=== PATIENT | male | born 1955 | race African-American/Black ===

== ENCOUNTER 2017-08-13 19:06 | Inpatient (IN) | payer MEDICARE, MEDICAID ==
[~2017-08-13] VITALS: Ht 182.9 cm; Wt 74.8 kg
[~2017-08-13 19:06] MED LIST: NORCO 5-325 TA1 EACH PO
[2017-08-13] MEDS ORDERED: PRAVASTATIN SOD40 M1 ORAL (23:13)
[2017-08-13] MEDS ORDERED: METFORMIN HCL500 M3 ORAL (23:13)
[2017-08-13] MEDS ORDERED: DIPHENHYDRAMINE25 M1 ORAL (23:13)
[2017-08-13] MEDS ORDERED: ASPIRIN81 M3 PO (23:13)
[2017-08-13] MEDS ORDERED: LISINOPRIL20 MG ORAL (23:13)
[2017-08-13] MEDS ORDERED: Norco 5mg/325mg tab ORAL PRN (23:15)
[2017-08-13] MEDS: D5 1/2NS w/KCl 20mEq 1,000 ML IV SCH (23:59)
[2017-08-14] VITALS (8 sets, daily range): BP systolic 110–144; BP diastolic 57–71
[2017-08-14] MEDS: Morphine Sulfate 2mg/ml Inj IVP PRN ×4 (05:44→20:55)
[2017-08-14] MEDS: NovoLOG Insulin Flexpen SUBQ SCH ×4 (05:45→20:54)
[2017-08-14 06:56] LABS: MEAN CORPUSCULAR VOLUME 86 FL (80-99); PLATELET COUNT 67 K/UL (150-450); RED BLOOD COUNT 2.45 M/UL (4.70-6.10); RED CELL DISTRIBUTION WIDTH 14.4 % (11.6-14.8); WHITE BLOOD COUNT 3.5 K/UL (4.8-10.8)
[2017-08-14 07:02] LABS: HEMOGLOBIN 6.7 G/DL (14.2-18.0)
[2017-08-14 07:25] LABS: ALANINE AMINOTRANSFERASE 13 U/L (12-78); ALBUMIN 3.1 G/DL (3.4-5.0); ALKALINE PHOSPHATASE 195 U/L (46-116); ANION GAP 6 mmol/L (5-15); ASPARTATE AMINO TRANSFERASE 27 U/L (15-37); BILIRUBIN,TOTAL 0.3 MG/DL (0.2-1.0); BLOOD UREA NITROGEN 19 mg/dL (7-18); CALCIUM 10.1 MG/DL (8.5-10.1); CARBON DIOXIDE 29 MMOL/L (21-32); CHLORIDE 107 MMOL/L (98-107); CREATININE 1.6 MG/DL (0.55-1.30); PHOSPHORUS 3.5 MG/DL (2.5-4.9); POTASSIUM 3.7 MMOL/L (3.5-5.1); SODIUM 142 MMOL/L (136-145)
[2017-08-14 07:43] LABS: % IRON SATURATION 26 % (15-50); IRON 57 ug/dL (50-175); TOTAL IRON BINDING CAPACITY 222 ug/dL (250-450)
[2017-08-14] MEDS: Aspirin Baby 81mg ORAL SCH (09:10)
[2017-08-14] MEDS: Lisinopril 20mg tab ORAL SCH (09:12)
[2017-08-14] MEDS: D5 1/2NS w/KCl 20mEq 1,000 ML IV SCH (09:52)
--- NOTE | 2017-08-14 15:45 | Consultation ---
History of Present Illness General Date patient seen: Aug 14, 2017 Present Illness HPI 61 year old male with hx of DM, HTN, was taken to [facility] and was diagnosed to have symptomatic anemia. He has lost around 20 pounds in the last few month. C/o shooting pain in legs. Allergies: Coded Allergies: No Known Allergies (Unverified , 08/13/17) Medication History Scheduled Aspirin (Aspirin), 81 MG PO DAILY, (Reported) Diphenhydramine Hcl* (Diphenhydramine Hcl*), 50 MG ORAL BEDTIME, (Reported) Hydrocodone Bit/Acetaminophen 5-325* ([place] 5-325*), 1 TAB PO Q8HR Lisinopril (Lisinopril*), 10 MG ORAL DAILY, (Reported) Metformin Hcl (Metformin Hcl Er), 500 MG ORAL BID, (Reported) Pravastatin Sod (Pravastatin Sod), 20 MG ORAL DAILY, (Reported) Patient History Healthcare decision maker Resuscitation status Full Code Advanced Directive on File No Past Medical/Surgical History Past Medical/Surgical History: (1) Diabetes mellitus (2) Methadone maintenance therapy patient Review of Systems Constitutional: Reports: malaise, weakness All Other Systems: negative except mentioned in HPI Physical Exam General Appearance: WD/WN, no apparent distress Lines, tubes and drains: peripheral HEENT: normocephalic, atraumatic Respiratory/Chest: chest wall non-tender, lungs clear Breasts: no masses Cardiovascular/Chest: normal rate, regularly irregular Abdomen: non tender Genitourinary/Rectal: normal genital exam Extremities: normal range of motion Last 24 Hour Vital Signs Date Time Temp Pulse Resp B/P (MAP) Pulse Ox O2 Delivery O2 Flow Rate FiO2 08/14/17 12:50 98.5 100 20 126/71 95 Room Air 08/14/17 12:35 98.7 96 18 110/57 99 Room Air 08/14/17 12:00 98.7 96 19 110/57 97 08/14/17 10:24 98.6 08/14/17 09:12 115/69 08/14/17 08:00 Room Air 08/14/17 08:00 98.6 92 19 115/69 96 08/14/17 06:09 97 08/14/17 04:56 97.9 98 18 122/62 97 08/14/17 04:56 97 Room Air 08/14/17 00:00 93 Room Air 08/14/17 00:00 98.1 107 19 120/68 93 Intake and Output 08/13/17 08/14/17 19:00 07:00 Intake Total 885 ml Output Total 700 ml Balance 185 ml Intake Oral 360 ml IV Total 525 ml Output Urine Total 700 ml # Voids 2 Laboratory Tests Test 08/14/17 05:35 White Blood Count 3.5 K/UL (4.8-10.8) L Red Blood Count 2.45 M/UL (4.70-6.10) L Hemoglobin 6.7 G/DL (14.2-18.0) *L Hematocrit 21.0 % (42.0-52.0) L Mean Corpuscular Volume 86 FL (80-99) Mean Corpuscular Hemoglobin 27.4 PG (27.0-31.0) Mean Corpuscular Hemoglobin Concent 32.0 G/DL (32.0-36.0) Red Cell Distribution Width 14.4 % (11.6-14.8) Platelet Count 67 K/UL (150-450) L Mean Platelet Volume 6.2 FL (6.5-10.1) L Neutrophils (%) (Auto) % (45.0-75.0) Lymphocytes (%) (Auto) % (20.0-45.0) Monocytes (%) (Auto) % (1.0-10.0) Eosinophils (%) (Auto) % (0.0-3.0) Basophils (%) (Auto) % (0.0-2.0) Differential Total Cells Counted 100 Neutrophils % (Manual) 52 % (45-75) Lymphocytes % (Manual) 35 % (20-45) Monocytes % (Manual) 10 % (1-10) Eosinophils % (Manual) 2 % (0-3) Basophils % (Manual) 1 % (0-2) Band Neutrophils 0 % (0-8) Platelet Estimate Decreased L Platelet Morphology Normal Hypochromasia 3+ Anisocytosis 1+ Spherocytes 1+ Sodium Level 142 MMOL/L (136-145) Potassium Level 3.7 MMOL/L (3.5-5.1) Chloride Level 107 MMOL/L (98-107) Carbon Dioxide Level 29 MMOL/L (21-32) Anion Gap 6 mmol/L (5-15) Blood Urea Nitrogen 19 mg/dL (7-18) H Creatinine 1.6 MG/DL (0.55-1.30) H Estimat Glomerular Filtration Rate 53.3 mL/min (>60) Glucose Level 95 MG/DL (74-106) Hemoglobin A1c 6.7 % (4.3-6.0) H Calcium Level 10.1 MG/DL (8.5-10.1) Calcium (Send out) Pending Phosphorus Level 3.5 MG/DL (2.5-4.9) Magnesium Level 1.0 MG/DL (1.8-2.4) L Iron Level 57 ug/dL (50-175) Total Iron Binding Capacity 222 ug/dL (250-450) L Percent Iron Saturation 26 % (15-50) Unsaturated Iron Binding 165 ug/dL (112-346) Total Bilirubin 0.3 MG/DL (0.2-1.0) Aspartate Amino Transf (AST/SGOT) 27 U/L (15-37) Alanine Aminotransferase (ALT/SGPT) 13 U/L (12-78) Alkaline Phosphatase 195 U/L (46-116) H Total Protein 6.2 G/DL (6.4-8.2) L Albumin 3.1 G/DL (3.4-5.0) L Globulin 3.1 g/dL Albumin/Globulin Ratio 1.0 (1.0-2.7) Vitamin D 25-Hydroxy Pending 25-Hydroxy Vitamin D2 Pending 25-Hydroxy Vitamin D3 Pending Parathyroid Hormone (Intact) Pending Height (Feet): 6 Weight (Pounds): 165 Medications Current Medications Medications (Trade) Dose Ordered Sig/Ramon Route PRN Reason Start Time Stop Time Status Last Admin Dose Admin Acetaminophen (Tylenol) 650 mg Q6H PRN ORAL Mild Pain/Temp > 100.5 08/13/17 23:15 09/12/17 23:14 Acetaminophen/ Hydrocodone Bitart ([place] 5/325) 1 tab Q6H PRN ORAL For Pain 08/13/17 23:15 08/20/17 23:14 Aspirin (ASA) 81 mg DAILY ORAL 08/14/17 09:00 09/13/17 08:59 08/14/17 09:10 Dextrose (Dextrose 50%) STAT PRN IV Hypoglycemia 08/13/17 23:15 09/12/17 23:14 Diphenhydramine HCl (Benadryl) 50 mg BEDTIME ORAL 08/14/17 21:00 09/13/17 20:59 Insulin Aspart (NovoLOG) BEFORE MEALS AND HS SUBQ 08/14/17 06:30 09/13/17 06:29 08/14/17 11:38 Lisinopril (Prinivil) 10 mg DAILY ORAL 08/14/17 09:00 09/13/17 08:59 08/14/17 09:12 Morphine Sulfate (Morphine Sulfate) 2 mg Q4H PRN IVP Severe Pain (Pain Scale 7-10) 08/13/17 23:15 08/20/17 23:14 08/14/17 09:54 Ondansetron HCl (Zofran) 4 mg EVERY 4 HOURS PRN IVP Nausea & Vomiting 08/13/17 23:15 09/12/17 23:14 Pravastatin Sodium (Pravachol) 20 mg DAILY ORAL 08/14/17 09:00 09/13/17 08:59 08/14/17 09:10 Assessment/Plan Problem List: (1) Anemia ICD Codes: D64.9 - Anemia, unspecified SNOMED: 077054704 (2) Hypercalcemia ICD Codes: E83.52 - Hypercalcemia SNOMED: 65288836 (3) Weight loss of more than 10% body weight ICD Codes: R63.4 - Abnormal weight loss SNOMED: 28443000 (4) Diabetes mellitus ICD Codes: E11.9 - Type 2 diabetes mellitus without complications SNOMED: 51221847 (5) Methadone maintenance therapy patient ICD Codes: F11.20 - Opioid dependence, uncomplicated SNOMED: 849339111 Assessment/Plan prbc symptomatic treatment Rule out occult malignancy GI evaluation. RACHID ZAMORA Aug 14, 2017 15:45
[2017-08-14 16:01] LABS: CREATINE KINASE 132 U/L (26-308)
--- NOTE | 2017-08-14 17:35 | History & Physical ---
History and Physical History & Physicial Dictated for Int Med-Dr Barba no. [id number]. LUANN REGALADO Aug 14, 2017 17:35
[2017-08-15] VITALS: BP 119/64
[2017-08-15 02:23] LABS: APPEARANCE,URINE CLEAR; BILIRUBIN, URINE NEGATIVE (NEGATIVE); COLOR,URINE PALE YELLOW; GLUCOSE, URINE (UA) NEGATIVE (NEGATIVE); KETONES,URINE NEGATIVE (NEGATIVE); LEUKOCYTE ESTERASE ,URINE NEGATIVE (NEGATIVE); NITRITE,URINE NEGATIVE (NEGATIVE); PH,URINE 5 (4.5-8.0); PROTEIN,URINE NEGATIVE (NEGATIVE); UROBILINOGEN,URINE NORMAL MG/DL (0.0-1.0)
[2017-08-15 04:25] VITALS: BP 121/78
[2017-08-15] MEDS: NovoLOG Insulin Flexpen SUBQ SCH ×4 (06:02→21:00)
[2017-08-15 07:24] LABS: INR 1.2 (0.9-1.1)
[2017-08-15] MEDS: Morphine Sulfate 2mg/ml Inj IVP PRN ×4 (07:29→21:09)
[2017-08-15 07:35] LABS: HEMATOCRIT 25.9 % (42.0-52.0); HEMOGLOBIN 8.4 G/DL (14.2-18.0); MEAN CORPUSCULAR VOLUME 87 FL (80-99); PLATELET COUNT 86 K/UL (150-450); RED BLOOD COUNT 2.97 M/UL (4.70-6.10); RED CELL DISTRIBUTION WIDTH 14.6 % (11.6-14.8); WHITE BLOOD COUNT 4.5 K/UL (4.8-10.8)
[2017-08-15 07:43] LABS: ANION GAP 10 mmol/L (5-15); BLOOD UREA NITROGEN 16 mg/dL (7-18); CARBON DIOXIDE 28 MMOL/L (21-32); CHLORIDE 103 MMOL/L (98-107); CREATININE 1.5 MG/DL (0.55-1.30); POTASSIUM 3.8 MMOL/L (3.5-5.1); SODIUM 141 MMOL/L (136-145)
[2017-08-15 08:00] VITALS: BP 144/76
[2017-08-15 08:10] LABS: % IRON SATURATION 22 % (15-50); IRON 59 ug/dL (50-175); TOTAL IRON BINDING CAPACITY 264 ug/dL (250-450)
[2017-08-15 08:26] LABS: LACTATE DEHYDROGENASE 332 U/L (81-234)
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
[2017-08-15] MEDS: Lisinopril 20mg tab ORAL SCH (10:56)
[2017-08-15] MEDS: Aspirin Baby 81mg ORAL SCH (10:56)
[2017-08-15 12:00] VITALS: BP 146/82
--- NOTE | 2017-08-15 13:18 | Internal Med Progress Note ---
Subjective Date of Service: Aug 15, 2017 Physician Name Luann Regalado Attending Physician Tyrone Barba MD Current Medications Medications (Trade) Dose Ordered Sig/Ramon Route PRN Reason Start Time Stop Time Status Last Admin Dose Admin Acetaminophen (Tylenol) 650 mg Q6H PRN ORAL Mild Pain/Temp > 100.5 08/13/17 23:15 09/12/17 23:14 Acetaminophen/ Hydrocodone Bitart ([place] 5/325) 1 tab Q6H PRN ORAL For Pain 08/13/17 23:15 08/20/17 23:14 Aspirin (ASA) 81 mg DAILY ORAL 08/14/17 09:00 09/13/17 08:59 08/15/17 10:56 Bisacodyl (Dulcolax) 10 mg ONCE ONCE ORAL 08/15/17 16:00 08/15/17 16:01 Dextrose (Dextrose 50%) STAT PRN IV Hypoglycemia 08/13/17 23:15 09/12/17 23:14 Diphenhydramine HCl (Benadryl) 50 mg BEDTIME ORAL 08/14/17 21:00 09/13/17 20:59 08/14/17 20:54 Gabapentin (Neurontin) 200 mg THREE TIMES A DAY ORAL 08/14/17 18:00 09/13/17 17:59 08/15/17 10:55 Insulin Aspart (NovoLOG) BEFORE MEALS AND HS SUBQ 08/14/17 06:30 09/13/17 06:29 08/15/17 11:40 Lisinopril (Prinivil) 10 mg DAILY ORAL 08/14/17 09:00 09/13/17 08:59 08/15/17 10:56 Morphine Sulfate (Morphine Sulfate) 2 mg Q4H PRN IVP Severe Pain (Pain Scale 7-10) 08/13/17 23:15 08/20/17 23:14 08/15/17 11:36 Ondansetron HCl (Zofran) 4 mg EVERY 4 HOURS PRN IVP Nausea & Vomiting 08/13/17 23:15 09/12/17 23:14 Polyethylene Glycol/ Electrolytes (Nulytely) 4,000 ml ONCE ONCE ORAL 08/15/17 16:00 08/15/17 16:01 Pravastatin Sodium (Pravachol) 20 mg DAILY ORAL 08/14/17 09:00 09/13/17 08:59 08/15/17 10:55 Allergies: Coded Allergies: No Known Allergies (Unverified , 08/13/17) ROS Limited/Unobtainable: No Constitutional: Reports: no symptoms HEENT: Reports: no symptoms Cardiovascular: Reports: no symptoms Respiratory: Reports: no symptoms Gastrointestinal/Abdominal: Reports: no symptoms Genitourinary: Reports: no symptoms Neurologic/Psychiatric: Reports: no symptoms Subjective 61 YO M admitted with bilateral leg weakness and pain. Now severe anemia. Await GI consult. Cover for Int Der[facility]-Dr Barba Objective Last Vital Signs Date Time Temp Pulse Resp B/P (MAP) Pulse Ox O2 Delivery O2 Flow Rate FiO2 08/15/17 12:06 99.0 08/15/17 12:00 100 19 146/82 98 08/15/17 04:25 Room Air General Appearance: WD/WN, no apparent distress, alert, mild distress EENT: PERRL/EOMI, normal ENT inspection, TMs normal Neck: non-tender, normal alignment, supple, normal inspection Cardiovascular: normal peripheral pulses, normal rate, regular rhythm, no gallop/murmur, no JVD Respiratory/Chest: chest wall non-tender, lungs clear, normal breath sounds, no respiratory distress, no accessory muscle use Abdomen: normal bowel sounds, non tender, soft, no organomegaly, no mass Extremities: normal range of motion, non-tender 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, no motor/sensory deficits Skin: normal pigmentation, warm/dry Laboratory Tests Test 08/15/17 00:00 08/15/17 06:00 Urine Color Pale yellow Urine Appearance Clear Urine pH 5 (4.5-8.0) Urine Specific [place] 1.020 (1.005-1.035) Urine Protein Negative (NEGATIVE) Urine Glucose (UA) Negative (NEGATIVE) Urine Ketones Negative (NEGATIVE) Urine Occult Blood Negative (NEGATIVE) Urine Nitrite Negative (NEGATIVE) Urine Bilirubin Negative (NEGATIVE) Urine Urobilinogen Normal MG/DL (0.0-1.0) Urine Leukocyte Esterase Negative (NEGATIVE) Urine RBC 0 /HPF (0 - 0) Urine WBC 0 /HPF (0 - 0) Urine Squamous Epithelial Cells None /LPF (NONE/OCC) Urine Bacteria None /HPF (NONE) Urine Eosinophils None seen Urine Random Sodium 117 MEQ/L (20-110) H Urine Potassium Timed 33 mmol/L (12-62) White Blood Count 4.5 K/UL (4.8-10.8) L Red Blood Count 2.97 M/UL (4.70-6.10) L Hemoglobin 8.4 G/DL (14.2-18.0) L Hematocrit 25.9 % (42.0-52.0) L Mean Corpuscular Volume 87 FL (80-99) Mean Corpuscular Hemoglobin 28.3 PG (27.0-31.0) Mean Corpuscular Hemoglobin Concent 32.5 G/DL (32.0-36.0) Red Cell Distribution Width 14.6 % (11.6-14.8) Platelet Count 86 K/UL (150-450) L Mean Platelet Volume 7.7 FL (6.5-10.1) Neutrophils (%) (Auto) % (45.0-75.0) Lymphocytes (%) (Auto) % (20.0-45.0) Monocytes (%) (Auto) % (1.0-10.0) Eosinophils (%) (Auto) % (0.0-3.0) Basophils (%) (Auto) % (0.0-2.0) Differential Total Cells Counted 100 Neutrophils % (Manual) 51 % (45-75) Lymphocytes % (Manual) 38 % (20-45) Monocytes % (Manual) 6 % (1-10) Eosinophils % (Manual) 1 % (0-3) Basophils % (Manual) 2 % (0-2) Metamyelocytes % 1 % (0-0) H Band Neutrophils 1 % (0-8) Platelet Estimate Decreased L Platelet Morphology Normal Hypochromasia 1+ Poikilocytosis 1+ Anisocytosis 1+ Microcytosis 1+ Erythrocyte Sedimentation Rate 52 MM/HR (0-20) H Reticulocyte Count 1.0 % (0.0-2.0) Prothrombin Time 12.1 SEC (9.30-11.50) H Prothromb Time International Ratio 1.2 (0.9-1.1) H Activated Partial Thromboplast Time 22 SEC (23-33) L Sodium Level 141 MMOL/L (136-145) Potassium Level 3.8 MMOL/L (3.5-5.1) Chloride Level 103 MMOL/L (98-107) Carbon Dioxide Level 28 MMOL/L (21-32) Anion Gap 10 mmol/L (5-15) Blood Urea Nitrogen 16 mg/dL (7-18) Creatinine 1.5 MG/DL (0.55-1.30) H Estimat Glomerular Filtration Rate 57.4 mL/min (>60) Glucose Level 93 MG/DL (74-106) Calcium Level 12.0 MG/DL (8.5-10.1) H Iron Level 59 ug/dL (50-175) Total Iron Binding Capacity 264 ug/dL (250-450) Percent Iron Saturation 22 % (15-50) Unsaturated Iron Binding 205 ug/dL (112-346) Lactate Dehydrogenase 332 U/L (81-234) H Vitamin B12 Level 338 PG/ML (193-986) Folate 7.8 NG/ML (8.6-58.9) L Intake and Output 08/14/17 08/15/17 19:00 07:00 Intake Total 1625 ml 240 ml Output Total 700 ml 300 ml Balance 925 ml -60 ml Intake Oral 680 ml 240 ml IV Total 675 ml Blood Product 270 ml Output Urine Total 700 ml 300 ml # Voids 2 Assessment/Plan Problem List: (1) Severe anemia Assessment & Plan: Iron panel normal. Await GI consult ?GI bleed? (2) Pain in both lower legs (3) Weakness of both legs (4) HTN (hypertension) Assessment & Plan: Continue lisinopril (5) Diabetes mellitus, type II Assessment & Plan: Continue novolog sliding scale. (6) Hypercholesteremia Assessment & Plan: continue pravachol (7) Peripheral vascular disease (8) Hepatitis C virus infection resolved after antiviral drug therapy Status: not improved LUANN REGALADO Aug 15, 2017 13:18
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
--- NOTE | 2017-08-15 15:51 | Pulmonology Progress Note ---
Assessment/Plan Problems: (1) Anemia (2) Hypercalcemia (3) Weight loss of more than 10% body weight (4) Diabetes mellitus (5) Methadone maintenance therapy patient Assessment/Plan h/h better Ca WNL GI evalution reviewed for colonosocpy in am f/u blood smear anemai w/u in progress. Subjective ROS Limited/Unobtainable: No Constitutional: Reports: no symptoms Respiratory: Reports: no symptoms Cardiovascular: Reports: no symptoms Allergies: Coded Allergies: No Known Allergies (Unverified , 08/13/17) Objective Last 24 Hour Vital Signs Date Time Temp Pulse Resp B/P (MAP) Pulse Ox O2 Delivery O2 Flow Rate FiO2 08/15/17 12:06 99.0 08/15/17 12:00 99.0 100 19 146/82 98 08/15/17 10:56 144/76 08/15/17 08:00 99.2 90 18 144/76 96 08/15/17 04:25 95 Room Air 08/15/17 04:25 98.7 102 20 121/78 95 08/15/17 00:00 97 Room Air 08/15/17 00:00 98.5 100 19 119/64 97 08/14/17 20:10 95 Room Air 08/14/17 20:10 98.4 102 20 144/71 95 08/14/17 16:00 99.1 97 19 113/66 97 08/14/17 16:00 Room Air Intake and Output 08/14/17 08/15/17 19:00 07:00 Intake Total 1625 ml 240 ml Output Total 700 ml 300 ml Balance 925 ml -60 ml Intake Oral 680 ml 240 ml IV Total 675 ml Blood Product 270 ml Output Urine Total 700 ml 300 ml # Voids 2 General Appearance: WD/WN HEENT: normocephalic, atraumatic Respiratory/Chest: chest wall non-tender, lungs clear Cardiovascular: normal peripheral pulses, normal rate Abdomen: normal bowel sounds, no organomegaly, non distended Laboratory Tests 08/15/17 00:00: Urine Color Pale yellow, Urine Appearance Clear, Urine pH 5, Urine Specific [place] 1.020, Urine Protein Negative, Urine Glucose (UA) Negative, Urine Ketones Negative, Urine Occult Blood Negative, Urine Nitrite Negative, Urine Bilirubin Negative, Urine Urobilinogen Normal, Urine Leukocyte Esterase Negative , Urine RBC 0, Urine WBC 0, Urine Squamous Epithelial Cells None, Urine Bacteria None, Urine Eosinophils None seen, Urine Random Sodium 117H, Urine Potassium Timed 33 08/15/17 06:00: White Blood Count 4.5L, Red Blood Count 2.97L, Hemoglobin 8.4L, Hematocrit 25.9L , Mean Corpuscular Volume 87, Mean Corpuscular Hemoglobin 28.3, Mean Corpuscular Hemoglobin Concent 32.5, Red Cell Distribution Width 14.6, Platelet Count 86L, Mean Platelet Volume 7.7, Neutrophils (%) (Auto) , Lymphocytes (%) ( Auto) , Monocytes (%) (Auto) , Eosinophils (%) (Auto) , Basophils (%) (Auto) , Differential Total Cells Counted 100, Neutrophils % (Manual) 51, Lymphocytes % ( Manual) 38, Monocytes % (Manual) 6, Eosinophils % (Manual) 1, Basophils % ( Manual) 2, Metamyelocytes % 1H, Band Neutrophils 1, Other Cell Type Pathologist comment, Platelet Estimate DecreasedL, Platelet Morphology Normal, Hypochromasia 1+, Poikilocytosis 1+, Anisocytosis 1+, Microcytosis 1+, Erythrocyte Sedimentation Rate 52H, Reticulocyte Count 1.0, Prothrombin Time 12.1H, Prothromb Time International Ratio 1.2H, Activated Partial Thromboplast Time 22L, Sodium Level 141, Potassium Level 3.8, Chloride Level 103, Carbon Dioxide Level 28, Anion Gap 10, Blood Urea Nitrogen 16, Creatinine 1.5H, Estimat Glomerular Filtration Rate 57.4, Glucose Level 93, Calcium Level 12.0H, Iron Level 59, Total Iron Binding Capacity 264, Percent Iron Saturation 22, Unsaturated Iron Binding 205, Lactate Dehydrogenase 332H, Vitamin B12 Level 338 , Folate 7.8L Current Medications Medications (Trade) Dose Ordered Sig/Ramon Route PRN Reason Start Time Stop Time Status Last Admin Dose Admin Acetaminophen (Tylenol) 650 mg Q6H PRN ORAL Mild Pain/Temp > 100.5 08/13/17 23:15 09/12/17 23:14 Acetaminophen/ Hydrocodone Bitart ([place] 5/325) 1 tab Q6H PRN ORAL For Pain 08/13/17 23:15 08/20/17 23:14 Aspirin (ASA) 81 mg DAILY ORAL 08/14/17 09:00 09/13/17 08:59 08/15/17 10:56 Bisacodyl (Dulcolax) 10 mg ONCE ONCE ORAL 08/15/17 16:00 08/15/17 16:01 Dextrose (Dextrose 50%) STAT PRN IV Hypoglycemia 08/13/17 23:15 09/12/17 23:14 Diphenhydramine HCl (Benadryl) 50 mg BEDTIME ORAL 08/14/17 21:00 09/13/17 20:59 08/14/17 20:54 Gabapentin (Neurontin) 200 mg THREE TIMES A DAY ORAL 08/14/17 18:00 09/13/17 17:59 08/15/17 13:17 Insulin Aspart (NovoLOG) BEFORE MEALS AND HS SUBQ 08/14/17 06:30 09/13/17 06:29 08/15/17 11:40 Lisinopril (Prinivil) 10 mg DAILY ORAL 08/14/17 09:00 09/13/17 08:59 08/15/17 10:56 Morphine Sulfate (Morphine Sulfate) 2 mg Q4H PRN IVP Severe Pain (Pain Scale 7-10) 08/13/17 23:15 08/20/17 23:14 08/15/17 11:36 Ondansetron HCl (Zofran) 4 mg EVERY 4 HOURS PRN IVP Nausea & Vomiting 08/13/17 23:15 09/12/17 23:14 Polyethylene Glycol/ Electrolytes (Nulytely) 4,000 ml ONCE ONCE ORAL 08/15/17 16:00 08/15/17 16:01 Pravastatin Sodium (Pravachol) 20 mg DAILY ORAL 08/14/17 09:00 09/13/17 08:59 08/15/17 10:55 RACHID ZAMORA Aug 15, 2017 15:50
[2017-08-15 16:00] VITALS: BP 147/80
[2017-08-15] MEDS ORDERED: Bisacodyl EC 5mg tab ORAL ONE (16:00)
[2017-08-15] MEDS ORDERED: Nulytely 4L ORAL ONE (16:00)
--- NOTE | 2017-08-15 18:17 | Diagnostic Imaging Report ---
Indication: Abdominal pain, weight loss. Technique: CT of the abdomen and pelvis utilizing automated exposure control with intravenous contrast. Venous scanning performed. CT dose: Total DLP 685.84 mGycm; CTDI vol 13.45 mGy Comparison: None Findings: Dependent atelectasis and small bilateral pleural effusions noted in the lung bases. Heart is borderline enlarged. There is no pericardial effusion. No focal hepatic mass lesion is appreciated on this single phase study. Hepatic veins and portal veins appear patent. Gallbladder is unremarkable in appearance. No intrahepatic or extrahepatic biliary ductal dilatation. Spleen is mildly enlarged, measuring 13 cm in length. Adrenal glands unremarkable. Pancreas is unremarkable in appearance. No discrete pancreatic mass lesion is appreciated. Kidneys enhance symmetrically. No urinary tract stones or hydronephrosis bilaterally. Bladder is unremarkable in appearance. Prostate is enlarged and heterogeneous with coarse peripheral calcifications. There is no bowel obstruction. No appreciable focal bowel wall thickening is seen. Copious stool is noted within the colon. No free intraperitoneal air. The appendix is normal. Abdominal aorta is normal in caliber with scattered atherosclerotic calcifications. The iliac arteries are normal in caliber with tortuous. Adjacent and at times intimately associated with to the left external iliac vein there is a oval structure that measures proximal by 2.8 x 1.7 cm (series 3 image 67) this is slightly heterogeneous in attenuation with a more circular area anteriorly which measures 1.1 x 1 cm. This may represent a partially necrotic iliac chain lymph node. Given proximity to the vessels, vascular pathology is not entirely excluded. A 8 mm abnormal rounded lymph node is noted adjacent to the bladder on the right (series 3 image #72 additional smaller external iliac nodes are seen bilaterally. There is diffuse heterogeneity of the bones with suggestion of multiple bony lesions with a somewhat permeative pattern. There is compression deformity of the T12 vertebral body with focal kyphosis at this level. Impression: 2.8 x 1.7 cm rounded structure sitting in between the left external iliac vein and left internal iliac artery may represent an enlarged, partially necrotic lymph node. Additional smaller bilateral pelvic lymph nodes. There is diffuse bony abnormality suggesting diffuse osseous metastases or additional permeative osseous lesion. Taken together these findings are concerning for malignancy, with prostate being suspected. Correlate with PSA. Additional etiologies are not entirely excluded. Bone biopsy may be of benefit. Additional findings as above. The CT scanner at [facility] is accredited by the [employer] and the scans are performed using protocols designed to limit radiation exposure to as low as reasonably achievable to attain images of sufficient resolution adequate for diagnostic evaluation.
[2017-08-15 20:00] VITALS: BP 127/63
[2017-08-15] MEDS ORDERED: Polyethylene Glycol 238gm bottle ORAL ONE ×2 (22:30→23:00)
[2017-08-15] MEDS: 1/2NS w/KCl 20mEq 1000ml 1,000 ML IV SCH (23:59)
[2017-08-16] VITALS (12 sets, daily range): BP systolic 117–138; BP diastolic 65–80
[2017-08-16] MEDS: Morphine Sulfate 2mg/ml Inj IVP PRN ×4 (01:06→13:11)
[2017-08-16] MEDS: 1/2NS w/KCl 20mEq 1000ml 1,000 ML IV SCH (04:00)
[2017-08-16] MEDS: NovoLOG Insulin Flexpen SUBQ SCH ×4 (06:12→21:54)
--- NOTE | 2017-08-16 07:11 | Pre-Procedure Note/Attestation ---
Pre-Procedure Note/Attestation Complete Prior to Procedure Planned Procedure: not applicable Procedure Narrative: esophagogastroduodenoscopy and colonoscopy Indications for Procedure Pre-Operative Diagnosis: anemia Attestation I attest that I discussed the nature of the procedure; its benefits; risks and complications; and alternatives (and the risks and benefits of such alternatives ), prior to the procedure, with the patient (or the patient's legal appeals representative). I attest that, if there was a reasonable possibility of needing a blood transfusion, the patient (or the patient's legal appeals representative) was given the [facility] standardized written summary, pursuant to the Mike Brianna Blood Safety Act ([place] Health and Safety Code # 1645, as amended). I attest that I re-evaluated the patient just prior to the surgery and that there has been no change in the patient's H&P, except as documented below: MARIA DOLORES BADILLO Aug 16, 2017 07:11
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
--- NOTE | 2017-08-16 07:12 | General Progress Note ---
Assessment/Plan Problem List: (1) Weight loss ICD Codes: R63.4 - Abnormal weight loss SNOMED: 59345342, 981329086 (2) Hepatitis C virus infection resolved after antiviral drug therapy ICD Codes: Z86.19 - Personal history of other infectious and parasitic diseases SNOMED: 231892448, [id number] (3) HTN (hypertension) ICD Codes: I10 - Essential (primary) hypertension SNOMED: 05318547 (4) Anemia ICD Codes: D64.9 - Anemia, unspecified SNOMED: 380675721 Assessment/Plan plan esophagogastroduodenoscopy and colonoscopy today Subjective ROS Limited/Unobtainable: Yes Allergies: Coded Allergies: No Known Allergies (Unverified , 08/13/17) Subjective only one BM last night Objective Last 24 Hour Vital Signs Date Time Temp Pulse Resp B/P (MAP) Pulse Ox O2 Delivery O2 Flow Rate FiO2 08/16/17 06:49 97.7 118 18 137/77 95 08/16/17 04:00 99.5 119 20 123/70 94 08/16/17 00:00 98.7 115 18 132/73 92 Room Air 08/15/17 20:00 98.6 114 18 127/63 95 08/15/17 16:56 99.0 08/15/17 16:00 98.9 100 19 147/80 98 08/15/17 12:00 99.0 100 19 146/82 98 08/15/17 10:56 144/76 08/15/17 08:00 99.2 90 18 144/76 96 Intake and Output 08/15/17 08/16/17 19:00 07:00 Intake Total 120 ml 690 ml Output Total 600 ml Balance -480 ml 690 ml Intake Oral 120 ml 240 ml IV Total 450 ml Output Urine Total 600 ml # Voids 4 2 # Bowel Movements 1 Height (Feet): 6 Weight (Pounds): 165 General Appearance: alert EENT: normal ENT inspection Neck: supple Cardiovascular: normal rate Respiratory/Chest: lungs clear Abdomen: normal bowel sounds, non tender, soft Extremities: non-tender MARIA DOLORES BADILLO Aug 16, 2017 07:12
[2017-08-16] MEDS ORDERED: Meperidine 50mg/ml Inj(FOR RIGORS ONLY) IV PRN (07:15)
[2017-08-16] MEDS ORDERED: DiphenhydrAMINE 50mg/ml Inj IVP PRN (07:15)
--- NOTE | 2017-08-16 07:43 | Endoscopy Procedure Note ---
Endoscopy Procedure Note Indication for Procedure: ANEMIA Procedures Performed: EGD, colonoscopy Operative Findings/Diagnosis: GASTRITIS, HEMORRHOIDS Specimen: yes Pt Tolerated Procedure Well: Yes Estimated Blood Loss: none Anesthesiologist: HODA Anesthesia: MAC Implant(s) used?: No 50 yrs or older w/o bx or poly: Not Applicable 10yrs. F/U not recommended: Not Applicable MARIA DOLORES BADILLO Aug 16, 2017 07:43
[2017-08-16 07:48] LABS: HEMATOCRIT 26.1 % (42.0-52.0); HEMOGLOBIN 8.7 G/DL (14.2-18.0); MEAN CORPUSCULAR VOLUME 86 FL (80-99); PLATELET COUNT 83 K/UL (150-450); RED BLOOD COUNT 3.02 M/UL (4.70-6.10); RED CELL DISTRIBUTION WIDTH 14.5 % (11.6-14.8); WHITE BLOOD COUNT 5.7 K/UL (4.8-10.8)
--- NOTE | 2017-08-16 07:52 | Immediate Post-Op Evaluation ---
Immediate Post-Op Evalulation Immediate Post-Op Evalulation Procedure: EGD Colonoscopy Date of Evaluation: Aug 16, 2017 Time of Evaluation: 07:51 IV Fluids: 400 Blood Products: none Estimated Blood Loss: none Urinary Output: none Blood Pressure Systolic: 132 Blood Pressure Diastolic: 68 Pulse Rate: 116 Respiratory Rate: 20 O2 Sat by Pulse Oximetry: 98 Temperature (Fahrenheit): 98.6 Pain Score (1-10): 2 Nausea: No Vomiting: No Complications none Patient Status: awake, patent, none Hydration Status: adequate DANIEL ROSARIO M.D. Aug 16, 2017 07:52
[2017-08-16] MEDS ORDERED: Propofol 200mg/20ml IV ONE (08:00)
[2017-08-16] MEDS ORDERED: Midazolam 2mg/2ml Inj ONE (08:00)
[2017-08-16] MEDS ORDERED: fentaNYL 100 mcg/2 mL IV ONE (08:00)
[2017-08-16 08:14] LABS: INR 1.3 (0.9-1.1)
[2017-08-16 08:24] LABS: ALANINE AMINOTRANSFERASE 7 U/L (12-78); ALBUMIN 3.6 G/DL (3.4-5.0); ALBUMIN/GLOBULIN RATIO 1.1 (1.0-2.7); ALKALINE PHOSPHATASE 228 U/L (46-116); ANION GAP 9 mmol/L (5-15); ASPARTATE AMINO TRANSFERASE 30 U/L (15-37); BILIRUBIN,TOTAL 0.5 MG/DL (0.2-1.0); BLOOD UREA NITROGEN 15 mg/dL (7-18); CALCIUM 11.4 MG/DL (8.5-10.1); CARBON DIOXIDE 29 MMOL/L (21-32); CHLORIDE 102 MMOL/L (98-107); CREATININE 1.5 MG/DL (0.55-1.30); POTASSIUM 3.5 MMOL/L (3.5-5.1); SODIUM 140 MMOL/L (136-145)
[2017-08-16 08:27] LABS: PHOSPHORUS 3.4 MG/DL (2.5-4.9)
--- NOTE | 2017-08-16 08:30 | 48 Hour Post Anesthesia Eval ---
Post Anesthesia Evaluation Procedure: EGD Colonoscopy Date of Evaluation: Aug 16, 2017 Time of Evaluation: 08:28 Blood Pressure Systolic: 116 0: 74 Pulse Rate: 108 Respiratory Rate: 22 Temperature (Fahrenheit): 98.1 O2 Sat by Pulse Oximetry: 98 Airway: patent Nausea: No Vomiting: No Pain Intensity: 2 Hydration Status: adequate Cardiopulmonary Status: stable Mental Status/LOC: patient returned to baseline Follow-up Care/Observations: n/a Post-Anesthesia Complications: none Follow-up care needed: N/A DANIEL ROSARIO M.D. Aug 16, 2017 08:30
[2017-08-16] MEDS: Lisinopril 20mg tab ORAL SCH (09:06)
[2017-08-16] MEDS: Aspirin Baby 81mg ORAL SCH (09:07)
--- NOTE | 2017-08-16 10:10 | Diagnostic Imaging Report ---
Indication:Elevated Bun and Creatinine. Technique: Grayscale and duplex Doppler imaging of the kidneys performed. Comparison: None Findings: The size, contour and echogenicity of the kidneys are within normal limits. Both kidneys measure between 10 and 11 cm. There is no evidence of hydronephrosis. Urinary bladder is unremarkable in appearance. IVC is unremarkable. IMPRESSION: Negative exam
--- NOTE | 2017-08-16 14:45 | Procedure Note ---
DATE OF PROCEDURE: 08/16/2017 SURGEON: Harley Coreas M.D. REFERRING PHYSICIAN: Tyrone Barba M.D. ANESTHESIOLOGIST: Joel Reynolds M.D. INSTRUMENT: Olympus adult flexible upper endoscope and colonoscopy. PROCEDURE: Upper endoscopy with biopsy and colonoscopy. INDICATION: Anemia. The procedure, risks, benefits, and possible consequences, including hemorrhage, aspiration, perforation and infection, and alternative treatments, were explained to the patient/legal guardian by Dr. Harley Coreas and the patient/legal guardian understood and accepted these risks. PROCEDURE IN DETAIL: After informed consent was obtained and the patient was adequately sedated, Olympus upper endoscope was advanced from mouth into the second portion of the duodenum and retroflexion was performed in the stomach. The patient has a distal esophageal ring at the GE junction where there was evidence of medium-sized hiatal hernia. In the stomach, there was evidence of bile reflux, diffuse gastritis. Random biopsy from antrum was obtained to rule out H. pylori infection. At this time, the upper endoscope was retrieved and the patient was turned over for colonoscopy. First, a rectal exam performed and positive for internal hemorrhoids. Then, the scope was advanced from rectum into the cecum. Quality of prep was unfortunately, I would say, mediocre to poor. Cecum was not examined given there was a solid stool sitting in the cecum. I would say about 10% to 15% of the colon was not examined given this quality of prep. No obvious mass, polyp, or any bleeding was seen. No diverticulosis. Retroflexion of the rectum showed evidence of internal hemorrhoids. SUMMARY OF FINDINGS: 1. Distal esophageal ring. 2. Medium-sized hiatal hernia. 3. Evidence of bile reflux. 4. Gastritis, status post biopsy. 5. Internal hemorrhoids. 6. Poor colonoscopy prep. RECOMMENDATIONS: Follow up biopsy results and treat accordingly. I want to thank, Dr. Tyrone Barba, for this kind referral. Harley Coreas M.D. DR: ANJELICA JOB#: [id number] CC: Tyrone Barba M.D.; Fax#: [phone]
[2017-08-16] MEDS: Dronabinol 2.5mg Cap ORAL SCH (17:53)
--- NOTE | 2017-08-16 18:32 | Pulmonology Progress Note ---
Assessment/Plan Problems: (1) Anemia (2) Hypercalcemia (3) Weight loss of more than 10% body weight (4) Diabetes mellitus (5) Methadone maintenance therapy patient Assessment/Plan h/h better Ca WNL GI evalution reviewed for colonosocpy showed internal hemorrhoids f/u blood smear anemai w/u in progress. might need bone marrow biopsy hem evaluation neuro to see for progressive weakness. Subjective ROS Limited/Unobtainable: No Interval Events: c/o weakness Allergies: Coded Allergies: No Known Allergies (Unverified , 08/13/17) Objective Last 24 Hour Vital Signs Date Time Temp Pulse Resp B/P (MAP) Pulse Ox O2 Delivery O2 Flow Rate FiO2 08/16/17 16:00 98.9 123 20 118/65 93 08/16/17 11:54 98.2 121 20 129/74 94 08/16/17 09:06 137/78 08/16/17 08:58 97.2 116 20 137/78 96 08/16/17 08:30 108 22 98 08/16/17 08:07 99.0 113 20 138/80 100 Room Air 08/16/17 07:58 113 20 132/80 100 Room Air 08/16/17 07:52 112 20 130/79 100 Nasal Cannula 4.0 08/16/17 07:52 116 20 98 08/16/17 07:47 99.7 111 20 132/80 100 Nasal Cannula 4.0 08/16/17 06:49 97.7 118 18 137/77 95 08/16/17 04:00 99.5 119 20 123/70 94 08/16/17 00:00 98.7 115 18 132/73 92 Room Air 08/15/17 20:00 98.6 114 18 127/63 95 Intake and Output 08/15/17 08/16/17 19:00 07:00 Intake Total 120 ml 690 ml Output Total 600 ml Balance -480 ml 690 ml Intake Oral 120 ml 240 ml IV Total 450 ml Output Urine Total 600 ml # Voids 4 2 # Bowel Movements 1 Objective General Appearance: WD/WN HEENT: normocephalic, atraumatic Respiratory/Chest: chest wall non-tender, lungs clear Cardiovascular: normal peripheral pulses, normal rate Abdomen: normal bowel sounds, no organomegaly, non distended Laboratory Tests 08/16/17 04:45: White Blood Count 5.7, Red Blood Count 3.02L, Hemoglobin 8.7L, Hematocrit 26.1L , Mean Corpuscular Volume 86, Mean Corpuscular Hemoglobin 28.8, Mean Corpuscular Hemoglobin Concent 33.4, Red Cell Distribution Width 14.5, Platelet Count 83L, Mean Platelet Volume 6.7, Neutrophils (%) (Auto) , Lymphocytes (%) ( Auto) , Monocytes (%) (Auto) , Eosinophils (%) (Auto) , Basophils (%) (Auto) , Differential Total Cells Counted 100, Neutrophils % (Manual) 64, Lymphocytes % ( Manual) 25, Monocytes % (Manual) 8, Eosinophils % (Manual) 2, Basophils % ( Manual) 1, Band Neutrophils 0, Platelet Estimate DecreasedL, Platelet Morphology Normal, Hypochromasia 2+, Spherocytes 1+, Erythrocyte Sedimentation Rate 5, Prothrombin Time 13.4H, Prothromb Time International Ratio 1.3H, Activated Partial Thromboplast Time 22L, Sodium Level 140, Potassium Level 3.5, Chloride Level 102, Carbon Dioxide Level 29, Anion Gap 9, Blood Urea Nitrogen 15 , Creatinine 1.5H, Estimat Glomerular Filtration Rate 57.4, Glucose Level 132H, Calcium Level 11.4H, Phosphorus Level 3.4, Magnesium Level 1.0L, Total Bilirubin 0.5, Aspartate Amino Transf (AST/SGOT) 30, Alanine Aminotransferase ( ALT/SGPT) 7L, Alkaline Phosphatase 228H, C-Reactive Protein, Quantitative < 0.4 , Total Protein 7.0, Albumin 3.6, Globulin 3.4, Albumin/Globulin Ratio 1.1, Hepatitis A IgM Antibody [Pending], Hepatitis B Surface Antigen [Pending], Hepatitis B Core IgM Antibody [Pending], Hepatitis C Antibody [Pending], HIV (1& 2) Antibody Rapid Negative Current Medications Medications (Trade) Dose Ordered Sig/Ramon Route PRN Reason Start Time Stop Time Status Last Admin Dose Admin Acetaminophen (Tylenol) 650 mg Q6H PRN ORAL Mild Pain/Temp > 100.5 08/13/17 23:15 09/12/17 23:14 Acetaminophen/ Hydrocodone Bitart ([place] 5/325) 1 tab Q6H PRN ORAL For Pain 08/13/17 23:15 08/20/17 23:14 Aspirin (ASA) 81 mg DAILY ORAL 08/14/17 09:00 09/13/17 08:59 08/16/17 09:07 Dextrose (Dextrose 50%) STAT PRN IV Hypoglycemia 08/13/17 23:15 09/12/17 23:14 Diphenhydramine HCl (Benadryl) 50 mg BEDTIME ORAL 08/14/17 21:00 09/13/17 20:59 08/15/17 21:08 Dronabinol (Marinol) 2.5 mg TID ORAL 08/16/17 18:00 09/15/17 17:59 08/16/17 17:53 Gabapentin (Neurontin) 200 mg THREE TIMES A DAY ORAL 08/14/17 18:00 09/13/17 17:59 08/16/17 17:54 Insulin Aspart (NovoLOG) BEFORE MEALS AND HS SUBQ 08/14/17 06:30 09/13/17 06:29 08/16/17 16:22 Lisinopril (Prinivil) 10 mg DAILY ORAL 08/14/17 09:00 09/13/17 08:59 08/16/17 09:06 Magnesium Sulfate 100 ml @ 100 mls/hr Q1H IVPB 08/16/17 17:30 08/16/17 19:29 08/16/17 17:54 Morphine Sulfate (Morphine Sulfate) 2 mg Q4H PRN IVP Severe Pain (Pain Scale 7-10) 08/13/17 23:15 08/20/17 23:14 08/16/17 13:11 Morphine Sulfate (Morphine Sulfate) 4 mg Q4H PRN IVP Severe Breakthrough Pain 08/16/17 17:15 08/23/17 17:14 Ondansetron HCl (Zofran) 4 mg EVERY 4 HOURS PRN IVP Nausea & Vomiting 08/13/17 23:15 09/12/17 23:14 08/16/17 10:58 Pravastatin Sodium (Pravachol) 20 mg DAILY ORAL 08/14/17 09:00 09/13/17 08:59 08/16/17 09:08 Sodium 1,000 ml @ 75 mls/hr [id number] IV 08/15/17 22:30 09/14/17 22:29 08/16/17 04:00 RACHID ZAMORA Aug 16, 2017 18:32
--- NOTE | 2017-08-16 19:45 | Internal Med Progress Note ---
Subjective Date of Service: Aug 16, 2017 Physician Name Luann Regalado Attending Physician Tyrone Barba MD Current Medications Medications (Trade) Dose Ordered Sig/Ramon Route PRN Reason Start Time Stop Time Status Last Admin Dose Admin Acetaminophen (Tylenol) 650 mg Q6H PRN ORAL Mild Pain/Temp > 100.5 08/13/17 23:15 09/12/17 23:14 Acetaminophen/ Hydrocodone Bitart ([place] 5/325) 1 tab Q6H PRN ORAL For Pain 08/13/17 23:15 08/20/17 23:14 Aspirin (ASA) 81 mg DAILY ORAL 08/14/17 09:00 09/13/17 08:59 08/16/17 09:07 Dextrose (Dextrose 50%) STAT PRN IV Hypoglycemia 08/13/17 23:15 09/12/17 23:14 Diphenhydramine HCl (Benadryl) 50 mg BEDTIME ORAL 08/14/17 21:00 09/13/17 20:59 08/15/17 21:08 Dronabinol (Marinol) 2.5 mg TID ORAL 08/16/17 18:00 09/15/17 17:59 08/16/17 17:53 Gabapentin (Neurontin) 200 mg THREE TIMES A DAY ORAL 08/14/17 18:00 09/13/17 17:59 08/16/17 17:54 Insulin Aspart (NovoLOG) BEFORE MEALS AND HS SUBQ 08/14/17 06:30 09/13/17 06:29 08/16/17 16:22 Lisinopril (Prinivil) 10 mg DAILY ORAL 08/14/17 09:00 09/13/17 08:59 08/16/17 09:06 Morphine Sulfate (Morphine Sulfate) 2 mg Q4H PRN IVP Severe Pain (Pain Scale 7-10) 08/13/17 23:15 08/20/17 23:14 08/16/17 13:11 Morphine Sulfate (Morphine Sulfate) 4 mg Q4H PRN IVP Severe Breakthrough Pain 08/16/17 17:15 08/23/17 17:14 Ondansetron HCl (Zofran) 4 mg EVERY 4 HOURS PRN IVP Nausea & Vomiting 08/13/17 23:15 09/12/17 23:14 08/16/17 10:58 Pravastatin Sodium (Pravachol) 20 mg DAILY ORAL 08/14/17 09:00 09/13/17 08:59 08/16/17 09:08 Sodium 1,000 ml @ 75 mls/hr [id number] IV 08/15/17 22:30 09/14/17 22:29 08/16/17 04:00 Allergies: Coded Allergies: No Known Allergies (Unverified , 08/13/17) Subjective 61 YO M admitted with bilateral leg weakness and pain. Now severe anemia. S/P endoscopy and colonoscopy today 08/16/17. Cover for Int Derick-Dr Barba Objective Last Vital Signs Date Time Temp Pulse Resp B/P (MAP) Pulse Ox O2 Delivery O2 Flow Rate FiO2 08/16/17 16:00 98.9 123 20 118/65 93 08/16/17 08:07 Room Air 08/16/17 07:52 4.0 General Appearance: WD/WN, no apparent distress, alert EENT: PERRL/EOMI, normal ENT inspection, TMs normal Neck: non-tender, normal alignment, supple, normal inspection Cardiovascular: normal peripheral pulses, normal rate, regular rhythm, no gallop/murmur, no JVD Respiratory/Chest: chest wall non-tender, lungs clear, normal breath sounds, no respiratory distress, no accessory muscle use Abdomen: normal bowel sounds, non tender, soft, no organomegaly, no mass Extremities: normal range of motion, non-tender Neurologic: mrp controller II-XII grossly normal Skin: normal pigmentation, warm/dry Laboratory Tests Test 08/16/17 04:45 White Blood Count 5.7 K/UL (4.8-10.8) Red Blood Count 3.02 M/UL (4.70-6.10) L Hemoglobin 8.7 G/DL (14.2-18.0) L Hematocrit 26.1 % (42.0-52.0) L Mean Corpuscular Volume 86 FL (80-99) Mean Corpuscular Hemoglobin 28.8 PG (27.0-31.0) Mean Corpuscular Hemoglobin Concent 33.4 G/DL (32.0-36.0) Red Cell Distribution Width 14.5 % (11.6-14.8) Platelet Count 83 K/UL (150-450) L Mean Platelet Volume 6.7 FL (6.5-10.1) Neutrophils (%) (Auto) % (45.0-75.0) Lymphocytes (%) (Auto) % (20.0-45.0) Monocytes (%) (Auto) % (1.0-10.0) Eosinophils (%) (Auto) % (0.0-3.0) Basophils (%) (Auto) % (0.0-2.0) Differential Total Cells Counted 100 Neutrophils % (Manual) 64 % (45-75) Lymphocytes % (Manual) 25 % (20-45) Monocytes % (Manual) 8 % (1-10) Eosinophils % (Manual) 2 % (0-3) Basophils % (Manual) 1 % (0-2) Band Neutrophils 0 % (0-8) Platelet Estimate Decreased L Platelet Morphology Normal Hypochromasia 2+ Spherocytes 1+ Erythrocyte Sedimentation Rate 5 MM/HR (0-20) Prothrombin Time 13.4 SEC (9.30-11.50) H Prothromb Time International Ratio 1.3 (0.9-1.1) H Activated Partial Thromboplast Time 22 SEC (23-33) L Sodium Level 140 MMOL/L (136-145) Potassium Level 3.5 MMOL/L (3.5-5.1) Chloride Level 102 MMOL/L (98-107) Carbon Dioxide Level 29 MMOL/L (21-32) Anion Gap 9 mmol/L (5-15) Blood Urea Nitrogen 15 mg/dL (7-18) Creatinine 1.5 MG/DL (0.55-1.30) H Estimat Glomerular Filtration Rate 57.4 mL/min (>60) Glucose Level 132 MG/DL (74-106) H Calcium Level 11.4 MG/DL (8.5-10.1) H Phosphorus Level 3.4 MG/DL (2.5-4.9) Magnesium Level 1.0 MG/DL (1.8-2.4) L Total Bilirubin 0.5 MG/DL (0.2-1.0) Aspartate Amino Transf (AST/SGOT) 30 U/L (15-37) Alanine Aminotransferase (ALT/SGPT) 7 U/L (12-78) L Alkaline Phosphatase 228 U/L (46-116) H C-Reactive Protein, Quantitative < 0.4 mg/dL (0.00-0.90) Total Protein 7.0 G/DL (6.4-8.2) Albumin 3.6 G/DL (3.4-5.0) Globulin 3.4 g/dL Albumin/Globulin Ratio 1.1 (1.0-2.7) Hepatitis A IgM Antibody Pending Hepatitis B Surface Antigen Pending Hepatitis B Core IgM Antibody Pending Hepatitis C Antibody Pending HIV (1&2) Antibody Rapid Negative (NEGATIVE) Intake and Output 08/15/17 08/16/17 19:00 07:00 Intake Total 120 ml 690 ml Output Total 600 ml Balance -480 ml 690 ml Intake Oral 120 ml 240 ml IV Total 450 ml Output Urine Total 600 ml # Voids 4 2 # Bowel Movements 1 Assessment/Plan Problem List: (1) Severe anemia Assessment & Plan: S/P transfusion 1 unit PRBC. S/P endoscopy and colonoscopy 08/16/17. Iron panel normal. See GI consult note (2) Pain in both lower legs (3) Weakness of both legs (4) HTN (hypertension) Assessment & Plan: Continue lisinopril (5) Diabetes mellitus, type II Assessment & Plan: Continue novolog sliding scale. (6) Hypercholesteremia Assessment & Plan: continue pravachol (7) Peripheral vascular disease (8) Hepatitis C virus infection resolved after antiviral drug therapy Status: not improved LUANN REGALADO Aug 16, 2017 19:45
[2017-08-16] MEDS: Morphine Sulfate 4mg/ml Inj IVP PRN (21:29)
[2017-08-17] MEDS: 1/2NS w/KCl 20mEq 1000ml 1,000 ML IV SCH ×2 (01:10→14:46)
[2017-08-17 04:55] VITALS: BP 126/69
[2017-08-17] MEDS: Morphine Sulfate 4mg/ml Inj IVP PRN ×4 (05:20→22:22)
[2017-08-17] MEDS: NovoLOG Insulin Flexpen SUBQ SCH ×4 (06:46→18:12)
[2017-08-17] MEDS: Aspirin Baby 81mg ORAL SCH (07:53)
[2017-08-17] MEDS: Dronabinol 2.5mg Cap ORAL SCH ×3 (07:54→18:11)
[2017-08-17] MEDS: Lisinopril 20mg tab ORAL SCH (07:59)
[2017-08-17 08:06] LABS: HEMATOCRIT 22.7 % (42.0-52.0); HEMOGLOBIN 7.8 G/DL (14.2-18.0); MEAN CORPUSCULAR VOLUME 87 FL (80-99); PLATELET COUNT 75 K/UL (150-450); RED BLOOD COUNT 2.61 M/UL (4.70-6.10); RED CELL DISTRIBUTION WIDTH 14.7 % (11.6-14.8); WHITE BLOOD COUNT 4.4 K/UL (4.8-10.8)
[2017-08-17 08:18] LABS: PHOSPHORUS 2.9 MG/DL (2.5-4.9)
[2017-08-17 08:26] LABS: ALANINE AMINOTRANSFERASE 13 U/L (12-78); ALBUMIN 3.2 G/DL (3.4-5.0); ALKALINE PHOSPHATASE 207 U/L (46-116); ANION GAP 6 mmol/L (5-15); ASPARTATE AMINO TRANSFERASE 29 U/L (15-37); BILIRUBIN,TOTAL 0.4 MG/DL (0.2-1.0); BLOOD UREA NITROGEN 16 mg/dL (7-18); CALCIUM 11.5 MG/DL (8.5-10.1); CARBON DIOXIDE 30 MMOL/L (21-32); CHLORIDE 103 MMOL/L (98-107); CREATININE 1.3 MG/DL (0.55-1.30); POTASSIUM 3.8 MMOL/L (3.5-5.1); SODIUM 139 MMOL/L (136-145)
[2017-08-17 08:33] VITALS: BP 116/67
--- NOTE | 2017-08-17 10:57 | GI Progress Note ---
Assessment/Plan Problems: (1) Weight loss ICD Codes: R63.4 - Abnormal weight loss SNOMED: 86687210, 803358671 (2) Hepatitis C virus infection resolved after antiviral drug therapy ICD Codes: Z86.19 - Personal history of other infectious and parasitic diseases SNOMED: 967326949, 01134115989435 (3) Pain in both lower legs ICD Codes: M79.661 - Pain in right lower leg; M79.662 - Pain in left lower leg SNOMED: 20961148496877654 (4) Severe anemia ICD Codes: D64.9 - Anemia, unspecified SNOMED: 196771489 (5) Weight loss of more than 10% body weight ICD Codes: R63.4 - Abnormal weight loss SNOMED: 82430336 (6) Anemia ICD Codes: D64.9 - Anemia, unspecified SNOMED: 228467943 (7) Diabetes mellitus ICD Codes: E11.9 - Type 2 diabetes mellitus without complications SNOMED: 73603832 Status: stable Status Narrative Discussed with Dr. Coreas. Assessment/Plan s/p Hep C Tx with harvoni >> still Hep C positive CT AP reviewed >> 2.8 x 1.7 cm rounded structure may represent an enlarged, partially necrotic lymph node suggesting diffuse osseous metastases or additional permeative osseous lesion. Taken together these findings are concerning for malignancy, with prostate being suspected. Correlate with PSA. Additional etiologies are not entirely excluded. Bone biopsy may be of benefit. s/p EGD/colonoscopy SUMMARY OF FINDINGS: 1. Distal esophageal ring. 2. Medium-sized hiatal hernia. 3. Evidence of bile reflux. 4. Gastritis, status post biopsy. 5. Internal hemorrhoids. 6. Poor colonoscopy prep. RECOMMENDATIONS: add ensure when patient is on PO diet monitor H&H, prn transfusions bowel regime ppi fu labs, CEA, PSA Follow up biopsy results and treat accordingly. fu onc recs fu labs Subjective Subjective leg pain Objective Last 24 Hour Vital Signs Date Time Temp Pulse Resp B/P (MAP) Pulse Ox O2 Delivery O2 Flow Rate FiO2 08/17/17 08:33 98.2 117 20 116/67 97 08/17/17 07:59 116/67 08/17/17 04:55 97.8 111 18 126/69 95 08/16/17 23:54 98.5 111 18 120/75 97 08/16/17 20:54 98.5 116 19 117/67 97 08/16/17 16:00 98.9 123 20 118/65 93 08/16/17 11:54 98.2 121 20 129/74 94 Intake and Output 08/16/17 08/17/17 19:00 07:00 Intake Total 640 ml 240 ml Balance 640 ml 240 ml Intake Oral 240 ml 240 ml IV Total 400 ml # Voids 2 # Bowel Movements 4 Laboratory Tests Test 08/17/17 05:37 White Blood Count 4.4 K/UL (4.8-10.8) L Red Blood Count 2.61 M/UL (4.70-6.10) L Hemoglobin 7.8 G/DL (14.2-18.0) L Hematocrit 22.7 % (42.0-52.0) L Mean Corpuscular Volume 87 FL (80-99) Mean Corpuscular Hemoglobin 29.7 PG (27.0-31.0) Mean Corpuscular Hemoglobin Concent 34.2 G/DL (32.0-36.0) Red Cell Distribution Width 14.7 % (11.6-14.8) Platelet Count 75 K/UL (150-450) L Mean Platelet Volume 7.5 FL (6.5-10.1) Neutrophils (%) (Auto) % (45.0-75.0) Lymphocytes (%) (Auto) % (20.0-45.0) Monocytes (%) (Auto) % (1.0-10.0) Eosinophils (%) (Auto) % (0.0-3.0) Basophils (%) (Auto) % (0.0-2.0) Neutrophils % (Manual) Pending Lymphocytes % (Manual) Pending Platelet Estimate Pending Platelet Morphology Pending Sodium Level 139 MMOL/L (136-145) Potassium Level 3.8 MMOL/L (3.5-5.1) Chloride Level 103 MMOL/L (98-107) Carbon Dioxide Level 30 MMOL/L (21-32) Anion Gap 6 mmol/L (5-15) Blood Urea Nitrogen 16 mg/dL (7-18) Creatinine 1.3 MG/DL (0.55-1.30) Estimat Glomerular Filtration Rate > 60 mL/min (>60) Glucose Level 132 MG/DL (74-106) H Calcium Level 11.5 MG/DL (8.5-10.1) H Phosphorus Level 2.9 MG/DL (2.5-4.9) Magnesium Level 1.5 MG/DL (1.8-2.4) L Total Bilirubin 0.4 MG/DL (0.2-1.0) Aspartate Amino Transf (AST/SGOT) 29 U/L (15-37) Alanine Aminotransferase (ALT/SGPT) 13 U/L (12-78) Alkaline Phosphatase 207 U/L (46-116) H Total Protein 6.3 G/DL (6.4-8.2) L Albumin 3.2 G/DL (3.4-5.0) L Globulin 3.1 g/dL Albumin/Globulin Ratio 1.0 (1.0-2.7) Height (Feet): 6 Weight (Pounds): 165 General Appearance: WD/WN, no apparent distress, alert, thin Cardiovascular: normal rate Respiratory/Chest: normal breath sounds, no respiratory distress Abdominal Exam: normal bowel sounds, non tender, soft Extremities: normal range of motion, non-tender [place] Trotter N.P. Aug 17, 2017 10:57
[2017-08-17 11:41] VITALS: BP 113/66
[2017-08-17 16:20] VITALS: BP 109/61
--- NOTE | 2017-08-17 16:58 | Internal Med Progress Note ---
Subjective Physician Name Tyrone Barba Attending Physician Tyrone Barba MD Current Medications Medications (Trade) Dose Ordered Sig/Ramon Route PRN Reason Start Time Stop Time Status Last Admin Dose Admin Acetaminophen (Tylenol) 650 mg Q6H PRN ORAL Mild Pain/Temp > 100.5 08/13/17 23:15 09/12/17 23:14 Acetaminophen/ Hydrocodone Bitart ([place] 5/325) 1 tab Q6H PRN ORAL For Pain 08/13/17 23:15 08/20/17 23:14 Aspirin (ASA) 81 mg DAILY ORAL 08/14/17 09:00 09/13/17 08:59 08/17/17 07:53 Dextrose (Dextrose 50%) STAT PRN IV Hypoglycemia 08/13/17 23:15 09/12/17 23:14 Diphenhydramine HCl (Benadryl) 50 mg BEDTIME ORAL 08/14/17 21:00 09/13/17 20:59 08/16/17 21:28 Dronabinol (Marinol) 2.5 mg TID ORAL 08/16/17 18:00 09/15/17 17:59 08/17/17 14:39 Gabapentin (Neurontin) 200 mg THREE TIMES A DAY ORAL 08/14/17 18:00 09/13/17 17:59 08/17/17 14:39 Insulin Aspart (NovoLOG) BEFORE MEALS AND HS SUBQ 08/14/17 06:30 09/13/17 06:29 08/17/17 06:46 Lisinopril (Prinivil) 10 mg DAILY ORAL 08/14/17 09:00 09/13/17 08:59 08/17/17 07:59 Morphine Sulfate (Morphine Sulfate) 2 mg Q4H PRN IVP Severe Pain (Pain Scale 7-10) 08/13/17 23:15 08/20/17 23:14 08/16/17 13:11 Morphine Sulfate (Morphine Sulfate) 4 mg Q4H PRN IVP Severe Breakthrough Pain 08/16/17 17:15 08/23/17 17:14 08/17/17 10:57 Ondansetron HCl (Zofran) 4 mg EVERY 4 HOURS PRN IVP Nausea & Vomiting 08/13/17 23:15 09/12/17 23:14 08/16/17 10:58 Pravastatin Sodium (Pravachol) 20 mg DAILY ORAL 08/14/17 09:00 09/13/17 08:59 08/17/17 07:54 Sodium 1,000 ml @ 75 mls/hr [id number] IV 08/15/17 22:30 09/14/17 22:29 08/17/17 14:46 Allergies: Coded Allergies: No Known Allergies (Unverified , 08/13/17) Subjective awake, alert, responsive, C/O severe leg pain Objective Last Vital Signs Date Time Temp Pulse Resp B/P (MAP) Pulse Ox O2 Delivery O2 Flow Rate FiO2 08/17/17 16:20 98.6 118 20 109/61 95 08/16/17 08:07 Room Air 08/16/17 07:52 4.0 Laboratory Tests Test 08/17/17 05:37 White Blood Count 4.4 K/UL (4.8-10.8) L Red Blood Count 2.61 M/UL (4.70-6.10) L Hemoglobin 7.8 G/DL (14.2-18.0) L Hematocrit 22.7 % (42.0-52.0) L Mean Corpuscular Volume 87 FL (80-99) Mean Corpuscular Hemoglobin 29.7 PG (27.0-31.0) Mean Corpuscular Hemoglobin Concent 34.2 G/DL (32.0-36.0) Red Cell Distribution Width 14.7 % (11.6-14.8) Platelet Count 75 K/UL (150-450) L Mean Platelet Volume 7.5 FL (6.5-10.1) Neutrophils (%) (Auto) % (45.0-75.0) Lymphocytes (%) (Auto) % (20.0-45.0) Monocytes (%) (Auto) % (1.0-10.0) Eosinophils (%) (Auto) % (0.0-3.0) Basophils (%) (Auto) % (0.0-2.0) Differential Total Cells Counted 100 Neutrophils % (Manual) 59 % (45-75) Lymphocytes % (Manual) 32 % (20-45) Monocytes % (Manual) 7 % (1-10) Eosinophils % (Manual) 2 % (0-3) Basophils % (Manual) 0 % (0-2) Band Neutrophils 0 % (0-8) Platelet Estimate Decreased L Platelet Morphology Normal Hypochromasia 3+ Anisocytosis 1+ Reticulocyte Count Pending Jak2 V617F Mutation Detection Pending JAK2 V617F Mutation Background Pending JAK2 V617F Reviewed By Pending Sodium Level 139 MMOL/L (136-145) Potassium Level 3.8 MMOL/L (3.5-5.1) Chloride Level 103 MMOL/L (98-107) Carbon Dioxide Level 30 MMOL/L (21-32) Anion Gap 6 mmol/L (5-15) Blood Urea Nitrogen 16 mg/dL (7-18) Creatinine 1.3 MG/DL (0.55-1.30) Estimat Glomerular Filtration Rate > 60 mL/min (>60) Glucose Level 132 MG/DL (74-106) H Calcium Level 11.5 MG/DL (8.5-10.1) H Phosphorus Level 2.9 MG/DL (2.5-4.9) Magnesium Level 1.5 MG/DL (1.8-2.4) L Soluble Transferrin Receptor Pending Total Bilirubin 0.4 MG/DL (0.2-1.0) Aspartate Amino Transf (AST/SGOT) 29 U/L (15-37) Alanine Aminotransferase (ALT/SGPT) 13 U/L (12-78) Alkaline Phosphatase 207 U/L (46-116) H Total Protein 6.3 G/DL (6.4-8.2) L Albumin 3.2 G/DL (3.4-5.0) L Globulin 3.1 g/dL Albumin/Globulin Ratio 1.0 (1.0-2.7) Alpha Fetoprotein Pending [place] 15-3 Antigen Pending Vitamin B12 Level 256 PG/ML (193-986) Intake and Output 08/16/17 08/17/17 19:00 07:00 Intake Total 640 ml 240 ml Balance 640 ml 240 ml Intake Oral 240 ml 240 ml IV Total 400 ml # Voids 2 # Bowel Movements 4 Objective General: No acute distress, awake and alert HEENT: NCAT, sclera anicteric, PERRL, EOMI. Neck: Supple, no significant jugular venous distention, Lungs: Good inspiratory effort, clear to auscultation bilaterally, no Wheeze or Rales. Heart: Regular rate and rhythm, normal S1/S2, no murmurs Abdomen: soft, nontender, nondistended. Normoactive bowel sounds. / Rectal: Refused and deferred. Extremities: No Cyanosis , clubbing, + Left leg edema. Neuro: A&O x 3, Able to move all extremities Skin: warm, no rashes or lesions Psych: Normal mood and affect Assessment/Plan Assessment/Plan 1. Anemia. 2. Bilateral Leg pain / Neuropathy possible lumbar spine . 3. Hypercalcemia possible due to malignancy 4. Hypertension. 5. Diabetes type 2. 6. Hypercholesterolemia. 7. Peripheral vascular disease. 8. History of hepatitis C Plan: MRI of Lumbar spine R/O Met's Pain medication start Methadone F/U with PSA . PTH, Vit D Level IVF . Tyrone Barba MD Aug 17, 2017 16:58
[2017-08-17 20:00] VITALS: BP 99/53
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
[2017-08-18] VITALS (7 sets, daily range): BP systolic 106–133; BP diastolic 58–68
[2017-08-18] MEDS: 1/2NS w/KCl 20mEq 1000ml 1,000 ML IV SCH ×2 (04:04→17:10)
[2017-08-18] MEDS: NovoLOG Insulin Flexpen SUBQ SCH ×4 (06:30→21:00)
[2017-08-18 07:19] LABS: HEMATOCRIT 21.9 % (42.0-52.0); HEMOGLOBIN 7.2 G/DL (14.2-18.0); MEAN CORPUSCULAR VOLUME 86 FL (80-99); PLATELET COUNT 71 K/UL (150-450); RED BLOOD COUNT 2.53 M/UL (4.70-6.10); RED CELL DISTRIBUTION WIDTH 14.9 % (11.6-14.8); WHITE BLOOD COUNT 4.6 K/UL (4.8-10.8)
[2017-08-18] MEDS: Lisinopril 20mg tab ORAL SCH (08:21)
[2017-08-18] MEDS: Dronabinol 2.5mg Cap ORAL SCH ×3 (08:21→18:24)
[2017-08-18] MEDS: Aspirin Baby 81mg ORAL SCH (08:22)
[2017-08-18] MEDS: Morphine Sulfate 2mg/ml Inj IVP PRN ×3 (08:23→20:41)
[2017-08-18 08:33] LABS: ANION GAP 8 mmol/L (5-15); BLOOD UREA NITROGEN 17 mg/dL (7-18); CALCIUM 11.8 MG/DL (8.5-10.1); CARBON DIOXIDE 29 MMOL/L (21-32); CHLORIDE 104 MMOL/L (98-107); CREATININE 1.2 MG/DL (0.55-1.30); POTASSIUM 3.8 MMOL/L (3.5-5.1); SODIUM 141 MMOL/L (136-145)
[2017-08-18 08:54] LABS: PHOSPHORUS 3.6 MG/DL (2.5-4.9)
--- NOTE | 2017-08-18 09:15 | Pulmonology Progress Note ---
Assessment/Plan Problems: (1) Anemia (2) Hypercalcemia (3) Weight loss of more than 10% body weight (4) Diabetes mellitus (5) Methadone maintenance therapy patient Assessment/Plan h/h better Ca WNL GI evalution reviewed for colonosocpy showed internal hemorrhoids f/u blood smear anemai w/u in progress. might need bone marrow biopsy hem evaluation neuro to see for progressive weakness. check PSA, MRI ordered Subjective Interval Events: late note 08/17, d/w dr jiang, will get MRI Allergies: Coded Allergies: No Known Allergies (Unverified , 08/13/17) Objective Last 24 Hour Vital Signs Date Time Temp Pulse Resp B/P (MAP) Pulse Ox O2 Delivery O2 Flow Rate FiO2 08/18/17 08:21 117/64 08/18/17 04:00 98.5 108 16 129/64 98 Room Air 08/18/17 00:00 100.1 109 18 106/58 94 08/17/17 20:00 98.3 113 18 99/53 96 08/17/17 16:20 98.6 118 20 109/61 95 08/17/17 11:41 98.4 115 20 113/66 97 Intake and Output 08/17/17 08/18/17 19:00 07:00 Intake Total 1080 ml 240 ml Output Total 1900 ml 100 ml Balance -820 ml 140 ml Intake Oral 1080 ml 240 ml Output Urine Total 1900 ml 100 ml # Voids 2 1 Objective General Appearance: WD/WN HEENT: normocephalic, atraumatic Respiratory/Chest: chest wall non-tender, lungs clear Cardiovascular: normal peripheral pulses, normal rate Abdomen: normal bowel sounds, no organomegaly, non distended Laboratory Tests 08/18/17 06:45: White Blood Count 4.6L, Red Blood Count 2.53L, Hemoglobin 7.2L, Hematocrit 21.9L , Mean Corpuscular Volume 86, Mean Corpuscular Hemoglobin 28.4, Mean Corpuscular Hemoglobin Concent 32.8, Red Cell Distribution Width 14.9H, Platelet Count 71L, Mean Platelet Volume 5.5L, Neutrophils (%) (Auto) , Lymphocytes (%) (Auto) , Monocytes (%) (Auto) , Eosinophils (%) (Auto) , Basophils (%) (Auto) , Neutrophils % (Manual) [Pending], Lymphocytes % (Manual) [Pending], Platelet Estimate [Pending], Platelet Morphology [Pending], Sodium Level 141, Potassium Level 3.8, Chloride Level 104, Carbon Dioxide Level 29, Anion Gap 8, Blood Urea Nitrogen 17, Creatinine 1.2, Estimat Glomerular Filtration Rate > 60, Glucose Level 119H, Calcium Level 11.8H, Phosphorus Level 3.6, Magnesium Level 1.5L, Prostate Specific Antigen > 5000.00H Current Medications Medications (Trade) Dose Ordered Sig/Ramon Route PRN Reason Start Time Stop Time Status Last Admin Dose Admin Acetaminophen (Tylenol) 650 mg Q6H PRN ORAL Mild Pain/Temp > 100.5 08/13/17 23:15 09/12/17 23:14 Acetaminophen/ Hydrocodone Bitart ([place] 5/325) 1 tab Q6H PRN ORAL For Pain 08/13/17 23:15 08/20/17 23:14 Aspirin (ASA) 81 mg DAILY ORAL 08/14/17 09:00 09/13/17 08:59 08/18/17 08:22 Dextrose (Dextrose 50%) STAT PRN IV Hypoglycemia 08/13/17 23:15 09/12/17 23:14 Diphenhydramine HCl (Benadryl) 50 mg BEDTIME ORAL 08/14/17 21:00 09/13/17 20:59 08/17/17 21:58 Dronabinol (Marinol) 2.5 mg TID ORAL 08/16/17 18:00 09/15/17 17:59 08/17/17 18:11 Gabapentin (Neurontin) 200 mg THREE TIMES A DAY ORAL 08/14/17 18:00 09/13/17 17:59 08/18/17 08:22 Insulin Aspart (NovoLOG) BEFORE MEALS AND HS SUBQ 08/14/17 06:30 09/13/17 06:29 08/17/17 18:12 Lisinopril (Prinivil) 10 mg DAILY ORAL 08/14/17 09:00 09/13/17 08:59 08/17/17 07:59 Methadone HCl (Methadone HCl) 5 mg Q8HR ORAL 08/18/17 01:59 08/24/17 21:59 08/18/17 06:06 Morphine Sulfate (Morphine Sulfate) 2 mg Q4H PRN IVP Severe Pain (Pain Scale 7-10) 08/13/17 23:15 08/20/17 23:14 08/18/17 08:23 Morphine Sulfate (Morphine Sulfate) 4 mg Q4H PRN IVP Severe Breakthrough Pain 08/16/17 17:15 08/23/17 17:14 08/17/17 22:22 Ondansetron HCl (Zofran) 4 mg EVERY 4 HOURS PRN IVP Nausea & Vomiting 08/13/17 23:15 09/12/17 23:14 08/16/17 10:58 Pravastatin Sodium (Pravachol) 20 mg DAILY ORAL 08/14/17 09:00 09/13/17 08:59 08/17/17 07:54 Sodium 1,000 ml @ 75 mls/hr [id number] IV 08/15/17 22:30 09/14/17 22:29 08/18/17 04:04 RACHID ZAMORA Aug 18, 2017 09:15
--- NOTE | 2017-08-18 09:16 | Pulmonology Progress Note ---
Assessment/Plan Problems: (1) Anemia (2) Hypercalcemia (3) Weight loss of more than 10% body weight (4) Diabetes mellitus (5) Methadone maintenance therapy patient Assessment/Plan PSA noted, Hem evalution reviewed for colonosocpy showed internal hemorrhoids f/u blood smear anemai w/u in progress. neuro to see for progressive weakness. awaiting Neuro MRI ordered Subjective ROS Limited/Unobtainable: No Allergies: Coded Allergies: No Known Allergies (Unverified , 08/13/17) Objective Last 24 Hour Vital Signs Date Time Temp Pulse Resp B/P (MAP) Pulse Ox O2 Delivery O2 Flow Rate FiO2 08/18/17 08:21 117/64 08/18/17 04:00 98.5 108 16 129/64 98 Room Air 08/18/17 00:00 100.1 109 18 106/58 94 08/17/17 20:00 98.3 113 18 99/53 96 08/17/17 16:20 98.6 118 20 109/61 95 08/17/17 11:41 98.4 115 20 113/66 97 Intake and Output 08/17/17 08/18/17 19:00 07:00 Intake Total 1080 ml 240 ml Output Total 1900 ml 100 ml Balance -820 ml 140 ml Intake Oral 1080 ml 240 ml Output Urine Total 1900 ml 100 ml # Voids 2 1 Objective General Appearance: WD/WN HEENT: normocephalic, atraumatic Respiratory/Chest: chest wall non-tender, lungs clear Cardiovascular: normal peripheral pulses, normal rate Abdomen: normal bowel sounds, no organomegaly, non distended Laboratory Tests 08/18/17 06:45: White Blood Count 4.6L, Red Blood Count 2.53L, Hemoglobin 7.2L, Hematocrit 21.9L , Mean Corpuscular Volume 86, Mean Corpuscular Hemoglobin 28.4, Mean Corpuscular Hemoglobin Concent 32.8, Red Cell Distribution Width 14.9H, Platelet Count 71L, Mean Platelet Volume 5.5L, Neutrophils (%) (Auto) , Lymphocytes (%) (Auto) , Monocytes (%) (Auto) , Eosinophils (%) (Auto) , Basophils (%) (Auto) , Neutrophils % (Manual) [Pending], Lymphocytes % (Manual) [Pending], Platelet Estimate [Pending], Platelet Morphology [Pending], Sodium Level 141, Potassium Level 3.8, Chloride Level 104, Carbon Dioxide Level 29, Anion Gap 8, Blood Urea Nitrogen 17, Creatinine 1.2, Estimat Glomerular Filtration Rate > 60, Glucose Level 119H, Calcium Level 11.8H, Phosphorus Level 3.6, Magnesium Level 1.5L, Prostate Specific Antigen > 5000.00H Current Medications Medications (Trade) Dose Ordered Sig/Ramon Route PRN Reason Start Time Stop Time Status Last Admin Dose Admin Acetaminophen (Tylenol) 650 mg Q6H PRN ORAL Mild Pain/Temp > 100.5 08/13/17 23:15 09/12/17 23:14 Acetaminophen/ Hydrocodone Bitart ([place] 5/325) 1 tab Q6H PRN ORAL For Pain 08/13/17 23:15 08/20/17 23:14 Aspirin (ASA) 81 mg DAILY ORAL 08/14/17 09:00 09/13/17 08:59 08/18/17 08:22 Dextrose (Dextrose 50%) STAT PRN IV Hypoglycemia 08/13/17 23:15 09/12/17 23:14 Diphenhydramine HCl (Benadryl) 50 mg BEDTIME ORAL 08/14/17 21:00 09/13/17 20:59 08/17/17 21:58 Dronabinol (Marinol) 2.5 mg TID ORAL 08/16/17 18:00 09/15/17 17:59 08/17/17 18:11 Gabapentin (Neurontin) 200 mg THREE TIMES A DAY ORAL 08/14/17 18:00 09/13/17 17:59 08/18/17 08:22 Insulin Aspart (NovoLOG) BEFORE MEALS AND HS SUBQ 08/14/17 06:30 09/13/17 06:29 08/17/17 18:12 Lisinopril (Prinivil) 10 mg DAILY ORAL 08/14/17 09:00 09/13/17 08:59 08/17/17 07:59 Methadone HCl (Methadone HCl) 5 mg Q8HR ORAL 08/18/17 01:59 08/24/17 21:59 08/18/17 06:06 Morphine Sulfate (Morphine Sulfate) 2 mg Q4H PRN IVP Severe Pain (Pain Scale 7-10) 08/13/17 23:15 08/20/17 23:14 08/18/17 08:23 Morphine Sulfate (Morphine Sulfate) 4 mg Q4H PRN IVP Severe Breakthrough Pain 08/16/17 17:15 08/23/17 17:14 08/17/17 22:22 Ondansetron HCl (Zofran) 4 mg EVERY 4 HOURS PRN IVP Nausea & Vomiting 08/13/17 23:15 09/12/17 23:14 08/16/17 10:58 Pravastatin Sodium (Pravachol) 20 mg DAILY ORAL 08/14/17 09:00 09/13/17 08:59 08/17/17 07:54 Sodium 1,000 ml @ 75 mls/hr [id number] IV 08/15/17 22:30 09/14/17 22:29 08/18/17 04:04 RACHID ZAMORA Aug 18, 2017 09:16
--- NOTE | 2017-08-18 13:48 | Diagnostic Imaging Report ---
Indication: Back pain. Technique: Sagittal T1 and T2 fast spin echo, sagittal STIR, axial T1 and T2 fast spin-echo images of the lumbar spine Comparison: Correlation made to CT of the abdomen/pelvis 08/15/2017 Findings: Significant patient motion degrades exam, particularly the sagittal T1 sagittal STIR sequences. There are 5 nonrib-bearing lumbar-type vertebral bodies, assuming 12 paired ribs. There is diffusely abnormal and heterogeneous marrow signal likely related to diffuse osseous metastases. Compression deformities are noted at the T12 and T1 vertebral bodies. Chronicity is uncertain given the marrow heterogeneity limiting reliable evaluation for marrow edema. Largest area of bony lesion is as L1 where it involves the vertebral body and posterior elements as well as a likely soft tissue component. There is some abnormal signal seen posterior to the vertebral bodies at T12 and L1 which results in moderate and severe central canal stenosis at these levels respectively. This signal likely related to metastatic disease. Additional etiologies such as infectious processes or hematoma thought less likely but may have a similar appearance. There is multilevel degenerative change of the spine. A diffuse disc bulge at L1-L2 causes moderate central canal stenosis. There may be some bilateral foraminal narrowing at this level, related to the disc disease and/or bony lesion. At L2-L3 there is a broad-based disc bulge which results in mild central canal stenosis. Broad-based disc bulges and ligamentum flavum hypertrophy result in moderate central canal stenosis at L3-L4 and L4-L5. Large bulge at L5-S1 results in moderate central canal stenosis and left greater than right foraminal narrowing. Schmorl's nodes are noted at multiple levels. IMPRESSION: Severely motion-degraded exam. Diffuse marrow signal heterogeneity likely representing diffuse osseous metastases. Likely pathologic fractures involving the T12 and L1 vertebral bodies of uncertain chronicity. Lesions are most pronounced at L1, where there is severe central canal stenosis as well as a likely soft tissue component of the lesions. No definite focal cord signal abnormality appreciated at this time. Additional findings as above. This corresponds with the [facility] preliminary report.
--- NOTE | 2017-08-18 15:58 | Internal Med Progress Note ---
Subjective Date of Service: Aug 18, 2017 Physician Name Ervin Regalado Attending Physician Tyrone Barba MD Current Medications Medications (Trade) Dose Ordered Sig/Ramon Route PRN Reason Start Time Stop Time Status Last Admin Dose Admin Acetaminophen (Tylenol) 650 mg Q6H PRN ORAL Mild Pain/Temp > 100.5 08/13/17 23:15 09/12/17 23:14 08/18/17 15:42 Acetaminophen/ Hydrocodone Bitart ([place] 5/325) 1 tab Q6H PRN ORAL For Pain 08/13/17 23:15 08/20/17 23:14 Aspirin (ASA) 81 mg DAILY ORAL 08/14/17 09:00 09/13/17 08:59 08/18/17 08:22 Dextrose (Dextrose 50%) STAT PRN IV Hypoglycemia 08/13/17 23:15 09/12/17 23:14 Diphenhydramine HCl (Benadryl) 50 mg BEDTIME ORAL 08/14/17 21:00 09/13/17 20:59 08/17/17 21:58 Dronabinol (Marinol) 2.5 mg TID ORAL 08/16/17 18:00 09/15/17 17:59 08/18/17 12:52 Gabapentin (Neurontin) 200 mg THREE TIMES A DAY ORAL 08/14/17 18:00 09/13/17 17:59 08/18/17 12:52 Insulin Aspart (NovoLOG) BEFORE MEALS AND HS SUBQ 08/14/17 06:30 09/13/17 06:29 08/17/17 18:12 Lisinopril (Prinivil) 10 mg DAILY ORAL 08/14/17 09:00 09/13/17 08:59 08/17/17 07:59 Methadone HCl (Methadone HCl) 70 mg DAILY ORAL 08/19/17 09:00 08/24/17 21:59 Morphine Sulfate (Morphine Sulfate) 2 mg Q4H PRN IVP Severe Pain (Pain Scale 7-10) 08/13/17 23:15 08/20/17 23:14 08/18/17 14:11 Morphine Sulfate (Morphine Sulfate) 4 mg Q4H PRN IVP Severe Breakthrough Pain 08/16/17 17:15 08/23/17 17:14 08/17/17 22:22 Ondansetron HCl (Zofran) 4 mg EVERY 4 HOURS PRN IVP Nausea & Vomiting 08/13/17 23:15 09/12/17 23:14 08/16/17 10:58 Pravastatin Sodium (Pravachol) 20 mg DAILY ORAL 08/14/17 09:00 09/13/17 08:59 08/17/17 07:54 Sodium 1,000 ml @ 75 mls/hr [id number] IV 08/15/17 22:30 09/14/17 22:29 08/18/17 04:04 Allergies: Coded Allergies: No Known Allergies (Unverified , 08/13/17) ROS Limited/Unobtainable: No Constitutional: Reports: fever HEENT: Reports: no symptoms Cardiovascular: Reports: no symptoms Respiratory: Reports: no symptoms Gastrointestinal/Abdominal: Reports: no symptoms Genitourinary: Reports: no symptoms Neurologic/Psychiatric: Reports: no symptoms Subjective 61 YO M admitted with bilateral leg weakness and pain. Now severe anemia and possible prostate cancer with metastases. S/P endoscopy and colonoscopy . Cover for Int Med-Dr Barba Objective Last Vital Signs Date Time Temp Pulse Resp B/P (MAP) Pulse Ox O2 Delivery O2 Flow Rate FiO2 08/18/17 14:40 100.4 08/18/17 12:00 119 17 132/59 98 Room Air 08/16/17 07:52 4.0 Laboratory Tests Test 08/18/17 06:45 White Blood Count 4.6 K/UL (4.8-10.8) L Red Blood Count 2.53 M/UL (4.70-6.10) L Hemoglobin 7.2 G/DL (14.2-18.0) L Hematocrit 21.9 % (42.0-52.0) L Mean Corpuscular Volume 86 FL (80-99) Mean Corpuscular Hemoglobin 28.4 PG (27.0-31.0) Mean Corpuscular Hemoglobin Concent 32.8 G/DL (32.0-36.0) Red Cell Distribution Width 14.9 % (11.6-14.8) H Platelet Count 71 K/UL (150-450) L Mean Platelet Volume 5.5 FL (6.5-10.1) L Neutrophils (%) (Auto) % (45.0-75.0) Lymphocytes (%) (Auto) % (20.0-45.0) Monocytes (%) (Auto) % (1.0-10.0) Eosinophils (%) (Auto) % (0.0-3.0) Basophils (%) (Auto) % (0.0-2.0) Differential Total Cells Counted 100 Neutrophils % (Manual) 48 % (45-75) Lymphocytes % (Manual) 42 % (20-45) Monocytes % (Manual) 7 % (1-10) Eosinophils % (Manual) 3 % (0-3) Basophils % (Manual) 0 % (0-2) Band Neutrophils 0 % (0-8) Nucleated Red Blood Cells 1 /100 WBC Platelet Estimate Decreased L Platelet Morphology Normal Polychromasia 1+ Hypochromasia 1+ Anisocytosis 1+ Sodium Level 141 MMOL/L (136-145) Potassium Level 3.8 MMOL/L (3.5-5.1) Chloride Level 104 MMOL/L (98-107) Carbon Dioxide Level 29 MMOL/L (21-32) Anion Gap 8 mmol/L (5-15) Blood Urea Nitrogen 17 mg/dL (7-18) Creatinine 1.2 MG/DL (0.55-1.30) Estimat Glomerular Filtration Rate > 60 mL/min (>60) Glucose Level 119 MG/DL (74-106) H Calcium Level 11.8 MG/DL (8.5-10.1) H Phosphorus Level 3.6 MG/DL (2.5-4.9) Magnesium Level 1.5 MG/DL (1.8-2.4) L Prostate Specific Antigen > 5000.00 ng/mL Intake and Output 08/17/17 08/18/17 19:00 07:00 Intake Total 1080 ml 240 ml Output Total 1900 ml 100 ml Balance -820 ml 140 ml Intake Oral 1080 ml 240 ml Output Urine Total 1900 ml 100 ml # Voids 2 1 Objective General Appearance: WD/WN, no apparent distress, alert EENT: PERRL/EOMI, normal ENT inspection, TMs normal Neck: non-tender, normal alignment, supple, normal inspection Cardiovascular: normal peripheral pulses, normal rate, regular rhythm, no gallop/murmur, no JVD Respiratory/Chest: chest wall non-tender, lungs clear, normal breath sounds, no respiratory distress, no accessory muscle use Abdomen: normal bowel sounds, non tender, soft, no organomegaly, no mass Extremities: normal range of motion, non-tender Neurologic: general forecaster II-XII grossly normal Skin: normal pigmentation, warm/dry Assessment/Plan Problem List: (1) Severe anemia Assessment & Plan: S/P transfusion 1 unit PRBC 08/13/17. S/P endoscopy and colonoscopy 08/16/17. Iron panel normal. See GI consult note (2) Pain in both lower legs (3) Weakness of both legs (4) HTN (hypertension) Assessment & Plan: Continue lisinopril (5) Diabetes mellitus, type II Assessment & Plan: Continue novolog sliding scale. (6) Hypercholesteremia Assessment & Plan: continue pravachol (7) Peripheral vascular disease (8) Hepatitis C virus infection resolved after antiviral drug therapy (9) Methadone maintenance therapy patient Assessment & Plan: Await pain management consult. Attempt to obtain records from [facility] clinic. (10) Prostate cancer metastatic to bone Assessment & Plan: Await tumor markers for confirmation. See oncology note. Status: not improved ERVIN REGALADO Aug 18, 2017 15:58
[2017-08-18] MEDS ORDERED: NS 500ML ONE (18:05)
[2017-08-18] MEDS ORDERED: Tubing Blood Filter IV ONE (18:05)
[2017-08-19] MEDS: Morphine Sulfate 2mg/ml Inj IVP PRN ×2 (03:38→08:33)
[2017-08-19 04:37] VITALS: BP 141/69
[2017-08-19] MEDS: 1/2NS w/KCl 20mEq 1000ml 1,000 ML IV SCH ×2 (05:10→20:24)
[2017-08-19] MEDS: NovoLOG Insulin Flexpen SUBQ SCH ×4 (06:28→21:30)
[2017-08-19 07:49] LABS: HEMATOCRIT 22.4 % (42.0-52.0); HEMOGLOBIN 7.6 G/DL (14.2-18.0); MEAN CORPUSCULAR VOLUME 87 FL (80-99); PLATELET COUNT 70 K/UL (150-450); RED BLOOD COUNT 2.58 M/UL (4.70-6.10); RED CELL DISTRIBUTION WIDTH 14.8 % (11.6-14.8)
[2017-08-19 08:00] VITALS: BP 139/68
[2017-08-19 08:23] LABS: ANION GAP 8 mmol/L (5-15); BLOOD UREA NITROGEN 22 mg/dL (7-18); CALCIUM 11.5 MG/DL (8.5-10.1); CARBON DIOXIDE 28 MMOL/L (21-32); CHLORIDE 103 MMOL/L (98-107); CREATININE 1.3 MG/DL (0.55-1.30); POTASSIUM 3.9 MMOL/L (3.5-5.1); SODIUM 139 MMOL/L (136-145)
[2017-08-19] MEDS: Aspirin Baby 81mg ORAL SCH (08:29)
[2017-08-19] MEDS: Dronabinol 2.5mg Cap ORAL SCH ×3 (08:29→18:20)
[2017-08-19] MEDS: Lisinopril 20mg tab ORAL SCH (08:30)
[2017-08-19] MEDS: Bicalutamide 50mg tab ORAL SCH (10:20)
[2017-08-19 12:00] VITALS: BP 116/63
--- NOTE | 2017-08-19 12:44 | General Progress Note ---
Assessment/Plan Assessment/Plan ASSESSMENT AND RECOMMENDATIONS: # Metastatic prostate cancer, psa is >5000, likely may need eventually a biopsy of the bone versus lymph node to confirm disease --> have started casodex and consider lupron once discharged # Pancytopenia, most etiology looks like related to underlying hepatitis C status post treatment. The patient's spleen is mildly enlarged. --> also component related to stage iv prostate ca --> hgb goal >7, plt goal >10k # Lymphadenopathy as well as osseous metastasis is noted on CT scan. --> likely from prostate ca # Hepatitis C status post treatment with Harvoni. Hepatitis C is positive. 4. Coagulopathy likely secondary to underlying hepatitis C and liver cirrhosis. 5. Hyperuricemia and elevated psa --> consider uro eval 6. Anemia. Colonoscopy shows internal hemorrhoids. Subjective Constitutional: Denies: no symptoms, chills, diaphoresis, fever, malaise, weakness, other HEENT: Denies: no symptoms, eye pain, blurred vision, tearing, double vision, ear pain, ear discharge, nose pain, nose congestion, throat pain, throat swelling, mouth pain, mouth swelling, other Cardiovascular: Denies: no symptoms, chest pain, edema, irregular heart rate, lightheadedness, palpitations, syncope, other Respiratory: Denies: no symptoms, cough, orthopnea, shortness of breath, SOB with excertion, SOB at rest, sputum, stridor, wheezing, other Gastrointestinal/Abdominal: Denies: no symptoms, abdomen distended, abdominal pain, black stools, tarry stools, blood in stool, constipated, diarrhea, difficulty swallowing, nausea, poor appetite, poor fluid intake, rectal bleeding , vomiting, other Genitourinary: Denies: no symptoms, burning, discharge, frequency, flank pain, hematuria, incontinence, pain, urgency, other Neurologic/Psychiatric: Denies: no symptoms, anxiety, depressed, emotional problems, headache, numbness, paresthesia, pre-existing deficit, seizure, tingling, tremors, weakness, other Endocrine: Denies: no symptoms, excessive sweating, flushing, intolerance to cold, intolerance to heat, increased hunger, increased thirst, increased urine, unexplained weight gain, unexplained weight loss, other Hematologic/Lymphatic: Denies: no symptoms, anemia, easy bleeding, easy bruising, other Allergies: Coded Allergies: No Known Allergies (Unverified , 08/13/17) Subjective nad Objective Last 24 Hour Vital Signs Date Time Temp Pulse Resp B/P (MAP) Pulse Ox O2 Delivery O2 Flow Rate FiO2 08/19/17 08:30 139/68 08/19/17 08:00 98.9 118 20 139/68 99 Room Air 08/19/17 04:37 98.3 111 18 141/69 100 Room Air 08/18/17 23:59 98.0 113 18 118/63 96 Room Air 08/18/17 19:50 98.0 112 18 124/68 98 Room Air 08/18/17 16:40 99.4 08/18/17 16:00 99.4 117 18 133/65 98 Room Air 08/18/17 14:40 100.4 Intake and Output 08/18/17 08/19/17 19:00 07:00 Intake Total 180 ml 925 ml Output Total 1200 ml 700 ml Balance -1020 ml 225 ml Intake Oral 180 ml 100 ml IV Total 825 ml Output Urine Total 1200 ml 700 ml Laboratory Tests 08/19/17 04:40: White Blood Count 5.0, Red Blood Count 2.58L, Hemoglobin 7.6L, Hematocrit 22.4L , Mean Corpuscular Volume 87, Mean Corpuscular Hemoglobin 29.4, Mean Corpuscular Hemoglobin Concent 33.9, Red Cell Distribution Width 14.8, Platelet Count 70L, Mean Platelet Volume 7.0, Neutrophils (%) (Auto) , Lymphocytes (%) ( Auto) , Monocytes (%) (Auto) , Eosinophils (%) (Auto) , Basophils (%) (Auto) , Differential Total Cells Counted 100, Neutrophils % (Manual) 62, Lymphocytes % ( Manual) 31, Monocytes % (Manual) 6, Eosinophils % (Manual) 1, Basophils % ( Manual) 0, Band Neutrophils 0, Nucleated Red Blood Cells 2, Platelet Estimate DecreasedL, Platelet Morphology Normal, Polychromasia 1+, Hypochromasia 1+, Anisocytosis 1+, Sodium Level 139, Potassium Level 3.9, Chloride Level 103, Carbon Dioxide Level 28, Anion Gap 8, Blood Urea Nitrogen 22H, Creatinine 1.3, Estimat Glomerular Filtration Rate > 60, Glucose Level 124H, Calcium Level 11.5H Height (Feet): 6 Weight (Pounds): 165 General Appearance: alert EENT: TMs normal Neck: normal alignment Cardiovascular: normal rate Respiratory/Chest: chest wall non-tender Abdomen: non tender Pelvis: no masses Edema: 1+ Leg (L), 1+ Leg (R) Emerson Camara Aug 19, 2017 12:44
--- NOTE | 2017-08-19 12:54 | Consultation ---
Consult Note Consult Note asked to eval for hypercalcemia interviewed examined data reviewed Assessment/Plan (1) Anemia / PanCytopenia (2) Hypercalcemia (3) Weight loss of more than 10% body weight (4) Diabetes mellitus (5) Methadone maintenance therapy patient (6) Metastatic Prostate Ca (7) Hepatitis C Cirrhosis (8) HyperUrecemia Plan; Trial Aredia monitor Ca Alb Phos per consultants JENNIFER MOARLES Aug 19, 2017 12:54
--- NOTE | 2017-08-19 13:13 | Consultation ---
History of Present Illness General Date patient seen: Aug 19, 2017 Present Illness Allergies: Coded Allergies: No Known Allergies (Unverified , 08/13/17) Medication History Scheduled Aspirin (Aspirin), 81 MG PO DAILY, (Reported) Diphenhydramine Hcl* (Diphenhydramine Hcl*), 50 MG ORAL BEDTIME, (Reported) Hydrocodone Bit/Acetaminophen 5-325* ([place] 5-325*), 1 TAB PO Q8HR Lisinopril (Lisinopril*), 10 MG ORAL DAILY, (Reported) Metformin Hcl (Metformin Hcl Er), 500 MG ORAL BID, (Reported) Pravastatin Sod (Pravastatin Sod), 20 MG ORAL DAILY, (Reported) Patient History Healthcare decision maker Resuscitation status Full Code Advanced Directive on File No Physical Exam Last 24 Hour Vital Signs Date Time Temp Pulse Resp B/P (MAP) Pulse Ox O2 Delivery O2 Flow Rate FiO2 08/19/17 12:00 98.1 112 20 116/63 98 Room Air 08/19/17 08:30 139/68 08/19/17 08:00 98.9 118 20 139/68 99 Room Air 08/19/17 04:37 98.3 111 18 141/69 100 Room Air 08/18/17 23:59 98.0 113 18 118/63 96 Room Air 08/18/17 19:50 98.0 112 18 124/68 98 Room Air 08/18/17 16:40 99.4 08/18/17 16:00 99.4 117 18 133/65 98 Room Air 08/18/17 14:40 100.4 Intake and Output 08/18/17 08/19/17 19:00 07:00 Intake Total 180 ml 925 ml Output Total 1200 ml 700 ml Balance -1020 ml 225 ml Intake Oral 180 ml 100 ml IV Total 825 ml Output Urine Total 1200 ml 700 ml Laboratory Tests Test 08/19/17 04:40 White Blood Count 5.0 K/UL (4.8-10.8) Red Blood Count 2.58 M/UL (4.70-6.10) L Hemoglobin 7.6 G/DL (14.2-18.0) L Hematocrit 22.4 % (42.0-52.0) L Mean Corpuscular Volume 87 FL (80-99) Mean Corpuscular Hemoglobin 29.4 PG (27.0-31.0) Mean Corpuscular Hemoglobin Concent 33.9 G/DL (32.0-36.0) Red Cell Distribution Width 14.8 % (11.6-14.8) Platelet Count 70 K/UL (150-450) L Mean Platelet Volume 7.0 FL (6.5-10.1) Neutrophils (%) (Auto) % (45.0-75.0) Lymphocytes (%) (Auto) % (20.0-45.0) Monocytes (%) (Auto) % (1.0-10.0) Eosinophils (%) (Auto) % (0.0-3.0) Basophils (%) (Auto) % (0.0-2.0) Differential Total Cells Counted 100 Neutrophils % (Manual) 62 % (45-75) Lymphocytes % (Manual) 31 % (20-45) Monocytes % (Manual) 6 % (1-10) Eosinophils % (Manual) 1 % (0-3) Basophils % (Manual) 0 % (0-2) Band Neutrophils 0 % (0-8) Nucleated Red Blood Cells 2 /100 WBC Platelet Estimate Decreased L Platelet Morphology Normal Polychromasia 1+ Hypochromasia 1+ Anisocytosis 1+ Sodium Level 139 MMOL/L (136-145) Potassium Level 3.9 MMOL/L (3.5-5.1) Chloride Level 103 MMOL/L (98-107) Carbon Dioxide Level 28 MMOL/L (21-32) Anion Gap 8 mmol/L (5-15) Blood Urea Nitrogen 22 mg/dL (7-18) H Creatinine 1.3 MG/DL (0.55-1.30) Estimat Glomerular Filtration Rate > 60 mL/min (>60) Glucose Level 124 MG/DL (74-106) H Calcium Level 11.5 MG/DL (8.5-10.1) H Height (Feet): 6 Weight (Pounds): 165 Medications Current Medications Medications (Trade) Dose Ordered Sig/Ramon Route PRN Reason Start Time Stop Time Status Last Admin Dose Admin Acetaminophen (Tylenol) 650 mg Q6H PRN ORAL Mild Pain/Temp > 100.5 08/13/17 23:15 09/12/17 23:14 08/18/17 15:42 Acetaminophen/ Hydrocodone Bitart ([place] 5/325) 1 tab Q6H PRN ORAL For Pain 08/19/17 17:15 08/26/17 23:59 UNV Aspirin (ASA) 81 mg DAILY ORAL 08/14/17 09:00 09/13/17 08:59 08/19/17 08:29 Baclofen (Lioresal) 10 mg THREE TIMES A DAY PRN ORAL muscle spasm 08/19/17 13:15 09/18/17 13:14 UNV Bicalutamide (Casodex) 50 mg DAILY ORAL 08/19/17 09:00 08/24/17 08:59 08/19/17 10:20 Dextrose (Dextrose 50%) STAT PRN IV Hypoglycemia 08/13/17 23:15 09/12/17 23:14 Diclofenac Sodium (Voltaren) 25 mg THREE TIMES A DAY PRN ORAL inflammation 08/19/17 13:15 09/18/17 13:14 UNV Diphenhydramine HCl (Benadryl) 50 mg BEDTIME ORAL 08/14/17 21:00 09/13/17 20:59 08/18/17 21:16 Dronabinol (Marinol) 2.5 mg TID ORAL 08/16/17 18:00 09/15/17 17:59 08/19/17 08:29 Gabapentin (Neurontin) 300 mg THREE TIMES A DAY ORAL 08/19/17 18:00 09/18/17 17:59 UNV Insulin Aspart (NovoLOG) BEFORE MEALS AND HS SUBQ 08/14/17 06:30 09/13/17 06:29 08/19/17 12:07 Lisinopril (Prinivil) 10 mg DAILY ORAL 08/14/17 09:00 09/13/17 08:59 08/19/17 08:30 Methadone HCl (Methadone HCl) 70 mg DAILY ORAL 08/19/17 09:00 08/24/17 21:59 08/19/17 08:32 Morphine Sulfate (Morphine Sulfate) 2 mg Q4H PRN IVP Severe Pain (Pain Scale 7-10) 08/19/17 15:15 08/26/17 23:59 UNV Morphine Sulfate (Morphine Sulfate) 4 mg Q4H PRN IVP Severe Breakthrough Pain 08/16/17 17:15 08/23/17 17:14 08/17/17 22:22 Ondansetron HCl (Zofran) 4 mg EVERY 4 HOURS PRN IVP Nausea & Vomiting 08/13/17 23:15 09/12/17 23:14 08/16/17 10:58 Pamidronate Disodium 60 mg/ Sodium Chloride 550 ml @ 137.5 mls/ hr ONCE ONCE IVPB 08/19/17 15:00 08/19/17 18:59 Pravastatin Sodium (Pravachol) 20 mg DAILY ORAL 08/14/17 09:00 09/13/17 08:59 08/19/17 08:29 Sodium 1,000 ml @ 75 mls/hr [id number] IV 08/15/17 22:30 09/14/17 22:29 08/19/17 05:10 Assessment/Plan Assessment/Plan (1) Intractable back pain (2) Metastatic Prostate Cancer (3) Thoracic Compression Fracture (4) Lumbar Spinal stenosis (5) Lumbar Radiculopathy seen dictated BINACA MURRELL Aug 19, 2017 13:13
[2017-08-19] MEDS ORDERED: HYDROmorphone 1mg/ml Carpuject IVP PRN (13:15)
[2017-08-19] MEDS ORDERED: Diclofenac 25mg tab ORAL PRN (13:15)
--- NOTE | 2017-08-19 13:28 | Pulmonology Progress Note ---
Assessment/Plan Problems: (1) Prostate cancer metastatic to bone (2) Pathologic compression fracture of spine (3) Anemia (4) Hypercalcemia (5) Weight loss of more than 10% body weight (6) Diabetes mellitus (7) Methadone maintenance therapy patient Assessment/Plan PSA noted, Hem evalution reviewed colonosocpy showed internal hemorrhoids f/u blood smear anemai w/u in progress. neuro to see for progressive weakness. awaiting Neuro MRI reviewed, pathological fracture of L spine, t12-L1 Subjective ROS Limited/Unobtainable: No Constitutional: Reports: no symptoms HEENT: Repors: no symptoms Allergies: Coded Allergies: No Known Allergies (Unverified , 08/13/17) Objective Last 24 Hour Vital Signs Date Time Temp Pulse Resp B/P (MAP) Pulse Ox O2 Delivery O2 Flow Rate FiO2 08/19/17 12:00 98.1 112 20 116/63 98 Room Air 08/19/17 08:30 139/68 08/19/17 08:00 98.9 118 20 139/68 99 Room Air 08/19/17 04:37 98.3 111 18 141/69 100 Room Air 08/18/17 23:59 98.0 113 18 118/63 96 Room Air 08/18/17 19:50 98.0 112 18 124/68 98 Room Air 08/18/17 16:40 99.4 08/18/17 16:00 99.4 117 18 133/65 98 Room Air 08/18/17 14:40 100.4 Intake and Output 08/18/17 08/19/17 19:00 07:00 Intake Total 180 ml 925 ml Output Total 1200 ml 700 ml Balance -1020 ml 225 ml Intake Oral 180 ml 100 ml IV Total 825 ml Output Urine Total 1200 ml 700 ml Objective General Appearance: WD/WN HEENT: normocephalic, atraumatic Respiratory/Chest: chest wall non-tender, lungs clear Cardiovascular: normal peripheral pulses, normal rate Abdomen: normal bowel sounds, no organomegaly, non distended Laboratory Tests 08/19/17 04:40: White Blood Count 5.0, Red Blood Count 2.58L, Hemoglobin 7.6L, Hematocrit 22.4L , Mean Corpuscular Volume 87, Mean Corpuscular Hemoglobin 29.4, Mean Corpuscular Hemoglobin Concent 33.9, Red Cell Distribution Width 14.8, Platelet Count 70L, Mean Platelet Volume 7.0, Neutrophils (%) (Auto) , Lymphocytes (%) ( Auto) , Monocytes (%) (Auto) , Eosinophils (%) (Auto) , Basophils (%) (Auto) , Differential Total Cells Counted 100, Neutrophils % (Manual) 62, Lymphocytes % ( Manual) 31, Monocytes % (Manual) 6, Eosinophils % (Manual) 1, Basophils % ( Manual) 0, Band Neutrophils 0, Nucleated Red Blood Cells 2, Platelet Estimate DecreasedL, Platelet Morphology Normal, Polychromasia 1+, Hypochromasia 1+, Anisocytosis 1+, Sodium Level 139, Potassium Level 3.9, Chloride Level 103, Carbon Dioxide Level 28, Anion Gap 8, Blood Urea Nitrogen 22H, Creatinine 1.3, Estimat Glomerular Filtration Rate > 60, Glucose Level 124H, Calcium Level 11.5H Current Medications Medications (Trade) Dose Ordered Sig/Ramon Route PRN Reason Start Time Stop Time Status Last Admin Dose Admin Acetaminophen (Tylenol) 650 mg Q6H PRN ORAL Mild Pain/Temp > 100.5 08/13/17 23:15 09/12/17 23:14 08/18/17 15:42 Acetaminophen/ Hydrocodone Bitart ([place] 10/325) 1 ea Q6H PRN ORAL moderate pain 08/19/17 13:15 08/26/17 13:14 UNV Aspirin (ASA) 81 mg DAILY ORAL 08/14/17 09:00 09/13/17 08:59 08/19/17 08:29 Baclofen (Lioresal) 10 mg THREE TIMES A DAY PRN ORAL muscle spasm 08/19/17 13:15 09/18/17 13:14 UNV Bicalutamide (Casodex) 50 mg DAILY ORAL 08/19/17 09:00 08/24/17 08:59 08/19/17 10:20 Dextrose (Dextrose 50%) STAT PRN IV Hypoglycemia 08/13/17 23:15 09/12/17 23:14 Diclofenac Sodium (Voltaren) 25 mg THREE TIMES A DAY PRN ORAL inflammation 08/19/17 13:15 09/18/17 13:14 UNV Diphenhydramine HCl (Benadryl) 50 mg BEDTIME ORAL 08/14/17 21:00 2/8/18 20:59 08/18/17 21:16 Dronabinol (Marinol) 2.5 mg TID ORAL 08/16/17 18:00 09/15/17 17:59 08/19/17 08:29 Gabapentin (Neurontin) 300 mg THREE TIMES A DAY ORAL 08/19/17 18:00 09/18/17 17:59 UNV Hydromorphone HCl (Dilaudid) 1 mg Q4H PRN IVP severe pain 08/19/17 13:15 08/26/17 13:14 UNV Insulin Aspart (NovoLOG) BEFORE MEALS AND HS SUBQ 08/14/17 06:30 09/13/17 06:29 08/19/17 12:07 Lisinopril (Prinivil) 10 mg DAILY ORAL 08/14/17 09:00 09/13/17 08:59 08/19/17 08:30 Methadone HCl (Methadone HCl) 70 mg DAILY ORAL 08/19/17 09:00 08/24/17 21:59 08/19/17 08:32 Ondansetron HCl (Zofran) 4 mg EVERY 4 HOURS PRN IVP Nausea & Vomiting 08/13/17 23:15 09/12/17 23:14 08/16/17 10:58 Pamidronate Disodium 60 mg/ Sodium Chloride 550 ml @ 137.5 mls/ hr ONCE ONCE IVPB 08/19/17 15:00 08/19/17 18:59 Pravastatin Sodium (Pravachol) 20 mg DAILY ORAL 08/14/17 09:00 09/13/17 08:59 08/19/17 08:29 Sodium 1,000 ml @ 75 mls/hr [id number] IV 08/15/17 22:30 09/14/17 22:29 08/19/17 05:10 RACHID ZAMORA Aug 19, 2017 13:28
[2017-08-19 13:40] LABS: ALANINE AMINOTRANSFERASE 10 U/L (12-78); ALBUMIN 3.2 G/DL (3.4-5.0); ALKALINE PHOSPHATASE 193 U/L (46-116); ASPARTATE AMINO TRANSFERASE 32 U/L (15-37); BILIRUBIN,DIRECT < 0.1 MG/DL (0.0-0.3); BILIRUBIN,TOTAL 0.4 MG/DL (0.2-1.0); PHOSPHORUS 3.8 MG/DL (2.5-4.9)
--- NOTE | 2017-08-19 14:09 | Diagnostic Imaging Report ---
Indication: increased LFTs Technique: Multiplanar grayscale and color Doppler imaging of the abdomen. Comparison: CT of the abdomen 08/15/2017 Findings: Imaged portions of the pancreatic head are grossly unremarkable. The body and tail are not seen. Hepatic contour is smooth. Right lobe of the liver measures 17.2 cm in length. No focal hepatic mass lesion is appreciated sonographically. The main portal vein is patent with normal direction of flow. The bladder is unremarkable in appearance. No evidence of gallstones. No pericholecystic fluid or gallbladder wall thickening. No intrahepatic or extra hepatic biliary duct dilatation. Common bile duct measures 3 mm. Kidneys symmetric in size and demonstrate normal parenchymal thickness and echogenicity. No hydronephrosis or sonographically appreciable renal stones. Spleen is enlarged measuring 14.4 cm in length. Imaged portions of the abdominal aorta and IVC are unremarkable in appearance. There is no ascites. Impression: Mild splenomegaly. Hepatic contour is smooth. No focal liver lesion is appreciated sonographically.
[2017-08-19] MEDS ORDERED: Pamidronate Disodium Inj 60 MG in Sodium Chloride 500ML 550 ML IVPB ONE (15:00)
[2017-08-19] MEDS ORDERED: Morphine Sulfate 2mg/ml Inj IVP PRN (15:15)
[2017-08-19 16:00] VITALS: BP 93/57
--- NOTE | 2017-08-19 17:07 | Internal Med Progress Note ---
Subjective Date of Service: Aug 19, 2017 Physician Name Ervin Regalado Attending Physician Tyrone Barba MD Current Medications Medications (Trade) Dose Ordered Sig/Ramon Route PRN Reason Start Time Stop Time Status Last Admin Dose Admin Acetaminophen (Tylenol) 650 mg Q6H PRN ORAL Mild Pain/Temp > 100.5 08/13/17 23:15 09/12/17 23:14 08/18/17 15:42 Acetaminophen/ Hydrocodone Bitart ([place] 10/325) 1 ea Q6H PRN ORAL Moderate Pain (Pain Scale 4-6) 08/19/17 13:15 08/26/17 13:14 Aspirin (ASA) 81 mg DAILY ORAL 08/14/17 09:00 09/13/17 08:59 08/19/17 08:29 Baclofen (Lioresal) 10 mg Q8H PRN ORAL muscle spasm 08/19/17 13:15 09/18/17 13:14 Bicalutamide (Casodex) 50 mg DAILY ORAL 08/19/17 09:00 08/24/17 08:59 08/19/17 10:20 Dextrose (Dextrose 50%) STAT PRN IV Hypoglycemia 08/13/17 23:15 09/12/17 23:14 Diclofenac Sodium (Voltaren) 25 mg THREE TIMES A DAY PRN ORAL inflammation 08/19/17 13:15 09/18/17 13:14 Diphenhydramine HCl (Benadryl) 50 mg BEDTIME ORAL 08/14/17 21:00 09/13/17 20:59 08/18/17 21:16 Dronabinol (Marinol) 2.5 mg TID ORAL 08/16/17 18:00 09/15/17 17:59 08/19/17 14:10 Gabapentin (Neurontin) 300 mg THREE TIMES A DAY ORAL 08/19/17 18:00 09/18/17 17:59 Hydromorphone HCl (Dilaudid) 1 mg Q4H PRN IVP Severe Pain (Pain Scale 7-10) 08/19/17 13:15 08/26/17 13:14 Insulin Aspart (NovoLOG) BEFORE MEALS AND HS SUBQ 08/14/17 06:30 09/13/17 06:29 08/19/17 12:07 Lisinopril (Prinivil) 10 mg DAILY ORAL 08/14/17 09:00 09/13/17 08:59 08/19/17 08:30 Methadone HCl (Methadone HCl) 70 mg DAILY ORAL 08/19/17 09:00 08/24/17 21:59 08/19/17 08:32 Ondansetron HCl (Zofran) 4 mg EVERY 4 HOURS PRN IVP Nausea & Vomiting 08/13/17 23:15 09/12/17 23:14 08/16/17 10:58 Pamidronate Disodium 60 mg/ Sodium Chloride 550 ml @ 137.5 mls/ hr ONCE ONCE IVPB 08/19/17 15:00 08/19/17 18:59 08/19/17 15:28 Pravastatin Sodium (Pravachol) 20 mg DAILY ORAL 08/14/17 09:00 09/13/17 08:59 08/19/17 08:29 Sodium 1,000 ml @ 75 mls/hr [id number] IV 08/15/17 22:30 09/14/17 22:29 08/19/17 05:10 Allergies: Coded Allergies: No Known Allergies (Unverified , 08/13/17) ROS Limited/Unobtainable: No Constitutional: Reports: no symptoms HEENT: Reports: no symptoms Cardiovascular: Reports: palpitations Respiratory: Reports: no symptoms Gastrointestinal/Abdominal: Reports: no symptoms Genitourinary: Reports: no symptoms Neurologic/Psychiatric: Reports: no symptoms Subjective 61 YO M admitted with bilateral leg weakness and pain. Now severe anemia and possible prostate cancer with metastases. S/P endoscopy and colonoscopy . Cover for Int Med-Dr Barba. Patient now on methadone Objective Last Vital Signs Date Time Temp Pulse Resp B/P (MAP) Pulse Ox O2 Delivery O2 Flow Rate FiO2 08/19/17 12:00 98.1 112 20 116/63 98 Room Air 08/16/17 07:52 4.0 Laboratory Tests Test 08/19/17 04:40 White Blood Count 5.0 K/UL (4.8-10.8) Red Blood Count 2.58 M/UL (4.70-6.10) L Hemoglobin 7.6 G/DL (14.2-18.0) L Hematocrit 22.4 % (42.0-52.0) L Mean Corpuscular Volume 87 FL (80-99) Mean Corpuscular Hemoglobin 29.4 PG (27.0-31.0) Mean Corpuscular Hemoglobin Concent 33.9 G/DL (32.0-36.0) Red Cell Distribution Width 14.8 % (11.6-14.8) Platelet Count 70 K/UL (150-450) L Mean Platelet Volume 7.0 FL (6.5-10.1) Neutrophils (%) (Auto) % (45.0-75.0) Lymphocytes (%) (Auto) % (20.0-45.0) Monocytes (%) (Auto) % (1.0-10.0) Eosinophils (%) (Auto) % (0.0-3.0) Basophils (%) (Auto) % (0.0-2.0) Differential Total Cells Counted 100 Neutrophils % (Manual) 62 % (45-75) Lymphocytes % (Manual) 31 % (20-45) Monocytes % (Manual) 6 % (1-10) Eosinophils % (Manual) 1 % (0-3) Basophils % (Manual) 0 % (0-2) Band Neutrophils 0 % (0-8) Nucleated Red Blood Cells 2 /100 WBC Platelet Estimate Decreased L Platelet Morphology Normal Polychromasia 1+ Hypochromasia 1+ Anisocytosis 1+ Sodium Level 139 MMOL/L (136-145) Potassium Level 3.9 MMOL/L (3.5-5.1) Chloride Level 103 MMOL/L (98-107) Carbon Dioxide Level 28 MMOL/L (21-32) Anion Gap 8 mmol/L (5-15) Blood Urea Nitrogen 22 mg/dL (7-18) H Creatinine 1.3 MG/DL (0.55-1.30) Estimat Glomerular Filtration Rate > 60 mL/min (>60) Glucose Level 124 MG/DL (74-106) H Calcium Level 11.5 MG/DL (8.5-10.1) H Phosphorus Level 3.8 MG/DL (2.5-4.9) Magnesium Level 1.3 MG/DL (1.8-2.4) L Total Bilirubin 0.4 MG/DL (0.2-1.0) Direct Bilirubin < 0.1 MG/DL (0.0-0.3) Aspartate Amino Transf (AST/SGOT) 32 U/L (15-37) Alanine Aminotransferase (ALT/SGPT) 10 U/L (12-78) L Alkaline Phosphatase 193 U/L (46-116) H Total Protein 6.1 G/DL (6.4-8.2) L Albumin 3.2 G/DL (3.4-5.0) L Intake and Output 08/18/17 08/19/17 19:00 07:00 Intake Total 180 ml 925 ml Output Total 1200 ml 700 ml Balance -1020 ml 225 ml Intake Oral 180 ml 100 ml IV Total 825 ml Output Urine Total 1200 ml 700 ml Objective General Appearance: WD/WN, no apparent distress, alert EENT: PERRL/EOMI, normal ENT inspection, TMs normal Neck: non-tender, normal alignment, supple, normal inspection Cardiovascular: normal peripheral pulses, normal rate, regular rhythm, no gallop/murmur, no JVD Respiratory/Chest: chest wall non-tender, lungs clear, normal breath sounds, no respiratory distress, no accessory muscle use Abdomen: normal bowel sounds, non tender, soft, no organomegaly, no mass Extremities: normal range of motion, non-tender 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 S/P endoscopy and colonoscopy 08/16/17. Iron panel normal. See GI consult note (2) Pain in both lower legs (3) Weakness of both legs (4) HTN (hypertension) Assessment & Plan: Continue lisinopril (5) Diabetes mellitus, type II Assessment & Plan: Continue novolog sliding scale. (6) Hypercholesteremia Assessment & Plan: continue pravachol (7) Peripheral vascular disease (8) Hepatitis C virus infection resolved after antiviral drug therapy (9) Methadone maintenance therapy patient Assessment & Plan: See pain management consult-restart methadone (10) Prostate cancer metastatic to bone Assessment & Plan: Await tumor markers for confirmation. See oncology note. Status: not improved ERVIN REGALADO Aug 19, 2017 17:06
[2017-08-19] MEDS ORDERED: Norco 5mg/325mg tab ORAL PRN (17:15)
[2017-08-19 20:00] VITALS: BP 92/53
[2017-08-20 00:43] VITALS: BP 108/61
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
[2017-08-20 03:53] VITALS: BP 103/66
[2017-08-20] MEDS: NovoLOG Insulin Flexpen SUBQ SCH ×4 (06:10→22:21)
[2017-08-20 08:00] VITALS: BP 107/63
[2017-08-20] MEDS: 1/2NS w/KCl 20mEq 1000ml 1,000 ML IV SCH ×2 (08:47→20:47)
[2017-08-20] MEDS: Bicalutamide 50mg tab ORAL SCH (08:48)
[2017-08-20] MEDS: Dronabinol 2.5mg Cap ORAL SCH ×3 (08:48→18:12)
[2017-08-20] MEDS: Aspirin Baby 81mg ORAL SCH (08:49)
[2017-08-20] MEDS: Lisinopril 20mg tab ORAL SCH (08:51)
--- NOTE | 2017-08-20 08:54 | General Progress Note ---
Assessment/Plan Assessment/Plan (1) Intractable back pain (2) Metastatic Prostate Cancer (3) Thoracic Compression Fracture (4) Lumbar Spinal stenosis (5) Lumbar Radiculopathy Pt to be continued on Methadone, [place] and Dilaudid. We recommend spine surgeon consultation as per gerentological physiotherapist. D/w Dr. Aburto and he concurred. Subjective Date patient seen: Aug 20, 2017 Time patient seen: 07:15 - am Allergies: Coded Allergies: No Known Allergies (Unverified , 08/13/17) Subjective REVIEW OF SYSTEMS: Denies rash, fever, chills, sweating, dizziness, drowsiness, blurred vision, sore throat, or change in his weight. No nausea, vomiting, diarrhea, or blood in the stool or urine. No bowel or bladder incontinence. No dysuria. He is complaining of back pain. 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 He reports that the pain continues to be severe with throbbing in his legs. Waiting for his methadone dosage. Pt reports that his pain has been tolerated while on the medications. Objective Last 24 Hour Vital Signs Date Time Temp Pulse Resp B/P (MAP) Pulse Ox O2 Delivery O2 Flow Rate FiO2 08/20/17 08:00 98.0 114 20 107/63 96 08/20/17 03:53 98.4 112 19 103/66 95 Room Air 08/20/17 00:43 98.1 109 18 108/61 95 Room Air 08/19/17 20:00 98.5 109 18 92/53 94 Room Air 08/19/17 16:00 98.2 117 18 93/57 98 Room Air 08/19/17 12:00 98.1 112 20 116/63 98 Room Air Intake and Output 08/19/17 08/20/17 19:00 07:00 Intake Total 475 ml 1140 ml Output Total 500 ml 500 ml Balance -25 ml 640 ml Intake Oral 400 ml 240 ml IV Total 75 ml 900 ml Output Urine Total 500 ml 500 ml Height (Feet): 6 Weight (Pounds): 165 Objective GENERAL: Alert, awake, and oriented. HEENT: PERRLA. NECK: Range of motion is full in all directions. No tenderness. No adenopathy. LUNGS: Decreased breath sounds bilaterally. ABDOMEN: Tenderness to palpation. BACK: Range of motion is decreased in flexion and extension with tenderness to paraspinal muscles. No tenderness to trapezius and rhomboid muscles. EXTREMITIES: No cyanosis. No clubbing. No edema. NEURO: No changes. BIANCA MURRELL. Aug 20, 2017 08:54
[2017-08-20 09:20] LABS: HEMATOCRIT 23.4 % (42.0-52.0); HEMOGLOBIN 7.6 G/DL (14.2-18.0); MEAN CORPUSCULAR VOLUME 87 FL (80-99); PLATELET COUNT 64 K/UL (150-450); RED BLOOD COUNT 2.69 M/UL (4.70-6.10); WHITE BLOOD COUNT 4.2 K/UL (4.8-10.8)
[2017-08-20 10:03] LABS: ALBUMIN 3.4 G/DL (3.4-5.0); ALBUMIN/GLOBULIN RATIO 1.1 (1.0-2.7); ALKALINE PHOSPHATASE 202 U/L (46-116); ANION GAP 8 mmol/L (5-15); ASPARTATE AMINO TRANSFERASE 34 U/L (15-37); BILIRUBIN,TOTAL 0.4 MG/DL (0.2-1.0); BLOOD UREA NITROGEN 30 mg/dL (7-18); CALCIUM 11.4 MG/DL (8.5-10.1); CARBON DIOXIDE 29 MMOL/L (21-32); CHLORIDE 103 MMOL/L (98-107); CHOLESTEROL 122 MG/DL (< 200); CREATINE KINASE 99 U/L (26-308); CREATININE 1.5 MG/DL (0.55-1.30); FERRITIN 572 NG/ML (8-388); GAMMA GLUTAMYL TRANSPEPTIDASE 166 U/L (5-85); HDL CHOLESTEROL 42 MG/DL (40-60); PHOSPHORUS 3.6 MG/DL (2.5-4.9); POTASSIUM 4.7 MMOL/L (3.5-5.1); SODIUM 140 MMOL/L (136-145); TRIGLYCERIDES 195 MG/DL (30-150)
[2017-08-20 10:08] LABS: ALANINE AMINOTRANSFERASE < 6 U/L (12-78)
--- NOTE | 2017-08-20 10:48 | GI Progress Note ---
Assessment/Plan Problems: (1) Weight loss ICD Codes: R63.4 - Abnormal weight loss SNOMED: 69043432, 944621842 (2) Hepatitis C virus infection resolved after antiviral drug therapy ICD Codes: Z86.19 - Personal history of other infectious and parasitic diseases SNOMED: 979884456, 64231912323836 (3) Pain in both lower legs ICD Codes: M79.661 - Pain in right lower leg; M79.662 - Pain in left lower leg SNOMED: 14862960281445670 (4) Severe anemia ICD Codes: D64.9 - Anemia, unspecified SNOMED: 803592447 (5) Weight loss of more than 10% body weight ICD Codes: R63.4 - Abnormal weight loss SNOMED: 28202592 (6) Anemia ICD Codes: D64.9 - Anemia, unspecified SNOMED: 085096374 (7) Diabetes mellitus ICD Codes: E11.9 - Type 2 diabetes mellitus without complications SNOMED: 03144091 Status: unchanged Status Narrative Discussed with Dr. Coreas. Assessment/Plan s/p Hep C Tx with harvoni >> still Hep C positive CT AP reviewed >> 2.8 x 1.7 cm rounded structure may represent an enlarged, partially necrotic lymph node suggesting diffuse osseous metastases or additional permeative osseous lesion. Taken together these findings are concerning for malignancy, with prostate being suspected. Correlate with PSA. Additional etiologies are not entirely excluded. Bone biopsy may be of benefit. s/p EGD/colonoscopy SUMMARY OF FINDINGS: 1. Distal esophageal ring. 2. Medium-sized hiatal hernia. 3. Evidence of bile reflux. 4. Gastritis, status post biopsy. >> negative for H. Pylori 5. Internal hemorrhoids. 6. Poor colonoscopy prep. RECOMMENDATIONS: fu onc recs add ensure when patient is on PO diet monitor H&H, prn transfusions bowel regime ppi fu labs Subjective Gastrointestinal/Abdominal: Reports: no symptoms Subjective leg pain Objective Last 24 Hour Vital Signs Date Time Temp Pulse Resp B/P (MAP) Pulse Ox O2 Delivery O2 Flow Rate FiO2 08/20/17 08:51 107/63 08/20/17 08:00 98.0 114 20 107/63 96 08/20/17 03:53 98.4 112 19 103/66 95 Room Air 08/20/17 00:43 98.1 109 18 108/61 95 Room Air 08/19/17 20:00 98.5 109 18 92/53 94 Room Air 08/19/17 16:00 98.2 117 18 93/57 98 Room Air 08/19/17 12:00 98.1 112 20 116/63 98 Room Air Intake and Output 08/19/17 08/20/17 19:00 07:00 Intake Total 475 ml 1140 ml Output Total 500 ml 500 ml Balance -25 ml 640 ml Intake Oral 400 ml 240 ml IV Total 75 ml 900 ml Output Urine Total 500 ml 500 ml Laboratory Tests Test 08/20/17 09:10 White Blood Count 4.2 K/UL (4.8-10.8) L Red Blood Count 2.69 M/UL (4.70-6.10) L Hemoglobin 7.6 G/DL (14.2-18.0) L Hematocrit 23.4 % (42.0-52.0) L Mean Corpuscular Volume 87 FL (80-99) Mean Corpuscular Hemoglobin 28.3 PG (27.0-31.0) Mean Corpuscular Hemoglobin Concent 32.5 G/DL (32.0-36.0) Red Cell Distribution Width 15.0 % (11.6-14.8) H Platelet Count 64 K/UL (150-450) L Mean Platelet Volume 5.3 FL (6.5-10.1) L Neutrophils (%) (Auto) % (45.0-75.0) Lymphocytes (%) (Auto) % (20.0-45.0) Monocytes (%) (Auto) % (1.0-10.0) Eosinophils (%) (Auto) % (0.0-3.0) Basophils (%) (Auto) % (0.0-2.0) Differential Total Cells Counted 100 Neutrophils % (Manual) 67 % (45-75) Lymphocytes % (Manual) 17 % (20-45) L Monocytes % (Manual) 9 % (1-10) Eosinophils % (Manual) 2 % (0-3) Basophils % (Manual) 0 % (0-2) Band Neutrophils 5 % (0-8) Nucleated Red Blood Cells 2 /100 WBC Platelet Estimate Decreased L Platelet Morphology Normal Polychromasia 1+ Hypochromasia 1+ Anisocytosis 1+ Sodium Level 140 MMOL/L (136-145) Potassium Level 4.7 MMOL/L (3.5-5.1) Chloride Level 103 MMOL/L (98-107) Carbon Dioxide Level 29 MMOL/L (21-32) Anion Gap 8 mmol/L (5-15) Blood Urea Nitrogen 30 mg/dL (7-18) H Creatinine 1.5 MG/DL (0.55-1.30) H Estimat Glomerular Filtration Rate 57.4 mL/min (>60) Glucose Level 128 MG/DL (74-106) H Hemoglobin A1c 5.6 % (4.3-6.0) Uric Acid 8.7 MG/DL (2.6-7.2) H Calcium Level 11.4 MG/DL (8.5-10.1) H Phosphorus Level 3.6 MG/DL (2.5-4.9) Magnesium Level 1.2 MG/DL (1.8-2.4) L Ferritin 572 NG/ML (8-388) H Total Bilirubin 0.4 MG/DL (0.2-1.0) Gamma Glutamyl Transpeptidase 166 U/L (5-85) H Aspartate Amino Transf (AST/SGOT) 34 U/L (15-37) Alanine Aminotransferase (ALT/SGPT) < 6 U/L (12-78) L Alkaline Phosphatase 202 U/L (46-116) H Total Creatine Kinase 99 U/L (26-308) C-Reactive Protein, Quantitative < 0.4 mg/dL (0.00-0.90) Pro-B-Type Natriuretic Peptide 70 pg/mL (0-125) Total Protein 6.4 G/DL (6.4-8.2) Albumin 3.4 G/DL (3.4-5.0) Globulin 3.0 g/dL Albumin/Globulin Ratio 1.1 (1.0-2.7) Triglycerides Level 195 MG/DL (30-150) H Cholesterol Level 122 MG/DL (< 200) LDL Cholesterol 49 mg/dL (<100) HDL Cholesterol 42 MG/DL (40-60) Cholesterol/HDL Ratio 2.9 (3.3-4.4) L Vitamin B12 Level 385 PG/ML (193-986) Thyroid Stimulating Hormone (TSH) 2.582 uiU/mL (0.358-3.740) Height (Feet): 6 Weight (Pounds): 165 General Appearance: WD/WN, no apparent distress, alert, thin Cardiovascular: normal rate Respiratory/Chest: normal breath sounds, no respiratory distress Abdominal Exam: normal bowel sounds, non tender, soft Extremities: normal range of motion, non-tender [place] Trotter N.P. Aug 20, 2017 10:48
[2017-08-20 12:00] VITALS: BP 106/69
--- NOTE | 2017-08-20 12:10 | Nephrology Progress Note ---
Assessment/Plan Assessment Cr cesario 1.5 (1) Anemia / PanCytopenia (2) Hypercalcemia (3) Weight loss of more than 10% body weight (4) Diabetes mellitus (5) Methadone maintenance therapy patient (6) Metastatic Prostate Ca (7) Hepatitis C Cirrhosis (8) HyperUrecemia Plan Plan; Aredia given 06/19 monitor Ca Alb Phos Mag supplement DC Volteran, Lipitor, Lisinopril Monitor renal parameters add allopurinol per consultants Subjective ROS Limited/Unobtainable: No Constitutional: Reports: malaise Objective Objective Last 24 Hour Vital Signs Date Time Temp Pulse Resp B/P (MAP) Pulse Ox O2 Delivery O2 Flow Rate FiO2 08/20/17 08:51 107/63 08/20/17 08:00 98.0 114 20 107/63 96 08/20/17 03:53 98.4 112 19 103/66 95 Room Air 08/20/17 00:43 98.1 109 18 108/61 95 Room Air 08/19/17 20:00 98.5 109 18 92/53 94 Room Air 08/19/17 16:00 98.2 117 18 93/57 98 Room Air Intake and Output 08/19/17 08/20/17 19:00 07:00 Intake Total 475 ml 1140 ml Output Total 500 ml 500 ml Balance -25 ml 640 ml Intake Oral 400 ml 240 ml IV Total 75 ml 900 ml Output Urine Total 500 ml 500 ml Laboratory Tests 08/20/17 09:10: White Blood Count 4.2L, Red Blood Count 2.69L, Hemoglobin 7.6L, Hematocrit 23.4L , Mean Corpuscular Volume 87, Mean Corpuscular Hemoglobin 28.3, Mean Corpuscular Hemoglobin Concent 32.5, Red Cell Distribution Width 15.0H, Platelet Count 64L, Mean Platelet Volume 5.3L, Neutrophils (%) (Auto) , Lymphocytes (%) (Auto) , Monocytes (%) (Auto) , Eosinophils (%) (Auto) , Basophils (%) (Auto) , Differential Total Cells Counted 100, Neutrophils % ( Manual) 67, Lymphocytes % (Manual) 17L, Monocytes % (Manual) 9, Eosinophils % ( Manual) 2, Basophils % (Manual) 0, Band Neutrophils 5, Nucleated Red Blood Cells 2, Platelet Estimate DecreasedL, Platelet Morphology Normal, Polychromasia 1+, Hypochromasia 1+, Anisocytosis 1+, Sodium Level 140, Potassium Level 4.7, Chloride Level 103, Carbon Dioxide Level 29, Anion Gap 8, Blood Urea Nitrogen 30H, Creatinine 1.5H, Estimat Glomerular Filtration Rate 57.4, Glucose Level 128H, Hemoglobin A1c 5.6, Uric Acid 8.7H, Calcium Level 11.4H, Phosphorus Level 3.6, Magnesium Level 1.2L, Ferritin 572H, Total Bilirubin 0.4, Gamma Glutamyl Transpeptidase 166H, Aspartate Amino Transf (AST/ SGOT) 34, Alanine Aminotransferase (ALT/SGPT) < 6L, Alkaline Phosphatase 202H, Total Creatine Kinase 99, C-Reactive Protein, Quantitative < 0.4, Pro-B-Type Natriuretic Peptide 70, Total Protein 6.4, Albumin 3.4, Globulin 3.0, Albumin/ Globulin Ratio 1.1, Triglycerides Level 195H, Cholesterol Level 122, LDL Cholesterol 49, HDL Cholesterol 42, Cholesterol/HDL Ratio 2.9L, Vitamin B12 Level 385, Thyroid Stimulating Hormone (TSH) 2.582 Height (Feet): 6 Weight (Pounds): 165 General Appearance: no apparent distress, lethargic Cardiovascular: normal rate Respiratory/Chest: decreased breath sounds Abdomen: soft JENNIFER MORALES Aug 20, 2017 12:10
--- NOTE | 2017-08-20 13:03 | Internal Med Progress Note ---
Subjective Date of Service: Aug 20, 2017 Physician Name Ervin Regalado Attending Physician Tyrone Barba MD Current Medications Medications (Trade) Dose Ordered Sig/Ramon Route PRN Reason Start Time Stop Time Status Last Admin Dose Admin Acetaminophen (Tylenol) 650 mg Q6H PRN ORAL Mild Pain/Temp > 100.5 08/13/17 23:15 09/12/17 23:14 08/18/17 15:42 Acetaminophen/ Hydrocodone Bitart ([place] 10/325) 1 ea Q6H PRN ORAL Moderate Pain (Pain Scale 4-6) 08/19/17 13:15 08/26/17 13:14 Allopurinol (Allopurinol) 300 mg DAILY ORAL 08/21/17 09:00 09/20/17 08:59 Aspirin (ASA) 81 mg DAILY ORAL 08/14/17 09:00 09/13/17 08:59 08/20/17 08:49 Baclofen (Lioresal) 10 mg Q8H PRN ORAL muscle spasm 08/19/17 13:15 09/18/17 13:14 Bicalutamide (Casodex) 50 mg DAILY ORAL 08/19/17 09:00 08/24/17 08:59 08/20/17 08:48 Dextrose (Dextrose 50%) STAT PRN IV Hypoglycemia 08/13/17 23:15 09/12/17 23:14 Diphenhydramine HCl (Benadryl) 50 mg BEDTIME ORAL 08/14/17 21:00 09/13/17 20:59 08/19/17 20:54 Dronabinol (Marinol) 5 mg TID ORAL 08/20/17 13:00 09/19/17 12:59 Gabapentin (Neurontin) 300 mg THREE TIMES A DAY ORAL 08/19/17 18:00 09/18/17 17:59 08/20/17 08:48 Hydromorphone HCl (Dilaudid) 1 mg Q4H PRN IVP Severe Pain (Pain Scale 7-10) 08/20/17 08:00 08/27/17 07:59 08/20/17 12:30 Insulin Aspart (NovoLOG) BEFORE MEALS AND HS SUBQ 08/14/17 06:30 09/13/17 06:29 08/20/17 12:42 Magnesium Sulfate 100 ml @ 100 mls/hr Q1H IVPB 08/20/17 13:00 08/20/17 16:59 Methadone HCl (Methadone HCl) 70 mg DAILY ORAL 08/19/17 09:00 08/24/17 21:59 08/20/17 08:50 Ondansetron HCl (Zofran) 4 mg EVERY 4 HOURS PRN IVP Nausea & Vomiting 08/13/17 23:15 09/12/17 23:14 08/16/17 10:58 Sodium 1,000 ml @ 75 mls/hr [id number] IV 08/15/17 22:30 09/14/17 22:29 08/20/17 08:47 Allergies: Coded Allergies: No Known Allergies (Unverified , 08/13/17) ROS Limited/Unobtainable: No Constitutional: Reports: no symptoms HEENT: Reports: no symptoms Cardiovascular: Reports: no symptoms Respiratory: Reports: no symptoms Gastrointestinal/Abdominal: Reports: abdominal pain Genitourinary: Reports: no symptoms Neurologic/Psychiatric: Reports: no symptoms Subjective 61 YO M admitted with bilateral leg weakness and pain. Now severe anemia and possible prostate cancer with metastases. S/P endoscopy and colonoscopy . Cover for Int Med-Dr Barba. Patient now on methadone Objective Last Vital Signs Date Time Temp Pulse Resp B/P (MAP) Pulse Ox O2 Delivery O2 Flow Rate FiO2 08/20/17 08:51 107/63 08/20/17 08:00 98.0 114 20 96 08/20/17 03:53 Room Air 08/16/17 07:52 4.0 Laboratory Tests Test 08/20/17 09:10 White Blood Count 4.2 K/UL (4.8-10.8) L Red Blood Count 2.69 M/UL (4.70-6.10) L Hemoglobin 7.6 G/DL (14.2-18.0) L Hematocrit 23.4 % (42.0-52.0) L Mean Corpuscular Volume 87 FL (80-99) Mean Corpuscular Hemoglobin 28.3 PG (27.0-31.0) Mean Corpuscular Hemoglobin Concent 32.5 G/DL (32.0-36.0) Red Cell Distribution Width 15.0 % (11.6-14.8) H Platelet Count 64 K/UL (150-450) L Mean Platelet Volume 5.3 FL (6.5-10.1) L Neutrophils (%) (Auto) % (45.0-75.0) Lymphocytes (%) (Auto) % (20.0-45.0) Monocytes (%) (Auto) % (1.0-10.0) Eosinophils (%) (Auto) % (0.0-3.0) Basophils (%) (Auto) % (0.0-2.0) Differential Total Cells Counted 100 Neutrophils % (Manual) 67 % (45-75) Lymphocytes % (Manual) 17 % (20-45) L Monocytes % (Manual) 9 % (1-10) Eosinophils % (Manual) 2 % (0-3) Basophils % (Manual) 0 % (0-2) Band Neutrophils 5 % (0-8) Nucleated Red Blood Cells 2 /100 WBC Platelet Estimate Decreased L Platelet Morphology Normal Polychromasia 1+ Hypochromasia 1+ Anisocytosis 1+ Sodium Level 140 MMOL/L (136-145) Potassium Level 4.7 MMOL/L (3.5-5.1) Chloride Level 103 MMOL/L (98-107) Carbon Dioxide Level 29 MMOL/L (21-32) Anion Gap 8 mmol/L (5-15) Blood Urea Nitrogen 30 mg/dL (7-18) H Creatinine 1.5 MG/DL (0.55-1.30) H Estimat Glomerular Filtration Rate 57.4 mL/min (>60) Glucose Level 128 MG/DL (74-106) H Hemoglobin A1c 5.6 % (4.3-6.0) Uric Acid 8.7 MG/DL (2.6-7.2) H Calcium Level 11.4 MG/DL (8.5-10.1) H Phosphorus Level 3.6 MG/DL (2.5-4.9) Magnesium Level 1.2 MG/DL (1.8-2.4) L Ferritin 572 NG/ML (8-388) H Total Bilirubin 0.4 MG/DL (0.2-1.0) Gamma Glutamyl Transpeptidase 166 U/L (5-85) H Aspartate Amino Transf (AST/SGOT) 34 U/L (15-37) Alanine Aminotransferase (ALT/SGPT) < 6 U/L (12-78) L Alkaline Phosphatase 202 U/L (46-116) H Total Creatine Kinase 99 U/L (26-308) C-Reactive Protein, Quantitative < 0.4 mg/dL (0.00-0.90) Pro-B-Type Natriuretic Peptide 70 pg/mL (0-125) Total Protein 6.4 G/DL (6.4-8.2) Albumin 3.4 G/DL (3.4-5.0) Globulin 3.0 g/dL Albumin/Globulin Ratio 1.1 (1.0-2.7) Triglycerides Level 195 MG/DL (30-150) H Cholesterol Level 122 MG/DL (< 200) LDL Cholesterol 49 mg/dL (<100) HDL Cholesterol 42 MG/DL (40-60) Cholesterol/HDL Ratio 2.9 (3.3-4.4) L Vitamin B12 Level 385 PG/ML (193-986) Thyroid Stimulating Hormone (TSH) 2.582 uiU/mL (0.358-3.740) Intake and Output 08/19/17 08/20/17 19:00 07:00 Intake Total 475 ml 1140 ml Output Total 500 ml 500 ml Balance -25 ml 640 ml Intake Oral 400 ml 240 ml IV Total 75 ml 900 ml Output Urine Total 500 ml 500 ml Objective General Appearance: WD/WN, no apparent distress, alert EENT: PERRL/EOMI, normal ENT inspection, TMs normal Neck: non-tender, normal alignment, supple, normal inspection Cardiovascular: normal peripheral pulses, normal rate, regular rhythm, no gallop/murmur, no JVD Respiratory/Chest: chest wall non-tender, lungs clear, normal breath sounds, no respiratory distress, no accessory muscle use Abdomen: normal bowel sounds, non tender, soft, no organomegaly, no mass Extremities: normal range of motion, non-tender 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 S/P endoscopy and colonoscopy 08/16/17. Iron panel normal. See GI consult note (2) Pain in both lower legs (3) Weakness of both legs (4) HTN (hypertension) Assessment & Plan: Continue lisinopril (5) Diabetes mellitus, type II Assessment & Plan: Continue novolog sliding scale. (6) Hypercholesteremia Assessment & Plan: continue pravachol (7) Peripheral vascular disease (8) Hepatitis C virus infection resolved after antiviral drug therapy (9) Methadone maintenance therapy patient Assessment & Plan: See pain management consult-restart methadone (10) Prostate cancer metastatic to bone Assessment & Plan: Await tumor markers for confirmation. See oncology note. ERVIN REGALADO Aug 20, 2017 13:03
--- NOTE | 2017-08-20 13:09 | Pulmonology Progress Note ---
Assessment/Plan Problems: (1) Prostate cancer metastatic to bone (2) Pathologic compression fracture of spine (3) Anemia (4) Hypercalcemia (5) Weight loss of more than 10% body weight (6) Diabetes mellitus (7) Methadone maintenance therapy patient Assessment/Plan PSA noted, awaiting Neuro MRI reviewed, pathological fracture of L spine, t12-L1 pain control dc planning Subjective ROS Limited/Unobtainable: No Allergies: Coded Allergies: No Known Allergies (Unverified , 08/13/17) Objective Last 24 Hour Vital Signs Date Time Temp Pulse Resp B/P (MAP) Pulse Ox O2 Delivery O2 Flow Rate FiO2 08/20/17 08:51 107/63 08/20/17 08:00 98.0 114 20 107/63 96 08/20/17 03:53 98.4 112 19 103/66 95 Room Air 08/20/17 00:43 98.1 109 18 108/61 95 Room Air 08/19/17 20:00 98.5 109 18 92/53 94 Room Air 08/19/17 16:00 98.2 117 18 93/57 98 Room Air Intake and Output 08/19/17 08/20/17 19:00 07:00 Intake Total 475 ml 1140 ml Output Total 500 ml 500 ml Balance -25 ml 640 ml Intake Oral 400 ml 240 ml IV Total 75 ml 900 ml Output Urine Total 500 ml 500 ml Objective General Appearance: WD/WN HEENT: normocephalic, atraumatic Respiratory/Chest: chest wall non-tender, lungs clear Cardiovascular: normal peripheral pulses, normal rate Abdomen: normal bowel sounds, no organomegaly, non distended Laboratory Tests 08/20/17 09:10: White Blood Count 4.2L, Red Blood Count 2.69L, Hemoglobin 7.6L, Hematocrit 23.4L , Mean Corpuscular Volume 87, Mean Corpuscular Hemoglobin 28.3, Mean Corpuscular Hemoglobin Concent 32.5, Red Cell Distribution Width 15.0H, Platelet Count 64L, Mean Platelet Volume 5.3L, Neutrophils (%) (Auto) , Lymphocytes (%) (Auto) , Monocytes (%) (Auto) , Eosinophils (%) (Auto) , Basophils (%) (Auto) , Differential Total Cells Counted 100, Neutrophils % ( Manual) 67, Lymphocytes % (Manual) 17L, Monocytes % (Manual) 9, Eosinophils % ( Manual) 2, Basophils % (Manual) 0, Band Neutrophils 5, Nucleated Red Blood Cells 2, Platelet Estimate DecreasedL, Platelet Morphology Normal, Polychromasia 1+, Hypochromasia 1+, Anisocytosis 1+, Sodium Level 140, Potassium Level 4.7, Chloride Level 103, Carbon Dioxide Level 29, Anion Gap 8, Blood Urea Nitrogen 30H, Creatinine 1.5H, Estimat Glomerular Filtration Rate 57.4, Glucose Level 128H, Hemoglobin A1c 5.6, Uric Acid 8.7H, Calcium Level 11.4H, Phosphorus Level 3.6, Magnesium Level 1.2L, Ferritin 572H, Total Bilirubin 0.4, Gamma Glutamyl Transpeptidase 166H, Aspartate Amino Transf (AST/ SGOT) 34, Alanine Aminotransferase (ALT/SGPT) < 6L, Alkaline Phosphatase 202H, Total Creatine Kinase 99, C-Reactive Protein, Quantitative < 0.4, Pro-B-Type Natriuretic Peptide 70, Total Protein 6.4, Albumin 3.4, Globulin 3.0, Albumin/ Globulin Ratio 1.1, Triglycerides Level 195H, Cholesterol Level 122, LDL Cholesterol 49, HDL Cholesterol 42, Cholesterol/HDL Ratio 2.9L, Vitamin B12 Level 385, Thyroid Stimulating Hormone (TSH) 2.582 Current Medications Medications (Trade) Dose Ordered Sig/Ramon Route PRN Reason Start Time Stop Time Status Last Admin Dose Admin Acetaminophen (Tylenol) 650 mg Q6H PRN ORAL Mild Pain/Temp > 100.5 08/13/17 23:15 09/12/17 23:14 08/18/17 15:42 Acetaminophen/ Hydrocodone Bitart ([place] 10/325) 1 ea Q6H PRN ORAL Moderate Pain (Pain Scale 4-6) 08/19/17 13:15 08/26/17 13:14 Allopurinol (Allopurinol) 300 mg DAILY ORAL 08/21/17 09:00 09/20/17 08:59 Aspirin (ASA) 81 mg DAILY ORAL 08/14/17 09:00 09/13/17 08:59 08/20/17 08:49 Baclofen (Lioresal) 10 mg Q8H PRN ORAL muscle spasm 08/19/17 13:15 09/18/17 13:14 Bicalutamide (Casodex) 50 mg DAILY ORAL 08/19/17 09:00 08/24/17 08:59 1/15/18 08:48 Dextrose (Dextrose 50%) STAT PRN IV Hypoglycemia 08/13/17 23:15 09/12/17 23:14 Diphenhydramine HCl (Benadryl) 50 mg BEDTIME ORAL 08/14/17 21:00 09/13/17 20:59 08/19/17 20:54 Dronabinol (Marinol) 5 mg TID ORAL 08/20/17 13:00 09/19/17 12:59 Gabapentin (Neurontin) 300 mg THREE TIMES A DAY ORAL 08/19/17 18:00 09/18/17 17:59 08/20/17 08:48 Hydromorphone HCl (Dilaudid) 1 mg Q4H PRN IVP Severe Pain (Pain Scale 7-10) 08/20/17 08:00 08/27/17 07:59 08/20/17 12:30 Insulin Aspart (NovoLOG) BEFORE MEALS AND HS SUBQ 08/14/17 06:30 09/13/17 06:29 08/20/17 12:42 Magnesium Sulfate 100 ml @ 100 mls/hr Q1H IVPB 08/20/17 13:00 08/20/17 16:59 Methadone HCl (Methadone HCl) 70 mg DAILY ORAL 08/19/17 09:00 08/24/17 21:59 08/20/17 08:50 Ondansetron HCl (Zofran) 4 mg EVERY 4 HOURS PRN IVP Nausea & Vomiting 08/13/17 23:15 09/12/17 23:14 08/16/17 10:58 Sodium 1,000 ml @ 75 mls/hr [id number] IV 08/15/17 22:30 09/14/17 22:29 08/20/17 08:47 RACHID ZAMORA Aug 20, 2017 13:09
[2017-08-20 16:00] VITALS: BP 98/50
[2017-08-20 20:00] VITALS: BP 102/77
[2017-08-21] VITALS (7 sets, daily range): BP systolic 88–120; BP diastolic 47–62
--- NOTE | 2017-08-21 00:58 | General Progress Note ---
Assessment/Plan Assessment/Plan ASSESSMENT AND RECOMMENDATIONS: # Metastatic prostate cancer, psa is >5000, likely may need eventually a biopsy of the bone versus lymph node to confirm disease --> have started casodex and consider lupron once discharged # Pancytopenia, most etiology looks like related to underlying hepatitis C status post treatment. The patient's spleen is mildly enlarged. --> also component related to stage iv prostate ca --> hgb goal >7, plt goal >10k --> monitor cbc daily. # Lymphadenopathy as well as osseous metastasis is noted on CT scan. --> likely from prostate ca #. Hepatitis C status post treatment with Harvoni. Hepatitis C is positive. #. Coagulopathy likely secondary to underlying hepatitis C and liver cirrhosis. #. Hyperuricemia and elevated psa --> consider uro eval #. Anemia. Colonoscopy shows internal hemorrhoids. Subjective Allergies: Coded Allergies: No Known Allergies (Unverified , 08/13/17) Subjective nad Objective Last 24 Hour Vital Signs Date Time Temp Pulse Resp B/P (MAP) Pulse Ox O2 Delivery O2 Flow Rate FiO2 08/20/17 22:16 101.1 08/20/17 20:45 100.4 08/20/17 20:00 102.5 123 20 102/77 97 08/20/17 19:00 99.2 08/20/17 16:00 100.0 100 19 98/50 95 08/20/17 12:00 99.4 112 19 106/69 97 08/20/17 08:51 107/63 08/20/17 08:00 98.0 114 20 107/63 96 08/20/17 03:53 98.4 112 19 103/66 95 Room Air Intake and Output 08/20/17 08/21/17 19:00 07:00 Intake Total 150 ml Balance 150 ml Intake Oral 150 ml # Voids 3 Laboratory Tests 08/20/17 09:10: White Blood Count 4.2L, Red Blood Count 2.69L, Hemoglobin 7.6L, Hematocrit 23.4L , Mean Corpuscular Volume 87, Mean Corpuscular Hemoglobin 28.3, Mean Corpuscular Hemoglobin Concent 32.5, Red Cell Distribution Width 15.0H, Platelet Count 64L, Mean Platelet Volume 5.3L, Neutrophils (%) (Auto) , Lymphocytes (%) (Auto) , Monocytes (%) (Auto) , Eosinophils (%) (Auto) , Basophils (%) (Auto) , Differential Total Cells Counted 100, Neutrophils % ( Manual) 67, Lymphocytes % (Manual) 17L, Monocytes % (Manual) 9, Eosinophils % ( Manual) 2, Basophils % (Manual) 0, Band Neutrophils 5, Nucleated Red Blood Cells 2, Platelet Estimate DecreasedL, Platelet Morphology Normal, Polychromasia 1+, Hypochromasia 1+, Anisocytosis 1+, Sodium Level 140, Potassium Level 4.7, Chloride Level 103, Carbon Dioxide Level 29, Anion Gap 8, Blood Urea Nitrogen 30H, Creatinine 1.5H, Estimat Glomerular Filtration Rate 57.4, Glucose Level 128H, Hemoglobin A1c 5.6, Uric Acid 8.7H, Calcium Level 11.4H, Phosphorus Level 3.6, Magnesium Level 1.2L, Ferritin 572H, Total Bilirubin 0.4, Gamma Glutamyl Transpeptidase 166H, Aspartate Amino Transf (AST/ SGOT) 34, Alanine Aminotransferase (ALT/SGPT) < 6L, Alkaline Phosphatase 202H, Total Creatine Kinase 99, C-Reactive Protein, Quantitative < 0.4, Pro-B-Type Natriuretic Peptide 70, Total Protein 6.4, Albumin 3.4, Globulin 3.0, Albumin/ Globulin Ratio 1.1, Triglycerides Level 195H, Cholesterol Level 122, LDL Cholesterol 49, HDL Cholesterol 42, Cholesterol/HDL Ratio 2.9L, Vitamin B12 Level 385, Thyroid Stimulating Hormone (TSH) 2.582 Height (Feet): 6 Weight (Pounds): 165 General Appearance: no apparent distress EENT: normal ENT inspection Respiratory/Chest: lungs clear Pelvis: no masses Skin: warm/dry Emerson Camara Aug 21, 2017 00:58
--- NOTE | 2017-08-21 02:22 | General Progress Note ---
Assessment/Plan Assessment/Plan ASSESSMENT AND RECOMMENDATIONS: # Metastatic prostate cancer, psa is >5000, likely may need eventually a biopsy of the bone versus lymph node to confirm disease --> have started casodex and consider lupron once discharged # Pancytopenia, most etiology looks like related to underlying hepatitis C status post treatment. The patient's spleen is mildly enlarged. --> also component related to stage iv prostate ca --> hgb goal >7, plt goal >10k --> monitor cbc daily. # Lymphadenopathy as well as osseous metastasis is noted on CT scan. --> likely from prostate ca #. Hepatitis C status post treatment with Harvoni. Hepatitis C is positive. #. Coagulopathy likely secondary to underlying hepatitis C and liver cirrhosis. #. Hyperuricemia and elevated psa --> consider uro eval #. Anemia. Colonoscopy shows internal hemorrhoids. Subjective Date patient seen: Aug 20, 2017 Constitutional: Denies: no symptoms, chills, diaphoresis, fever, malaise, weakness, other HEENT: Denies: no symptoms, eye pain, blurred vision, tearing, double vision, ear pain, ear discharge, nose pain, nose congestion, throat pain, throat swelling, mouth pain, mouth swelling, other Cardiovascular: Denies: no symptoms, chest pain, edema, irregular heart rate, lightheadedness, palpitations, syncope, other Respiratory: Denies: no symptoms, cough, orthopnea, shortness of breath, SOB with excertion, SOB at rest, sputum, stridor, wheezing, other Gastrointestinal/Abdominal: Denies: no symptoms, abdomen distended, abdominal pain, black stools, tarry stools, blood in stool, constipated, diarrhea, difficulty swallowing, nausea, poor appetite, poor fluid intake, rectal bleeding , vomiting, other Allergies: Coded Allergies: No Known Allergies (Unverified , 08/13/17) Subjective No major events. Resting in bed. Low grade fever. Tachycardic. Objective Last 24 Hour Vital Signs Date Time Temp Pulse Resp B/P (MAP) Pulse Ox O2 Delivery O2 Flow Rate FiO2 08/21/17 00:00 98.8 104 18 92/47 93 08/20/17 22:16 101.1 08/20/17 20:45 100.4 08/20/17 20:00 102.5 123 20 102/77 97 08/20/17 19:00 99.2 08/20/17 16:00 100.0 100 19 98/50 95 08/20/17 12:00 99.4 112 19 106/69 97 08/20/17 08:51 107/63 08/20/17 08:00 98.0 114 20 107/63 96 08/20/17 03:53 98.4 112 19 103/66 95 Room Air Intake and Output 08/20/17 08/21/17 19:00 07:00 Intake Total 150 ml Balance 150 ml Intake Oral 150 ml # Voids 3 Laboratory Tests 08/20/17 09:10: White Blood Count 4.2L, Red Blood Count 2.69L, Hemoglobin 7.6L, Hematocrit 23.4L , Mean Corpuscular Volume 87, Mean Corpuscular Hemoglobin 28.3, Mean Corpuscular Hemoglobin Concent 32.5, Red Cell Distribution Width 15.0H, Platelet Count 64L, Mean Platelet Volume 5.3L, Neutrophils (%) (Auto) , Lymphocytes (%) (Auto) , Monocytes (%) (Auto) , Eosinophils (%) (Auto) , Basophils (%) (Auto) , Differential Total Cells Counted 100, Neutrophils % ( Manual) 67, Lymphocytes % (Manual) 17L, Monocytes % (Manual) 9, Eosinophils % ( Manual) 2, Basophils % (Manual) 0, Band Neutrophils 5, Nucleated Red Blood Cells 2, Platelet Estimate DecreasedL, Platelet Morphology Normal, Polychromasia 1+, Hypochromasia 1+, Anisocytosis 1+, Sodium Level 140, Potassium Level 4.7, Chloride Level 103, Carbon Dioxide Level 29, Anion Gap 8, Blood Urea Nitrogen 30H, Creatinine 1.5H, Estimat Glomerular Filtration Rate 57.4, Glucose Level 128H, Hemoglobin A1c 5.6, Uric Acid 8.7H, Calcium Level 11.4H, Phosphorus Level 3.6, Magnesium Level 1.2L, Ferritin 572H, Total Bilirubin 0.4, Gamma Glutamyl Transpeptidase 166H, Aspartate Amino Transf (AST/ SGOT) 34, Alanine Aminotransferase (ALT/SGPT) < 6L, Alkaline Phosphatase 202H, Total Creatine Kinase 99, C-Reactive Protein, Quantitative < 0.4, Pro-B-Type Natriuretic Peptide 70, Total Protein 6.4, Albumin 3.4, Globulin 3.0, Albumin/ Globulin Ratio 1.1, Triglycerides Level 195H, Cholesterol Level 122, LDL Cholesterol 49, HDL Cholesterol 42, Cholesterol/HDL Ratio 2.9L, Vitamin B12 Level 385, Thyroid Stimulating Hormone (TSH) 2.582 Height (Feet): 6 Weight (Pounds): 165 General Appearance: no apparent distress Cardiovascular: tachycardia Emerson Camara Aug 21, 2017 02:22
[2017-08-21] MEDS: 1/2NS w/KCl 20mEq 1000ml 1,000 ML IV SCH ×2 (06:25→11:33)
[2017-08-21] MEDS: NovoLOG Insulin Flexpen SUBQ SCH ×4 (06:32→20:43)
[2017-08-21] MEDS: HYDROcodone/Acetamin 10/325 tab ORAL PRN ×2 (06:37→12:38)
[2017-08-21 07:38] LABS: HEMATOCRIT 20.1 % (42.0-52.0); MEAN CORPUSCULAR VOLUME 88 FL (80-99); PLATELET COUNT 56 K/UL (150-450); RED BLOOD COUNT 2.29 M/UL (4.70-6.10); RED CELL DISTRIBUTION WIDTH 15.1 % (11.6-14.8); WHITE BLOOD COUNT 2.8 K/UL (4.8-10.8)
[2017-08-21 07:41] LABS: ALANINE AMINOTRANSFERASE 16 U/L (12-78); ALBUMIN 3.1 G/DL (3.4-5.0); ALBUMIN/GLOBULIN RATIO 1.1 (1.0-2.7); ALKALINE PHOSPHATASE 180 U/L (46-116); ANION GAP 7 mmol/L (5-15); ASPARTATE AMINO TRANSFERASE 39 U/L (15-37); BILIRUBIN,TOTAL 0.3 MG/DL (0.2-1.0); BLOOD UREA NITROGEN 37 mg/dL (7-18); CALCIUM 9.3 MG/DL (8.5-10.1); CARBON DIOXIDE 27 MMOL/L (21-32); CHLORIDE 103 MMOL/L (98-107); PHOSPHORUS 2.9 MG/DL (2.5-4.9); POTASSIUM 4.5 MMOL/L (3.5-5.1); SODIUM 137 MMOL/L (136-145)
[2017-08-21 07:53] LABS: HEMOGLOBIN 6.4 G/DL (14.2-18.0)
[2017-08-21] MEDS: Bicalutamide 50mg tab ORAL SCH (08:33)
[2017-08-21] MEDS: Dronabinol 2.5mg Cap ORAL SCH ×3 (08:33→17:14)
[2017-08-21] MEDS: Aspirin Baby 81mg ORAL SCH (08:33)
--- NOTE | 2017-08-21 08:49 | General Progress Note ---
Assessment/Plan Assessment/Plan (1) Intractable back pain (2) Metastatic Prostate Cancer (3) Thoracic Compression Fracture (4) Lumbar Spinal stenosis (5) Lumbar Radiculopathy Pt to be continued on Methadone, [place] and Dilaudid. D/w Dr. Aburto and he concurred. Subjective Date patient seen: Aug 21, 2017 Time patient seen: 07:15 - am Allergies: Coded Allergies: No Known Allergies (Unverified , 08/13/17) Subjective REVIEW OF SYSTEMS: Denies rash, fever, chills, sweating, dizziness, drowsiness, blurred vision, sore throat, or change in his weight. No nausea, vomiting, diarrhea, or blood in the stool or urine. No bowel or bladder incontinence. No dysuria. He is complaining of back pain. SUBJECTIVE: Pt reports that this pain has been severe and worse with movement. The pain is tolerated on the Methadone daily, Dilaudid 3 doses and [place]ita once in the last 24hrs. He has no new complaints. Objective Last 24 Hour Vital Signs Date Time Temp Pulse Resp B/P (MAP) Pulse Ox O2 Delivery O2 Flow Rate FiO2 08/21/17 05:02 101.4 08/21/17 05:00 101.5 08/21/17 04:00 101.9 121 20 112/56 96 08/21/17 00:01 Room Air 08/21/17 00:00 98.8 104 18 92/47 93 08/20/17 20:45 100.4 Room Air 08/20/17 20:00 102.5 123 20 102/77 97 08/20/17 19:00 99.2 08/20/17 16:00 100.0 100 19 98/50 95 08/20/17 12:00 99.4 112 19 106/69 97 08/20/17 08:51 107/63 Intake and Output 08/20/17 08/21/17 18:59 06:59 Intake Total 225 ml 1060 ml Output Total 500 ml Balance 225 ml 560 ml Intake Oral 150 ml 360 ml IV Total 75 ml 700 ml Output Urine Total 500 ml # Voids 3 Laboratory Tests 08/20/17 09:10: White Blood Count 4.2L, Red Blood Count 2.69L, Hemoglobin 7.6L, Hematocrit 23.4L , Mean Corpuscular Volume 87, Mean Corpuscular Hemoglobin 28.3, Mean Corpuscular Hemoglobin Concent 32.5, Red Cell Distribution Width 15.0H, Platelet Count 64L, Mean Platelet Volume 5.3L, Neutrophils (%) (Auto) , Lymphocytes (%) (Auto) , Monocytes (%) (Auto) , Eosinophils (%) (Auto) , Basophils (%) (Auto) , Differential Total Cells Counted 100, Neutrophils % ( Manual) 67, Lymphocytes % (Manual) 17L, Monocytes % (Manual) 9, Eosinophils % ( Manual) 2, Basophils % (Manual) 0, Band Neutrophils 5, Nucleated Red Blood Cells 2, Platelet Estimate DecreasedL, Platelet Morphology Normal, Polychromasia 1+, Hypochromasia 1+, Anisocytosis 1+, Sodium Level 140, Potassium Level 4.7, Chloride Level 103, Carbon Dioxide Level 29, Anion Gap 8, Blood Urea Nitrogen 30H, Creatinine 1.5H, Estimat Glomerular Filtration Rate 57.4, Glucose Level 128H, Hemoglobin A1c 5.6, Uric Acid 8.7H, Calcium Level 11.4H, Phosphorus Level 3.6, Magnesium Level 1.2L, Ferritin 572H, Total Bilirubin 0.4, Gamma Glutamyl Transpeptidase 166H, Aspartate Amino Transf (AST/ SGOT) 34, Alanine Aminotransferase (ALT/SGPT) < 6L, Alkaline Phosphatase 202H, Total Creatine Kinase 99, C-Reactive Protein, Quantitative < 0.4, Pro-B-Type Natriuretic Peptide 70, Total Protein 6.4, Albumin 3.4, Globulin 3.0, Albumin/ Globulin Ratio 1.1, Triglycerides Level 195H, Cholesterol Level 122, LDL Cholesterol 49, HDL Cholesterol 42, Cholesterol/HDL Ratio 2.9L, Vitamin B12 Level 385, Thyroid Stimulating Hormone (TSH) 2.582 08/21/17 06:40: White Blood Count 2.8L, Red Blood Count 2.29L, Hemoglobin 6.4*L, Hematocrit 20.1L, Mean Corpuscular Volume 88, Mean Corpuscular Hemoglobin 28.1, Mean Corpuscular Hemoglobin Concent 32.1, Red Cell Distribution Width 15.1H, Platelet Count 56L, Mean Platelet Volume 6.7, Neutrophils (%) (Auto) , Lymphocytes (%) (Auto) , Monocytes (%) (Auto) , Eosinophils (%) (Auto) , Basophils (%) (Auto) , Neutrophils % (Manual) [Pending], Lymphocytes % (Manual) [Pending], Platelet Estimate [Pending], Platelet Morphology [Pending], Sodium Level 137, Potassium Level 4.5, Chloride Level 103, Carbon Dioxide Level 27, Anion Gap 7, Blood Urea Nitrogen 37H, Creatinine 2.0H, Estimat Glomerular Filtration Rate 41.2, Glucose Level 94, Uric Acid 9.0H, Calcium Level 9.3, Phosphorus Level 2.9, Magnesium Level 2.1, Total Bilirubin 0.3, Aspartate Amino Transf (AST/SGOT) 39H, Alanine Aminotransferase (ALT/SGPT) 16, Alkaline Phosphatase 180H, Total Protein 6.0L, Albumin 3.1L, Globulin 2.9, Albumin/ Globulin Ratio 1.1 Height (Feet): 6 Weight (Pounds): 165 Objective GENERAL: Alert, awake, and oriented. HEENT: PERRLA. NECK: Range of motion is full in all directions. No tenderness. No adenopathy. LUNGS: Decreased breath sounds bilaterally. ABDOMEN: Tenderness to palpation. BACK: Range of motion is decreased in flexion and extension with tenderness to paraspinal muscles. No tenderness to trapezius and rhomboid muscles. EXTREMITIES: No cyanosis. No clubbing. No edema. NEURO: No changes. BIANCA MURRELL Aug 21, 2017 08:48
--- NOTE | 2017-08-21 15:45 | Nephrology Progress Note ---
Assessment/Plan Problem List: (1) Prostate cancer metastatic to bone (2) Severe anemia (3) Hypercalcemia (4) Acute renal failure Assessment Cr cesario 1.5 nad to 2 (1) Anemia / PanCytopenia (2) Hypercalcemia (3) Weight loss of more than 10% body weight (4) Diabetes mellitus (5) Methadone maintenance therapy patient (6) Metastatic Prostate Ca (7) Hepatitis C Cirrhosis (8) HyperUrecemia Plan Plan; change IV transfuse? Aredia given 06/19 monitor Ca Alb Phos Mag supplement DC Volteran, Lipitor, Lisinopril Monitor renal parameters add allopurinol per consultants Subjective ROS Limited/Unobtainable: No Constitutional: Reports: malaise, weakness Objective Objective Last 24 Hour Vital Signs Date Time Temp Pulse Resp B/P (MAP) Pulse Ox O2 Delivery O2 Flow Rate FiO2 08/21/17 15:10 101.8 08/21/17 15:10 99.4 08/21/17 14:12 101.8 113 21 115/59 92 08/21/17 11:51 99.1 105 20 98/58 90 08/21/17 08:00 101.3 110 20 95/47 93 08/21/17 05:00 101.5 08/21/17 04:00 101.9 121 20 112/56 96 08/21/17 00:01 Room Air 08/21/17 00:00 98.8 104 18 92/47 93 08/20/17 20:45 100.4 Room Air 08/20/17 20:00 102.5 123 20 102/77 97 08/20/17 19:00 99.2 08/20/17 16:00 100.0 100 19 98/50 95 Intake and Output 08/20/17 08/21/17 19:00 07:00 Intake Total 150 ml 1135 ml Output Total 500 ml Balance 150 ml 635 ml Intake Oral 150 ml 360 ml IV Total 775 ml Output Urine Total 500 ml # Voids 3 Laboratory Tests 08/21/17 06:40: White Blood Count 2.8L, Red Blood Count 2.29L, Hemoglobin 6.4*L, Hematocrit 20.1L, Mean Corpuscular Volume 88, Mean Corpuscular Hemoglobin 28.1, Mean Corpuscular Hemoglobin Concent 32.1, Red Cell Distribution Width 15.1H, Platelet Count 56L, Mean Platelet Volume 6.7, Neutrophils (%) (Auto) , Lymphocytes (%) (Auto) , Monocytes (%) (Auto) , Eosinophils (%) (Auto) , Basophils (%) (Auto) , Differential Total Cells Counted 100, Neutrophils % ( Manual) 72, Lymphocytes % (Manual) 18L, Monocytes % (Manual) 6, Eosinophils % ( Manual) 3, Basophils % (Manual) 0, Band Neutrophils 1, Nucleated Red Blood Cells 1, Platelet Estimate DecreasedL, Platelet Morphology Normal, Polychromasia 1+, Hypochromasia 1+, Anisocytosis 1+, Sodium Level 137, Potassium Level 4.5, Chloride Level 103, Carbon Dioxide Level 27, Anion Gap 7, Blood Urea Nitrogen 37H, Creatinine 2.0H, Estimat Glomerular Filtration Rate 41.2, Glucose Level 94, Uric Acid 9.0H, Calcium Level 9.3, Phosphorus Level 2.9 , Magnesium Level 2.1, Total Bilirubin 0.3, Aspartate Amino Transf (AST/SGOT) 39H, Alanine Aminotransferase (ALT/SGPT) 16, Alkaline Phosphatase 180H, Total Protein 6.0L, Albumin 3.1L, Globulin 2.9, Albumin/Globulin Ratio 1.1 Height (Feet): 6 Weight (Pounds): 165 General Appearance: no apparent distress, other - febrile Cardiovascular: tachycardia Respiratory/Chest: decreased breath sounds Abdomen: soft JENNIFER MORALES Aug 21, 2017 15:44
--- NOTE | 2017-08-21 15:54 | GI Progress Note ---
Assessment/Plan Problems: (1) Weight loss ICD Codes: R63.4 - Abnormal weight loss SNOMED: 51722287, 353146957 (2) Hepatitis C virus infection resolved after antiviral drug therapy ICD Codes: Z86.19 - Personal history of other infectious and parasitic diseases SNOMED: 037553247, 79316757652798 (3) Pain in both lower legs ICD Codes: M79.661 - Pain in right lower leg; M79.662 - Pain in left lower leg SNOMED: 33006357474171715 (4) Severe anemia ICD Codes: D64.9 - Anemia, unspecified SNOMED: 964002267 (5) Weight loss of more than 10% body weight ICD Codes: R63.4 - Abnormal weight loss SNOMED: 21657472 (6) Anemia ICD Codes: D64.9 - Anemia, unspecified SNOMED: 469409098 (7) Diabetes mellitus ICD Codes: E11.9 - Type 2 diabetes mellitus without complications SNOMED: 87346953 (8) Severe malnutrition ICD Codes: E43 - Unspecified severe protein-calorie malnutrition SNOMED: 87302238 Status: not improved Status Narrative Discussed with Dr. Coreas. Assessment/Plan s/p Hep C Tx with harvoni >> still Hep C positive CT AP reviewed >> 2.8 x 1.7 cm rounded structure may represent an enlarged, partially necrotic lymph node suggesting diffuse osseous metastases or additional permeative osseous lesion. Taken together these findings are concerning for malignancy, with prostate being suspected. Correlate with PSA. Additional etiologies are not entirely excluded. Bone biopsy may be of benefit. s/p EGD/colonoscopy SUMMARY OF FINDINGS: 1. Distal esophageal ring. 2. Medium-sized hiatal hernia. 3. Evidence of bile reflux. 4. Gastritis, status post biopsy. >> negative for H. Pylori 5. Internal hemorrhoids. 6. Poor colonoscopy prep. RECOMMENDATIONS: fu onc recs add ensure when patient is on PO diet monitor H&H, prn transfusions bowel regime ppi fu labs Subjective Subjective generalized weakness Objective Last 24 Hour Vital Signs Date Time Temp Pulse Resp B/P (MAP) Pulse Ox O2 Delivery O2 Flow Rate FiO2 08/21/17 15:10 101.8 08/21/17 15:10 99.4 08/21/17 14:12 101.8 113 21 115/59 92 08/21/17 11:51 99.1 105 20 98/58 90 08/21/17 08:00 101.3 110 20 95/47 93 08/21/17 05:00 101.5 08/21/17 04:00 101.9 121 20 112/56 96 08/21/17 00:01 Room Air 08/21/17 00:00 98.8 104 18 92/47 93 08/20/17 20:45 100.4 Room Air 08/20/17 20:00 102.5 123 20 102/77 97 08/20/17 19:00 99.2 08/20/17 16:00 100.0 100 19 98/50 95 Intake and Output 08/20/17 08/21/17 19:00 07:00 Intake Total 150 ml 1135 ml Output Total 500 ml Balance 150 ml 635 ml Intake Oral 150 ml 360 ml IV Total 775 ml Output Urine Total 500 ml # Voids 3 Laboratory Tests Test 08/21/17 06:40 White Blood Count 2.8 K/UL (4.8-10.8) L Red Blood Count 2.29 M/UL (4.70-6.10) L Hemoglobin 6.4 G/DL (14.2-18.0) *L Hematocrit 20.1 % (42.0-52.0) L Mean Corpuscular Volume 88 FL (80-99) Mean Corpuscular Hemoglobin 28.1 PG (27.0-31.0) Mean Corpuscular Hemoglobin Concent 32.1 G/DL (32.0-36.0) Red Cell Distribution Width 15.1 % (11.6-14.8) H Platelet Count 56 K/UL (150-450) L Mean Platelet Volume 6.7 FL (6.5-10.1) Neutrophils (%) (Auto) % (45.0-75.0) Lymphocytes (%) (Auto) % (20.0-45.0) Monocytes (%) (Auto) % (1.0-10.0) Eosinophils (%) (Auto) % (0.0-3.0) Basophils (%) (Auto) % (0.0-2.0) Differential Total Cells Counted 100 Neutrophils % (Manual) 72 % (45-75) Lymphocytes % (Manual) 18 % (20-45) L Monocytes % (Manual) 6 % (1-10) Eosinophils % (Manual) 3 % (0-3) Basophils % (Manual) 0 % (0-2) Band Neutrophils 1 % (0-8) Nucleated Red Blood Cells 1 /100 WBC Platelet Estimate Decreased L Platelet Morphology Normal Polychromasia 1+ Hypochromasia 1+ Anisocytosis 1+ Sodium Level 137 MMOL/L (136-145) Potassium Level 4.5 MMOL/L (3.5-5.1) Chloride Level 103 MMOL/L (98-107) Carbon Dioxide Level 27 MMOL/L (21-32) Anion Gap 7 mmol/L (5-15) Blood Urea Nitrogen 37 mg/dL (7-18) H Creatinine 2.0 MG/DL (0.55-1.30) H Estimat Glomerular Filtration Rate 41.2 mL/min (>60) Glucose Level 94 MG/DL (74-106) Uric Acid 9.0 MG/DL (2.6-7.2) H Calcium Level 9.3 MG/DL (8.5-10.1) Phosphorus Level 2.9 MG/DL (2.5-4.9) Magnesium Level 2.1 MG/DL (1.8-2.4) Total Bilirubin 0.3 MG/DL (0.2-1.0) Aspartate Amino Transf (AST/SGOT) 39 U/L (15-37) H Alanine Aminotransferase (ALT/SGPT) 16 U/L (12-78) Alkaline Phosphatase 180 U/L (46-116) H Total Protein 6.0 G/DL (6.4-8.2) L Albumin 3.1 G/DL (3.4-5.0) L Globulin 2.9 g/dL Albumin/Globulin Ratio 1.1 (1.0-2.7) Height (Feet): 6 Weight (Pounds): 165 General Appearance: WD/WN, no apparent distress, alert Cardiovascular: normal rate Respiratory/Chest: normal breath sounds, no respiratory distress Abdominal Exam: normal bowel sounds, non tender, soft Extremities: normal range of motion, non-tender [place] Trotter N.PJose Aug 21, 2017 15:54
--- NOTE | 2017-08-21 16:03 | Diagnostic Imaging Report ---
Indication: Pain Technique: 25.2 mCi of technetium 99 M-MDP was injected intravenously. A whole-body bone scan was then performed in anterior and posterior projections. Several spot images were also obtained. Comparison: None Findings: . There is heterogeneous uptake within the bony pelvis both hips portions of the spine multiple ribs, heterogeneous femoral shaft bilaterally. Findings consistent with metastatic neoplasm. Impression: Findings consistent with metastatic neoplasm
[2017-08-21] MEDS: D5NS 1,000 ML IV SCH (17:11)
--- NOTE | 2017-08-21 17:51 | Internal Med Progress Note ---
Subjective Date of Service: Aug 21, 2017 Physician Name Ervin Regalado Attending Physician Tyrone Barba MD Current Medications Medications (Trade) Dose Ordered Sig/Ramon Route PRN Reason Start Time Stop Time Status Last Admin Dose Admin Acetaminophen (Tylenol) 650 mg Q6H PRN ORAL Mild Pain/Temp > 100.5 08/13/17 23:15 09/12/17 23:14 08/21/17 14:11 Acetaminophen/ Hydrocodone Bitart ([place] 10/325) 1 ea Q6H PRN ORAL Moderate Pain (Pain Scale 4-6) 08/19/17 13:15 08/26/17 13:14 08/21/17 12:38 Allopurinol (Allopurinol) 300 mg DAILY ORAL 08/21/17 09:00 09/20/17 08:59 08/21/17 08:33 Aspirin (ASA) 81 mg DAILY ORAL 08/14/17 09:00 09/13/17 08:59 08/21/17 08:33 Baclofen (Lioresal) 10 mg Q8H PRN ORAL muscle spasm 08/19/17 13:15 09/18/17 13:14 Bicalutamide (Casodex) 50 mg DAILY ORAL 08/19/17 09:00 08/24/17 08:59 08/21/17 08:33 Dextrose (Dextrose 50%) STAT PRN IV Hypoglycemia 08/13/17 23:15 09/12/17 23:14 Dextrose/Sodium Chloride 1,000 ml @ 100 mls/hr Q10H IV 08/21/17 16:00 09/20/17 15:59 08/21/17 17:11 Diphenhydramine HCl (Benadryl) 50 mg BEDTIME ORAL 08/14/17 21:00 09/13/17 20:59 08/20/17 20:47 Dronabinol (Marinol) 5 mg TID ORAL 08/20/17 13:00 09/19/17 12:59 08/21/17 17:14 Gabapentin (Neurontin) 300 mg THREE TIMES A DAY ORAL 08/19/17 18:00 09/18/17 17:59 08/21/17 17:14 Hydromorphone HCl (Dilaudid) 1 mg Q4H PRN IVP Severe Pain (Pain Scale 7-10) 08/20/17 08:00 08/27/17 07:59 08/21/17 03:47 Insulin Aspart (NovoLOG) BEFORE MEALS AND HS SUBQ 08/14/17 06:30 09/13/17 06:29 08/21/17 17:10 Methadone HCl (Methadone HCl) 70 mg DAILY ORAL 08/19/17 09:00 08/24/17 21:59 08/21/17 08:33 Ondansetron HCl (Zofran) 4 mg EVERY 4 HOURS PRN IVP Nausea & Vomiting 08/13/17 23:15 09/12/17 23:14 08/16/17 10:58 Allergies: Coded Allergies: No Known Allergies (Unverified , 08/13/17) ROS Limited/Unobtainable: No Constitutional: Reports: no symptoms HEENT: Reports: no symptoms Cardiovascular: Reports: no symptoms Respiratory: Reports: no symptoms Gastrointestinal/Abdominal: Reports: no symptoms Genitourinary: Reports: no symptoms Neurologic/Psychiatric: Reports: no symptoms Subjective 61 YO M admitted with bilateral leg weakness and pain. Now severe anemia and prostate cancer with metastases. S/P endoscopy and colonoscopy 08/16/17. Cover for Int Med-Dr Barba. Patient now on methadone Objective Last Vital Signs Date Time Temp Pulse Resp B/P (MAP) Pulse Ox O2 Delivery O2 Flow Rate FiO2 08/21/17 16:00 99.7 100 20 109/62 94 08/21/17 00:01 Room Air 08/16/17 07:52 4.0 Laboratory Tests Test 08/21/17 06:40 White Blood Count 2.8 K/UL (4.8-10.8) L Red Blood Count 2.29 M/UL (4.70-6.10) L Hemoglobin 6.4 G/DL (14.2-18.0) *L Hematocrit 20.1 % (42.0-52.0) L Mean Corpuscular Volume 88 FL (80-99) Mean Corpuscular Hemoglobin 28.1 PG (27.0-31.0) Mean Corpuscular Hemoglobin Concent 32.1 G/DL (32.0-36.0) Red Cell Distribution Width 15.1 % (11.6-14.8) H Platelet Count 56 K/UL (150-450) L Mean Platelet Volume 6.7 FL (6.5-10.1) Neutrophils (%) (Auto) % (45.0-75.0) Lymphocytes (%) (Auto) % (20.0-45.0) Monocytes (%) (Auto) % (1.0-10.0) Eosinophils (%) (Auto) % (0.0-3.0) Basophils (%) (Auto) % (0.0-2.0) Differential Total Cells Counted 100 Neutrophils % (Manual) 72 % (45-75) Lymphocytes % (Manual) 18 % (20-45) L Monocytes % (Manual) 6 % (1-10) Eosinophils % (Manual) 3 % (0-3) Basophils % (Manual) 0 % (0-2) Band Neutrophils 1 % (0-8) Nucleated Red Blood Cells 1 /100 WBC Platelet Estimate Decreased L Platelet Morphology Normal Polychromasia 1+ Hypochromasia 1+ Anisocytosis 1+ Sodium Level 137 MMOL/L (136-145) Potassium Level 4.5 MMOL/L (3.5-5.1) Chloride Level 103 MMOL/L (98-107) Carbon Dioxide Level 27 MMOL/L (21-32) Anion Gap 7 mmol/L (5-15) Blood Urea Nitrogen 37 mg/dL (7-18) H Creatinine 2.0 MG/DL (0.55-1.30) H Estimat Glomerular Filtration Rate 41.2 mL/min (>60) Glucose Level 94 MG/DL (74-106) Uric Acid 9.0 MG/DL (2.6-7.2) H Calcium Level 9.3 MG/DL (8.5-10.1) Phosphorus Level 2.9 MG/DL (2.5-4.9) Magnesium Level 2.1 MG/DL (1.8-2.4) Total Bilirubin 0.3 MG/DL (0.2-1.0) Aspartate Amino Transf (AST/SGOT) 39 U/L (15-37) H Alanine Aminotransferase (ALT/SGPT) 16 U/L (12-78) Alkaline Phosphatase 180 U/L (46-116) H C-Reactive Protein, Quantitative 1.5 mg/dL (0.00-0.90) H Total Protein 6.0 G/DL (6.4-8.2) L Albumin 3.1 G/DL (3.4-5.0) L Globulin 2.9 g/dL Albumin/Globulin Ratio 1.1 (1.0-2.7) Intake and Output 08/20/17 08/21/17 19:00 07:00 Intake Total 150 ml 1135 ml Output Total 500 ml Balance 150 ml 635 ml Intake Oral 150 ml 360 ml IV Total 775 ml Output Urine Total 500 ml # Voids 3 Objective General Appearance: WD/WN, no apparent distress, alert EENT: PERRL/EOMI, normal ENT inspection, TMs normal Neck: non-tender, normal alignment, supple, normal inspection Cardiovascular: normal peripheral pulses, normal rate, regular rhythm, no gallop/murmur, no JVD Respiratory/Chest: chest wall non-tender, lungs clear, normal breath sounds, no respiratory distress, no accessory muscle use Abdomen: normal bowel sounds, non tender, soft, no organomegaly, no mass Extremities: normal range of motion, non-tender Neurologic: draw frame operator II-XII grossly normal Skin: normal pigmentation, warm/dry Assessment/Plan Problem List: (1) Severe anemia Assessment & Plan: S/P transfusion 1 unit PRBC 08/13/17. S/P endoscopy and colonoscopy 08/16/17. Iron panel normal. See GI consult note (2) Pain in both lower legs (3) Weakness of both legs (4) HTN (hypertension) Assessment & Plan: Continue lisinopril (5) Diabetes mellitus, type II Assessment & Plan: Continue novolog sliding scale. (6) Hypercholesteremia Assessment & Plan: continue pravachol (7) Peripheral vascular disease (8) Hepatitis C virus infection resolved after antiviral drug therapy (9) Methadone maintenance therapy patient Assessment & Plan: See pain management consult-restart methadone (10) Prostate cancer metastatic to bone Assessment & Plan: PSA >5000. See oncology note. Status: not improved Assessment/Plan Discharge planning: see discharge planning note. ERVIN REGALADO Aug 21, 2017 17:51
--- NOTE | 2017-08-21 18:54 | Pulmonology Progress Note ---
Assessment/Plan Problems: (1) Prostate cancer metastatic to bone (2) Pathologic compression fracture of spine (3) Anemia (4) Hypercalcemia (5) Weight loss of more than 10% body weight (6) Diabetes mellitus (7) Methadone maintenance therapy patient Assessment/Plan PSA noted, adjust pain meds MRI reviewed, pathological fracture of L spine, t12-L1 pain control social service consult Subjective ROS Limited/Unobtainable: No Constitutional: Reports: no symptoms HEENT: Repors: no symptoms Allergies: Coded Allergies: No Known Allergies (Unverified , 08/13/17) Objective Last 24 Hour Vital Signs Date Time Temp Pulse Resp B/P (MAP) Pulse Ox O2 Delivery O2 Flow Rate FiO2 08/21/17 16:00 99.7 100 20 109/62 94 08/21/17 15:10 101.8 08/21/17 15:10 99.4 08/21/17 14:12 101.8 113 21 115/59 92 08/21/17 11:51 99.1 105 20 98/58 90 08/21/17 08:00 101.3 110 20 95/47 93 08/21/17 05:00 101.5 08/21/17 04:00 101.9 121 20 112/56 96 08/21/17 00:01 Room Air 08/21/17 00:00 98.8 104 18 92/47 93 08/20/17 20:45 100.4 Room Air 08/20/17 20:00 102.5 123 20 102/77 97 08/20/17 19:00 99.2 Intake and Output 08/20/17 08/21/17 19:00 07:00 Intake Total 150 ml 1135 ml Output Total 500 ml Balance 150 ml 635 ml Intake Oral 150 ml 360 ml IV Total 775 ml Output Urine Total 500 ml # Voids 3 Objective General Appearance: WD/WN HEENT: normocephalic, atraumatic Respiratory/Chest: chest wall non-tender, lungs clear Cardiovascular: normal peripheral pulses, normal rate Abdomen: normal bowel sounds, no organomegaly, non distended Laboratory Tests 08/21/17 06:40: White Blood Count 2.8L, Red Blood Count 2.29L, Hemoglobin 6.4*L, Hematocrit 20.1L, Mean Corpuscular Volume 88, Mean Corpuscular Hemoglobin 28.1, Mean Corpuscular Hemoglobin Concent 32.1, Red Cell Distribution Width 15.1H, Platelet Count 56L, Mean Platelet Volume 6.7, Neutrophils (%) (Auto) , Lymphocytes (%) (Auto) , Monocytes (%) (Auto) , Eosinophils (%) (Auto) , Basophils (%) (Auto) , Differential Total Cells Counted 100, Neutrophils % ( Manual) 72, Lymphocytes % (Manual) 18L, Monocytes % (Manual) 6, Eosinophils % ( Manual) 3, Basophils % (Manual) 0, Band Neutrophils 1, Nucleated Red Blood Cells 1, Platelet Estimate DecreasedL, Platelet Morphology Normal, Polychromasia 1+, Hypochromasia 1+, Anisocytosis 1+, Sodium Level 137, Potassium Level 4.5, Chloride Level 103, Carbon Dioxide Level 27, Anion Gap 7, Blood Urea Nitrogen 37H, Creatinine 2.0H, Estimat Glomerular Filtration Rate 41.2, Glucose Level 94, Uric Acid 9.0H, Calcium Level 9.3, Phosphorus Level 2.9 , Magnesium Level 2.1, Total Bilirubin 0.3, Aspartate Amino Transf (AST/SGOT) 39H, Alanine Aminotransferase (ALT/SGPT) 16, Alkaline Phosphatase 180H, C- Reactive Protein, Quantitative 1.5H, Total Protein 6.0L, Albumin 3.1L, Globulin 2.9, Albumin/Globulin Ratio 1.1 Current Medications Medications (Trade) Dose Ordered Sig/Ramon Route PRN Reason Start Time Stop Time Status Last Admin Dose Admin Acetaminophen (Tylenol) 650 mg Q6H PRN ORAL Mild Pain/Temp > 100.5 08/13/17 23:15 09/12/17 23:14 08/21/17 14:11 Acetaminophen/ Hydrocodone Bitart (Corder 10/325) 1 ea Q6H PRN ORAL Moderate Pain (Pain Scale 4-6) 08/19/17 13:15 08/26/17 13:14 08/21/17 12:38 Allopurinol (Allopurinol) 300 mg DAILY ORAL 08/21/17 09:00 09/20/17 08:59 08/21/17 08:33 Aspirin (ASA) 81 mg DAILY ORAL 08/14/17 09:00 09/13/17 08:59 08/21/17 08:33 Baclofen (Lioresal) 10 mg Q8H PRN ORAL muscle spasm 08/19/17 13:15 09/18/17 13:14 Bicalutamide (Casodex) 50 mg DAILY ORAL 08/19/17 09:00 08/24/17 08:59 08/21/17 08:33 Dextrose (Dextrose 50%) STAT PRN IV Hypoglycemia 08/13/17 23:15 09/12/17 23:14 Dextrose/Sodium Chloride 1,000 ml @ 100 mls/hr Q10H IV 08/21/17 16:00 09/20/17 15:59 08/21/17 17:11 Diphenhydramine HCl (Benadryl) 50 mg BEDTIME ORAL 08/14/17 21:00 09/13/17 20:59 08/20/17 20:47 Dronabinol (Marinol) 5 mg TID ORAL 08/20/17 13:00 09/19/17 12:59 08/21/17 17:14 Gabapentin (Neurontin) 300 mg THREE TIMES A DAY ORAL 08/19/17 18:00 09/18/17 17:59 08/21/17 17:14 Hydromorphone HCl (Dilaudid) 1 mg Q4H PRN IVP Severe Pain (Pain Scale 7-10) 08/20/17 08:00 08/27/17 07:59 08/21/17 03:47 Insulin Aspart (NovoLOG) BEFORE MEALS AND HS SUBQ 08/14/17 06:30 09/13/17 06:29 08/21/17 17:10 Methadone HCl (Methadone HCl) 70 mg DAILY ORAL 08/19/17 09:00 08/24/17 21:59 08/21/17 08:33 Ondansetron HCl (Zofran) 4 mg EVERY 4 HOURS PRN IVP Nausea & Vomiting 08/13/17 23:15 09/12/17 23:14 08/16/17 10:58 RACHID ZAMORA Aug 21, 2017 18:54
--- NOTE | 2017-08-21 23:26 | General Progress Note ---
Assessment/Plan Status: not improved Assessment/Plan ASSESSMENT AND RECOMMENDATIONS: # Metastatic prostate cancer, psa is >5000, likely may need eventually a biopsy of the bone versus lymph node to confirm disease --> have started casodex and consider lupron once discharged --> Continue treatment as outpatient. # Pancytopenia, most etiology looks like related to underlying hepatitis C status post treatment. The patient's spleen is mildly enlarged. --> also component related to stage iv prostate ca --> hgb goal >7, plt goal >10k --> hemoglobin currently low, requires PRBC. --> monitor cbc daily. # Lymphadenopathy as well as osseous metastasis is noted on CT scan. --> likely from prostate ca #. Hepatitis C status post treatment with Harvoni. Hepatitis C is positive. #. Coagulopathy likely secondary to underlying hepatitis C and liver cirrhosis. #. Hyperuricemia and elevated psa --> consider uro eval #. Anemia. Colonoscopy shows internal hemorrhoids. Subjective Date patient seen: Aug 21, 2017 Constitutional: Denies: no symptoms, chills, diaphoresis, fever, malaise, weakness, other HEENT: Denies: no symptoms, eye pain, blurred vision, tearing, double vision, ear pain, ear discharge, nose pain, nose congestion, throat pain, throat swelling, mouth pain, mouth swelling, other Cardiovascular: Denies: no symptoms, chest pain, edema, irregular heart rate, lightheadedness, palpitations, syncope, other Respiratory: Denies: no symptoms, cough, orthopnea, shortness of breath, SOB with excertion, SOB at rest, sputum, stridor, wheezing, other Gastrointestinal/Abdominal: Denies: no symptoms, abdomen distended, abdominal pain, black stools, tarry stools, blood in stool, constipated, diarrhea, difficulty swallowing, nausea, poor appetite, poor fluid intake, rectal bleeding , vomiting, other Genitourinary: Denies: no symptoms, burning, discharge, frequency, flank pain, hematuria, incontinence, pain, urgency, other Hematologic/Lymphatic: Reports: anemia, other - pancytopenic. Cancer Allergies: Coded Allergies: No Known Allergies (Unverified , 08/13/17) Subjective Pancytopenic. Hemoglobin low, pending blood transfusion. Resting in bed. Objective Last 24 Hour Vital Signs Date Time Temp Pulse Resp B/P (MAP) Pulse Ox O2 Delivery O2 Flow Rate FiO2 08/21/17 20:00 99.9 109 18 88/48 97 Room Air 08/21/17 16:00 99.7 100 20 109/62 94 08/21/17 15:10 101.8 08/21/17 15:10 99.4 08/21/17 14:12 101.8 113 21 115/59 92 08/21/17 11:51 99.1 105 20 98/58 90 08/21/17 08:00 101.3 110 20 95/47 93 08/21/17 05:00 101.5 08/21/17 04:00 101.9 121 20 112/56 96 08/21/17 00:01 Room Air 08/21/17 00:00 98.8 104 18 92/47 93 Intake and Output 08/20/17 08/21/17 19:00 07:00 Intake Total 150 ml 1135 ml Output Total 500 ml Balance 150 ml 635 ml Intake Oral 150 ml 360 ml IV Total 775 ml Output Urine Total 500 ml # Voids 3 Laboratory Tests 08/21/17 06:40: White Blood Count 2.8L, Red Blood Count 2.29L, Hemoglobin 6.4*L, Hematocrit 20.1L, Mean Corpuscular Volume 88, Mean Corpuscular Hemoglobin 28.1, Mean Corpuscular Hemoglobin Concent 32.1, Red Cell Distribution Width 15.1H, Platelet Count 56L, Mean Platelet Volume 6.7, Neutrophils (%) (Auto) , Lymphocytes (%) (Auto) , Monocytes (%) (Auto) , Eosinophils (%) (Auto) , Basophils (%) (Auto) , Differential Total Cells Counted 100, Neutrophils % ( Manual) 72, Lymphocytes % (Manual) 18L, Monocytes % (Manual) 6, Eosinophils % ( Manual) 3, Basophils % (Manual) 0, Band Neutrophils 1, Nucleated Red Blood Cells 1, Platelet Estimate DecreasedL, Platelet Morphology Normal, Polychromasia 1+, Hypochromasia 1+, Anisocytosis 1+, Sodium Level 137, Potassium Level 4.5, Chloride Level 103, Carbon Dioxide Level 27, Anion Gap 7, Blood Urea Nitrogen 37H, Creatinine 2.0H, Estimat Glomerular Filtration Rate 41.2, Glucose Level 94, Uric Acid 9.0H, Calcium Level 9.3, Phosphorus Level 2.9 , Magnesium Level 2.1, Total Bilirubin 0.3, Aspartate Amino Transf (AST/SGOT) 39H, Alanine Aminotransferase (ALT/SGPT) 16, Alkaline Phosphatase 180H, C- Reactive Protein, Quantitative 1.5H, Total Protein 6.0L, Albumin 3.1L, Globulin 2.9, Albumin/Globulin Ratio 1.1 Height (Feet): 6 Weight (Pounds): 165 General Appearance: lethargic Emerson Camara Aug 21, 2017 23:26
[2017-08-22] VITALS (8 sets, daily range): BP systolic 100–124; BP diastolic 51–66
[2017-08-22] MEDS: D5NS 1,000 ML IV SCH ×3 (02:07→22:00)
[2017-08-22] MEDS: NovoLOG Insulin Flexpen SUBQ SCH ×4 (06:18→21:00)
[2017-08-22 07:14] LABS: HEMATOCRIT 20.7 % (42.0-52.0); MEAN CORPUSCULAR VOLUME 88 FL (80-99); PLATELET COUNT 50 K/UL (150-450); RED BLOOD COUNT 2.35 M/UL (4.70-6.10); RED CELL DISTRIBUTION WIDTH 15.1 % (11.6-14.8); WHITE BLOOD COUNT 2.8 K/UL (4.8-10.8)
[2017-08-22 07:24] LABS: HEMOGLOBIN 6.7 G/DL (14.2-18.0)
[2017-08-22 07:36] LABS: ALANINE AMINOTRANSFERASE 19 U/L (12-78); ALBUMIN 3.2 G/DL (3.4-5.0); ALKALINE PHOSPHATASE 180 U/L (46-116); ANION GAP 6 mmol/L (5-15); ASPARTATE AMINO TRANSFERASE 40 U/L (15-37); BILIRUBIN,TOTAL 0.3 MG/DL (0.2-1.0); BLOOD UREA NITROGEN 35 mg/dL (7-18); CALCIUM 8.6 MG/DL (8.5-10.1); CARBON DIOXIDE 27 MMOL/L (21-32); CHLORIDE 105 MMOL/L (98-107); CREATININE 1.7 MG/DL (0.55-1.30); PHOSPHORUS 2.3 MG/DL (2.5-4.9); POTASSIUM 4.3 MMOL/L (3.5-5.1); SODIUM 138 MMOL/L (136-145)
--- NOTE | 2017-08-22 08:53 | General Progress Note ---
Assessment/Plan Assessment/Plan (1) Intractable back pain (2) Metastatic Prostate Cancer (3) Thoracic Compression Fracture (4) Lumbar Spinal stenosis (5) Lumbar Radiculopathy Pt to be continued on Methadone, Nehalem and Dilaudid. D/w Dr. Aburto and he concurred. Subjective Date patient seen: Aug 22, 2017 Time patient seen: 07:15 - am Allergies: Coded Allergies: No Known Allergies (Unverified , 08/13/17) Subjective REVIEW OF SYSTEMS: Denies rash, fever, chills, sweating, dizziness, drowsiness, blurred vision, sore throat, or change in his weight. No nausea, vomiting, diarrhea, or blood in the stool or urine. No bowel or bladder incontinence. No dysuria. He is complaining of back pain. SUBJECTIVE: Pt continues to c/o severe pain which is worse with movement. The pain is tolerated on the Dilaudid and Nehalem continuing to receive the Methadone daily. Objective Last 24 Hour Vital Signs Date Time Temp Pulse Resp B/P (MAP) Pulse Ox O2 Delivery O2 Flow Rate FiO2 08/22/17 04:00 99.4 112 16 104/59 95 Room Air 08/22/17 00:09 99.1 111 16 112/66 97 Room Air 08/21/17 20:00 99.9 109 18 88/48 97 Room Air 08/21/17 16:00 99.7 100 20 109/62 94 08/21/17 15:10 101.8 08/21/17 15:10 99.4 08/21/17 14:12 101.8 113 21 115/59 92 08/21/17 11:51 99.1 105 20 98/58 90 Intake and Output 08/21/17 08/22/17 19:00 07:00 Intake Total 1325 ml 1120 ml Output Total 550 ml 550 ml Balance 775 ml 570 ml Intake Oral 600 ml 120 ml IV Total 725 ml 1000 ml Output Urine Total 550 ml 550 ml # Voids 1 Laboratory Tests 08/22/17 06:30: White Blood Count 2.8L, Red Blood Count 2.35L, Hemoglobin 6.7*L, Hematocrit 20.7L, Mean Corpuscular Volume 88, Mean Corpuscular Hemoglobin 28.4, Mean Corpuscular Hemoglobin Concent 32.3, Red Cell Distribution Width 15.1H, Platelet Count 50L, Mean Platelet Volume 6.5, Neutrophils (%) (Auto) , Lymphocytes (%) (Auto) , Monocytes (%) (Auto) , Eosinophils (%) (Auto) , Basophils (%) (Auto) 08/22/17 06:40: Sodium Level 138, Potassium Level 4.3, Chloride Level 105, Carbon Dioxide Level 27, Anion Gap 6, Blood Urea Nitrogen 35H, Creatinine 1.7H, Estimat Glomerular Filtration Rate 49.7, Glucose Level 126H, Uric Acid 8.0H, Calcium Level 8.6, Phosphorus Level 2.3L, Magnesium Level 1.9, Total Bilirubin 0.3, Aspartate Amino Transf (AST/SGOT) 40H, Alanine Aminotransferase (ALT/SGPT) 19, Alkaline Phosphatase 180H, Pro-B-Type Natriuretic Peptide 71, Total Protein 6.3L, Albumin 3.2L, Globulin 3.1, Albumin/Globulin Ratio 1.0 Height (Feet): 6 Weight (Pounds): 165 Objective GENERAL: Alert, awake, and oriented. HEENT: PERRLA. NECK: Range of motion is full in all directions. No tenderness. No adenopathy. LUNGS: Decreased breath sounds bilaterally. ABDOMEN: Tenderness to palpation. BACK: Range of motion is decreased in flexion and extension with tenderness to paraspinal muscles. No tenderness to trapezius and rhomboid muscles. EXTREMITIES: No cyanosis. No clubbing. No edema. NEURO: No changes. BIANCA MURRELL Aug 22, 2017 08:53
[2017-08-22] MEDS: Dronabinol 2.5mg Cap ORAL SCH ×3 (08:57→18:45)
[2017-08-22] MEDS: Aspirin Baby 81mg ORAL SCH (08:57)
[2017-08-22] MEDS: Bicalutamide 50mg tab ORAL SCH (08:58)
--- NOTE | 2017-08-22 10:40 | General Progress Note ---
Assessment/Plan Assessment/Plan ASSESSMENT AND RECOMMENDATIONS: # Metastatic prostate cancer, psa is >5000, as well as clinical findings of bone mets --> have started casodex and consider lupron once discharged --> Continue treatment as outpatient. --> recommend outpatient urology eval with prostate biopsy # Pancytopenia, most etiology looks like related to underlying hepatitis C status post treatment. The patient's spleen is mildly enlarged. --> also component related to stage iv prostate ca --> hgb goal >7, plt goal >10k --> hemoglobin currently low, requires PRBC. --> monitor cbc daily. # Lymphadenopathy as well as osseous metastasis is noted on CT scan. --> likely from prostate ca #. Hepatitis C status post treatment with Harvoni. Hepatitis C is positive. #. Coagulopathy likely secondary to underlying hepatitis C and liver cirrhosis. #. Hyperuricemia and elevated psa #. Anemia. Colonoscopy shows internal hemorrhoids. Subjective Constitutional: Denies: no symptoms, chills, diaphoresis, fever, malaise, weakness, other HEENT: Denies: no symptoms, eye pain, blurred vision, tearing, double vision, ear pain, ear discharge, nose pain, nose congestion, throat pain, throat swelling, mouth pain, mouth swelling, other Cardiovascular: Denies: no symptoms, chest pain, edema, irregular heart rate, lightheadedness, palpitations, syncope, other Respiratory: Denies: no symptoms, cough, orthopnea, shortness of breath, SOB with excertion, SOB at rest, sputum, stridor, wheezing, other Gastrointestinal/Abdominal: Denies: no symptoms, abdomen distended, abdominal pain, black stools, tarry stools, blood in stool, constipated, diarrhea, difficulty swallowing, nausea, poor appetite, poor fluid intake, rectal bleeding , vomiting, other Genitourinary: Denies: no symptoms, burning, discharge, frequency, flank pain, hematuria, incontinence, pain, urgency, other Neurologic/Psychiatric: Denies: no symptoms, anxiety, depressed, emotional problems, headache, numbness, paresthesia, pre-existing deficit, seizure, tingling, tremors, weakness, other Endocrine: Denies: no symptoms, excessive sweating, flushing, intolerance to cold, intolerance to heat, increased hunger, increased thirst, increased urine, unexplained weight gain, unexplained weight loss, other Allergies: Coded Allergies: No Known Allergies (Unverified , 08/13/17) Subjective Hemoglobin low, pending blood transfusion. Resting in bed. Objective Last 24 Hour Vital Signs Date Time Temp Pulse Resp B/P (MAP) Pulse Ox O2 Delivery O2 Flow Rate FiO2 08/22/17 08:00 99.7 114 18 119/56 97 08/22/17 04:00 99.4 112 16 104/59 95 Room Air 08/22/17 00:09 99.1 111 16 112/66 97 Room Air 08/21/17 20:00 99.9 109 18 88/48 97 Room Air 08/21/17 16:00 99.7 100 20 109/62 94 08/21/17 15:10 101.8 08/21/17 15:10 99.4 08/21/17 14:12 101.8 113 21 115/59 92 08/21/17 11:51 99.1 105 20 98/58 90 Intake and Output 08/21/17 08/22/17 19:00 07:00 Intake Total 1325 ml 1120 ml Output Total 550 ml 550 ml Balance 775 ml 570 ml Intake Oral 600 ml 120 ml IV Total 725 ml 1000 ml Output Urine Total 550 ml 550 ml # Voids 1 Laboratory Tests 08/22/17 06:30: White Blood Count 2.8L, Red Blood Count 2.35L, Hemoglobin 6.7*L, Hematocrit 20.7L, Mean Corpuscular Volume 88, Mean Corpuscular Hemoglobin 28.4, Mean Corpuscular Hemoglobin Concent 32.3, Red Cell Distribution Width 15.1H, Platelet Count 50L, Mean Platelet Volume 6.5, Neutrophils (%) (Auto) , Lymphocytes (%) (Auto) , Monocytes (%) (Auto) , Eosinophils (%) (Auto) , Basophils (%) (Auto) 08/22/17 06:40: Sodium Level 138, Potassium Level 4.3, Chloride Level 105, Carbon Dioxide Level 27, Anion Gap 6, Blood Urea Nitrogen 35H, Creatinine 1.7H, Estimat Glomerular Filtration Rate 49.7, Glucose Level 126H, Uric Acid 8.0H, Calcium Level 8.6, Phosphorus Level 2.3L, Magnesium Level 1.9, Total Bilirubin 0.3, Aspartate Amino Transf (AST/SGOT) 40H, Alanine Aminotransferase (ALT/SGPT) 19, Alkaline Phosphatase 180H, Pro-B-Type Natriuretic Peptide 71, Total Protein 6.3L, Albumin 3.2L, Globulin 3.1, Albumin/Globulin Ratio 1.0 Height (Feet): 6 Weight (Pounds): 165 General Appearance: alert EENT: TMs normal Neck: normal inspection Cardiovascular: regular rhythm Respiratory/Chest: lungs clear Abdomen: soft Extremities: non-tender Edema: 1+ Leg (L), 1+ Leg (R) Edema: mild edema Neurologic: oriented x 3 Emerson Camara Aug 22, 2017 10:40
--- NOTE | 2017-08-22 10:53 | GI Progress Note ---
Assessment/Plan Problems: (1) Weight loss ICD Codes: R63.4 - Abnormal weight loss SNOMED: 80769762, 243082448 (2) Hepatitis C virus infection resolved after antiviral drug therapy ICD Codes: Z86.19 - Personal history of other infectious and parasitic diseases SNOMED: 364434287, 81945773983383 (3) Pain in both lower legs ICD Codes: M79.661 - Pain in right lower leg; M79.662 - Pain in left lower leg SNOMED: 16509601269261526 (4) Severe anemia ICD Codes: D64.9 - Anemia, unspecified SNOMED: 830593793 (5) Weight loss of more than 10% body weight ICD Codes: R63.4 - Abnormal weight loss SNOMED: 64943278 (6) Anemia ICD Codes: D64.9 - Anemia, unspecified SNOMED: 710308108 (7) Diabetes mellitus ICD Codes: E11.9 - Type 2 diabetes mellitus without complications SNOMED: 22649825 (8) Severe malnutrition ICD Codes: E43 - Unspecified severe protein-calorie malnutrition SNOMED: 76532970 Status: unchanged Status Narrative Discussed with Dr. Coreas. Assessment/Plan s/p Hep C Tx with harvoni >> still Hep C positive CT AP reviewed >> 2.8 x 1.7 cm rounded structure may represent an enlarged, partially necrotic lymph node suggesting diffuse osseous metastases or additional permeative osseous lesion. Taken together these findings are concerning for malignancy, with prostate being suspected. Correlate with PSA. Additional etiologies are not entirely excluded. Bone biopsy may be of benefit. s/p EGD/colonoscopy SUMMARY OF FINDINGS: 1. Distal esophageal ring. 2. Medium-sized hiatal hernia. 3. Evidence of bile reflux. 4. Gastritis, status post biopsy. >> negative for H. Pylori 5. Internal hemorrhoids. 6. Poor colonoscopy prep. RECOMMENDATIONS: fu onc recs diet + ensure monitor H&H, prn transfusions bowel regime ppi fu labs Subjective Subjective generalized weakness generalized pain Objective Last 24 Hour Vital Signs Date Time Temp Pulse Resp B/P (MAP) Pulse Ox O2 Delivery O2 Flow Rate FiO2 08/22/17 08:00 99.7 114 18 119/56 97 08/22/17 04:00 99.4 112 16 104/59 95 Room Air 08/22/17 00:09 99.1 111 16 112/66 97 Room Air 08/21/17 20:00 99.9 109 18 88/48 97 Room Air 08/21/17 16:00 99.7 100 20 109/62 94 08/21/17 15:10 101.8 08/21/17 15:10 99.4 08/21/17 14:12 101.8 113 21 115/59 92 08/21/17 11:51 99.1 105 20 98/58 90 Intake and Output 08/21/17 08/22/17 19:00 07:00 Intake Total 1325 ml 1120 ml Output Total 550 ml 550 ml Balance 775 ml 570 ml Intake Oral 600 ml 120 ml IV Total 725 ml 1000 ml Output Urine Total 550 ml 550 ml # Voids 1 Laboratory Tests Test 08/22/17 06:30 08/22/17 06:40 White Blood Count 2.8 K/UL (4.8-10.8) L Red Blood Count 2.35 M/UL (4.70-6.10) L Hemoglobin 6.7 G/DL (14.2-18.0) *L Hematocrit 20.7 % (42.0-52.0) L Mean Corpuscular Volume 88 FL (80-99) Mean Corpuscular Hemoglobin 28.4 PG (27.0-31.0) Mean Corpuscular Hemoglobin Concent 32.3 G/DL (32.0-36.0) Red Cell Distribution Width 15.1 % (11.6-14.8) H Platelet Count 50 K/UL (150-450) L Mean Platelet Volume 6.5 FL (6.5-10.1) Neutrophils (%) (Auto) % (45.0-75.0) Lymphocytes (%) (Auto) % (20.0-45.0) Monocytes (%) (Auto) % (1.0-10.0) Eosinophils (%) (Auto) % (0.0-3.0) Basophils (%) (Auto) % (0.0-2.0) Sodium Level 138 MMOL/L (136-145) Potassium Level 4.3 MMOL/L (3.5-5.1) Chloride Level 105 MMOL/L (98-107) Carbon Dioxide Level 27 MMOL/L (21-32) Anion Gap 6 mmol/L (5-15) Blood Urea Nitrogen 35 mg/dL (7-18) H Creatinine 1.7 MG/DL (0.55-1.30) H Estimat Glomerular Filtration Rate 49.7 mL/min (>60) Glucose Level 126 MG/DL (74-106) H Uric Acid 8.0 MG/DL (2.6-7.2) H Calcium Level 8.6 MG/DL (8.5-10.1) Phosphorus Level 2.3 MG/DL (2.5-4.9) L Magnesium Level 1.9 MG/DL (1.8-2.4) Total Bilirubin 0.3 MG/DL (0.2-1.0) Aspartate Amino Transf (AST/SGOT) 40 U/L (15-37) H Alanine Aminotransferase (ALT/SGPT) 19 U/L (12-78) Alkaline Phosphatase 180 U/L (46-116) H Pro-B-Type Natriuretic Peptide 71 pg/mL (0-125) Total Protein 6.3 G/DL (6.4-8.2) L Albumin 3.2 G/DL (3.4-5.0) L Globulin 3.1 g/dL Albumin/Globulin Ratio 1.0 (1.0-2.7) Height (Feet): 6 Weight (Pounds): 165 General Appearance: WD/WN, no apparent distress, alert Cardiovascular: normal rate Respiratory/Chest: normal breath sounds, no respiratory distress Abdominal Exam: normal bowel sounds, non tender, soft Extremities: normal range of motion, non-tender [place] Trotter N.P. Aug 22, 2017 10:53
--- NOTE | 2017-08-22 13:16 | Consultation ---
Consult Note Consult Note ID DIC # [id number] JOHNATHON ANTUNEZ M.D. Aug 22, 2017 13:16
[2017-08-22] MEDS ORDERED: Tubing IV Secondary IV ONE (14:19)
[2017-08-22] MEDS ORDERED: NS 500ML ONE (14:19)
--- NOTE | 2017-08-22 14:51 | Nephrology Progress Note ---
Assessment/Plan Problem List: (1) Prostate cancer metastatic to bone (2) Severe anemia (3) Hypercalcemia (4) Acute renal failure Assessment Cr cesario 1.5 nad to 2 back down to 1.7 (1) Anemia / PanCytopenia (2) Hypercalcemia (3) Weight loss of more than 10% body weight (4) Diabetes mellitus (5) Methadone maintenance therapy patient (6) Metastatic Prostate Ca (7) Hepatitis C Cirrhosis (8) HyperUrecemia Plan Plan; change IV transfuse?? Aredia given 06/19 monitor Ca Alb Phos Mag supplement DC Volteran, Lipitor, Lisinopril Monitor renal parameters add allopurinol per consultants Subjective ROS Limited/Unobtainable: No Constitutional: Reports: malaise Objective Objective Last 24 Hour Vital Signs Date Time Temp Pulse Resp B/P (MAP) Pulse Ox O2 Delivery O2 Flow Rate FiO2 08/22/17 12:03 98.1 89 18 101/53 94 08/22/17 11:21 98.1 08/22/17 08:00 99.7 114 18 119/56 97 08/22/17 04:00 99.4 112 16 104/59 95 Room Air 08/22/17 00:09 99.1 111 16 112/66 97 Room Air 08/21/17 20:00 99.9 109 18 88/48 97 Room Air 08/21/17 16:00 99.7 100 20 109/62 94 08/21/17 15:10 99.4 Intake and Output 08/21/17 08/22/17 19:00 07:00 Intake Total 1325 ml 1120 ml Output Total 550 ml 550 ml Balance 775 ml 570 ml Intake Oral 600 ml 120 ml IV Total 725 ml 1000 ml Output Urine Total 550 ml 550 ml # Voids 1 Laboratory Tests 08/22/17 06:30: White Blood Count 2.8L, Red Blood Count 2.35L, Hemoglobin 6.7*L, Hematocrit 20.7L, Mean Corpuscular Volume 88, Mean Corpuscular Hemoglobin 28.4, Mean Corpuscular Hemoglobin Concent 32.3, Red Cell Distribution Width 15.1H, Platelet Count 50L, Mean Platelet Volume 6.5, Neutrophils (%) (Auto) , Lymphocytes (%) (Auto) , Monocytes (%) (Auto) , Eosinophils (%) (Auto) , Basophils (%) (Auto) 08/22/17 06:40: Sodium Level 138, Potassium Level 4.3, Chloride Level 105, Carbon Dioxide Level 27, Anion Gap 6, Blood Urea Nitrogen 35H, Creatinine 1.7H, Estimat Glomerular Filtration Rate 49.7, Glucose Level 126H, Uric Acid 8.0H, Calcium Level 8.6, Phosphorus Level 2.3L, Magnesium Level 1.9, Total Bilirubin 0.3, Aspartate Amino Transf (AST/SGOT) 40H, Alanine Aminotransferase (ALT/SGPT) 19, Alkaline Phosphatase 180H, Pro-B-Type Natriuretic Peptide 71, Total Protein 6.3L, Albumin 3.2L, Globulin 3.1, Albumin/Globulin Ratio 1.0 Height (Feet): 6 Weight (Pounds): 165 General Appearance: no apparent distress Objective no change JENNIFER MORALES Aug 22, 2017 14:51
--- NOTE | 2017-08-22 15:17 | Diagnostic Imaging Report ---
Indication: Dyspnea Comparison: None A single view chest radiograph was obtained. Findings: Some prominence of pulmonary vascularity demonstrated with low lung volumes and prominent heart size. No overt CHF demonstrated at this time. Bones are grossly unremarkable radiographically. We note recent bone scan and CT showed evidence of metastatic neoplasm. IMPRESSION: No acute cardiopulmonary disease
[2017-08-22] MEDS: Cefepime HCl 2 GM in D5W 55 ML IVPB SCH (15:57)
--- NOTE | 2017-08-22 15:59 | Pulmonology Progress Note ---
Assessment/Plan Problems: (1) Prostate cancer metastatic to bone (2) Pathologic compression fracture of spine (3) Anemia (4) Hypercalcemia (5) Weight loss of more than 10% body weight (6) Diabetes mellitus (7) Methadone maintenance therapy patient Assessment/Plan adjust pain meds, increase methadone to 80 increase Dilaudid to 2 mg q3 MRI reviewed, pathological fracture of L spine, t12-L1 pain control social service consult Subjective ROS Limited/Unobtainable: No Constitutional: Reports: no symptoms HEENT: Repors: no symptoms Respiratory: Reports: no symptoms Allergies: Coded Allergies: No Known Allergies (Unverified , 08/13/17) Objective Last 24 Hour Vital Signs Date Time Temp Pulse Resp B/P (MAP) Pulse Ox O2 Delivery O2 Flow Rate FiO2 08/22/17 12:03 98.1 89 18 101/53 94 08/22/17 11:21 98.1 08/22/17 08:00 99.7 114 18 119/56 97 08/22/17 04:00 99.4 112 16 104/59 95 Room Air 08/22/17 00:09 99.1 111 16 112/66 97 Room Air 08/21/17 20:00 99.9 109 18 88/48 97 Room Air 08/21/17 16:00 99.7 100 20 109/62 94 Intake and Output 08/21/17 08/22/17 19:00 07:00 Intake Total 1325 ml 1120 ml Output Total 550 ml 550 ml Balance 775 ml 570 ml Intake Oral 600 ml 120 ml IV Total 725 ml 1000 ml Output Urine Total 550 ml 550 ml # Voids 1 Objective General Appearance: WD/WN HEENT: normocephalic, atraumatic Respiratory/Chest: chest wall non-tender, lungs clear Cardiovascular: normal peripheral pulses, normal rate Abdomen: normal bowel sounds, no organomegaly, non distended Microbiology Date/Time Source Procedure Growth Status 08/20/17 23:25 Blood Blood Culture - Preliminary NO GROWTH AFTER 24 HOURS Resulted 08/20/17 23:20 Blood Blood Culture - Preliminary NO GROWTH AFTER 24 HOURS Resulted Laboratory Tests 08/22/17 06:30: White Blood Count 2.8L, Red Blood Count 2.35L, Hemoglobin 6.7*L, Hematocrit 20.7L, Mean Corpuscular Volume 88, Mean Corpuscular Hemoglobin 28.4, Mean Corpuscular Hemoglobin Concent 32.3, Red Cell Distribution Width 15.1H, Platelet Count 50L, Mean Platelet Volume 6.5, Neutrophils (%) (Auto) , Lymphocytes (%) (Auto) , Monocytes (%) (Auto) , Eosinophils (%) (Auto) , Basophils (%) (Auto) 08/22/17 06:40: Sodium Level 138, Potassium Level 4.3, Chloride Level 105, Carbon Dioxide Level 27, Anion Gap 6, Blood Urea Nitrogen 35H, Creatinine 1.7H, Estimat Glomerular Filtration Rate 49.7, Glucose Level 126H, Uric Acid 8.0H, Calcium Level 8.6, Phosphorus Level 2.3L, Magnesium Level 1.9, Total Bilirubin 0.3, Aspartate Amino Transf (AST/SGOT) 40H, Alanine Aminotransferase (ALT/SGPT) 19, Alkaline Phosphatase 180H, Pro-B-Type Natriuretic Peptide 71, Total Protein 6.3L, Albumin 3.2L, Globulin 3.1, Albumin/Globulin Ratio 1.0 Current Medications Medications (Trade) Dose Ordered Sig/Ramon Route PRN Reason Start Time Stop Time Status Last Admin Dose Admin Acetaminophen (Tylenol) 650 mg Q6H PRN ORAL Mild Pain/Temp > 100.5 08/13/17 23:15 09/12/17 23:14 08/22/17 10:22 Acetaminophen/ Hydrocodone Bitart ([place] 10/325) 1 ea Q6H PRN ORAL Moderate Pain (Pain Scale 4-6) 08/19/17 13:15 08/26/17 13:14 08/21/17 12:38 Allopurinol (Allopurinol) 300 mg DAILY ORAL 08/21/17 09:00 09/20/17 08:59 08/22/17 08:57 Aspirin (ASA) 81 mg DAILY ORAL 08/14/17 09:00 09/13/17 08:59 08/22/17 08:57 Baclofen (Lioresal) 10 mg Q8H PRN ORAL muscle spasm 08/19/17 13:15 09/18/17 13:14 Bicalutamide (Casodex) 50 mg DAILY ORAL 08/19/17 09:00 08/24/17 08:59 08/22/17 08:58 Cefepime HCl 2 gm/ Dextrose 55 ml @ 110 mls/hr Q12H IVPB 1/17/18 15:00 08/29/17 14:59 Dextrose (Dextrose 50%) STAT PRN IV Hypoglycemia 08/13/17 23:15 09/12/17 23:14 Dextrose/Sodium Chloride 1,000 ml @ 100 mls/hr Q10H IV 08/21/17 16:00 09/20/17 15:59 08/22/17 12:26 Diphenhydramine HCl (Benadryl) 50 mg BEDTIME ORAL 08/14/17 21:00 09/13/17 20:59 08/21/17 20:39 Dronabinol (Marinol) 5 mg TID ORAL 08/20/17 13:00 09/19/17 12:59 08/22/17 12:39 Gabapentin (Neurontin) 300 mg THREE TIMES A DAY ORAL 08/19/17 18:00 09/18/17 17:59 08/22/17 12:39 Insulin Aspart (NovoLOG) BEFORE MEALS AND HS SUBQ 08/14/17 06:30 09/13/17 06:29 08/22/17 12:24 Ondansetron HCl (Zofran) 4 mg EVERY 4 HOURS PRN IVP Nausea & Vomiting 08/13/17 23:15 09/12/17 23:14 08/16/17 10:58 RACHID ZAMORA Aug 22, 2017 15:59
--- NOTE | 2017-08-22 17:16 | Internal Med Progress Note ---
Subjective Date of Service: Aug 22, 2017 Physician Name RandaLuann Attending Physician Tyrone Barba MD Current Medications Medications (Trade) Dose Ordered Sig/Ramon Route PRN Reason Start Time Stop Time Status Last Admin Dose Admin Acetaminophen (Tylenol) 650 mg Q6H PRN ORAL Mild Pain/Temp > 100.5 08/13/17 23:15 09/12/17 23:14 08/22/17 10:22 Acetaminophen/ Hydrocodone Bitart ([place] 10/325) 1 ea Q6H PRN ORAL Moderate Pain (Pain Scale 4-6) 08/19/17 13:15 08/26/17 13:14 08/21/17 12:38 Allopurinol (Allopurinol) 300 mg DAILY ORAL 08/21/17 09:00 09/20/17 08:59 08/22/17 08:57 Aspirin (ASA) 81 mg DAILY ORAL 08/14/17 09:00 09/13/17 08:59 08/22/17 08:57 Baclofen (Lioresal) 10 mg Q8H PRN ORAL muscle spasm 08/19/17 13:15 09/18/17 13:14 Bicalutamide (Casodex) 50 mg DAILY ORAL 08/19/17 09:00 08/24/17 08:59 08/22/17 08:58 Cefepime HCl 2 gm/ Dextrose 55 ml @ 110 mls/hr Q12H IVPB 08/22/17 15:00 08/29/17 14:59 08/22/17 15:57 Dextrose (Dextrose 50%) STAT PRN IV Hypoglycemia 08/13/17 23:15 09/12/17 23:14 Dextrose/Sodium Chloride 1,000 ml @ 100 mls/hr Q10H IV 08/21/17 16:00 09/20/17 15:59 08/22/17 12:26 Diphenhydramine HCl (Benadryl) 50 mg BEDTIME ORAL 08/14/17 21:00 09/13/17 20:59 08/21/17 20:39 Dronabinol (Marinol) 5 mg TID ORAL 08/20/17 13:00 09/19/17 12:59 08/22/17 12:39 Gabapentin (Neurontin) 300 mg THREE TIMES A DAY ORAL 08/19/17 18:00 09/18/17 17:59 08/22/17 12:39 Hydromorphone HCl (Dilaudid) 2 mg Q3H PRN IVP Severe Pain (Pain Scale 7-10) 08/22/17 16:00 08/29/17 15:59 08/22/17 16:04 Insulin Aspart (NovoLOG) BEFORE MEALS AND HS SUBQ 08/14/17 06:30 09/13/17 06:29 08/22/17 16:21 Methadone HCl (Methadone HCl) 80 mg DAILY ORAL 08/23/17 09:00 08/30/17 08:59 Ondansetron HCl (Zofran) 4 mg EVERY 4 HOURS PRN IVP Nausea & Vomiting 08/13/17 23:15 09/12/17 23:14 08/16/17 10:58 Allergies: Coded Allergies: No Known Allergies (Unverified , 08/13/17) Subjective 61 YO M admitted with bilateral leg weakness and pain. Now severe anemia - requires transfusion today. Also prostate cancer with metastases. S/P endoscopy and colonoscopy 08/16/17. Cover for Int Med-Dr Barba. Patient now on methadone. Objective Last Vital Signs Date Time Temp Pulse Resp B/P (MAP) Pulse Ox O2 Delivery O2 Flow Rate FiO2 08/22/17 16:00 99.5 111 18 118/51 95 08/22/17 04:00 Room Air 08/16/17 07:52 4.0 Laboratory Tests Test 08/22/17 06:30 08/22/17 06:40 White Blood Count 2.8 K/UL (4.8-10.8) L Red Blood Count 2.35 M/UL (4.70-6.10) L Hemoglobin 6.7 G/DL (14.2-18.0) *L Hematocrit 20.7 % (42.0-52.0) L Mean Corpuscular Volume 88 FL (80-99) Mean Corpuscular Hemoglobin 28.4 PG (27.0-31.0) Mean Corpuscular Hemoglobin Concent 32.3 G/DL (32.0-36.0) Red Cell Distribution Width 15.1 % (11.6-14.8) H Platelet Count 50 K/UL (150-450) L Mean Platelet Volume 6.5 FL (6.5-10.1) Neutrophils (%) (Auto) % (45.0-75.0) Lymphocytes (%) (Auto) % (20.0-45.0) Monocytes (%) (Auto) % (1.0-10.0) Eosinophils (%) (Auto) % (0.0-3.0) Basophils (%) (Auto) % (0.0-2.0) Sodium Level 138 MMOL/L (136-145) Potassium Level 4.3 MMOL/L (3.5-5.1) Chloride Level 105 MMOL/L (98-107) Carbon Dioxide Level 27 MMOL/L (21-32) Anion Gap 6 mmol/L (5-15) Blood Urea Nitrogen 35 mg/dL (7-18) H Creatinine 1.7 MG/DL (0.55-1.30) H Estimat Glomerular Filtration Rate 49.7 mL/min (>60) Glucose Level 126 MG/DL (74-106) H Uric Acid 8.0 MG/DL (2.6-7.2) H Calcium Level 8.6 MG/DL (8.5-10.1) Phosphorus Level 2.3 MG/DL (2.5-4.9) L Magnesium Level 1.9 MG/DL (1.8-2.4) Total Bilirubin 0.3 MG/DL (0.2-1.0) Aspartate Amino Transf (AST/SGOT) 40 U/L (15-37) H Alanine Aminotransferase (ALT/SGPT) 19 U/L (12-78) Alkaline Phosphatase 180 U/L (46-116) H Pro-B-Type Natriuretic Peptide 71 pg/mL (0-125) Total Protein 6.3 G/DL (6.4-8.2) L Albumin 3.2 G/DL (3.4-5.0) L Globulin 3.1 g/dL Albumin/Globulin Ratio 1.0 (1.0-2.7) Microbiology Date/Time Source Procedure Growth Status 08/20/17 23:25 Blood Blood Culture - Preliminary NO GROWTH AFTER 24 HOURS Resulted 08/20/17 23:20 Blood Blood Culture - Preliminary NO GROWTH AFTER 24 HOURS Resulted Intake and Output 08/21/17 08/22/17 19:00 07:00 Intake Total 1325 ml 1120 ml Output Total 550 ml 550 ml Balance 775 ml 570 ml Intake Oral 600 ml 120 ml IV Total 725 ml 1000 ml Output Urine Total 550 ml 550 ml # Voids 1 Objective General Appearance: WD/WN, no apparent distress, alert EENT: PERRL/EOMI, normal ENT inspection, TMs normal Neck: non-tender, normal alignment, supple, normal inspection Cardiovascular: normal peripheral pulses, normal rate, regular rhythm, no gallop/murmur, no JVD Respiratory/Chest: chest wall non-tender, lungs clear, normal breath sounds, no respiratory distress, no accessory muscle use Abdomen: normal bowel sounds, non tender, soft, no organomegaly, no mass Extremities: normal range of motion, non-tender Neurologic: 911 telecommunicator II-XII grossly normal Skin: normal pigmentation, warm/dry Assessment/Plan Problem List: (1) Severe anemia Assessment & Plan: S/P transfusion 1 unit PRBC 08/13/17; requires another transfusion today. S/P endoscopy and colonoscopy 08/16/17. See hematology consult note (2) Pain in both lower legs (3) Weakness of both legs (4) HTN (hypertension) Assessment & Plan: Continue lisinopril (5) Diabetes mellitus, type II Assessment & Plan: Continue novolog sliding scale. (6) Hypercholesteremia Assessment & Plan: continue pravachol (7) Peripheral vascular disease (8) Hepatitis C virus infection resolved after antiviral drug therapy (9) Methadone maintenance therapy patient Assessment & Plan: See pain management consult-restart methadone (10) Prostate cancer metastatic to bone Assessment & Plan: PSA >5000. See oncology note. Assessment/Plan Discharge planning: home with hospice-see discharge planning note. LUANN REGALADO Aug 22, 2017 17:16
--- NOTE | 2017-08-22 23:32 | Consultation ---
DATE OF CONSULTATION: 08/22/2017 INFECTIOUS DISEASES CONSULTATION CONSULTING PHYSICIAN: Dereck Bains M.D. REFERRING PHYSICIAN: Chilo Rodriguez M.D. REASON FOR CONSULTATION: Evaluation of the patient for fever. HISTORY OF PRESENT ILLNESS: The patient is a 61-year-old unfortunate male with multiple medical problems, who has been admitted here for the last 9 days. The patient was diagnosed with status post cancer. The patient has developed pancytopenia. Now, he is febrile. Infectious Diseases consultation has been requested for further evaluation of the patient and antibiotic management. PAST MEDICAL HISTORY: 1. History of prostate cancer, PSA over 5000. 2. Pancytopenia. 3. History of hepatitis C, status post treatment with Harvoni. 4. History of hyperuricemia. 5. History of internal hemorrhoids. 6. Hypertension. 7. Diabetes. 8. Hyperlipidemia. 9. Peripheral vascular disease. 10. Methadone maintenance. 11. Acute renal insufficiency. 12. Pathologic infection of the spine. ALLERGIES: No known drug allergies. MEDICATIONS: Off of antibiotics currently. SOCIAL HISTORY: No alcohol or drug abuse currently. FAMILY HISTORY: Not contributing. REVIEW OF SYSTEMS: HEENT: No recent change in vision or hearing. PULMONARY: No significant cough. CARDIOVASCULAR: No chest pain. GASTROINTESTINAL/ABDOMEN: No nausea or vomiting. GENITOURINARY: No dysuria. MUSCULOSKELETAL: The patient has generalized body ache. NEUROLOGIC: No seizure. PHYSICAL EXAMINATION: VITAL SIGNS: Temperature 98 degrees, T-max 101.8, blood pressure 101/53, and pulse 89. HEENT: No pale conjunctivae. No icterus. NECK: No lymphadenopathy. CHEST: Coarse breath sounds. HEART: S1 and S2. ABDOMEN: Soft and nontender. EXTREMITIES: No cyanosis. NEUROLOGIC: Awake and alert. LABORATORY AND DIAGNOSTIC DATA: WBC 2.8, hemoglobin 6.7, and platelets 15. ANC over 1000. UA unremarkable. BUN 35 and creatinine 1.7. AST 40, ALT 19, and alkaline phosphatase 118. level is 1.5. Blood culture is pending. Bone scan consists of metastatic neoplasm. Ultrasound of the abdomen, mild splenomegaly. Spine MRI suggestive of diffuse osseous metastasis T12 to L1. CT of abdomen and pelvis, a 2.8 x 1.5 cm mass suggestive of necrotic lymph node, basically in the left external iliac and left internal iliac arteries. ASSESSMENT: 1. Fever. 2. Pancytopenia, however, not neutropenic yet. 3. Possible sepsis. 4. Rule out bacteremia. 5. The patient has an old intravenous site over the right arm that I asked the patient's nurse to change it as it could be source of infection, however, clinically, there is no signs of phlebitis. PLAN: 1. Restart the patient on IV cefepime. 2. Monitor CBC. 3. Monitor BMP. 4. Monitor cultures (blood and urine). 5. Based on the patient's clinical course and laboratories, we will do further recommendation. 6. Hepatitis C PCR. 7. The patient's HIV has been negative. Thank you Dr. Rodriguez for allowing me to participate in the care of this patient. I will follow the patient with you during this hospitalization. Dereck Bains M.D. DR: CHARMAINE JOB#: [id number] CC:
[2017-08-23] VITALS: BP 121/65
[2017-08-23] MEDS: Cefepime HCl 2 GM in D5W 55 ML IVPB SCH ×2 (02:37→14:43)
[2017-08-23] MEDS: D5NS 1,000 ML IV SCH ×4 (02:45→17:40)
[2017-08-23 04:00] VITALS: BP 116/72
[2017-08-23] MEDS: NovoLOG Insulin Flexpen SUBQ SCH ×5 (06:41→20:55)
[2017-08-23 07:51] LABS: ANION GAP 7 mmol/L (5-15); BLOOD UREA NITROGEN 24 mg/dL (7-18); CALCIUM 8.2 MG/DL (8.5-10.1); CARBON DIOXIDE 26 MMOL/L (21-32); CHLORIDE 108 MMOL/L (98-107); CREATININE 1.2 MG/DL (0.55-1.30); POTASSIUM 4.2 MMOL/L (3.5-5.1); SODIUM 141 MMOL/L (136-145)
[2017-08-23 07:53] LABS: HEMATOCRIT 22.1 % (42.0-52.0); HEMOGLOBIN 7.2 G/DL (14.2-18.0); MEAN CORPUSCULAR VOLUME 88 FL (80-99); PLATELET COUNT 58 K/UL (150-450); RED BLOOD COUNT 2.51 M/UL (4.70-6.10); RED CELL DISTRIBUTION WIDTH 14.8 % (11.6-14.8); WHITE BLOOD COUNT 2.8 K/UL (4.8-10.8)
[2017-08-23 08:00] VITALS: BP 118/63
[2017-08-23] MEDS: Aspirin Baby 81mg ORAL SCH (08:49)
[2017-08-23] MEDS: Dronabinol 2.5mg Cap ORAL SCH ×3 (08:49→17:34)
[2017-08-23] MEDS: Bicalutamide 50mg tab ORAL SCH (08:50)
--- NOTE | 2017-08-23 08:53 | General Progress Note ---
Assessment/Plan Assessment/Plan (1) Intractable back pain (2) Metastatic Prostate Cancer (3) Thoracic Compression Fracture (4) Lumbar Spinal stenosis (5) Lumbar Radiculopathy Pt to be continued on Methadone and Dilaudid. We will discontinue the [place] start Percocet 10/325mg PO 1 tab Q4H PRN moderate pain and increase the Neurontin to 600mg TID. D/w Dr. Aburto and he concurred. Subjective Date patient seen: Aug 23, 2017 Time patient seen: 07:00 - am Allergies: Coded Allergies: No Known Allergies (Unverified , 08/13/17) Subjective REVIEW OF SYSTEMS: Denies rash, fever, chills, sweating, dizziness, drowsiness, blurred vision, sore throat, or change in his weight. No nausea, vomiting, diarrhea, or blood in the stool or urine. No bowel or bladder incontinence. No dysuria. He is complaining of back pain. SUBJECTIVE: Pt reports continued pain with severe spasms. Methadone has been increased to 80mg daily and the Dilaudid has been increased to 2mg IV Q3H PRN severe pain. He is more comfortable at this time. Objective Last 24 Hour Vital Signs Date Time Temp Pulse Resp B/P (MAP) Pulse Ox O2 Delivery O2 Flow Rate FiO2 08/23/17 08:00 98.9 90 19 118/63 97 08/23/17 04:00 98.6 104 18 116/72 99 08/23/17 01:11 98.6 08/23/17 00:00 98.2 111 18 121/65 96 08/22/17 21:45 98.6 117 18 100/56 95 08/22/17 21:22 98.7 08/22/17 21:22 98.7 08/22/17 21:00 98.7 118 18 102/57 97 08/22/17 20:32 99.7 120 08/22/17 20:00 101.1 129 18 124/65 99 08/22/17 16:00 99.5 111 18 118/51 95 08/22/17 12:03 98.1 89 18 101/53 94 Intake and Output 08/22/17 08/23/17 19:00 07:00 Intake Total 1300 ml 1165 ml Output Total 550 ml 1000 ml Balance 750 ml 165 ml Intake Oral 360 ml IV Total 1300 ml 805 ml Output Urine Total 550 ml 1000 ml Laboratory Tests 08/23/17 07:20: White Blood Count 2.8L, Red Blood Count 2.51L, Hemoglobin 7.2L, Hematocrit 22.1L , Mean Corpuscular Volume 88, Mean Corpuscular Hemoglobin 28.8, Mean Corpuscular Hemoglobin Concent 32.6, Red Cell Distribution Width 14.8, Platelet Count 58L, Mean Platelet Volume 6.8, Neutrophils (%) (Auto) , Lymphocytes (%) ( Auto) , Monocytes (%) (Auto) , Eosinophils (%) (Auto) , Basophils (%) (Auto) , Neutrophils % (Manual) [Pending], Lymphocytes % (Manual) [Pending], Platelet Estimate [Pending], Platelet Morphology [Pending], Sodium Level 141, Potassium Level 4.2, Chloride Level 108H, Carbon Dioxide Level 26, Anion Gap 7, Blood Urea Nitrogen 24H, Creatinine 1.2, Estimat Glomerular Filtration Rate > 60, Glucose Level 126H, Calcium Level 8.2L, Hepatitis C Antibody [Pending], Hepatitis C RNA (PCR) IUs/ml [Pending], Hepatitis C RNA (PCR) log IUs/ml [ Pending] Height (Feet): 6 Weight (Pounds): 165 Objective GENERAL: Alert, awake, and oriented. HEENT: PERRLA. NECK: Range of motion is full in all directions. No tenderness. No adenopathy. LUNGS: Decreased breath sounds bilaterally. ABDOMEN: Tenderness to palpation. BACK: Range of motion is decreased in flexion and extension with tenderness to paraspinal muscles. No tenderness to trapezius and rhomboid muscles. EXTREMITIES: No cyanosis. No clubbing. No edema. NEURO: No changes. BIANCA MRURELL Aug 23, 2017 08:53
--- NOTE | 2017-08-23 11:08 | GI Progress Note ---
Assessment/Plan Problems: (1) Weight loss ICD Codes: R63.4 - Abnormal weight loss SNOMED: 56766733, 296186755 (2) Hepatitis C virus infection resolved after antiviral drug therapy ICD Codes: Z86.19 - Personal history of other infectious and parasitic diseases SNOMED: 906785539, 63917016201076 (3) Pain in both lower legs ICD Codes: M79.661 - Pain in right lower leg; M79.662 - Pain in left lower leg SNOMED: 81741246968295739 (4) Severe anemia ICD Codes: D64.9 - Anemia, unspecified SNOMED: 331245245 (5) Weight loss of more than 10% body weight ICD Codes: R63.4 - Abnormal weight loss SNOMED: 10440632 (6) Anemia ICD Codes: D64.9 - Anemia, unspecified SNOMED: 883751262 (7) Diabetes mellitus ICD Codes: E11.9 - Type 2 diabetes mellitus without complications SNOMED: 02782055 (8) Severe malnutrition ICD Codes: E43 - Unspecified severe protein-calorie malnutrition SNOMED: 37765698 Status: unchanged Status Narrative Discussed with Dr. Coreas. Assessment/Plan s/p Hep C Tx with harvoni >> still Hep C positive CT AP reviewed >> 2.8 x 1.7 cm rounded structure may represent an enlarged, partially necrotic lymph node suggesting diffuse osseous metastases or additional permeative osseous lesion. Taken together these findings are concerning for malignancy, with prostate being suspected. Correlate with PSA. Additional etiologies are not entirely excluded. Bone biopsy may be of benefit. s/p EGD/colonoscopy SUMMARY OF FINDINGS: 1. Distal esophageal ring. 2. Medium-sized hiatal hernia. 3. Evidence of bile reflux. 4. Gastritis, status post biopsy. >> negative for H. Pylori 5. Internal hemorrhoids. 6. Poor colonoscopy prep. RECOMMENDATIONS: fu onc recs diet + ensure monitor H&H, prn transfusions goal Hgb > 7.0 bowel regime ppi fu labs Subjective Subjective generalized weakness generalized pain Objective Last 24 Hour Vital Signs Date Time Temp Pulse Resp B/P (MAP) Pulse Ox O2 Delivery O2 Flow Rate FiO2 08/23/17 08:00 98.9 90 19 118/63 97 08/23/17 07:12 98.9 08/23/17 04:00 98.6 104 18 116/72 99 08/23/17 00:00 98.2 111 18 121/65 96 08/22/17 21:45 98.6 117 18 100/56 95 08/22/17 21:22 98.7 08/22/17 21:22 98.7 08/22/17 21:00 98.7 118 18 102/57 97 08/22/17 20:32 99.7 120 08/22/17 20:00 101.1 129 18 124/65 99 08/22/17 16:00 99.5 111 18 118/51 95 08/22/17 12:03 98.1 89 18 101/53 94 Intake and Output 08/22/17 08/23/17 19:00 07:00 Intake Total 1300 ml 1165 ml Output Total 550 ml 1000 ml Balance 750 ml 165 ml Intake Oral 360 ml IV Total 1300 ml 805 ml Output Urine Total 550 ml 1000 ml Laboratory Tests Test 08/23/17 07:20 White Blood Count 2.8 K/UL (4.8-10.8) L Red Blood Count 2.51 M/UL (4.70-6.10) L Hemoglobin 7.2 G/DL (14.2-18.0) L Hematocrit 22.1 % (42.0-52.0) L Mean Corpuscular Volume 88 FL (80-99) Mean Corpuscular Hemoglobin 28.8 PG (27.0-31.0) Mean Corpuscular Hemoglobin Concent 32.6 G/DL (32.0-36.0) Red Cell Distribution Width 14.8 % (11.6-14.8) Platelet Count 58 K/UL (150-450) L Mean Platelet Volume 6.8 FL (6.5-10.1) Neutrophils (%) (Auto) % (45.0-75.0) Lymphocytes (%) (Auto) % (20.0-45.0) Monocytes (%) (Auto) % (1.0-10.0) Eosinophils (%) (Auto) % (0.0-3.0) Basophils (%) (Auto) % (0.0-2.0) Differential Total Cells Counted 100 Neutrophils % (Manual) 55 % (45-75) Lymphocytes % (Manual) 34 % (20-45) Monocytes % (Manual) 6 % (1-10) Eosinophils % (Manual) 5 % (0-3) H Basophils % (Manual) 0 % (0-2) Band Neutrophils 0 % (0-8) Platelet Estimate Decreased L Platelet Morphology Normal Hypochromasia 1+ Anisocytosis 1+ Sodium Level 141 MMOL/L (136-145) Potassium Level 4.2 MMOL/L (3.5-5.1) Chloride Level 108 MMOL/L (98-107) H Carbon Dioxide Level 26 MMOL/L (21-32) Anion Gap 7 mmol/L (5-15) Blood Urea Nitrogen 24 mg/dL (7-18) H Creatinine 1.2 MG/DL (0.55-1.30) Estimat Glomerular Filtration Rate > 60 mL/min (>60) Glucose Level 126 MG/DL (74-106) H Calcium Level 8.2 MG/DL (8.5-10.1) L Hepatitis C Antibody Pending Hepatitis C RNA (PCR) IUs/ml Pending Hepatitis C RNA (PCR) log IUs/ml Pending Height (Feet): 6 Weight (Pounds): 165 General Appearance: WD/WN, no apparent distress, alert Cardiovascular: normal rate Respiratory/Chest: normal breath sounds, no respiratory distress Abdominal Exam: normal bowel sounds, non tender, soft Extremities: normal range of motion, non-tender [place] Trotter N.P. Aug 23, 2017 11:08
[2017-08-23 12:00] VITALS: BP 120/68
--- NOTE | 2017-08-23 14:19 | Pulmonology Progress Note ---
Assessment/Plan Problems: (1) Prostate cancer metastatic to bone (2) Pathologic compression fracture of spine (3) Anemia (4) Hypercalcemia (5) Weight loss of more than 10% body weight (6) Diabetes mellitus (7) Methadone maintenance therapy patient Assessment/Plan received one unit or prbc adjust pain meds, increase methadone to 80 increase Dilaudid to 2 mg q3 MRI reviewed, pathological fracture of L spine, t12-L1 Gabapentin was added prbc prn pain control social service consult dc planning Subjective ROS Limited/Unobtainable: No Constitutional: Reports: no symptoms HEENT: Repors: no symptoms Allergies: Coded Allergies: No Known Allergies (Unverified , 08/13/17) Objective Last 24 Hour Vital Signs Date Time Temp Pulse Resp B/P (MAP) Pulse Ox O2 Delivery O2 Flow Rate FiO2 08/23/17 12:00 99.6 100 19 120/68 96 08/23/17 08:00 98.9 90 19 118/63 97 08/23/17 07:12 98.9 08/23/17 04:00 98.6 104 18 116/72 99 08/23/17 00:00 98.2 111 18 121/65 96 08/22/17 21:45 98.6 117 18 100/56 95 08/22/17 21:22 98.7 08/22/17 21:22 98.7 08/22/17 21:00 98.7 118 18 102/57 97 08/22/17 20:32 99.7 120 08/22/17 20:00 101.1 129 18 124/65 99 08/22/17 16:00 99.5 111 18 118/51 95 Intake and Output 08/22/17 08/23/17 19:00 07:00 Intake Total 1300 ml 1165 ml Output Total 550 ml 1000 ml Balance 750 ml 165 ml Intake Oral 360 ml IV Total 1300 ml 805 ml Output Urine Total 550 ml 1000 ml Objective General Appearance: WD/WN HEENT: normocephalic, atraumatic Respiratory/Chest: chest wall non-tender, lungs clear Cardiovascular: normal peripheral pulses, normal rate Abdomen: normal bowel sounds, no organomegaly, non distended Microbiology Date/Time Source Procedure Growth Status 08/20/17 23:25 Blood Blood Culture - Preliminary NO GROWTH AFTER 48 HOURS Resulted 08/20/17 23:20 Blood Blood Culture - Preliminary NO GROWTH AFTER 48 HOURS Resulted Laboratory Tests 08/23/17 07:20: White Blood Count 2.8L, Red Blood Count 2.51L, Hemoglobin 7.2L, Hematocrit 22.1L , Mean Corpuscular Volume 88, Mean Corpuscular Hemoglobin 28.8, Mean Corpuscular Hemoglobin Concent 32.6, Red Cell Distribution Width 14.8, Platelet Count 58L, Mean Platelet Volume 6.8, Neutrophils (%) (Auto) , Lymphocytes (%) ( Auto) , Monocytes (%) (Auto) , Eosinophils (%) (Auto) , Basophils (%) (Auto) , Differential Total Cells Counted 100, Neutrophils % (Manual) 55, Lymphocytes % ( Manual) 34, Monocytes % (Manual) 6, Eosinophils % (Manual) 5H, Basophils % ( Manual) 0, Band Neutrophils 0, Platelet Estimate DecreasedL, Platelet Morphology Normal, Hypochromasia 1+, Anisocytosis 1+, Sodium Level 141, Potassium Level 4.2, Chloride Level 108H, Carbon Dioxide Level 26, Anion Gap 7, Blood Urea Nitrogen 24H, Creatinine 1.2, Estimat Glomerular Filtration Rate > 60 , Glucose Level 126H, Calcium Level 8.2L, Hepatitis C Antibody [Pending], Hepatitis C RNA (PCR) IUs/ml [Pending], Hepatitis C RNA (PCR) log IUs/ml [ Pending] Current Medications Medications (Trade) Dose Ordered Sig/Ramon Route PRN Reason Start Time Stop Time Status Last Admin Dose Admin Acetaminophen (Tylenol) 650 mg Q6H PRN ORAL Mild Pain/Temp > 100.5 08/13/17 23:15 09/12/17 23:14 08/22/17 19:52 Allopurinol (Allopurinol) 300 mg DAILY ORAL 08/21/17 09:00 09/20/17 08:59 08/23/17 08:49 Aspirin (ASA) 81 mg DAILY ORAL 08/14/17 09:00 09/13/17 08:59 08/23/17 08:49 Baclofen (Lioresal) 10 mg Q8H PRN ORAL muscle spasm 08/19/17 13:15 09/18/17 13:14 08/23/17 08:49 Bicalutamide (Casodex) 50 mg DAILY ORAL 08/19/17 09:00 08/24/17 08:59 08/23/17 08:50 Carisoprodol (Soma) 350 mg TIDPRN PRN ORAL Breakthrough Muscle Spasms 08/22/17 19:00 09/21/17 18:59 08/23/17 13:00 Cefepime HCl 2 gm/ Dextrose 55 ml @ 110 mls/hr Q12H IVPB 08/22/17 15:00 08/29/17 14:59 08/23/17 02:37 Dextrose (Dextrose 50%) STAT PRN IV Hypoglycemia 08/13/17 23:15 09/12/17 23:14 Dextrose/Sodium Chloride 1,000 ml @ 100 mls/hr Q10H IV 08/21/17 16:00 09/20/17 15:59 08/23/17 02:45 Diphenhydramine HCl (Benadryl) 50 mg BEDTIME ORAL 08/14/17 21:00 09/13/17 20:59 08/22/17 19:52 Dronabinol (Marinol) 5 mg TID ORAL 08/20/17 13:00 09/19/17 12:59 08/23/17 12:36 Gabapentin (Neurontin) 600 mg THREE TIMES A DAY ORAL 08/23/17 13:00 09/22/17 12:59 08/23/17 12:36 Hydromorphone HCl (Dilaudid) 2 mg Q3H PRN IVP Severe Pain (Pain Scale 7-10) 08/22/17 16:00 08/29/17 15:59 08/23/17 06:42 Insulin Aspart (NovoLOG) BEFORE MEALS AND HS SUBQ 08/14/17 06:30 09/13/17 06:29 08/23/17 12:57 Methadone HCl (Methadone HCl) 80 mg DAILY ORAL 08/23/17 09:00 08/30/17 08:59 08/23/17 08:50 Ondansetron HCl (Zofran) 4 mg EVERY 4 HOURS PRN IVP Nausea & Vomiting 08/13/17 23:15 09/12/17 23:14 08/16/17 10:58 Oxycodone/ Acetaminophen (Percocet 10/325) 1 tab Q4H PRN ORAL Moderate Pain (Pain Scale 4-6) 08/23/17 09:00 08/30/17 08:59 RACHID ZAMORA Aug 23, 2017 14:19
[2017-08-23 16:00] VITALS: BP 124/79
--- NOTE | 2017-08-23 17:09 | Nephrology Progress Note ---
Assessment/Plan Problem List: (1) Prostate cancer metastatic to bone (2) Severe anemia (3) Hypercalcemia (4) Acute renal failure Assessment Cr cesario 1.5 nad to 2 back down to 1.2 (1) Anemia / PanCytopenia (2) Hypercalcemia (3) Weight loss of more than 10% body weight (4) Diabetes mellitus (5) Methadone maintenance therapy patient (6) Metastatic Prostate Ca (7) Hepatitis C Cirrhosis (8) HyperUrecemia Plan Plan; change IV transfuse asneeded Aredia given 06/19 monitor Ca Alb Phos Mag supplement DC Volteran, Lipitor, Lisinopril Monitor renal parameters add allopurinol per consultants Subjective ROS Limited/Unobtainable: No Constitutional: Reports: malaise, weakness Objective Objective Last 24 Hour Vital Signs Date Time Temp Pulse Resp B/P (MAP) Pulse Ox O2 Delivery O2 Flow Rate FiO2 08/23/17 16:00 98.5 100 19 124/79 96 08/23/17 13:59 99.6 08/23/17 12:00 99.6 100 19 120/68 96 08/23/17 08:00 98.9 90 19 118/63 97 08/23/17 07:12 98.9 08/23/17 04:00 98.6 104 18 116/72 99 08/23/17 00:00 98.2 111 18 121/65 96 08/22/17 21:45 98.6 117 18 100/56 95 08/22/17 21:22 98.7 08/22/17 21:00 98.7 118 18 102/57 97 08/22/17 20:32 99.7 120 08/22/17 20:00 101.1 129 18 124/65 99 Intake and Output 08/22/17 08/23/17 19:00 07:00 Intake Total 1300 ml 1165 ml Output Total 550 ml 1000 ml Balance 750 ml 165 ml Intake Oral 360 ml IV Total 1300 ml 805 ml Output Urine Total 550 ml 1000 ml Laboratory Tests 08/23/17 07:20: White Blood Count 2.8L, Red Blood Count 2.51L, Hemoglobin 7.2L, Hematocrit 22.1L , Mean Corpuscular Volume 88, Mean Corpuscular Hemoglobin 28.8, Mean Corpuscular Hemoglobin Concent 32.6, Red Cell Distribution Width 14.8, Platelet Count 58L, Mean Platelet Volume 6.8, Neutrophils (%) (Auto) , Lymphocytes (%) ( Auto) , Monocytes (%) (Auto) , Eosinophils (%) (Auto) , Basophils (%) (Auto) , Differential Total Cells Counted 100, Neutrophils % (Manual) 55, Lymphocytes % ( Manual) 34, Monocytes % (Manual) 6, Eosinophils % (Manual) 5H, Basophils % ( Manual) 0, Band Neutrophils 0, Platelet Estimate DecreasedL, Platelet Morphology Normal, Hypochromasia 1+, Anisocytosis 1+, Sodium Level 141, Potassium Level 4.2, Chloride Level 108H, Carbon Dioxide Level 26, Anion Gap 7, Blood Urea Nitrogen 24H, Creatinine 1.2, Estimat Glomerular Filtration Rate > 60 , Glucose Level 126H, Calcium Level 8.2L, Hepatitis C Antibody [Pending], Hepatitis C RNA (PCR) IUs/ml [Pending], Hepatitis C RNA (PCR) log IUs/ml [ Pending] Height (Feet): 6 Weight (Pounds): 165 General Appearance: no apparent distress Objective no change JENNIFER MORALES Aug 23, 2017 17:09
--- NOTE | 2017-08-23 18:46 | Internal Med Progress Note ---
Subjective Date of Service: Aug 23, 2017 Physician Name Regalado,Luann Attending Physician Tyrone Barba MD Current Medications Medications (Trade) Dose Ordered Sig/Ramon Route PRN Reason Start Time Stop Time Status Last Admin Dose Admin Acetaminophen (Tylenol) 650 mg Q6H PRN ORAL Mild Pain/Temp > 100.5 08/13/17 23:15 09/12/17 23:14 08/22/17 19:52 Allopurinol (Allopurinol) 300 mg DAILY ORAL 08/21/17 09:00 09/20/17 08:59 08/23/17 08:49 Aspirin (ASA) 81 mg DAILY ORAL 08/14/17 09:00 09/13/17 08:59 08/23/17 08:49 Baclofen (Lioresal) 10 mg Q8H PRN ORAL muscle spasm 08/19/17 13:15 09/18/17 13:14 08/23/17 08:49 Bicalutamide (Casodex) 50 mg DAILY ORAL 08/19/17 09:00 08/24/17 08:59 08/23/17 08:50 Carisoprodol (Soma) 350 mg TIDPRN PRN ORAL Breakthrough Muscle Spasms 08/22/17 19:00 09/21/17 18:59 08/23/17 13:00 Cefepime HCl 2 gm/ Dextrose 55 ml @ 110 mls/hr Q12H IVPB 08/22/17 15:00 08/29/17 14:59 08/23/17 14:43 Dextrose (Dextrose 50%) STAT PRN IV Hypoglycemia 08/13/17 23:15 09/12/17 23:14 Dextrose/Sodium Chloride 1,000 ml @ 100 mls/hr Q10H IV 08/21/17 16:00 09/20/17 15:59 08/23/17 14:46 Diphenhydramine HCl (Benadryl) 50 mg BEDTIME ORAL 08/14/17 21:00 09/13/17 20:59 08/22/17 19:52 Dronabinol (Marinol) 5 mg TID ORAL 08/20/17 13:00 09/19/17 12:59 08/23/17 17:34 Gabapentin (Neurontin) 600 mg THREE TIMES A DAY ORAL 08/23/17 13:00 09/22/17 12:59 08/23/17 17:33 Hydromorphone HCl (Dilaudid) 2 mg Q3H PRN IVP Severe Pain (Pain Scale 7-10) 08/22/17 16:00 08/29/17 15:59 08/23/17 06:42 Insulin Aspart (NovoLOG) BEFORE MEALS AND HS SUBQ 08/14/17 06:30 09/13/17 06:29 08/23/17 17:39 Methadone HCl (Methadone HCl) 80 mg DAILY ORAL 08/23/17 09:00 08/30/17 08:59 08/23/17 08:50 Ondansetron HCl (Zofran) 4 mg EVERY 4 HOURS PRN IVP Nausea & Vomiting 08/13/17 23:15 09/12/17 23:14 08/16/17 10:58 Oxycodone/ Acetaminophen (Percocet 10/325) 1 tab Q4H PRN ORAL Moderate Pain (Pain Scale 4-6) 08/23/17 09:00 08/30/17 08:59 Allergies: Coded Allergies: No Known Allergies (Unverified , 08/13/17) ROS Limited/Unobtainable: No Constitutional: Reports: no symptoms HEENT: Reports: no symptoms Cardiovascular: Reports: no symptoms Respiratory: Reports: no symptoms Gastrointestinal/Abdominal: Reports: no symptoms Genitourinary: Reports: no symptoms Neurologic/Psychiatric: Reports: no symptoms Subjective 61 YO M admitted with bilateral leg weakness and pain. Now severe anemia - requires transfusion today. Also prostate cancer with metastases. S/P endoscopy and colonoscopy 08/16/17. Cover for Int Med-Dr Barba. Patient now on methadone. Objective Last Vital Signs Date Time Temp Pulse Resp B/P (MAP) Pulse Ox O2 Delivery O2 Flow Rate FiO2 08/23/17 16:00 98.5 100 19 124/79 96 08/22/17 04:00 Room Air 08/16/17 07:52 4.0 Laboratory Tests Test 08/23/17 07:20 White Blood Count 2.8 K/UL (4.8-10.8) L Red Blood Count 2.51 M/UL (4.70-6.10) L Hemoglobin 7.2 G/DL (14.2-18.0) L Hematocrit 22.1 % (42.0-52.0) L Mean Corpuscular Volume 88 FL (80-99) Mean Corpuscular Hemoglobin 28.8 PG (27.0-31.0) Mean Corpuscular Hemoglobin Concent 32.6 G/DL (32.0-36.0) Red Cell Distribution Width 14.8 % (11.6-14.8) Platelet Count 58 K/UL (150-450) L Mean Platelet Volume 6.8 FL (6.5-10.1) Neutrophils (%) (Auto) % (45.0-75.0) Lymphocytes (%) (Auto) % (20.0-45.0) Monocytes (%) (Auto) % (1.0-10.0) Eosinophils (%) (Auto) % (0.0-3.0) Basophils (%) (Auto) % (0.0-2.0) Differential Total Cells Counted 100 Neutrophils % (Manual) 55 % (45-75) Lymphocytes % (Manual) 34 % (20-45) Monocytes % (Manual) 6 % (1-10) Eosinophils % (Manual) 5 % (0-3) H Basophils % (Manual) 0 % (0-2) Band Neutrophils 0 % (0-8) Platelet Estimate Decreased L Platelet Morphology Normal Hypochromasia 1+ Anisocytosis 1+ Sodium Level 141 MMOL/L (136-145) Potassium Level 4.2 MMOL/L (3.5-5.1) Chloride Level 108 MMOL/L (98-107) H Carbon Dioxide Level 26 MMOL/L (21-32) Anion Gap 7 mmol/L (5-15) Blood Urea Nitrogen 24 mg/dL (7-18) H Creatinine 1.2 MG/DL (0.55-1.30) Estimat Glomerular Filtration Rate > 60 mL/min (>60) Glucose Level 126 MG/DL (74-106) H Calcium Level 8.2 MG/DL (8.5-10.1) L Hepatitis C Antibody Pending Hepatitis C RNA (PCR) IUs/ml Pending Hepatitis C RNA (PCR) log IUs/ml Pending Microbiology Date/Time Source Procedure Growth Status 08/20/17 23:25 Blood Blood Culture - Preliminary NO GROWTH AFTER 48 HOURS Resulted 08/20/17 23:20 Blood Blood Culture - Preliminary NO GROWTH AFTER 48 HOURS Resulted Intake and Output 08/22/17 08/23/17 19:00 07:00 Intake Total 1300 ml 1165 ml Output Total 550 ml 1000 ml Balance 750 ml 165 ml Intake Oral 360 ml IV Total 1300 ml 805 ml Output Urine Total 550 ml 1000 ml Objective General Appearance: WD/WN, no apparent distress, alert EENT: PERRL/EOMI, normal ENT inspection, TMs normal Neck: non-tender, normal alignment, supple, normal inspection Cardiovascular: normal peripheral pulses, normal rate, regular rhythm, no gallop/murmur, no JVD Respiratory/Chest: chest wall non-tender, lungs clear, normal breath sounds, no respiratory distress, no accessory muscle use Abdomen: normal bowel sounds, non tender, soft, no organomegaly, no mass Extremities: normal range of motion, non-tender Neurologic: line patrolman II-XII grossly normal Skin: normal pigmentation, warm/dry Assessment/Plan Problem List: (1) Severe anemia Assessment & Plan: S/P transfusion 1 unit PRBC 08/13/17; requires another transfusion today. S/P endoscopy and colonoscopy 08/16/17. See hematology consult note (2) Pain in both lower legs (3) Weakness of both legs (4) HTN (hypertension) Assessment & Plan: Continue lisinopril (5) Diabetes mellitus, type II Assessment & Plan: Continue novolog sliding scale. (6) Hypercholesteremia Assessment & Plan: continue pravachol (7) Peripheral vascular disease (8) Hepatitis C virus infection resolved after antiviral drug therapy (9) Methadone maintenance therapy patient Assessment & Plan: See pain management consult-restart methadone (10) Prostate cancer metastatic to bone Assessment & Plan: PSA >5000. Start casodex. See oncology note. Await second opinion @ [facility]. Assessment/Plan Discharge planning: home with hospice-see discharge planning note. LUANN REGALADO Aug 23, 2017 18:46
[2017-08-23 20:40] VITALS: BP 121/81
--- NOTE | 2017-08-23 21:02 | Infectious Diseases Prog Note ---
Assessment/Plan Assessment/Plan A: Fever. improved Possible sepsis. Rule out bacteremia. Pancytopenia. History of hepatitis C, status post treatment with Harvoni HIV has been negative 08/23 Cxray : No acute cardiopulmonary disease Bone scan consists of metastatic neoplasm Ultrasound: mild splenomegaly Spine MRI : metastasis T12 to L1. CT of abdomen and pelvis, a 2.8 x 1.5 cm mass suggestive of necrotic lymph node , basically in the left external iliac and left internal iliac arteries ( probable 2nd to mets ) History of prostate cancer, PSA over 5000. History of hyperuricemia. History of internal hemorrhoids. Hypertension. Diabetes. Hyperlipidemia. Peripheral vascular disease. Methadone maintenance. Acute renal insufficiency. Pathologic Fx of the spine PLAN: cont patient on IV cefepime d# 2 Monitor CBC Monitor BMP. Monitor cultures (blood and urine). Hepatitis C PCR Subjective Allergies: Coded Allergies: No Known Allergies (Unverified , 08/13/17) Subjective Afebrile Objective Vital Signs Last 24 Hour Vital Signs Date Time Temp Pulse Resp B/P (MAP) Pulse Ox O2 Delivery O2 Flow Rate FiO2 08/23/17 20:40 99.0 117 20 121/81 95 08/23/17 16:00 98.5 100 19 124/79 96 08/23/17 16:00 96 Room Air 08/23/17 13:59 99.6 08/23/17 12:00 96 Room Air 08/23/17 12:00 99.6 100 19 120/68 96 08/23/17 08:00 98.9 90 19 118/63 97 08/23/17 08:00 97 Room Air 08/23/17 07:12 98.9 08/23/17 04:00 98.6 104 18 116/72 99 08/23/17 00:00 98.2 111 18 121/65 96 08/22/17 21:45 98.6 117 18 100/56 95 08/22/17 21:22 98.7 08/22/17 21:00 98.7 118 18 102/57 97 Height (Feet): 6 Weight (Pounds): 165 HEENT: anicteric Respiratory/Chest: normal breath sounds Cardiovascular: no gallop/murmur Abdomen: no organomegaly Microbiology Date/Time Source Procedure Growth Status 08/20/17 23:25 Blood Blood Culture - Preliminary NO GROWTH AFTER 48 HOURS Resulted 08/20/17 23:20 Blood Blood Culture - Preliminary NO GROWTH AFTER 48 HOURS Resulted Laboratory Tests Test 08/23/17 07:20 White Blood Count 2.8 K/UL (4.8-10.8) L Red Blood Count 2.51 M/UL (4.70-6.10) L Hemoglobin 7.2 G/DL (14.2-18.0) L Hematocrit 22.1 % (42.0-52.0) L Mean Corpuscular Volume 88 FL (80-99) Mean Corpuscular Hemoglobin 28.8 PG (27.0-31.0) Mean Corpuscular Hemoglobin Concent 32.6 G/DL (32.0-36.0) Red Cell Distribution Width 14.8 % (11.6-14.8) Platelet Count 58 K/UL (150-450) L Mean Platelet Volume 6.8 FL (6.5-10.1) Neutrophils (%) (Auto) % (45.0-75.0) Lymphocytes (%) (Auto) % (20.0-45.0) Monocytes (%) (Auto) % (1.0-10.0) Eosinophils (%) (Auto) % (0.0-3.0) Basophils (%) (Auto) % (0.0-2.0) Differential Total Cells Counted 100 Neutrophils % (Manual) 55 % (45-75) Lymphocytes % (Manual) 34 % (20-45) Monocytes % (Manual) 6 % (1-10) Eosinophils % (Manual) 5 % (0-3) H Basophils % (Manual) 0 % (0-2) Band Neutrophils 0 % (0-8) Platelet Estimate Decreased L Platelet Morphology Normal Hypochromasia 1+ Anisocytosis 1+ Sodium Level 141 MMOL/L (136-145) Potassium Level 4.2 MMOL/L (3.5-5.1) Chloride Level 108 MMOL/L (98-107) H Carbon Dioxide Level 26 MMOL/L (21-32) Anion Gap 7 mmol/L (5-15) Blood Urea Nitrogen 24 mg/dL (7-18) H Creatinine 1.2 MG/DL (0.55-1.30) Estimat Glomerular Filtration Rate > 60 mL/min (>60) Glucose Level 126 MG/DL (74-106) H Calcium Level 8.2 MG/DL (8.5-10.1) L Hepatitis C Antibody Pending Hepatitis C RNA (PCR) IUs/ml Pending Hepatitis C RNA (PCR) log IUs/ml Pending Current Medications Medications (Trade) Dose Ordered Sig/Ramon Route PRN Reason Start Time Stop Time Status Last Admin Dose Admin Acetaminophen (Tylenol) 650 mg Q6H PRN ORAL Mild Pain/Temp > 100.5 08/13/17 23:15 09/12/17 23:14 08/22/17 19:52 Allopurinol (Allopurinol) 300 mg DAILY ORAL 08/21/17 09:00 09/20/17 08:59 08/23/17 08:49 Aspirin (ASA) 81 mg DAILY ORAL 08/14/17 09:00 09/13/17 08:59 08/23/17 08:49 Baclofen (Lioresal) 10 mg Q8H PRN ORAL muscle spasm 08/19/17 13:15 09/18/17 13:14 08/23/17 08:49 Bicalutamide (Casodex) 50 mg DAILY ORAL 08/19/17 09:00 08/24/17 08:59 08/23/17 08:50 Carisoprodol (Soma) 350 mg TIDPRN PRN ORAL Breakthrough Muscle Spasms 08/22/17 19:00 09/21/17 18:59 08/23/17 13:00 Cefepime HCl 2 gm/ Dextrose 55 ml @ 110 mls/hr Q12H IVPB 08/22/17 15:00 08/29/17 14:59 08/23/17 14:43 Dextrose (Dextrose 50%) STAT PRN IV Hypoglycemia 08/13/17 23:15 09/12/17 23:14 Dextrose/Sodium Chloride 1,000 ml @ 100 mls/hr Q10H IV 08/21/17 16:00 09/20/17 15:59 08/23/17 14:46 Diphenhydramine HCl (Benadryl) 50 mg BEDTIME ORAL 08/14/17 21:00 09/13/17 20:59 08/22/17 19:52 Dronabinol (Marinol) 5 mg TID ORAL 08/20/17 13:00 09/19/17 12:59 08/23/17 17:34 Gabapentin (Neurontin) 600 mg THREE TIMES A DAY ORAL 08/23/17 13:00 09/22/17 12:59 08/23/17 17:33 Hydromorphone HCl (Dilaudid) 2 mg Q3H PRN IVP Severe Pain (Pain Scale 7-10) 08/22/17 16:00 08/29/17 15:59 08/23/17 06:42 Insulin Aspart (NovoLOG) BEFORE MEALS AND HS SUBQ 08/14/17 06:30 09/13/17 06:29 08/23/17 17:39 Methadone HCl (Methadone HCl) 80 mg DAILY ORAL 08/23/17 09:00 08/30/17 08:59 08/23/17 08:50 Ondansetron HCl (Zofran) 4 mg EVERY 4 HOURS PRN IVP Nausea & Vomiting 08/13/17 23:15 09/12/17 23:14 08/16/17 10:58 Oxycodone/ Acetaminophen (Percocet 10/325) 1 tab Q4H PRN ORAL Moderate Pain (Pain Scale 4-6) 08/23/17 09:00 08/30/17 08:59 JOHNATHON ANTUNEZ M.D. Aug 23, 2017 21:02
--- NOTE | 2017-08-23 23:04 | General Progress Note ---
Assessment/Plan Assessment/Plan ASSESSMENT AND RECOMMENDATIONS: # Metastatic prostate cancer, psa is >5000, as well as clinical findings of bone mets --> have started casodex and consider lupron once discharged --> Continue treatment as outpatient. --> recommend outpatient urology eval with prostate biopsy # Pancytopenia, most etiology looks like related to underlying hepatitis C status post treatment. The patient's spleen is mildly enlarged. --> also component related to stage iv prostate ca --> hgb goal >7, plt goal >20k --> S/P blood transfusion, no complications --> monitor cbc daily. # Lymphadenopathy as well as osseous metastasis is noted on CT scan. --> likely from prostate ca #. Hepatitis C status post treatment with Harvoni. Hepatitis C is positive. #. Coagulopathy likely secondary to underlying hepatitis C and liver cirrhosis. #. Hyperuricemia and elevated psa #. Anemia. Colonoscopy shows internal hemorrhoids. Subjective Date patient seen: Aug 23, 2017 Constitutional: Denies: no symptoms, chills, diaphoresis, fever, malaise, weakness, other HEENT: Denies: no symptoms, eye pain, blurred vision, tearing, double vision, ear pain, ear discharge, nose pain, nose congestion, throat pain, throat swelling, mouth pain, mouth swelling, other Cardiovascular: Denies: no symptoms, chest pain, edema, irregular heart rate, lightheadedness, palpitations, syncope, other Respiratory: Denies: no symptoms, cough, orthopnea, shortness of breath, SOB with excertion, SOB at rest, sputum, stridor, wheezing, other Gastrointestinal/Abdominal: Denies: no symptoms, abdomen distended, abdominal pain, black stools, tarry stools, blood in stool, constipated, diarrhea, difficulty swallowing, nausea, poor appetite, poor fluid intake, rectal bleeding , vomiting, other Hematologic/Lymphatic: Reports: anemia Allergies: Coded Allergies: No Known Allergies (Unverified , 08/13/17) Subjective S/P PRBC. No complications. On pain control. Objective Last 24 Hour Vital Signs Date Time Temp Pulse Resp B/P (MAP) Pulse Ox O2 Delivery O2 Flow Rate FiO2 08/23/17 22:00 99.0 08/23/17 20:40 99.0 117 20 121/81 95 08/23/17 16:00 98.5 100 19 124/79 96 1/18/18 16:00 96 Room Air 08/23/17 12:00 96 Room Air 08/23/17 12:00 99.6 100 19 120/68 96 08/23/17 08:00 98.9 90 19 118/63 97 08/23/17 08:00 97 Room Air 08/23/17 07:12 98.9 08/23/17 04:00 98.6 104 18 116/72 99 08/23/17 00:00 98.2 111 18 121/65 96 Intake and Output 08/22/17 08/23/17 19:00 07:00 Intake Total 1300 ml 1165 ml Output Total 550 ml 1000 ml Balance 750 ml 165 ml Intake Oral 360 ml IV Total 1300 ml 805 ml Output Urine Total 550 ml 1000 ml Laboratory Tests 08/23/17 07:20: White Blood Count 2.8L, Red Blood Count 2.51L, Hemoglobin 7.2L, Hematocrit 22.1L , Mean Corpuscular Volume 88, Mean Corpuscular Hemoglobin 28.8, Mean Corpuscular Hemoglobin Concent 32.6, Red Cell Distribution Width 14.8, Platelet Count 58L, Mean Platelet Volume 6.8, Neutrophils (%) (Auto) , Lymphocytes (%) ( Auto) , Monocytes (%) (Auto) , Eosinophils (%) (Auto) , Basophils (%) (Auto) , Differential Total Cells Counted 100, Neutrophils % (Manual) 55, Lymphocytes % ( Manual) 34, Monocytes % (Manual) 6, Eosinophils % (Manual) 5H, Basophils % ( Manual) 0, Band Neutrophils 0, Platelet Estimate DecreasedL, Platelet Morphology Normal, Hypochromasia 1+, Anisocytosis 1+, Sodium Level 141, Potassium Level 4.2, Chloride Level 108H, Carbon Dioxide Level 26, Anion Gap 7, Blood Urea Nitrogen 24H, Creatinine 1.2, Estimat Glomerular Filtration Rate > 60 , Glucose Level 126H, Calcium Level 8.2L, Hepatitis C Antibody [Pending], Hepatitis C RNA (PCR) IUs/ml [Pending], Hepatitis C RNA (PCR) log IUs/ml [ Pending] Height (Feet): 6 Weight (Pounds): 165 General Appearance: confused Cardiovascular: tachycardia Emerson Camara Aug 23, 2017 23:04
[2017-08-24] VITALS (8 sets, daily range): BP systolic 118–153; BP diastolic 65–80
[2017-08-24] MEDS: D5NS 1,000 ML IV SCH ×2 (03:19→11:43)
[2017-08-24] MEDS: Cefepime HCl 2 GM in D5W 55 ML IVPB SCH ×2 (03:19→14:47)
[2017-08-24] MEDS: NovoLOG Insulin Flexpen SUBQ SCH ×4 (06:51→21:25)
--- NOTE | 2017-08-24 07:40 | Pulmonology Progress Note ---
Assessment/Plan Assessment/Plan ASSESSMENT Metastatic prostate cancer Pathological spine fracture T12-L1 Severe anemia, requiring blood transfusion pancytopenia fever, Possible sepsis Hypercalcemia-resolved (s/p Aredia, likely due to malignancy) Intractable back pain] Hepatitis C infection Severe weight loss DM ATN, improving Severe protein calorie malnutrition Lumbar radiculopathy lumbar spinal stenosis PLAN OF CARE [facility] floor IVF Restarted on abx as per ID r/o sepsis, blood cx repeated prel negative pain management; pain specialist follows MRI L spine noted bone scan, CT A/P + metastatic process onco follows for further management ; started on Casodex and consider Lupron upon dc nephron follows ATN (creat was from 1.5 to 2.0),- resolved, Monitor lytes, correct as needed , avoid nephrotoxic Ca better, s/p Aredia Started on Allopurinol CXR negative O2 HN prn GI follows diet as tolerated nutritional recommendations implemented on Marinol Monitor HH and transfuse to keep Hgb above 7.5 PPI bowel regimen BS management with SS of inulin, BS stable family desires transfer to [facility] was explained by CM can only be dc home and then go to [facility] if desire ( transfer is difficult) transfuse 1 u PRBC today prognosis poor; condition grave case discussed and evaluated by supervising physician Subjective Allergies: Coded Allergies: No Known Allergies (Unverified , 08/13/17) Subjective admits to bone pain intermittently controlled with analgesics no CP no SOB low grade fever this am HH still low-7.2/22.4 Objective Last 24 Hour Vital Signs Date Time Temp Pulse Resp B/P (MAP) Pulse Ox O2 Delivery O2 Flow Rate FiO2 08/24/17 07:20 99.7 08/24/17 04:00 99.7 109 19 126/66 97 08/24/17 00:00 98.0 104 19 118/71 98 08/23/17 22:00 99.0 08/23/17 20:40 99.0 117 20 121/81 95 08/23/17 16:00 98.5 100 19 124/79 96 08/23/17 16:00 96 Room Air 08/23/17 12:00 96 Room Air 08/23/17 12:00 99.6 100 19 120/68 96 08/23/17 08:00 98.9 90 19 118/63 97 08/23/17 08:00 97 Room Air Intake and Output 08/23/17 08/24/17 19:00 07:00 Intake Total 1055 ml 1295 ml Output Total 900 ml 800 ml Balance 155 ml 495 ml Intake Oral 240 ml IV Total 1055 ml 1055 ml Output Urine Total 900 ml 800 ml General Appearance: no acute distress HEENT: normocephalic, atraumatic, anicteric, mucous membranes moist Respiratory/Chest: lungs clear, no respiratory distress, no accessory muscle use Cardiovascular: normal rate, regular rhythm Abdomen: soft, non tender, non distended Extremities: no edema, pedal pulses normal Neurologic/Psychiatric: abnormal gait, alert, oriented x 3, responsive Microbiology Date/Time Source Procedure Growth Status 08/22/17 17:30 Blood Blood Culture - Preliminary NO GROWTH AFTER 24 HOURS Resulted 08/22/17 17:10 Blood Blood Culture - Preliminary NO GROWTH AFTER 24 HOURS Resulted Current Medications Medications (Trade) Dose Ordered Sig/Ramon Route PRN Reason Start Time Stop Time Status Last Admin Dose Admin Acetaminophen (Tylenol) 650 mg Q6H PRN ORAL Mild Pain/Temp > 100.5 08/13/17 23:15 09/12/17 23:14 08/22/17 19:52 Allopurinol (Allopurinol) 300 mg DAILY ORAL 08/21/17 09:00 09/20/17 08:59 08/23/17 08:49 Aspirin (ASA) 81 mg DAILY ORAL 08/14/17 09:00 09/13/17 08:59 08/23/17 08:49 Baclofen (Lioresal) 10 mg Q8H PRN ORAL muscle spasm 08/19/17 13:15 09/18/17 13:14 08/24/17 03:23 Bicalutamide (Casodex) 50 mg DAILY ORAL 08/19/17 09:00 08/24/17 08:59 08/23/17 08:50 Carisoprodol (Soma) 350 mg TIDPRN PRN ORAL Breakthrough Muscle Spasms 08/22/17 19:00 09/21/17 18:59 08/23/17 20:51 Cefepime HCl 2 gm/ Dextrose 55 ml @ 110 mls/hr Q12H IVPB 08/22/17 15:00 08/29/17 14:59 08/24/17 03:19 Dextrose (Dextrose 50%) STAT PRN IV Hypoglycemia 08/13/17 23:15 09/12/17 23:14 Dextrose/Sodium Chloride 1,000 ml @ 100 mls/hr Q10H IV 08/21/17 16:00 09/20/17 15:59 08/24/17 03:19 Diphenhydramine HCl (Benadryl) 50 mg BEDTIME ORAL 08/14/17 21:00 09/13/17 20:59 08/23/17 20:51 Dronabinol (Marinol) 5 mg TID ORAL 08/20/17 13:00 09/19/17 12:59 08/23/17 17:34 Gabapentin (Neurontin) 600 mg THREE TIMES A DAY ORAL 08/23/17 13:00 09/22/17 12:59 08/23/17 17:33 Hydromorphone HCl (Dilaudid) 2 mg Q3H PRN IVP Severe Pain (Pain Scale 7-10) 08/22/17 16:00 08/29/17 15:59 08/24/17 06:50 Insulin Aspart (NovoLOG) BEFORE MEALS AND HS SUBQ 08/14/17 06:30 09/13/17 06:29 08/24/17 06:51 Methadone HCl (Methadone HCl) 80 mg DAILY ORAL 08/23/17 09:00 08/30/17 08:59 08/23/17 08:50 Ondansetron HCl (Zofran) 4 mg EVERY 4 HOURS PRN IVP Nausea & Vomiting 08/13/17 23:15 09/12/17 23:14 08/16/17 10:58 Oxycodone/ Acetaminophen (Percocet 10/325) 1 tab Q4H PRN ORAL Moderate Pain (Pain Scale 4-6) 08/23/17 09:00 08/30/17 08:59 Sanjay (ChandniSanam bowser NP Aug 24, 2017 07:40
[2017-08-24 08:10] LABS: HEMATOCRIT 22.4 % (42.0-52.0); HEMOGLOBIN 7.2 G/DL (14.2-18.0); MEAN CORPUSCULAR VOLUME 89 FL (80-99); PLATELET COUNT 81 K/UL (150-450); RED BLOOD COUNT 2.52 M/UL (4.70-6.10); RED CELL DISTRIBUTION WIDTH 15.1 % (11.6-14.8); WHITE BLOOD COUNT 3.4 K/UL (4.8-10.8)
[2017-08-24] MEDS: Bicalutamide 50mg tab ORAL SCH (08:34)
[2017-08-24] MEDS: Aspirin Baby 81mg ORAL SCH (08:34)
[2017-08-24] MEDS: Dronabinol 2.5mg Cap ORAL SCH ×3 (08:34→17:25)
--- NOTE | 2017-08-24 08:56 | General Progress Note ---
Assessment/Plan Assessment/Plan (1) Intractable back pain (2) Metastatic Prostate Cancer (3) Thoracic Compression Fracture (4) Lumbar Spinal stenosis (5) Lumbar Radiculopathy (6) Opioid induced constipation Pt to be continued on Neurontin, Percocet, Methadone and Dilaudid. We start Movantik 25mg PO 1 tab QD. D/w Dr. Aburto and he concurred. Subjective Date patient seen: Aug 24, 2017 Time patient seen: 07:00 - am Allergies: Coded Allergies: No Known Allergies (Unverified , 08/13/17) Subjective REVIEW OF SYSTEMS: Denies rash, fever, chills, sweating, dizziness, drowsiness, blurred vision, sore throat, or change in his weight. No nausea, vomiting, diarrhea, or blood in the stool or urine. No bowel or bladder incontinence. No dysuria. He is complaining of back pain. SUBJECTIVE: Pt is sitting in bed having less spasms. His pain is tolerated better with the increased medication. He is having constipation. Objective Last 24 Hour Vital Signs Date Time Temp Pulse Resp B/P (MAP) Pulse Ox O2 Delivery O2 Flow Rate FiO2 08/24/17 08:32 99.7 110 21 131/73 95 08/24/17 07:20 99.7 08/24/17 04:00 99.7 109 19 126/66 97 08/24/17 00:00 98.0 104 19 118/71 98 08/23/17 22:00 99.0 08/23/17 20:40 99.0 117 20 121/81 95 08/23/17 16:00 98.5 100 19 124/79 96 08/23/17 16:00 96 Room Air 08/23/17 12:00 96 Room Air 08/23/17 12:00 99.6 100 19 120/68 96 Intake and Output 08/23/17 08/24/17 19:00 07:00 Intake Total 1055 ml 1295 ml Output Total 900 ml 800 ml Balance 155 ml 495 ml Intake Oral 240 ml IV Total 1055 ml 1055 ml Output Urine Total 900 ml 800 ml Laboratory Tests 08/24/17 05:35: White Blood Count 3.4L, Red Blood Count 2.52L, Hemoglobin 7.2L, Hematocrit 22.4L , Mean Corpuscular Volume 89, Mean Corpuscular Hemoglobin 28.7, Mean Corpuscular Hemoglobin Concent 32.3, Red Cell Distribution Width 15.1H, Platelet Count 81L, Mean Platelet Volume 5.4L, Neutrophils (%) (Auto) , Lymphocytes (%) (Auto) , Monocytes (%) (Auto) , Eosinophils (%) (Auto) , Basophils (%) (Auto) , Neutrophils % (Manual) [Pending], Lymphocytes % (Manual) [Pending], Platelet Estimate [Pending], Platelet Morphology [Pending], Sodium Level [Pending], Potassium Level [Pending], Chloride Level [Pending], Carbon Dioxide Level [Pending], Blood Urea Nitrogen [Pending], Creatinine [Pending], Estimat Glomerular Filtration Rate [Pending], Glucose Level [Pending], Calcium Level [Pending], Phosphorus Level [Pending], Magnesium Level [Pending], Total Bilirubin [Pending], Aspartate Amino Transf (AST/SGOT) [Pending], Alanine Aminotransferase (ALT/SGPT) [Pending], Alkaline Phosphatase [Pending], Total Protein [Pending], Albumin [Pending], Globulin [Pending] Height (Feet): 6 Weight (Pounds): 165 Objective GENERAL: Alert, awake, and oriented. HEENT: PERRLA. NECK: Range of motion is full in all directions. No tenderness. No adenopathy. LUNGS: Decreased breath sounds bilaterally. ABDOMEN: Tenderness to palpation. BACK: Range of motion is decreased in flexion and extension with tenderness to paraspinal muscles. No tenderness to trapezius and rhomboid muscles. EXTREMITIES: No cyanosis. No clubbing. No edema. NEURO: No changes. BIANCA MURRELL Aug 24, 2017 08:56
--- NOTE | 2017-08-24 09:40 | Nephrology Progress Note ---
Assessment/Plan Problem List: (1) Prostate cancer metastatic to bone (2) Severe anemia (3) Hypercalcemia (4) Acute renal failure Assessment todays chemistries pending Cr cesario 1.5 nad to 2 back down to 1.2 (1) Anemia / PanCytopenia (2) Hypercalcemia (3) Weight loss of more than 10% body weight (4) Diabetes mellitus (5) Methadone maintenance therapy patient (6) Metastatic Prostate Ca (7) Hepatitis C Cirrhosis (8) HyperUrecemia Plan Plan; change IV transfuse asneeded Aredia given 06/19 monitor Ca Alb Phos Mag supplement DC Volteran, Lipitor, Lisinopril Monitor renal parameters add allopurinol per consultants Subjective ROS Limited/Unobtainable: No Constitutional: Reports: malaise Objective Objective Last 24 Hour Vital Signs Date Time Temp Pulse Resp B/P (MAP) Pulse Ox O2 Delivery O2 Flow Rate FiO2 08/24/17 08:32 99.7 110 21 131/73 95 08/24/17 07:20 99.7 08/24/17 04:00 99.7 109 19 126/66 97 08/24/17 00:00 98.0 104 19 118/71 98 08/23/17 22:00 99.0 08/23/17 20:40 99.0 117 20 121/81 95 08/23/17 16:00 98.5 100 19 124/79 96 08/23/17 16:00 96 Room Air 08/23/17 12:00 96 Room Air 08/23/17 12:00 99.6 100 19 120/68 96 Intake and Output 08/23/17 08/24/17 19:00 07:00 Intake Total 1055 ml 1295 ml Output Total 900 ml 800 ml Balance 155 ml 495 ml Intake Oral 240 ml IV Total 1055 ml 1055 ml Output Urine Total 900 ml 800 ml Laboratory Tests 08/24/17 05:35: White Blood Count 3.4L, Red Blood Count 2.52L, Hemoglobin 7.2L, Hematocrit 22.4L , Mean Corpuscular Volume 89, Mean Corpuscular Hemoglobin 28.7, Mean Corpuscular Hemoglobin Concent 32.3, Red Cell Distribution Width 15.1H, Platelet Count 81L, Mean Platelet Volume 5.4L, Neutrophils (%) (Auto) , Lymphocytes (%) (Auto) , Monocytes (%) (Auto) , Eosinophils (%) (Auto) , Basophils (%) (Auto) , Neutrophils % (Manual) [Pending], Lymphocytes % (Manual) [Pending], Platelet Estimate [Pending], Platelet Morphology [Pending], Sodium Level [Pending], Potassium Level [Pending], Chloride Level [Pending], Carbon Dioxide Level [Pending], Blood Urea Nitrogen [Pending], Creatinine [Pending], Estimat Glomerular Filtration Rate [Pending], Glucose Level [Pending], Calcium Level [Pending], Phosphorus Level [Pending], Magnesium Level [Pending], Total Bilirubin [Pending], Aspartate Amino Transf (AST/SGOT) [Pending], Alanine Aminotransferase (ALT/SGPT) [Pending], Alkaline Phosphatase [Pending], Total Protein [Pending], Albumin [Pending], Globulin [Pending] Height (Feet): 6 Weight (Pounds): 165 General Appearance: no apparent distress Objective no change JENNIFER MORALES Aug 24, 2017 09:40
[2017-08-24] MEDS: Naloxegol Oxalate 25mg tab ORAL SCH (10:06)
[2017-08-24 10:27] LABS: ALANINE AMINOTRANSFERASE 12 U/L (12-78); ALBUMIN 2.9 G/DL (3.4-5.0); ALKALINE PHOSPHATASE 178 U/L (46-116); ANION GAP 12 mmol/L (5-15); ASPARTATE AMINO TRANSFERASE 35 U/L (15-37); BILIRUBIN,TOTAL 0.3 MG/DL (0.2-1.0); BLOOD UREA NITROGEN 16 mg/dL (7-18); CALCIUM 8.1 MG/DL (8.5-10.1); CARBON DIOXIDE 22 MMOL/L (21-32); CHLORIDE 109 MMOL/L (98-107); CREATININE 1.1 MG/DL (0.55-1.30); PHOSPHORUS 1.7 MG/DL (2.5-4.9); POTASSIUM 3.9 MMOL/L (3.5-5.1); SODIUM 143 MMOL/L (136-145)
--- NOTE | 2017-08-24 10:42 | GI Progress Note ---
Assessment/Plan Problems: (1) Weight loss ICD Codes: R63.4 - Abnormal weight loss SNOMED: 20311254, 216118514 (2) Hepatitis C virus infection resolved after antiviral drug therapy ICD Codes: Z86.19 - Personal history of other infectious and parasitic diseases SNOMED: 061674089, 32236630460476 (3) Pain in both lower legs ICD Codes: M79.661 - Pain in right lower leg; M79.662 - Pain in left lower leg SNOMED: 65233112003716025 (4) Severe anemia ICD Codes: D64.9 - Anemia, unspecified SNOMED: 082306841 (5) Weight loss of more than 10% body weight ICD Codes: R63.4 - Abnormal weight loss SNOMED: 43325723 (6) Anemia ICD Codes: D64.9 - Anemia, unspecified SNOMED: 253164958 (7) Diabetes mellitus ICD Codes: E11.9 - Type 2 diabetes mellitus without complications SNOMED: 84395125 (8) Severe malnutrition ICD Codes: E43 - Unspecified severe protein-calorie malnutrition SNOMED: 79644099 Status: not improved, unchanged Status Narrative Discussed with Dr. Coreas. Assessment/Plan s/p Hep C Tx with harvoni >> still Hep C positive CT AP reviewed >> 2.8 x 1.7 cm rounded structure may represent an enlarged, partially necrotic lymph node suggesting diffuse osseous metastases or additional permeative osseous lesion. Taken together these findings are concerning for malignancy, with prostate being suspected. Correlate with PSA. Additional etiologies are not entirely excluded. Bone biopsy may be of benefit. s/p EGD/colonoscopy SUMMARY OF FINDINGS: 1. Distal esophageal ring. 2. Medium-sized hiatal hernia. 3. Evidence of bile reflux. 4. Gastritis, status post biopsy. >> negative for H. Pylori 5. Internal hemorrhoids. 6. Poor colonoscopy prep. RECOMMENDATIONS: fu onc recs >> prostate CA mets, prognosis grave diet + ensure monitor H&H, prn transfusions goal Hgb > 7.0 bowel regime ppi fu labs Subjective Subjective generalized weakness generalized pain Objective Last 24 Hour Vital Signs Date Time Temp Pulse Resp B/P (MAP) Pulse Ox O2 Delivery O2 Flow Rate FiO2 08/24/17 08:32 99.7 110 21 131/73 95 08/24/17 07:20 99.7 08/24/17 04:00 99.7 109 19 126/66 97 08/24/17 00:00 98.0 104 19 118/71 98 08/23/17 22:00 99.0 08/23/17 20:40 99.0 117 20 121/81 95 08/23/17 16:00 98.5 100 19 124/79 96 08/23/17 16:00 96 Room Air 08/23/17 12:00 96 Room Air 08/23/17 12:00 99.6 100 19 120/68 96 Intake and Output 08/23/17 08/24/17 19:00 07:00 Intake Total 1055 ml 1295 ml Output Total 900 ml 800 ml Balance 155 ml 495 ml Intake Oral 240 ml IV Total 1055 ml 1055 ml Output Urine Total 900 ml 800 ml Laboratory Tests Test 08/24/17 05:35 White Blood Count 3.4 K/UL (4.8-10.8) L Red Blood Count 2.52 M/UL (4.70-6.10) L Hemoglobin 7.2 G/DL (14.2-18.0) L Hematocrit 22.4 % (42.0-52.0) L Mean Corpuscular Volume 89 FL (80-99) Mean Corpuscular Hemoglobin 28.7 PG (27.0-31.0) Mean Corpuscular Hemoglobin Concent 32.3 G/DL (32.0-36.0) Red Cell Distribution Width 15.1 % (11.6-14.8) H Platelet Count 81 K/UL (150-450) L Mean Platelet Volume 5.4 FL (6.5-10.1) L Neutrophils (%) (Auto) % (45.0-75.0) Lymphocytes (%) (Auto) % (20.0-45.0) Monocytes (%) (Auto) % (1.0-10.0) Eosinophils (%) (Auto) % (0.0-3.0) Basophils (%) (Auto) % (0.0-2.0) Differential Total Cells Counted 100 Neutrophils % (Manual) 57 % (45-75) Lymphocytes % (Manual) 32 % (20-45) Monocytes % (Manual) 6 % (1-10) Eosinophils % (Manual) 4 % (0-3) H Basophils % (Manual) 0 % (0-2) Band Neutrophils 1 % (0-8) Platelet Estimate Decreased L Platelet Morphology Normal Hypochromasia 1+ Anisocytosis 1+ Sodium Level 143 MMOL/L (136-145) Potassium Level 3.9 MMOL/L (3.5-5.1) Chloride Level 109 MMOL/L (98-107) H Carbon Dioxide Level 22 MMOL/L (21-32) Anion Gap 12 mmol/L (5-15) Blood Urea Nitrogen 16 mg/dL (7-18) Creatinine 1.1 MG/DL (0.55-1.30) Estimat Glomerular Filtration Rate > 60 mL/min (>60) Glucose Level 114 MG/DL (74-106) H Calcium Level 8.1 MG/DL (8.5-10.1) L Phosphorus Level 1.7 MG/DL (2.5-4.9) L Magnesium Level 1.7 MG/DL (1.8-2.4) L Total Bilirubin 0.3 MG/DL (0.2-1.0) Aspartate Amino Transf (AST/SGOT) 35 U/L (15-37) Alanine Aminotransferase (ALT/SGPT) 12 U/L (12-78) Alkaline Phosphatase 178 U/L (46-116) H Total Protein 5.9 G/DL (6.4-8.2) L Albumin 2.9 G/DL (3.4-5.0) L Globulin 3.0 g/dL Albumin/Globulin Ratio 1.0 (1.0-2.7) Height (Feet): 6 Weight (Pounds): 165 General Appearance: WD/WN, no apparent distress, alert, thin Cardiovascular: normal rate Respiratory/Chest: normal breath sounds, no respiratory distress Abdominal Exam: normal bowel sounds, non tender, soft Extremities: normal range of motion, non-tender [place] Trotter N.P. Aug 24, 2017 10:42
--- NOTE | 2017-08-24 10:59 | Infectious Diseases Prog Note ---
Assessment/Plan Assessment/Plan A: Fever. low grade ( probable 2nd to metast. cancer ) Possible sepsis, SP Pancytopenia History of hepatitis C, status post treatment with Harvoni HIV has been negative 08/23 Cxray : No acute cardiopulmonary disease 08/16 s/p EGD/colonoscopy 1. Distal esophageal ring. 2. Medium-sized hiatal hernia. 3. Evidence of bile reflux. 4. Gastritis, status post biopsy. >> negative for H. Pylori 5. Internal hemorrhoids Bone scan consists of metastatic neoplasm Ultrasound: mild splenomegaly Spine MRI : metastasis T12 to L1. CT of abdomen and pelvis, a 2.8 x 1.5 cm mass suggestive of necrotic lymph node , basically in the left external iliac and left internal iliac arteries ( probable 2nd to mets ) History of prostate cancer, PSA over 5000. History of hyperuricemia. History of internal hemorrhoids. Hypertension. Diabetes. Hyperlipidemia. Peripheral vascular disease. Methadone maintenance. Acute renal insufficiency , SP Pathologic Fx of the spine PLAN: cont patient on IV cefepime d# 3 , if fever cont pt may add IV Vanco Monitor CBC Monitor BMP. Monitor cultures (blood and urine) Hepatitis C PCR Subjective Allergies: Coded Allergies: No Known Allergies (Unverified , 08/13/17) Subjective low grade fever Objective Vital Signs Last 24 Hour Vital Signs Date Time Temp Pulse Resp B/P (MAP) Pulse Ox O2 Delivery O2 Flow Rate FiO2 08/24/17 08:32 99.7 110 21 131/73 95 08/24/17 07:20 99.7 08/24/17 04:00 99.7 109 19 126/66 97 08/24/17 00:00 98.0 104 19 118/71 98 08/23/17 22:00 99.0 08/23/17 20:40 99.0 117 20 121/81 95 08/23/17 16:00 98.5 100 19 124/79 96 08/23/17 16:00 96 Room Air 08/23/17 12:00 96 Room Air 08/23/17 12:00 99.6 100 19 120/68 96 Height (Feet): 6 Weight (Pounds): 165 HEENT: anicteric Respiratory/Chest: no respiratory distress Cardiovascular: regular rhythm Abdomen: no organomegaly Microbiology Date/Time Source Procedure Growth Status 08/22/17 17:30 Blood Blood Culture - Preliminary NO GROWTH AFTER 24 HOURS Resulted 08/22/17 17:10 Blood Blood Culture - Preliminary NO GROWTH AFTER 24 HOURS Resulted Laboratory Tests Test 08/24/17 05:35 White Blood Count 3.4 K/UL (4.8-10.8) L Red Blood Count 2.52 M/UL (4.70-6.10) L Hemoglobin 7.2 G/DL (14.2-18.0) L Hematocrit 22.4 % (42.0-52.0) L Mean Corpuscular Volume 89 FL (80-99) Mean Corpuscular Hemoglobin 28.7 PG (27.0-31.0) Mean Corpuscular Hemoglobin Concent 32.3 G/DL (32.0-36.0) Red Cell Distribution Width 15.1 % (11.6-14.8) H Platelet Count 81 K/UL (150-450) L Mean Platelet Volume 5.4 FL (6.5-10.1) L Neutrophils (%) (Auto) % (45.0-75.0) Lymphocytes (%) (Auto) % (20.0-45.0) Monocytes (%) (Auto) % (1.0-10.0) Eosinophils (%) (Auto) % (0.0-3.0) Basophils (%) (Auto) % (0.0-2.0) Differential Total Cells Counted 100 Neutrophils % (Manual) 57 % (45-75) Lymphocytes % (Manual) 32 % (20-45) Monocytes % (Manual) 6 % (1-10) Eosinophils % (Manual) 4 % (0-3) H Basophils % (Manual) 0 % (0-2) Band Neutrophils 1 % (0-8) Platelet Estimate Decreased L Platelet Morphology Normal Hypochromasia 1+ Anisocytosis 1+ Sodium Level 143 MMOL/L (136-145) Potassium Level 3.9 MMOL/L (3.5-5.1) Chloride Level 109 MMOL/L (98-107) H Carbon Dioxide Level 22 MMOL/L (21-32) Anion Gap 12 mmol/L (5-15) Blood Urea Nitrogen 16 mg/dL (7-18) Creatinine 1.1 MG/DL (0.55-1.30) Estimat Glomerular Filtration Rate > 60 mL/min (>60) Glucose Level 114 MG/DL (74-106) H Calcium Level 8.1 MG/DL (8.5-10.1) L Phosphorus Level 1.7 MG/DL (2.5-4.9) L Magnesium Level 1.7 MG/DL (1.8-2.4) L Total Bilirubin 0.3 MG/DL (0.2-1.0) Aspartate Amino Transf (AST/SGOT) 35 U/L (15-37) Alanine Aminotransferase (ALT/SGPT) 12 U/L (12-78) Alkaline Phosphatase 178 U/L (46-116) H Total Protein 5.9 G/DL (6.4-8.2) L Albumin 2.9 G/DL (3.4-5.0) L Globulin 3.0 g/dL Albumin/Globulin Ratio 1.0 (1.0-2.7) Current Medications Medications (Trade) Dose Ordered Sig/Ramon Route PRN Reason Start Time Stop Time Status Last Admin Dose Admin Acetaminophen (Tylenol) 650 mg Q6H PRN ORAL Mild Pain/Temp > 100.5 08/13/17 23:15 09/12/17 23:14 08/22/17 19:52 Allopurinol (Allopurinol) 300 mg DAILY ORAL 08/21/17 09:00 09/20/17 08:59 08/24/17 08:34 Aspirin (ASA) 81 mg DAILY ORAL 08/14/17 09:00 09/13/17 08:59 08/24/17 08:34 Baclofen (Lioresal) 10 mg Q8H PRN ORAL muscle spasm 08/19/17 13:15 09/18/17 13:14 08/24/17 03:23 Carisoprodol (Soma) 350 mg TIDPRN PRN ORAL Breakthrough Muscle Spasms 08/22/17 19:00 09/21/17 18:59 08/23/17 20:51 Cefepime HCl 2 gm/ Dextrose 55 ml @ 110 mls/hr Q12H IVPB 08/22/17 15:00 08/29/17 14:59 08/24/17 03:19 Dextrose (Dextrose 50%) STAT PRN IV Hypoglycemia 08/13/17 23:15 09/12/17 23:14 Dextrose/Sodium Chloride 1,000 ml @ 100 mls/hr Q10H IV 08/21/17 16:00 09/20/17 15:59 08/24/17 03:19 Diphenhydramine HCl (Benadryl) 50 mg BEDTIME ORAL 08/14/17 21:00 09/13/17 20:59 08/23/17 20:51 Dronabinol (Marinol) 5 mg TID ORAL 08/20/17 13:00 09/19/17 12:59 08/24/17 08:34 Gabapentin (Neurontin) 600 mg THREE TIMES A DAY ORAL 08/23/17 13:00 09/22/17 12:59 08/24/17 08:34 Hydromorphone HCl (Dilaudid) 2 mg Q3H PRN IVP Severe Pain (Pain Scale 7-10) 08/22/17 16:00 08/29/17 15:59 08/24/17 06:50 Insulin Aspart (NovoLOG) BEFORE MEALS AND HS SUBQ 08/14/17 06:30 09/13/17 06:29 08/24/17 06:51 Methadone HCl (Methadone HCl) 80 mg DAILY ORAL 08/23/17 09:00 08/30/17 08:59 08/24/17 08:34 Naloxegol (Movantik) 25 mg DAILY ORAL 08/24/17 10:00 09/23/17 09:59 08/24/17 10:06 Ondansetron HCl (Zofran) 4 mg EVERY 4 HOURS PRN IVP Nausea & Vomiting 08/13/17 23:15 09/12/17 23:14 08/16/17 10:58 Oxycodone/ Acetaminophen (Percocet 10/325) 1 tab Q4H PRN ORAL Moderate Pain (Pain Scale 4-6) 08/23/17 09:00 08/30/17 08:59 JOHNATHON ANTUNEZ M.D. Aug 24, 2017 10:59
--- NOTE | 2017-08-24 14:37 | Internal Med Progress Note ---
Subjective Physician Name Tyrone Barba Attending Physician Tyrone Barba MD Current Medications Medications (Trade) Dose Ordered Sig/Ramon Route PRN Reason Start Time Stop Time Status Last Admin Dose Admin Acetaminophen (Tylenol) 650 mg Q6H PRN ORAL Mild Pain/Temp > 100.5 08/13/17 23:15 09/12/17 23:14 08/22/17 19:52 Allopurinol (Allopurinol) 300 mg DAILY ORAL 08/21/17 09:00 09/20/17 08:59 08/24/17 08:34 Aspirin (ASA) 81 mg DAILY ORAL 08/14/17 09:00 09/13/17 08:59 08/24/17 08:34 Baclofen (Lioresal) 10 mg Q8H PRN ORAL muscle spasm 08/19/17 13:15 09/18/17 13:14 08/24/17 03:23 Carisoprodol (Soma) 350 mg TIDPRN PRN ORAL Breakthrough Muscle Spasms 08/22/17 19:00 09/21/17 18:59 08/23/17 20:51 Cefepime HCl 2 gm/ Dextrose 55 ml @ 110 mls/hr Q12H IVPB 08/22/17 15:00 08/29/17 14:59 08/24/17 03:19 Dextrose (Dextrose 50%) STAT PRN IV Hypoglycemia 08/13/17 23:15 09/12/17 23:14 Dextrose/Sodium Chloride 1,000 ml @ 100 mls/hr Q10H IV 08/21/17 16:00 09/20/17 15:59 08/24/17 11:43 Diphenhydramine HCl (Benadryl) 50 mg BEDTIME ORAL 08/14/17 21:00 09/13/17 20:59 08/23/17 20:51 Dronabinol (Marinol) 5 mg TID ORAL 08/20/17 13:00 09/19/17 12:59 08/24/17 12:36 Gabapentin (Neurontin) 600 mg THREE TIMES A DAY ORAL 08/23/17 13:00 09/22/17 12:59 08/24/17 12:36 Hydromorphone HCl (Dilaudid) 2 mg Q3H PRN IVP Severe Pain (Pain Scale 7-10) 08/22/17 16:00 08/29/17 15:59 08/24/17 06:50 Insulin Aspart (NovoLOG) BEFORE MEALS AND HS SUBQ 08/14/17 06:30 09/13/17 06:29 08/24/17 12:41 Methadone HCl (Methadone HCl) 80 mg DAILY ORAL 08/23/17 09:00 08/30/17 08:59 08/24/17 08:34 Naloxegol (Movantik) 25 mg DAILY ORAL 08/24/17 10:00 09/23/17 09:59 08/24/17 10:06 Ondansetron HCl (Zofran) 4 mg EVERY 4 HOURS PRN IVP Nausea & Vomiting 08/13/17 23:15 09/12/17 23:14 08/16/17 10:58 Oxycodone/ Acetaminophen (Percocet 10/325) 1 tab Q4H PRN ORAL Moderate Pain (Pain Scale 4-6) 08/23/17 09:00 08/30/17 08:59 Allergies: Coded Allergies: No Known Allergies (Unverified , 08/13/17) Subjective awake, alert, responsive, C/O less leg pain Objective Last Vital Signs Date Time Temp Pulse Resp B/P (MAP) Pulse Ox O2 Delivery O2 Flow Rate FiO2 08/24/17 11:44 98.7 100 20 128/74 96 08/23/17 16:00 Room Air 08/16/17 07:52 4.0 Laboratory Tests Test 08/24/17 05:35 White Blood Count 3.4 K/UL (4.8-10.8) L Red Blood Count 2.52 M/UL (4.70-6.10) L Hemoglobin 7.2 G/DL (14.2-18.0) L Hematocrit 22.4 % (42.0-52.0) L Mean Corpuscular Volume 89 FL (80-99) Mean Corpuscular Hemoglobin 28.7 PG (27.0-31.0) Mean Corpuscular Hemoglobin Concent 32.3 G/DL (32.0-36.0) Red Cell Distribution Width 15.1 % (11.6-14.8) H Platelet Count 81 K/UL (150-450) L Mean Platelet Volume 5.4 FL (6.5-10.1) L Neutrophils (%) (Auto) % (45.0-75.0) Lymphocytes (%) (Auto) % (20.0-45.0) Monocytes (%) (Auto) % (1.0-10.0) Eosinophils (%) (Auto) % (0.0-3.0) Basophils (%) (Auto) % (0.0-2.0) Differential Total Cells Counted 100 Neutrophils % (Manual) 57 % (45-75) Lymphocytes % (Manual) 32 % (20-45) Monocytes % (Manual) 6 % (1-10) Eosinophils % (Manual) 4 % (0-3) H Basophils % (Manual) 0 % (0-2) Band Neutrophils 1 % (0-8) Platelet Estimate Decreased L Platelet Morphology Normal Hypochromasia 1+ Anisocytosis 1+ Sodium Level 143 MMOL/L (136-145) Potassium Level 3.9 MMOL/L (3.5-5.1) Chloride Level 109 MMOL/L (98-107) H Carbon Dioxide Level 22 MMOL/L (21-32) Anion Gap 12 mmol/L (5-15) Blood Urea Nitrogen 16 mg/dL (7-18) Creatinine 1.1 MG/DL (0.55-1.30) Estimat Glomerular Filtration Rate > 60 mL/min (>60) Glucose Level 114 MG/DL (74-106) H Calcium Level 8.1 MG/DL (8.5-10.1) L Phosphorus Level 1.7 MG/DL (2.5-4.9) L Magnesium Level 1.7 MG/DL (1.8-2.4) L Total Bilirubin 0.3 MG/DL (0.2-1.0) Aspartate Amino Transf (AST/SGOT) 35 U/L (15-37) Alanine Aminotransferase (ALT/SGPT) 12 U/L (12-78) Alkaline Phosphatase 178 U/L (46-116) H Total Protein 5.9 G/DL (6.4-8.2) L Albumin 2.9 G/DL (3.4-5.0) L Globulin 3.0 g/dL Albumin/Globulin Ratio 1.0 (1.0-2.7) Microbiology Date/Time Source Procedure Growth Status 08/22/17 17:30 Blood Blood Culture - Preliminary NO GROWTH AFTER 24 HOURS Resulted 08/22/17 17:10 Blood Blood Culture - Preliminary NO GROWTH AFTER 24 HOURS Resulted Intake and Output 08/23/17 08/24/17 19:00 07:00 Intake Total 1055 ml 1295 ml Output Total 900 ml 800 ml Balance 155 ml 495 ml Intake Oral 240 ml IV Total 1055 ml 1055 ml Output Urine Total 900 ml 800 ml Objective General: No acute distress, awake and alert HEENT: NCAT, sclera anicteric, PERRL, EOMI. Neck: Supple, no significant jugular venous distention, Lungs: Good inspiratory effort, clear to auscultation bilaterally, no Wheeze or Rales. Heart: Regular rate and rhythm, normal S1/S2, no murmurs Abdomen: soft, nontender, nondistended. Normoactive bowel sounds. : [place] cath Extremities: No Cyanosis , clubbing, less Left leg edema. Neuro: A&O x 3, Able to move all extremities Skin: warm, no rashes or lesions Psych: Normal mood and affect Assessment/Plan Assessment/Plan Metastatic prostate cancer Pathological spine fracture T12-L1 Severe anemia, requiring blood transfusion pancytopenia fever, Possible sepsis Hypercalcemia-resolved (s/p Aredia, likely due to malignancy) Intractable back pain] Hepatitis C infection Severe weight loss DM ATN, improving Severe protein calorie malnutrition Lumbar radiculopathy lumbar spinal stenosis Plan: PT Mobility Discuss with daughter over the phone Pain medication F/U with Labs IVF . Tyrone Barba MD Aug 24, 2017 14:37
[2017-08-24] MEDS: Magnesium Oxide 400mg tab ORAL SCH ×2 (14:53→17:25)
[2017-08-24] MEDS ORDERED: NS 275ml ONE (18:56)
[2017-08-24] MEDS ORDERED: Tubing Blood Filter IV ONE (18:56)
[2017-08-24] MEDS ORDERED: Tubing IV Secondary IV ONE (18:56)
--- NOTE | 2017-08-24 23:29 | General Progress Note ---
Assessment/Plan Status: unchanged Assessment/Plan ASSESSMENT AND RECOMMENDATIONS: # Metastatic prostate cancer, psa is >5000, as well as clinical findings of bone mets --> have started casodex and consider lupron once discharged --> Continue treatment as outpatient. --> recommend outpatient urology eval with prostate biopsy # Pancytopenia, most etiology looks like related to underlying hepatitis C status post treatment. The patient's spleen is mildly enlarged. --> also component related to stage iv prostate ca --> hgb goal >7, plt goal >20k --> Hemoglobin low again, will need transfusion if it continues to drop --> monitor cbc daily. # Lymphadenopathy as well as osseous metastasis is noted on CT scan. --> likely from prostate ca #. Hepatitis C status post treatment with Harvoni. Hepatitis C is positive. #. Coagulopathy likely secondary to underlying hepatitis C and liver cirrhosis. #. Hyperuricemia and elevated psa #. Anemia. Colonoscopy shows internal hemorrhoids. Subjective Date patient seen: Aug 24, 2017 Constitutional: Denies: no symptoms, chills, diaphoresis, fever, malaise, weakness, other HEENT: Denies: no symptoms, eye pain, blurred vision, tearing, double vision, ear pain, ear discharge, nose pain, nose congestion, throat pain, throat swelling, mouth pain, mouth swelling, other Cardiovascular: Denies: no symptoms, chest pain, edema, irregular heart rate, lightheadedness, palpitations, syncope, other Respiratory: Denies: no symptoms, cough, orthopnea, shortness of breath, SOB with excertion, SOB at rest, sputum, stridor, wheezing, other Gastrointestinal/Abdominal: Denies: no symptoms, abdomen distended, abdominal pain, black stools, tarry stools, blood in stool, constipated, diarrhea, difficulty swallowing, nausea, poor appetite, poor fluid intake, rectal bleeding , vomiting, other Hematologic/Lymphatic: Reports: anemia Allergies: Coded Allergies: No Known Allergies (Unverified , 08/13/17) Subjective Resting in bed, feeling better on pain medications. No fever. Objective Last 24 Hour Vital Signs Date Time Temp Pulse Resp B/P (MAP) Pulse Ox O2 Delivery O2 Flow Rate FiO2 08/24/17 20:00 99.1 122 20 119/65 96 08/24/17 17:41 99.2 08/24/17 17:00 99.2 110 20 144/77 96 Room Air 08/24/17 16:25 99.5 115 20 153/80 99 Room Air 08/24/17 16:04 99.1 108 20 124/65 96 08/24/17 11:44 96 Room Air 08/24/17 11:44 98.7 100 20 128/74 96 08/24/17 08:32 99.7 110 21 131/73 95 08/24/17 08:32 95 Room Air 08/24/17 07:20 99.7 08/24/17 04:00 99.7 109 19 126/66 97 08/24/17 00:00 98.0 104 19 118/71 98 Intake and Output 08/23/17 08/24/17 19:00 07:00 Intake Total 1055 ml 1295 ml Output Total 900 ml 800 ml Balance 155 ml 495 ml Intake Oral 240 ml IV Total 1055 ml 1055 ml Output Urine Total 900 ml 800 ml Laboratory Tests 08/24/17 05:35: White Blood Count 3.4L, Red Blood Count 2.52L, Hemoglobin 7.2L, Hematocrit 22.4L , Mean Corpuscular Volume 89, Mean Corpuscular Hemoglobin 28.7, Mean Corpuscular Hemoglobin Concent 32.3, Red Cell Distribution Width 15.1H, Platelet Count 81L, Mean Platelet Volume 5.4L, Neutrophils (%) (Auto) , Lymphocytes (%) (Auto) , Monocytes (%) (Auto) , Eosinophils (%) (Auto) , Basophils (%) (Auto) , Differential Total Cells Counted 100, Neutrophils % ( Manual) 57, Lymphocytes % (Manual) 32, Monocytes % (Manual) 6, Eosinophils % ( Manual) 4H, Basophils % (Manual) 0, Band Neutrophils 1, Platelet Estimate DecreasedL, Platelet Morphology Normal, Hypochromasia 1+, Anisocytosis 1+, Sodium Level 143, Potassium Level 3.9, Chloride Level 109H, Carbon Dioxide Level 22, Anion Gap 12, Blood Urea Nitrogen 16, Creatinine 1.1, Estimat Glomerular Filtration Rate > 60, Glucose Level 114H, Calcium Level 8.1L, Phosphorus Level 1.7L, Magnesium Level 1.7L, Total Bilirubin 0.3, Aspartate Amino Transf (AST/SGOT) 35, Alanine Aminotransferase (ALT/SGPT) 12, Alkaline Phosphatase 178H, Total Protein 5.9L, Albumin 2.9L, Globulin 3.0, Albumin/ Globulin Ratio 1.0 Height (Feet): 6 Weight (Pounds): 165 General Appearance: confused Respiratory/Chest: decreased breath sounds Abdomen: soft Emerson Camara Aug 24, 2017 23:29
[2017-08-25] VITALS: BP 147/83
[2017-08-25] MEDS: D5NS 1,000 ML IV SCH ×3 (00:10→20:55)
[2017-08-25] MEDS: Cefepime HCl 2 GM in D5W 55 ML IVPB SCH ×2 (03:44→17:43)
[2017-08-25 04:00] VITALS: BP 132/79
[2017-08-25] MEDS: NovoLOG Insulin Flexpen SUBQ SCH ×4 (06:30→20:58)
[2017-08-25 07:38] LABS: HEMOGLOBIN 7.8 G/DL (14.2-18.0); MEAN CORPUSCULAR VOLUME 88 FL (80-99); PLATELET COUNT 89 K/UL (150-450); RED BLOOD COUNT 2.72 M/UL (4.70-6.10); RED CELL DISTRIBUTION WIDTH 14.7 % (11.6-14.8); WHITE BLOOD COUNT 3.2 K/UL (4.8-10.8)
--- NOTE | 2017-08-25 07:38 | General Progress Note ---
Assessment/Plan Problem List: (1) Weight loss ICD Codes: R63.4 - Abnormal weight loss SNOMED: 89694578, 860970224 (2) Hepatitis C virus infection resolved after antiviral drug therapy ICD Codes: Z86.19 - Personal history of other infectious and parasitic diseases SNOMED: 344135820, 09310743006508 (3) HTN (hypertension) ICD Codes: I10 - Essential (primary) hypertension SNOMED: 88794568 (4) Anemia ICD Codes: D64.9 - Anemia, unspecified SNOMED: 618021191 (5) Prostate cancer metastatic to bone ICD Codes: C61 - Malignant neoplasm of prostate; C79.51 - Secondary malignant neoplasm of bone SNOMED: 76218062, 10155308 Assessment/Plan Assessment/Plan s/p Hep C Tx with harvoni >> check hep C quant as out patient CT AP reviewed >> 2.8 x 1.7 cm rounded structure may represent an enlarged, partially necrotic lymph node suggesting diffuse osseous metastases or additional permeative osseous lesion. Taken together these findings are concerning for malignancy, with prostate being suspected. Correlate with PSA. Additional etiologies are not entirely excluded. Bone biopsy may be of benefit. s/p EGD/colonoscopy SUMMARY OF FINDINGS: 1. Distal esophageal ring. 2. Medium-sized hiatal hernia. 3. Evidence of bile reflux. 4. Gastritis, status post biopsy. >> negative for H. Pylori 5. Internal hemorrhoids. 6. Poor colonoscopy prep. RECOMMENDATIONS: fu onc recs >> prostate CA mets, prognosis grave diet + ensure monitor H&H, prn transfusions goal Hgb > 7.0 bowel regime ppi fu labs Subjective ROS Limited/Unobtainable: Yes Allergies: Coded Allergies: No Known Allergies (Unverified , 08/13/17) Subjective no event Objective Last 24 Hour Vital Signs Date Time Temp Pulse Resp B/P (MAP) Pulse Ox O2 Delivery O2 Flow Rate FiO2 08/25/17 04:00 98.0 107 18 132/79 96 Room Air 08/25/17 00:00 98.0 103 19 147/83 98 Room Air 08/24/17 20:00 99.1 122 20 119/65 96 08/24/17 17:41 99.2 08/24/17 17:00 99.2 110 20 144/77 96 Room Air 08/24/17 16:25 99.5 115 20 153/80 99 Room Air 08/24/17 16:04 99.1 108 20 124/65 96 08/24/17 11:44 96 Room Air 08/24/17 11:44 98.7 100 20 128/74 96 08/24/17 08:32 99.7 110 21 131/73 95 08/24/17 08:32 95 Room Air Intake and Output 08/24/17 08/25/17 19:00 07:00 Intake Total 1335 ml Output Total 1000 ml Balance 335 ml Intake Oral 580 ml IV Total 755 ml Output Urine Total 1000 ml Laboratory Tests 08/25/17 05:00: White Blood Count [Pending], Red Blood Count [Pending], Hemoglobin [Pending], Hematocrit [Pending], Mean Corpuscular Volume [Pending], Mean Corpuscular Hemoglobin [Pending], Mean Corpuscular Hemoglobin Concent [Pending], Red Cell Distribution Width [Pending], Platelet Count [Pending], Mean Platelet Volume [ Pending], Neutrophils (%) (Auto) [Pending], Lymphocytes (%) (Auto) [Pending], Monocytes (%) (Auto) [Pending], Eosinophils (%) (Auto) [Pending], Basophils (%) (Auto) [Pending], Sodium Level [Pending], Potassium Level [Pending], Chloride Level [Pending], Carbon Dioxide Level [Pending], Blood Urea Nitrogen [Pending], Creatinine [Pending], Estimat Glomerular Filtration Rate [Pending], Glucose Level [Pending], Calcium Level [Pending], Total Bilirubin [Pending], Aspartate Amino Transf (AST/SGOT) [Pending], Alanine Aminotransferase (ALT/SGPT) [Pending] , Alkaline Phosphatase [Pending], Total Protein [Pending], Albumin [Pending], Globulin [Pending] Height (Feet): 6 Weight (Pounds): 165 General Appearance: alert EENT: normal ENT inspection Neck: supple Cardiovascular: normal rate Respiratory/Chest: decreased breath sounds Abdomen: non tender, soft Extremities: non-tender MARIA DOLORES BADILLO Aug 25, 2017 07:38
[2017-08-25 07:55] LABS: ALANINE AMINOTRANSFERASE 17 U/L (12-78); ALBUMIN 2.7 G/DL (3.4-5.0); ALBUMIN/GLOBULIN RATIO 0.8 (1.0-2.7); ALKALINE PHOSPHATASE 198 U/L (46-116); ANION GAP 9 mmol/L (5-15); ASPARTATE AMINO TRANSFERASE 29 U/L (15-37); BILIRUBIN,TOTAL 0.3 MG/DL (0.2-1.0); BLOOD UREA NITROGEN 14 mg/dL (7-18); CARBON DIOXIDE 25 MMOL/L (21-32); CHLORIDE 110 MMOL/L (98-107); POTASSIUM 3.6 MMOL/L (3.5-5.1); SODIUM 144 MMOL/L (136-145)
[2017-08-25 08:00] VITALS: BP 134/78
[2017-08-25] MEDS: Naloxegol Oxalate 25mg tab ORAL SCH (08:39)
[2017-08-25] MEDS: Aspirin Baby 81mg ORAL SCH (08:39)
[2017-08-25] MEDS: Dronabinol 2.5mg Cap ORAL SCH ×3 (08:40→18:50)
[2017-08-25] MEDS: Magnesium Oxide 400mg tab ORAL SCH ×3 (08:40→18:50)
--- NOTE | 2017-08-25 10:42 | Infectious Diseases Prog Note ---
Assessment/Plan Assessment/Plan A: Fever. low grade ( probable 2nd to metast. cancer )- improving -Bcx NTD Possible sepsis, SP Pancytopenia History of hepatitis C, status post treatment with Harvoni HIV has been negative 08/23 Cxray : No acute cardiopulmonary disease 08/16 s/p EGD/colonoscopy 1. Distal esophageal ring. 2. Medium-sized hiatal hernia. 3. Evidence of bile reflux. 4. Gastritis, status post biopsy. >> negative for H. Pylori 5. Internal hemorrhoids Bone scan consists of metastatic neoplasm Ultrasound: mild splenomegaly Spine MRI : metastasis T12 to L1. CT of abdomen and pelvis, a 2.8 x 1.5 cm mass suggestive of necrotic lymph node , basically in the left external iliac and left internal iliac arteries ( probable 2nd to mets ) History of prostate cancer, PSA over 5000. History of hyperuricemia. History of internal hemorrhoids. Hypertension. Diabetes. Hyperlipidemia. Peripheral vascular disease. Methadone maintenance. Acute renal insufficiency , SP Pathologic Fx of the spine PLAN: cont patient on IV cefepime d# 4 , if fever cont pt may add IV Vanco Monitor CBC Monitor BMP. Monitor cultures (blood and urine) f/u Hepatitis C PCR Subjective Allergies: Coded Allergies: No Known Allergies (Unverified , 08/13/17) Subjective afebrile mild leukopenia, improved Bcx NTD Objective Vital Signs Last 24 Hour Vital Signs Date Time Temp Pulse Resp B/P (MAP) Pulse Ox O2 Delivery O2 Flow Rate FiO2 08/25/17 04:00 98.0 107 18 132/79 96 Room Air 08/25/17 00:00 98.0 103 19 147/83 98 Room Air 08/24/17 20:00 99.1 122 20 119/65 96 08/24/17 17:41 99.2 08/24/17 17:00 99.2 110 20 144/77 96 Room Air 08/24/17 16:25 99.5 115 20 153/80 99 Room Air 08/24/17 16:04 99.1 108 20 124/65 96 08/24/17 11:44 96 Room Air 08/24/17 11:44 98.7 100 20 128/74 96 Height (Feet): 6 Weight (Pounds): 165 Objective HEENT: anicteric Respiratory/Chest: no respiratory distress Cardiovascular: regular rhythm Abdomen: no organomegaly Microbiology Date/Time Source Procedure Growth Status 08/22/17 17:30 Blood Blood Culture - Preliminary NO GROWTH AFTER 24 HOURS Resulted 08/22/17 17:10 Blood Blood Culture - Preliminary NO GROWTH AFTER 24 HOURS Resulted Laboratory Tests Test 08/25/17 05:00 White Blood Count 3.2 K/UL (4.8-10.8) L Red Blood Count 2.72 M/UL (4.70-6.10) L Hemoglobin 7.8 G/DL (14.2-18.0) L Hematocrit 24.0 % (42.0-52.0) L Mean Corpuscular Volume 88 FL (80-99) Mean Corpuscular Hemoglobin 28.7 PG (27.0-31.0) Mean Corpuscular Hemoglobin Concent 32.6 G/DL (32.0-36.0) Red Cell Distribution Width 14.7 % (11.6-14.8) Platelet Count 89 K/UL (150-450) L Mean Platelet Volume 5.7 FL (6.5-10.1) L Neutrophils (%) (Auto) % (45.0-75.0) Lymphocytes (%) (Auto) % (20.0-45.0) Monocytes (%) (Auto) % (1.0-10.0) Eosinophils (%) (Auto) % (0.0-3.0) Basophils (%) (Auto) % (0.0-2.0) Neutrophils % (Manual) Pending Lymphocytes % (Manual) Pending Platelet Estimate Pending Platelet Morphology Pending Sodium Level 144 MMOL/L (136-145) Potassium Level 3.6 MMOL/L (3.5-5.1) Chloride Level 110 MMOL/L (98-107) H Carbon Dioxide Level 25 MMOL/L (21-32) Anion Gap 9 mmol/L (5-15) Blood Urea Nitrogen 14 mg/dL (7-18) Creatinine 1.0 MG/DL (0.55-1.30) Estimat Glomerular Filtration Rate > 60 mL/min (>60) Glucose Level 87 MG/DL (74-106) Calcium Level 8.0 MG/DL (8.5-10.1) L Total Bilirubin 0.3 MG/DL (0.2-1.0) Aspartate Amino Transf (AST/SGOT) 29 U/L (15-37) Alanine Aminotransferase (ALT/SGPT) 17 U/L (12-78) Alkaline Phosphatase 198 U/L (46-116) H Total Protein 5.9 G/DL (6.4-8.2) L Albumin 2.7 G/DL (3.4-5.0) L Globulin 3.2 g/dL Albumin/Globulin Ratio 0.8 (1.0-2.7) L Current Medications Medications (Trade) Dose Ordered Sig/Ramon Route PRN Reason Start Time Stop Time Status Last Admin Dose Admin Acetaminophen (Tylenol) 650 mg Q6H PRN ORAL Mild Pain/Temp > 100.5 08/13/17 23:15 09/12/17 23:14 08/24/17 16:42 Allopurinol (Allopurinol) 300 mg DAILY ORAL 08/21/17 09:00 09/20/17 08:59 08/25/17 08:39 Aspirin (ASA) 81 mg DAILY ORAL 08/14/17 09:00 09/13/17 08:59 08/25/17 08:39 Baclofen (Lioresal) 10 mg Q8H PRN ORAL muscle spasm 08/19/17 13:15 09/18/17 13:14 08/24/17 03:23 Carisoprodol (Soma) 350 mg TIDPRN PRN ORAL Breakthrough Muscle Spasms 08/22/17 19:00 09/21/17 18:59 08/23/17 20:51 Cefepime HCl 2 gm/ Dextrose 55 ml @ 110 mls/hr Q12H IVPB 08/22/17 15:00 08/29/17 14:59 08/25/17 03:44 Dextrose (Dextrose 50%) STAT PRN IV Hypoglycemia 08/13/17 23:15 09/12/17 23:14 Dextrose/Sodium Chloride 1,000 ml @ 100 mls/hr Q10H IV 08/21/17 16:00 09/20/17 15:59 08/25/17 00:10 Diphenhydramine HCl (Benadryl) 50 mg BEDTIME ORAL 08/14/17 21:00 09/13/17 20:59 08/24/17 21:14 Dronabinol (Marinol) 5 mg TID ORAL 08/20/17 13:00 09/19/17 12:59 08/25/17 08:40 Gabapentin (Neurontin) 600 mg THREE TIMES A DAY ORAL 08/23/17 13:00 09/22/17 12:59 08/25/17 08:39 Hydromorphone HCl (Dilaudid) 2 mg Q3H PRN IVP Severe Pain (Pain Scale 7-10) 08/22/17 16:00 08/29/17 15:59 08/24/17 06:50 Insulin Aspart (NovoLOG) BEFORE MEALS AND HS SUBQ 08/14/17 06:30 09/13/17 06:29 08/24/17 21:25 Magnesium Oxide (Mag-Ox 400mg) 400 mg THREE TIMES A DAY ORAL 08/24/17 14:45 09/23/17 14:44 08/25/17 08:40 Methadone HCl (Methadone HCl) 80 mg DAILY ORAL 08/23/17 09:00 08/30/17 08:59 08/25/17 08:41 Naloxegol (Movantik) 25 mg DAILY ORAL 08/24/17 10:00 09/23/17 09:59 08/25/17 08:39 Ondansetron HCl (Zofran) 4 mg EVERY 4 HOURS PRN IVP Nausea & Vomiting 08/13/17 23:15 09/12/17 23:14 08/16/17 10:58 Oxycodone/ Acetaminophen (Percocet 10/325) 1 tab Q4H PRN ORAL Moderate Pain (Pain Scale 4-6) 08/23/17 09:00 08/30/17 08:59 08/25/17 03:43 Potassium Phosphate 30 mm/ Sodium Chloride 285 ml @ 47.5 mls/hr ONCE ONCE IV 08/25/17 11:00 08/25/17 16:59 Vinita Santa M.D. Aug 25, 2017 10:42
[2017-08-25] MEDS ORDERED: Potassium Phosphate 30 MM in NS 275 ML IV ONE (11:00)
--- NOTE | 2017-08-25 11:03 | Pulmonology Progress Note ---
Assessment/Plan Assessment/Plan ASSESSMENT Metastatic prostate cancer Pathological spine fracture T12-L1 Severe anemia, requiring blood transfusion pancytopenia fever, Possible sepsis Hypercalcemia-resolved (s/p Aredia, likely due to malignancy) Intractable back pain] Hepatitis C infection Severe weight loss DM ATN, improving Severe protein calorie malnutrition Lumbar radiculopathy lumbar spinal stenosis PLAN OF CARE MS floor IVF Restarted on abx as per ID r/o sepsis, blood cx repeated prel negative pain management; pain specialist follows MRI L spine noted bone scan, CT A/P + metastatic process onco follows for further management ; started on Casodex and consider Lupron upon dc nephron follows ATN (creat was from 1.5 to 2.0),- resolved, Monitor lytes, correct as needed , avoid nephrotoxic Ca better, s/p Aredia Started on Allopurinol CXR negative O2 HHN prn GI follows diet as tolerated nutritional recommendations implemented on Marinol Monitor HH and transfuse to keep Hgb above 7.5 PPI bowel regimen BS management with SS of inulin, BS stable family desires transfer to [facility] was explained by CM can only be dc home and then go to [facility] if desire ( transfer is difficult) s/p 1 u PRBC 08/24, H slightly up prognosis poor; condition grave case discussed and evaluated by supervising physician Subjective Allergies: Coded Allergies: No Known Allergies (Unverified , 08/13/17) Subjective admits to bone pain intermittently controlled with analgesics, weak no CP no SOB HH slightly up after 1 u PRBC on 08/24 - Objective Last 24 Hour Vital Signs Date Time Temp Pulse Resp B/P (MAP) Pulse Ox O2 Delivery O2 Flow Rate FiO2 08/25/17 04:00 98.0 107 18 132/79 96 Room Air 08/25/17 00:00 98.0 103 19 147/83 98 Room Air 08/24/17 20:00 99.1 122 20 119/65 96 08/24/17 17:41 99.2 08/24/17 17:00 99.2 110 20 144/77 96 Room Air 08/24/17 16:25 99.5 115 20 153/80 99 Room Air 08/24/17 16:04 99.1 108 20 124/65 96 08/24/17 11:44 96 Room Air 08/24/17 11:44 98.7 100 20 128/74 96 Intake and Output 08/24/17 08/25/17 19:00 07:00 Intake Total 1335 ml Output Total 1000 ml 780 ml Balance 335 ml -780 ml Intake Oral 580 ml IV Total 755 ml Output Urine Total 1000 ml 780 ml Objective General Appearance: no acute distress, A/A/O x 3 AA male, weak, thin HEENT: normocephalic, atraumatic, anicteric, mucous membranes moist Respiratory/Chest: lungs clear, no respiratory distress, no accessory muscle use Cardiovascular: normal rate, regular rhythm Abdomen: soft, non tender, non distended Extremities: no edema, pedal pulses normal Neurologic/Psychiatric: abnormal gait, alert, oriented x 3, responsive Microbiology Date/Time Source Procedure Growth Status 08/22/17 17:30 Blood Blood Culture - Preliminary NO GROWTH AFTER 24 HOURS Resulted 08/22/17 17:10 Blood Blood Culture - Preliminary NO GROWTH AFTER 24 HOURS Resulted Laboratory Tests 08/25/17 05:00: White Blood Count 3.2L, Red Blood Count 2.72L, Hemoglobin 7.8L, Hematocrit 24.0L , Mean Corpuscular Volume 88, Mean Corpuscular Hemoglobin 28.7, Mean Corpuscular Hemoglobin Concent 32.6, Red Cell Distribution Width 14.7, Platelet Count 89L, Mean Platelet Volume 5.7L, Neutrophils (%) (Auto) , Lymphocytes (%) ( Auto) , Monocytes (%) (Auto) , Eosinophils (%) (Auto) , Basophils (%) (Auto) , Differential Total Cells Counted 100, Neutrophils % (Manual) 54, Lymphocytes % ( Manual) 33, Monocytes % (Manual) 8, Eosinophils % (Manual) 4H, Basophils % ( Manual) 1, Band Neutrophils 0, Platelet Estimate DecreasedL, Platelet Morphology Normal, Hypochromasia 3+, Anisocytosis 1+, Spherocytes 1+, Sodium Level 144, Potassium Level 3.6, Chloride Level 110H, Carbon Dioxide Level 25, Anion Gap 9, Blood Urea Nitrogen 14, Creatinine 1.0, Estimat Glomerular Filtration Rate > 60, Glucose Level 87, Calcium Level 8.0L, Total Bilirubin 0.3 , Aspartate Amino Transf (AST/SGOT) 29, Alanine Aminotransferase (ALT/SGPT) 17, Alkaline Phosphatase 198H, Total Protein 5.9L, Albumin 2.7L, Globulin 3.2, Albumin/Globulin Ratio 0.8L Current Medications Medications (Trade) Dose Ordered Sig/Ramon Route PRN Reason Start Time Stop Time Status Last Admin Dose Admin Acetaminophen (Tylenol) 650 mg Q6H PRN ORAL Mild Pain/Temp > 100.5 08/13/17 23:15 09/12/17 23:14 08/24/17 16:42 Allopurinol (Allopurinol) 300 mg DAILY ORAL 08/21/17 09:00 09/20/17 08:59 08/25/17 08:39 Aspirin (ASA) 81 mg DAILY ORAL 08/14/17 09:00 09/13/17 08:59 08/25/17 08:39 Baclofen (Lioresal) 10 mg Q8H PRN ORAL muscle spasm 08/19/17 13:15 09/18/17 13:14 08/24/17 03:23 Carisoprodol (Soma) 350 mg TIDPRN PRN ORAL Breakthrough Muscle Spasms 08/22/17 19:00 09/21/17 18:59 08/23/17 20:51 Cefepime HCl 2 gm/ Dextrose 55 ml @ 110 mls/hr Q12H IVPB 08/22/17 15:00 08/29/17 14:59 08/25/17 03:44 Dextrose (Dextrose 50%) STAT PRN IV Hypoglycemia 08/13/17 23:15 09/12/17 23:14 Dextrose/Sodium Chloride 1,000 ml @ 100 mls/hr Q10H IV 08/21/17 16:00 09/20/17 15:59 08/25/17 00:10 Diphenhydramine HCl (Benadryl) 50 mg BEDTIME ORAL 08/14/17 21:00 09/13/17 20:59 08/24/17 21:14 Dronabinol (Marinol) 5 mg TID ORAL 08/20/17 13:00 09/19/17 12:59 08/25/17 08:40 Gabapentin (Neurontin) 600 mg THREE TIMES A DAY ORAL 08/23/17 13:00 09/22/17 12:59 08/25/17 08:39 Hydromorphone HCl (Dilaudid) 2 mg Q3H PRN IVP Severe Pain (Pain Scale 7-10) 08/22/17 16:00 08/29/17 15:59 08/24/17 06:50 Insulin Aspart (NovoLOG) BEFORE MEALS AND HS SUBQ 08/14/17 06:30 09/13/17 06:29 08/24/17 21:25 Magnesium Oxide (Mag-Ox 400mg) 400 mg THREE TIMES A DAY ORAL 08/24/17 14:45 09/23/17 14:44 08/25/17 08:40 Methadone HCl (Methadone HCl) 80 mg DAILY ORAL 08/23/17 09:00 08/30/17 08:59 08/25/17 08:41 Naloxegol (Movantik) 25 mg DAILY ORAL 08/24/17 10:00 09/23/17 09:59 08/25/17 08:39 Ondansetron HCl (Zofran) 4 mg EVERY 4 HOURS PRN IVP Nausea & Vomiting 08/13/17 23:15 09/12/17 23:14 08/16/17 10:58 Oxycodone/ Acetaminophen (Percocet 10/325) 1 tab Q4H PRN ORAL Moderate Pain (Pain Scale 4-6) 08/23/17 09:00 08/30/17 08:59 08/25/17 03:43 Potassium Phosphate 30 mm/ Sodium Chloride 285 ml @ 47.5 mls/hr ONCE ONCE IV 08/25/17 11:00 08/25/17 16:59 Sanam Grace NP (Vanchtein) Aug 25, 2017 11:03
[2017-08-25 12:00] VITALS: BP 145/75
--- NOTE | 2017-08-25 12:47 | Nephrology Progress Note ---
Assessment/Plan Problem List: (1) Prostate cancer metastatic to bone (2) Severe anemia (3) Hypercalcemia (4) Acute renal failure Assessment Cr cesario 1.5 nad to 2 back down to 1.0 (1) Anemia / PanCytopenia (2) Hypercalcemia (3) Weight loss of more than 10% body weight (4) Diabetes mellitus (5) Methadone maintenance therapy patient (6) Metastatic Prostate Ca (7) Hepatitis C Cirrhosis (8) HyperUrecemia Plan Plan; change IV transfuse as needed Aredia given 06/19 monitor Ca Alb Phos Mag supplement DC Volteran, Lipitor, Lisinopril Monitor renal parameters add allopurinol per consultants Subjective ROS Limited/Unobtainable: No Constitutional: Reports: malaise Objective Objective Last 24 Hour Vital Signs Date Time Temp Pulse Resp B/P (MAP) Pulse Ox O2 Delivery O2 Flow Rate FiO2 08/25/17 12:00 98.9 102 21 145/75 96 Room Air 08/25/17 08:00 98.2 101 18 134/78 97 Room Air 08/25/17 04:00 98.0 107 18 132/79 96 Room Air 08/25/17 00:00 98.0 103 19 147/83 98 Room Air 08/24/17 20:00 99.1 122 20 119/65 96 08/24/17 17:41 99.2 08/24/17 17:00 99.2 110 20 144/77 96 Room Air 08/24/17 16:25 99.5 115 20 153/80 99 Room Air 08/24/17 16:04 99.1 108 20 124/65 96 Intake and Output 08/24/17 08/25/17 19:00 07:00 Intake Total 1335 ml Output Total 1000 ml 780 ml Balance 335 ml -780 ml Intake Oral 580 ml IV Total 755 ml Output Urine Total 1000 ml 780 ml Laboratory Tests 08/25/17 05:00: White Blood Count 3.2L, Red Blood Count 2.72L, Hemoglobin 7.8L, Hematocrit 24.0L , Mean Corpuscular Volume 88, Mean Corpuscular Hemoglobin 28.7, Mean Corpuscular Hemoglobin Concent 32.6, Red Cell Distribution Width 14.7, Platelet Count 89L, Mean Platelet Volume 5.7L, Neutrophils (%) (Auto) , Lymphocytes (%) ( Auto) , Monocytes (%) (Auto) , Eosinophils (%) (Auto) , Basophils (%) (Auto) , Differential Total Cells Counted 100, Neutrophils % (Manual) 54, Lymphocytes % ( Manual) 33, Monocytes % (Manual) 8, Eosinophils % (Manual) 4H, Basophils % ( Manual) 1, Band Neutrophils 0, Platelet Estimate DecreasedL, Platelet Morphology Normal, Hypochromasia 3+, Anisocytosis 1+, Spherocytes 1+, Sodium Level 144, Potassium Level 3.6, Chloride Level 110H, Carbon Dioxide Level 25, Anion Gap 9, Blood Urea Nitrogen 14, Creatinine 1.0, Estimat Glomerular Filtration Rate > 60, Glucose Level 87, Calcium Level 8.0L, Total Bilirubin 0.3 , Aspartate Amino Transf (AST/SGOT) 29, Alanine Aminotransferase (ALT/SGPT) 17, Alkaline Phosphatase 198H, Total Protein 5.9L, Albumin 2.7L, Globulin 3.2, Albumin/Globulin Ratio 0.8L Height (Feet): 6 Weight (Pounds): 165 General Appearance: no apparent distress, lethargic Respiratory/Chest: decreased breath sounds Abdomen: soft Objective no change JENNIFER MORALES Aug 25, 2017 12:47
--- NOTE | 2017-08-25 13:03 | Internal Med Progress Note ---
Subjective Date of Service: Aug 25, 2017 Physician Name Ervin Regalado Attending Physician Tyrone Barba MD Current Medications Medications (Trade) Dose Ordered Sig/Ramon Route PRN Reason Start Time Stop Time Status Last Admin Dose Admin Acetaminophen (Tylenol) 650 mg Q6H PRN ORAL Mild Pain/Temp > 100.5 08/13/17 23:15 09/12/17 23:14 08/24/17 16:42 Allopurinol (Allopurinol) 300 mg DAILY ORAL 08/21/17 09:00 09/20/17 08:59 08/25/17 08:39 Aspirin (ASA) 81 mg DAILY ORAL 08/14/17 09:00 09/13/17 08:59 08/25/17 08:39 Baclofen (Lioresal) 10 mg Q8H PRN ORAL muscle spasm 08/19/17 13:15 09/18/17 13:14 08/24/17 03:23 Carisoprodol (Soma) 350 mg TIDPRN PRN ORAL Breakthrough Muscle Spasms 08/22/17 19:00 09/21/17 18:59 08/23/17 20:51 Cefepime HCl 2 gm/ Dextrose 55 ml @ 110 mls/hr Q12H IVPB 08/22/17 15:00 08/29/17 14:59 08/25/17 03:44 Dextrose (Dextrose 50%) STAT PRN IV Hypoglycemia 08/13/17 23:15 09/12/17 23:14 Dextrose/Sodium Chloride 1,000 ml @ 100 mls/hr Q10H IV 08/21/17 16:00 09/20/17 15:59 08/25/17 11:34 Diphenhydramine HCl (Benadryl) 50 mg BEDTIME ORAL 08/14/17 21:00 09/13/17 20:59 08/24/17 21:14 Dronabinol (Marinol) 5 mg TID ORAL 08/20/17 13:00 09/19/17 12:59 08/25/17 08:40 Gabapentin (Neurontin) 600 mg THREE TIMES A DAY ORAL 08/23/17 13:00 09/22/17 12:59 08/25/17 08:39 Hydromorphone HCl (Dilaudid) 2 mg Q3H PRN IVP Severe Pain (Pain Scale 7-10) 08/22/17 16:00 08/29/17 15:59 08/25/17 11:16 Insulin Aspart (NovoLOG) BEFORE MEALS AND HS SUBQ 08/14/17 06:30 09/13/17 06:29 08/24/17 21:25 Magnesium Oxide (Mag-Ox 400mg) 400 mg THREE TIMES A DAY ORAL 08/24/17 14:45 09/23/17 14:44 08/25/17 08:40 Methadone HCl (Methadone HCl) 80 mg DAILY ORAL 08/23/17 09:00 08/30/17 08:59 08/25/17 08:41 Naloxegol (Movantik) 25 mg DAILY ORAL 08/24/17 10:00 09/23/17 09:59 08/25/17 08:39 Ondansetron HCl (Zofran) 4 mg EVERY 4 HOURS PRN IVP Nausea & Vomiting 08/13/17 23:15 09/12/17 23:14 08/16/17 10:58 Oxycodone/ Acetaminophen (Percocet 10/325) 1 tab Q4H PRN ORAL Moderate Pain (Pain Scale 4-6) 08/23/17 09:00 08/30/17 08:59 08/25/17 03:43 Potassium Phosphate 30 mm/ Sodium Chloride 285 ml @ 47.5 mls/hr ONCE ONCE IV 08/25/17 11:00 08/25/17 16:59 08/25/17 11:51 Allergies: Coded Allergies: No Known Allergies (Unverified , 08/13/17) ROS Limited/Unobtainable: No Constitutional: Reports: no symptoms HEENT: Reports: no symptoms Cardiovascular: Reports: no symptoms Respiratory: Reports: no symptoms Gastrointestinal/Abdominal: Reports: no symptoms Genitourinary: Reports: no symptoms Neurologic/Psychiatric: Reports: no symptoms Subjective 61 YO M admitted with bilateral leg weakness and pain. Now severe anemia - S/P transfusion. Also prostate cancer with metastases-await transfer to [facility]. S/ P endoscopy and colonoscopy 08/16/17. Cover for Int Med-Dr Barba. Patient now on methadone. Objective Last Vital Signs Date Time Temp Pulse Resp B/P (MAP) Pulse Ox O2 Delivery O2 Flow Rate FiO2 08/25/17 12:00 98.9 102 21 145/75 96 Room Air 08/16/17 07:52 4.0 Laboratory Tests Test 08/25/17 05:00 White Blood Count 3.2 K/UL (4.8-10.8) L Red Blood Count 2.72 M/UL (4.70-6.10) L Hemoglobin 7.8 G/DL (14.2-18.0) L Hematocrit 24.0 % (42.0-52.0) L Mean Corpuscular Volume 88 FL (80-99) Mean Corpuscular Hemoglobin 28.7 PG (27.0-31.0) Mean Corpuscular Hemoglobin Concent 32.6 G/DL (32.0-36.0) Red Cell Distribution Width 14.7 % (11.6-14.8) Platelet Count 89 K/UL (150-450) L Mean Platelet Volume 5.7 FL (6.5-10.1) L Neutrophils (%) (Auto) % (45.0-75.0) Lymphocytes (%) (Auto) % (20.0-45.0) Monocytes (%) (Auto) % (1.0-10.0) Eosinophils (%) (Auto) % (0.0-3.0) Basophils (%) (Auto) % (0.0-2.0) Differential Total Cells Counted 100 Neutrophils % (Manual) 54 % (45-75) Lymphocytes % (Manual) 33 % (20-45) Monocytes % (Manual) 8 % (1-10) Eosinophils % (Manual) 4 % (0-3) H Basophils % (Manual) 1 % (0-2) Band Neutrophils 0 % (0-8) Platelet Estimate Decreased L Platelet Morphology Normal Hypochromasia 3+ Anisocytosis 1+ Spherocytes 1+ Sodium Level 144 MMOL/L (136-145) Potassium Level 3.6 MMOL/L (3.5-5.1) Chloride Level 110 MMOL/L (98-107) H Carbon Dioxide Level 25 MMOL/L (21-32) Anion Gap 9 mmol/L (5-15) Blood Urea Nitrogen 14 mg/dL (7-18) Creatinine 1.0 MG/DL (0.55-1.30) Estimat Glomerular Filtration Rate > 60 mL/min (>60) Glucose Level 87 MG/DL (74-106) Calcium Level 8.0 MG/DL (8.5-10.1) L Total Bilirubin 0.3 MG/DL (0.2-1.0) Aspartate Amino Transf (AST/SGOT) 29 U/L (15-37) Alanine Aminotransferase (ALT/SGPT) 17 U/L (12-78) Alkaline Phosphatase 198 U/L (46-116) H Total Protein 5.9 G/DL (6.4-8.2) L Albumin 2.7 G/DL (3.4-5.0) L Globulin 3.2 g/dL Albumin/Globulin Ratio 0.8 (1.0-2.7) L Microbiology Date/Time Source Procedure Growth Status 08/22/17 17:30 Blood Blood Culture - Preliminary NO GROWTH AFTER 48 HOURS Resulted 08/22/17 17:10 Blood Blood Culture - Preliminary NO GROWTH AFTER 48 HOURS Resulted Intake and Output 08/24/17 08/25/17 19:00 07:00 Intake Total 1335 ml Output Total 1000 ml 780 ml Balance 335 ml -780 ml Intake Oral 580 ml IV Total 755 ml Output Urine Total 1000 ml 780 ml Objective General Appearance: WD/WN, no apparent distress, alert EENT: PERRL/EOMI, normal ENT inspection, TMs normal Neck: non-tender, normal alignment, supple, normal inspection Cardiovascular: normal peripheral pulses, normal rate, regular rhythm, no gallop/murmur, no JVD Respiratory/Chest: chest wall non-tender, lungs clear, normal breath sounds, no respiratory distress, no accessory muscle use Abdomen: normal bowel sounds, non tender, soft, no organomegaly, no mass Extremities: normal range of motion, non-tender Neurologic: colon therapist II-XII grossly normal Skin: normal pigmentation, warm/dry Assessment/Plan Problem List: (1) Severe anemia Assessment & Plan: S/P transfusion 4 unit PRBC total.. S/P endoscopy and colonoscopy 08/16/17. See hematology consult note (2) Pain in both lower legs (3) Weakness of both legs (4) HTN (hypertension) Assessment & Plan: Continue lisinopril (5) Diabetes mellitus, type II Assessment & Plan: Continue novolog sliding scale. (6) Hypercholesteremia Assessment & Plan: continue pravachol (7) Peripheral vascular disease (8) Hepatitis C virus infection resolved after antiviral drug therapy (9) Methadone maintenance therapy patient Assessment & Plan: See pain management consult-restart methadone (10) Prostate cancer metastatic to bone Assessment & Plan: PSA >5000. Start casodex. See oncology note. Await second opinion @ [facility] when bed available Status: not improved Assessment/Plan Discharge planning: transfer to [facility]-see discharge planning note. ERVIN REGALADO Aug 25, 2017 13:03
[2017-08-25 16:00] VITALS: BP 131/74
[2017-08-25] MEDS ORDERED: Tubing Blood Filter IV ONE (16:49)
[2017-08-25] MEDS ORDERED: D5NS 1000ml IV ONE (16:49)
[2017-08-25] MEDS ORDERED: NS 275ml ONE (16:49)
[2017-08-25 20:00] VITALS: BP 121/72
--- NOTE | 2017-08-25 22:55 | General Progress Note ---
Assessment/Plan Status: unchanged Assessment/Plan ASSESSMENT AND RECOMMENDATIONS: # Metastatic prostate cancer, psa is >5000, as well as clinical findings of bone mets --> ongoing casodex and consider lupron once discharged --> Continue treatment as outpatient. --> recommend outpatient urology eval with prostate biopsy # Pancytopenia, most etiology looks like related to underlying hepatitis C status post treatment. The patient's spleen is mildly enlarged. --> Hemoglobin improved from yesterday --> also component related to stage iv prostate ca --> hgb goal >7, plt goal >20k --> trend cbc levels daily. # Lymphadenopathy as well as osseous metastasis is noted on CT scan. --> likely from prostate ca #. Hepatitis C status post treatment with Harvoni. --> HCV not detected in latest lab #. Coagulopathy likely secondary to underlying hepatitis C and liver cirrhosis. #. Hyperuricemia and elevated psa #. Anemia. Colonoscopy shows internal hemorrhoids. --> EGD also revealed hernia, distal esophageal ring, gastritis, and evidence for bile reflux Subjective Allergies: Coded Allergies: No Known Allergies (Unverified , 08/13/17) Subjective Resting in bed, feeling better on pain medications. No fever. Objective Last 24 Hour Vital Signs Date Time Temp Pulse Resp B/P (MAP) Pulse Ox O2 Delivery O2 Flow Rate FiO2 08/25/17 16:00 98.9 112 21 131/74 95 Room Air 08/25/17 12:00 98.9 102 21 145/75 96 Room Air 08/25/17 08:00 98.2 101 18 134/78 97 Room Air 08/25/17 04:00 98.0 107 18 132/79 96 Room Air 08/25/17 00:00 98.0 103 19 147/83 98 Room Air Intake and Output 08/24/17 08/25/17 19:00 07:00 Intake Total 1335 ml Output Total 1000 ml 780 ml Balance 335 ml -780 ml Intake Oral 580 ml IV Total 755 ml Output Urine Total 1000 ml 780 ml Laboratory Tests 08/25/17 05:00: White Blood Count 3.2L, Red Blood Count 2.72L, Hemoglobin 7.8L, Hematocrit 24.0L , Mean Corpuscular Volume 88, Mean Corpuscular Hemoglobin 28.7, Mean Corpuscular Hemoglobin Concent 32.6, Red Cell Distribution Width 14.7, Platelet Count 89L, Mean Platelet Volume 5.7L, Neutrophils (%) (Auto) , Lymphocytes (%) ( Auto) , Monocytes (%) (Auto) , Eosinophils (%) (Auto) , Basophils (%) (Auto) , Differential Total Cells Counted 100, Neutrophils % (Manual) 54, Lymphocytes % ( Manual) 33, Monocytes % (Manual) 8, Eosinophils % (Manual) 4H, Basophils % ( Manual) 1, Band Neutrophils 0, Platelet Estimate DecreasedL, Platelet Morphology Normal, Hypochromasia 3+, Anisocytosis 1+, Spherocytes 1+, Sodium Level 144, Potassium Level 3.6, Chloride Level 110H, Carbon Dioxide Level 25, Anion Gap 9, Blood Urea Nitrogen 14, Creatinine 1.0, Estimat Glomerular Filtration Rate > 60, Glucose Level 87, Calcium Level 8.0L, Total Bilirubin 0.3 , Aspartate Amino Transf (AST/SGOT) 29, Alanine Aminotransferase (ALT/SGPT) 17, Alkaline Phosphatase 198H, Total Protein 5.9L, Albumin 2.7L, Globulin 3.2, Albumin/Globulin Ratio 0.8L Height (Feet): 6 Weight (Pounds): 165 Emerson Camara Aug 25, 2017 22:55
[2017-08-26] VITALS: BP 104/65
[2017-08-26 04:00] VITALS: BP 116/68
[2017-08-26] MEDS: Cefepime HCl 2 GM in D5W 55 ML IVPB SCH (04:41)
[2017-08-26] MEDS: D5NS 1,000 ML IV SCH (06:20)
[2017-08-26] MEDS: NovoLOG Insulin Flexpen SUBQ SCH ×2 (06:47→11:30)
[2017-08-26 08:00] VITALS: BP 128/73
[2017-08-26 08:01] LABS: BASOPHILS % (AUTO) 1.4 % (0.0-2.0); EOSINOPHILS % (AUTO) 4.9 % (0.0-3.0); HEMATOCRIT 24.8 % (42.0-52.0); LYMPHOCYTES % (AUTO) 32.4 % (20.0-45.0); MEAN CORPUSCULAR VOLUME 89 FL (80-99); MONOCYTES % (AUTO) 8.7 % (1.0-10.0); NEUTROPHILS % (AUTO) 52.7 % (45.0-75.0); PLATELET COUNT 100 K/UL (150-450); RED CELL DISTRIBUTION WIDTH 15.1 % (11.6-14.8); WHITE BLOOD COUNT 3.5 K/UL (4.8-10.8)
[2017-08-26] MEDS: Naloxegol Oxalate 25mg tab ORAL SCH (08:19)
[2017-08-26] MEDS: Magnesium Oxide 400mg tab ORAL SCH (08:20)
[2017-08-26] MEDS: Dronabinol 2.5mg Cap ORAL SCH (08:20)
[2017-08-26] MEDS: Aspirin Baby 81mg ORAL SCH (08:20)
--- NOTE | 2017-08-26 08:21 | General Progress Note ---
Assessment/Plan Problem List: (1) Weight loss ICD Codes: R63.4 - Abnormal weight loss SNOMED: 16257282, 056116119 (2) Hepatitis C virus infection resolved after antiviral drug therapy ICD Codes: Z86.19 - Personal history of other infectious and parasitic diseases SNOMED: 563452318, 15863876730674 (3) HTN (hypertension) ICD Codes: I10 - Essential (primary) hypertension SNOMED: 16181836 (4) Anemia ICD Codes: D64.9 - Anemia, unspecified SNOMED: 943077635 (5) Prostate cancer metastatic to bone ICD Codes: C61 - Malignant neoplasm of prostate; C79.51 - Secondary malignant neoplasm of bone SNOMED: 56542755, 85682327 Assessment/Plan Assessment/Plan s/p Hep C Tx with harvoni >> check hep C quant as out patient CT AP reviewed >> 2.8 x 1.7 cm rounded structure may represent an enlarged, partially necrotic lymph node suggesting diffuse osseous metastases or additional permeative osseous lesion. Taken together these findings are concerning for malignancy, with prostate being suspected. Correlate with PSA. Additional etiologies are not entirely excluded. Bone biopsy may be of benefit. s/p EGD/colonoscopy SUMMARY OF FINDINGS: 1. Distal esophageal ring. 2. Medium-sized hiatal hernia. 3. Evidence of bile reflux. 4. Gastritis, status post biopsy. >> negative for H. Pylori 5. Internal hemorrhoids. 6. Poor colonoscopy prep. RECOMMENDATIONS: fu onc recs >> prostate CA mets, prognosis grave diet + ensure monitor H&H, prn transfusions goal Hgb > 7.0 bowel regime ppi fu labs Subjective ROS Limited/Unobtainable: Yes Allergies: Coded Allergies: No Known Allergies (Unverified , 08/13/17) Subjective no event Objective Last 24 Hour Vital Signs Date Time Temp Pulse Resp B/P (MAP) Pulse Ox O2 Delivery O2 Flow Rate FiO2 08/26/17 04:00 98.0 88 20 116/68 98 Room Air 08/26/17 00:00 100.0 85 19 104/65 99 Room Air 08/25/17 20:00 99.6 73 18 121/72 98 Room Air 08/25/17 16:00 98.9 112 21 131/74 95 Room Air 08/25/17 12:00 98.9 102 21 145/75 96 Room Air Intake and Output 08/25/17 08/26/17 19:00 07:00 Intake Total 650 ml 560 ml Output Total 550 ml 550 ml Balance 100 ml 10 ml Intake Oral 650 ml 560 ml Output Urine Total 550 ml 550 ml Laboratory Tests 08/26/17 06:30: White Blood Count 3.5L, Red Blood Count 2.80L, Hemoglobin 8.0L, Hematocrit 24.8L , Mean Corpuscular Volume 89, Mean Corpuscular Hemoglobin 28.7, Mean Corpuscular Hemoglobin Concent 32.4, Red Cell Distribution Width 15.1H, Platelet Count 100L, Mean Platelet Volume 5.7L, Neutrophils (%) (Auto) 52.7, Lymphocytes (%) (Auto) 32.4, Monocytes (%) (Auto) 8.7, Eosinophils (%) (Auto) 4.9H, Basophils (%) (Auto) 1.4, Sodium Level [Pending], Potassium Level [Pending ], Chloride Level [Pending], Carbon Dioxide Level [Pending], Blood Urea Nitrogen [Pending], Creatinine [Pending], Estimat Glomerular Filtration Rate [ Pending], Glucose Level [Pending], Calcium Level [Pending], Phosphorus Level [ Pending], Magnesium Level [Pending], Total Bilirubin [Pending], Aspartate Amino Transf (AST/SGOT) [Pending], Alanine Aminotransferase (ALT/SGPT) [Pending], Alkaline Phosphatase [Pending], C-Reactive Protein, Quantitative [Pending], Pro- B-Type Natriuretic Peptide [Pending], Total Protein [Pending], Albumin [Pending] , Globulin [Pending] Height (Feet): 6 Weight (Pounds): 165 General Appearance: alert EENT: normal ENT inspection Neck: supple Cardiovascular: normal rate Respiratory/Chest: decreased breath sounds Abdomen: normal bowel sounds, non tender, soft Extremities: non-tender MARIA DOLORES BADILLO Aug 26, 2017 08:21
[2017-08-26 08:23] LABS: ALANINE AMINOTRANSFERASE 12 U/L (12-78); ALBUMIN 2.7 G/DL (3.4-5.0); ALBUMIN/GLOBULIN RATIO 0.9 (1.0-2.7); ALKALINE PHOSPHATASE 229 U/L (46-116); ANION GAP 8 mmol/L (5-15); ASPARTATE AMINO TRANSFERASE 28 U/L (15-37); BILIRUBIN,TOTAL 0.3 MG/DL (0.2-1.0); BLOOD UREA NITROGEN 11 mg/dL (7-18); CARBON DIOXIDE 25 MMOL/L (21-32); CHLORIDE 109 MMOL/L (98-107); CREATININE 0.9 MG/DL (0.55-1.30); PHOSPHORUS 2.1 MG/DL (2.5-4.9); SODIUM 142 MMOL/L (136-145)
[2017-08-26] MEDS ORDERED: Phospha 250 Neutral tab ORAL ONE (10:30)
--- NOTE | 2017-08-26 11:00 | Nephrology Progress Note ---
Assessment/Plan Problem List: (1) Prostate cancer metastatic to bone (2) Severe anemia (3) Hypercalcemia (4) Acute renal failure Assessment Cr cesario 1.5 nad to 2 back down to 1.0 (1) Anemia / PanCytopenia (2) Hypercalcemia (3) Weight loss of more than 10% body weight (4) Diabetes mellitus (5) Methadone maintenance therapy patient (6) Metastatic Prostate Ca (7) Hepatitis C Cirrhosis (8) HyperUrecemia Plan Plan; Phos and Mag supplement as needed transfuse as needed Aredia given 06/19 monitor Ca Alb Phos DC Volteran, Lipitor, Lisinopril Monitor renal parameters add allopurinol per consultants Subjective ROS Limited/Unobtainable: No Constitutional: Reports: malaise Objective Objective Last 24 Hour Vital Signs Date Time Temp Pulse Resp B/P (MAP) Pulse Ox O2 Delivery O2 Flow Rate FiO2 08/26/17 08:00 98.8 107 20 128/73 96 Room Air 08/26/17 04:00 98.0 88 20 116/68 98 Room Air 08/26/17 00:00 100.0 85 19 104/65 99 Room Air 08/25/17 20:00 99.6 73 18 121/72 98 Room Air 08/25/17 16:00 98.9 112 21 131/74 95 Room Air 08/25/17 12:00 98.9 102 21 145/75 96 Room Air Intake and Output 08/25/17 08/26/17 19:00 07:00 Intake Total 650 ml 560 ml Output Total 550 ml 550 ml Balance 100 ml 10 ml Intake Oral 650 ml 560 ml Output Urine Total 550 ml 550 ml Laboratory Tests 08/26/17 06:30: White Blood Count 3.5L, Red Blood Count 2.80L, Hemoglobin 8.0L, Hematocrit 24.8L , Mean Corpuscular Volume 89, Mean Corpuscular Hemoglobin 28.7, Mean Corpuscular Hemoglobin Concent 32.4, Red Cell Distribution Width 15.1H, Platelet Count 100L, Mean Platelet Volume 5.7L, Neutrophils (%) (Auto) 52.7, Lymphocytes (%) (Auto) 32.4, Monocytes (%) (Auto) 8.7, Eosinophils (%) (Auto) 4.9H, Basophils (%) (Auto) 1.4, Sodium Level 142, Potassium Level 4.0, Chloride Level 109H, Carbon Dioxide Level 25, Anion Gap 8, Blood Urea Nitrogen 11, Creatinine 0.9, Estimat Glomerular Filtration Rate > 60, Glucose Level 107H, Calcium Level 8.0L, Phosphorus Level 2.1L, Magnesium Level 1.6L, Total Bilirubin 0.3, Aspartate Amino Transf (AST/SGOT) 28, Alanine Aminotransferase ( ALT/SGPT) 12, Alkaline Phosphatase 229H, C-Reactive Protein, Quantitative 1.0H, Pro-B-Type Natriuretic Peptide 283H, Total Protein 5.8L, Albumin 2.7L, Globulin 3.1, Albumin/Globulin Ratio 0.9L Height (Feet): 6 Weight (Pounds): 165 General Appearance: no apparent distress Objective no change JENNIFER MORALES Aug 26, 2017 11:00
[2017-08-26 11:29] VITALS: BP 144/80
--- NOTE | 2017-08-26 12:30 | Pulmonology Progress Note ---
Assessment/Plan Assessment/Plan ASSESSMENT Metastatic prostate cancer Pathological spine fracture T12-L1 Severe anemia, requiring blood transfusion pancytopenia fever, Possible sepsis Hypercalcemia (likely due to malignancy) -resolved (s/p Aredia, likely due to malignancy) Intractable back pain ( due to bone mets ) Hepatitis C infection, s/p Rx Severe weight loss of more than 10% of body weight DM ATN, resoled Hyperuricemia Severe protein calorie malnutrition Methadone maintenance therapy patient Lumbar radiculopathy lumbar spinal stenosis PLAN OF CARE MS floor IVF Restarted on abx as per ID r/o sepsis, blood cx repeated prel negative pain management; pain specialist follows MRI L spine noted bone scan, CT A/P + metastatic process onco follows for further management ; started on Casodex and consider Lupron upon dc nephron follows ATN (creat was from 1.5 to 2.0),- resolved, Monitor lytes, correct as needed , avoid nephrotoxic Ca better, s/p Aredia Started on Allopurinol CXR negative O2 HHN prn GI follows s/p EGD + mild gastritis, biopsy no Helicobacter, minimally focal chronic gastritis with benign mucosa diet as tolerated nutritional recommendations implemented on Marinol Monitor HH and transfuse to keep Hgb above 7.5 PPI bowel regimen BS management with SS of inulin, BS stable family desires transfer to [facility]( [place] not have ER) or [facility] considering signing AMA and taking to ER [facility] prognosis poor; condition grave case discussed and evaluated by supervising physician Subjective Allergies: Coded Allergies: No Known Allergies (Unverified , 08/13/17) Subjective admits to bone pain intermittently controlled with analgesics, weak no CP no SOB Hgb up to 8 Objective Last 24 Hour Vital Signs Date Time Temp Pulse Resp B/P (MAP) Pulse Ox O2 Delivery O2 Flow Rate FiO2 08/26/17 11:29 98.8 111 20 144/80 100 Room Air 08/26/17 08:00 98.8 107 20 128/73 96 Room Air 08/26/17 04:00 98.0 88 20 116/68 98 Room Air 08/26/17 00:00 100.0 85 19 104/65 99 Room Air 08/25/17 20:00 99.6 73 18 121/72 98 Room Air 08/25/17 16:00 98.9 112 21 131/74 95 Room Air Intake and Output 08/25/17 08/26/17 19:00 07:00 Intake Total 650 ml 560 ml Output Total 550 ml 550 ml Balance 100 ml 10 ml Intake Oral 650 ml 560 ml Output Urine Total 550 ml 550 ml Objective General Appearance: no acute distress, A/A/O x 3 AA male, weak, thin HEENT: normocephalic, atraumatic, anicteric, mucous membranes moist Respiratory/Chest: lungs clear, no respiratory distress, no accessory muscle use Cardiovascular: normal rate, regular rhythm Abdomen: soft, non tender, non distended Extremities: no edema, pedal pulses normal Neurologic/Psychiatric: abnormal gait, alert, oriented x 3, responsive Laboratory Tests 08/26/17 06:30: White Blood Count 3.5L, Red Blood Count 2.80L, Hemoglobin 8.0L, Hematocrit 24.8L , Mean Corpuscular Volume 89, Mean Corpuscular Hemoglobin 28.7, Mean Corpuscular Hemoglobin Concent 32.4, Red Cell Distribution Width 15.1H, Platelet Count 100L, Mean Platelet Volume 5.7L, Neutrophils (%) (Auto) 52.7, Lymphocytes (%) (Auto) 32.4, Monocytes (%) (Auto) 8.7, Eosinophils (%) (Auto) 4.9H, Basophils (%) (Auto) 1.4, Sodium Level 142, Potassium Level 4.0, Chloride Level 109H, Carbon Dioxide Level 25, Anion Gap 8, Blood Urea Nitrogen 11, Creatinine 0.9, Estimat Glomerular Filtration Rate > 60, Glucose Level 107H, Calcium Level 8.0L, Phosphorus Level 2.1L, Magnesium Level 1.6L, Total Bilirubin 0.3, Aspartate Amino Transf (AST/SGOT) 28, Alanine Aminotransferase ( ALT/SGPT) 12, Alkaline Phosphatase 229H, C-Reactive Protein, Quantitative 1.0H, Pro-B-Type Natriuretic Peptide 283H, Total Protein 5.8L, Albumin 2.7L, Globulin 3.1, Albumin/Globulin Ratio 0.9L Current Medications Medications (Trade) Dose Ordered Sig/Ramon Route PRN Reason Start Time Stop Time Status Last Admin Dose Admin Acetaminophen (Tylenol) 650 mg Q6H PRN ORAL Mild Pain/Temp > 100.5 08/13/17 23:15 09/12/17 23:14 08/24/17 16:42 Allopurinol (Allopurinol) 300 mg DAILY ORAL 08/21/17 09:00 09/20/17 08:59 08/26/17 08:19 Aspirin (ASA) 81 mg DAILY ORAL 08/14/17 09:00 09/13/17 08:59 08/26/17 08:20 Baclofen (Lioresal) 10 mg Q8H PRN ORAL muscle spasm 08/19/17 13:15 09/18/17 13:14 08/24/17 03:23 Carisoprodol (Soma) 350 mg TIDPRN PRN ORAL Breakthrough Muscle Spasms 08/22/17 19:00 09/21/17 18:59 08/26/17 08:22 Cefepime HCl 2 gm/ Dextrose 55 ml @ 110 mls/hr Q12H IVPB 08/22/17 15:00 08/29/17 14:59 08/26/17 04:41 Dextrose (Dextrose 50%) STAT PRN IV Hypoglycemia 08/13/17 23:15 09/12/17 23:14 Dextrose/Sodium Chloride 1,000 ml @ 100 mls/hr Q10H IV 08/21/17 16:00 09/20/17 15:59 08/26/17 06:20 Diphenhydramine HCl (Benadryl) 50 mg BEDTIME ORAL 08/14/17 21:00 09/13/17 20:59 08/25/17 20:51 Dronabinol (Marinol) 5 mg TID ORAL 08/20/17 13:00 09/19/17 12:59 08/26/17 08:20 Gabapentin (Neurontin) 600 mg THREE TIMES A DAY ORAL 08/23/17 13:00 09/22/17 12:59 08/26/17 08:20 Hydromorphone HCl (Dilaudid) 2 mg Q3H PRN IVP Severe Pain (Pain Scale 7-10) 08/22/17 16:00 08/29/17 15:59 08/25/17 14:36 Insulin Aspart (NovoLOG) BEFORE MEALS AND HS SUBQ 08/14/17 06:30 09/13/17 06:29 08/26/17 06:47 Magnesium Oxide (Mag-Ox 400mg) 400 mg THREE TIMES A DAY ORAL 08/24/17 14:45 09/23/17 14:44 08/26/17 08:20 Methadone HCl (Methadone HCl) 80 mg DAILY ORAL 08/23/17 09:00 08/30/17 08:59 08/26/17 08:23 Naloxegol (Movantik) 25 mg DAILY ORAL 08/24/17 10:00 09/23/17 09:59 08/26/17 08:19 Ondansetron HCl (Zofran) 4 mg EVERY 4 HOURS PRN IVP Nausea & Vomiting 08/13/17 23:15 09/12/17 23:14 08/16/17 10:58 Oxycodone/ Acetaminophen (Percocet 10/325) 1 tab Q4H PRN ORAL Moderate Pain (Pain Scale 4-6) 08/23/17 09:00 08/30/17 08:59 08/25/17 03:43 Phosphorus (Phospha 250 Neutral) 250 mg THREE TIMES A DAY ORAL 08/26/17 14:00 09/25/17 13:59 Sanjay StewartSanam bowser NP Aug 26, 2017 12:30
--- NOTE | 2017-08-26 13:48 | Internal Med Progress Note ---
Subjective Physician Name Luann Regalado Attending Physician Tyrone Barba MD Current Medications Medications (Trade) Dose Ordered Sig/Ramon Route PRN Reason Start Time Stop Time Status Last Admin Dose Admin Acetaminophen (Tylenol) 650 mg Q6H PRN ORAL Mild Pain/Temp > 100.5 08/13/17 23:15 09/12/17 23:14 08/24/17 16:42 Allopurinol (Allopurinol) 300 mg DAILY ORAL 08/21/17 09:00 09/20/17 08:59 08/26/17 08:19 Aspirin (ASA) 81 mg DAILY ORAL 08/14/17 09:00 09/13/17 08:59 08/26/17 08:20 Baclofen (Lioresal) 10 mg Q8H PRN ORAL muscle spasm 08/19/17 13:15 09/18/17 13:14 08/24/17 03:23 Carisoprodol (Soma) 350 mg TIDPRN PRN ORAL Breakthrough Muscle Spasms 08/22/17 19:00 09/21/17 18:59 08/26/17 08:22 Cefepime HCl 2 gm/ Dextrose 55 ml @ 110 mls/hr Q12H IVPB 08/22/17 15:00 08/29/17 14:59 08/26/17 04:41 Dextrose (Dextrose 50%) STAT PRN IV Hypoglycemia 08/13/17 23:15 09/12/17 23:14 Dextrose/Sodium Chloride 1,000 ml @ 100 mls/hr Q10H IV 08/21/17 16:00 09/20/17 15:59 08/26/17 06:20 Diphenhydramine HCl (Benadryl) 50 mg BEDTIME ORAL 08/14/17 21:00 09/13/17 20:59 08/25/17 20:51 Dronabinol (Marinol) 5 mg TID ORAL 08/20/17 13:00 09/19/17 12:59 08/26/17 08:20 Gabapentin (Neurontin) 600 mg THREE TIMES A DAY ORAL 08/23/17 13:00 09/22/17 12:59 08/26/17 08:20 Hydromorphone HCl (Dilaudid) 2 mg Q3H PRN IVP Severe Pain (Pain Scale 7-10) 08/22/17 16:00 08/29/17 15:59 08/26/17 12:34 Insulin Aspart (NovoLOG) BEFORE MEALS AND HS SUBQ 08/14/17 06:30 09/13/17 06:29 08/26/17 06:47 Magnesium Oxide (Mag-Ox 400mg) 400 mg THREE TIMES A DAY ORAL 08/24/17 14:45 09/23/17 14:44 08/26/17 08:20 Methadone HCl (Methadone HCl) 80 mg DAILY ORAL 08/23/17 09:00 08/30/17 08:59 08/26/17 08:23 Naloxegol (Movantik) 25 mg DAILY ORAL 08/24/17 10:00 09/23/17 09:59 08/26/17 08:19 Ondansetron HCl (Zofran) 4 mg EVERY 4 HOURS PRN IVP Nausea & Vomiting 08/13/17 23:15 09/12/17 23:14 08/16/17 10:58 Oxycodone/ Acetaminophen (Percocet 10/325) 1 tab Q4H PRN ORAL Moderate Pain (Pain Scale 4-6) 08/23/17 09:00 08/30/17 08:59 08/25/17 03:43 Phosphorus (Phospha 250 Neutral) 250 mg THREE TIMES A DAY ORAL 08/26/17 14:00 09/25/17 13:59 Allergies: Coded Allergies: No Known Allergies (Unverified , 08/13/17) ROS Limited/Unobtainable: No Constitutional: Reports: no symptoms HEENT: Reports: no symptoms Cardiovascular: Reports: no symptoms Respiratory: Reports: no symptoms Gastrointestinal/Abdominal: Reports: abdominal pain Genitourinary: Reports: no symptoms Neurologic/Psychiatric: Reports: weakness Subjective 61 YO M admitted with bilateral leg weakness and pain. Now severe anemia - S/P transfusion. Patient daughter, Sundar Cervantes, to sign out against medical advise to take patient to [facility]. S/P endoscopy and colonoscopy 08/16/17. Cover for Int Med-Dr Barba. Patient now on methadone. Objective Last Vital Signs Date Time Temp Pulse Resp B/P (MAP) Pulse Ox O2 Delivery O2 Flow Rate FiO2 08/26/17 11:29 98.8 111 20 144/80 100 Room Air Laboratory Tests Test 08/26/17 06:30 White Blood Count 3.5 K/UL (4.8-10.8) L Red Blood Count 2.80 M/UL (4.70-6.10) L Hemoglobin 8.0 G/DL (14.2-18.0) L Hematocrit 24.8 % (42.0-52.0) L Mean Corpuscular Volume 89 FL (80-99) Mean Corpuscular Hemoglobin 28.7 PG (27.0-31.0) Mean Corpuscular Hemoglobin Concent 32.4 G/DL (32.0-36.0) Red Cell Distribution Width 15.1 % (11.6-14.8) H Platelet Count 100 K/UL (150-450) L Mean Platelet Volume 5.7 FL (6.5-10.1) L Neutrophils (%) (Auto) 52.7 % (45.0-75.0) Lymphocytes (%) (Auto) 32.4 % (20.0-45.0) Monocytes (%) (Auto) 8.7 % (1.0-10.0) Eosinophils (%) (Auto) 4.9 % (0.0-3.0) H Basophils (%) (Auto) 1.4 % (0.0-2.0) Sodium Level 142 MMOL/L (136-145) Potassium Level 4.0 MMOL/L (3.5-5.1) Chloride Level 109 MMOL/L (98-107) H Carbon Dioxide Level 25 MMOL/L (21-32) Anion Gap 8 mmol/L (5-15) Blood Urea Nitrogen 11 mg/dL (7-18) Creatinine 0.9 MG/DL (0.55-1.30) Estimat Glomerular Filtration Rate > 60 mL/min (>60) Glucose Level 107 MG/DL (74-106) H Calcium Level 8.0 MG/DL (8.5-10.1) L Phosphorus Level 2.1 MG/DL (2.5-4.9) L Magnesium Level 1.6 MG/DL (1.8-2.4) L Total Bilirubin 0.3 MG/DL (0.2-1.0) Aspartate Amino Transf (AST/SGOT) 28 U/L (15-37) Alanine Aminotransferase (ALT/SGPT) 12 U/L (12-78) Alkaline Phosphatase 229 U/L (46-116) H C-Reactive Protein, Quantitative 1.0 mg/dL (0.00-0.90) H Pro-B-Type Natriuretic Peptide 283 pg/mL (0-125) H Total Protein 5.8 G/DL (6.4-8.2) L Albumin 2.7 G/DL (3.4-5.0) L Globulin 3.1 g/dL Albumin/Globulin Ratio 0.9 (1.0-2.7) L Intake and Output 08/25/17 08/26/17 19:00 07:00 Intake Total 650 ml 560 ml Output Total 550 ml 550 ml Balance 100 ml 10 ml Intake Oral 650 ml 560 ml Output Urine Total 550 ml 550 ml Objective General Appearance: WD/WN, no apparent distress, alert EENT: PERRL/EOMI, normal ENT inspection, TMs normal Neck: non-tender, normal alignment, supple, normal inspection Cardiovascular: normal peripheral pulses, normal rate, regular rhythm, no gallop/murmur, no JVD Respiratory/Chest: chest wall non-tender, lungs clear, normal breath sounds, no respiratory distress, no accessory muscle use Abdomen: normal bowel sounds, non tender, soft, no organomegaly, no mass Extremities: normal range of motion, non-tender Neurologic: heating and refrigeration inspector II-XII grossly normal Skin: normal pigmentation, warm/dry Assessment/Plan Problem List: (1) Severe anemia Assessment & Plan: S/P transfusion 4 unit PRBC total.. S/P endoscopy and colonoscopy 08/16/17. See hematology consult note (2) Pain in both lower legs (3) Weakness of both legs (4) HTN (hypertension) Assessment & Plan: Continue lisinopril (5) Diabetes mellitus, type II Assessment & Plan: Continue novolog sliding scale. (6) Hypercholesteremia Assessment & Plan: continue pravachol (7) Peripheral vascular disease (8) Hepatitis C virus infection resolved after antiviral drug therapy (9) Methadone maintenance therapy patient Assessment & Plan: See pain management consult-restart methadone (10) Prostate cancer metastatic to bone Assessment & Plan: PSA >5000. Start casodex. See oncology note. Await second opinion @ [facility] when bed available Status: not improved Assessment/Plan Discharge planning: Patient daughter, Sundar Cervantes to sign out against medical advise to transfer to [facility] for eval today LUANN REGALADO Aug 26, 2017 13:48
[2017-08-26] MEDS ORDERED: Phospha 250 Neutral tab ORAL SCH (14:00)
[2017-08-26] MEDS ORDERED: Tubing IV Secondary IV ONE (14:02)
[2017-08-26] MEDS ORDERED: D5NS 1000ml IV ONE (14:02)
--- NOTE | 2017-08-26 14:05 | General Progress Note ---
Assessment/Plan Assessment/Plan (1) Intractable back pain (2) Metastatic Prostate Cancer (3) Thoracic Compression Fracture (4) Lumbar Spinal stenosis (5) Lumbar Radiculopathy (6) Opioid induced constipation Pt to be continued on Neurontin, Percocet, Methadone and Dilaudid. D/w Dr. Aburto and he concurred. Subjective Date patient seen: Aug 26, 2017 Time patient seen: 01:15 - pm Allergies: Coded Allergies: No Known Allergies (Unverified , 08/13/17) Subjective REVIEW OF SYSTEMS: Denies rash, fever, chills, sweating, dizziness, drowsiness, blurred vision, sore throat, or change in his weight. No nausea, vomiting, diarrhea, or blood in the stool or urine. No bowel or bladder incontinence. No dysuria. He is complaining of back pain. SUBJECTIVE: Pt is in bed with family at bed side. His pain has been well controlled and tolerated on the Methadone, Dilaudid and Percocet. Rating his pain at a 6/10 at this time. Objective Last 24 Hour Vital Signs Date Time Temp Pulse Resp B/P (MAP) Pulse Ox O2 Delivery O2 Flow Rate FiO2 08/26/17 11:29 98.8 111 20 144/80 100 Room Air 08/26/17 08:00 98.8 107 20 128/73 96 Room Air 08/26/17 04:00 98.0 88 20 116/68 98 Room Air 08/26/17 00:00 100.0 85 19 104/65 99 Room Air 08/25/17 20:00 99.6 73 18 121/72 98 Room Air 08/25/17 16:00 98.9 112 21 131/74 95 Room Air Intake and Output 08/25/17 08/26/17 19:00 07:00 Intake Total 650 ml 560 ml Output Total 550 ml 550 ml Balance 100 ml 10 ml Intake Oral 650 ml 560 ml Output Urine Total 550 ml 550 ml Laboratory Tests 08/26/17 06:30: White Blood Count 3.5L, Red Blood Count 2.80L, Hemoglobin 8.0L, Hematocrit 24.8L , Mean Corpuscular Volume 89, Mean Corpuscular Hemoglobin 28.7, Mean Corpuscular Hemoglobin Concent 32.4, Red Cell Distribution Width 15.1H, Platelet Count 100L, Mean Platelet Volume 5.7L, Neutrophils (%) (Auto) 52.7, Lymphocytes (%) (Auto) 32.4, Monocytes (%) (Auto) 8.7, Eosinophils (%) (Auto) 4.9H, Basophils (%) (Auto) 1.4, Sodium Level 142, Potassium Level 4.0, Chloride Level 109H, Carbon Dioxide Level 25, Anion Gap 8, Blood Urea Nitrogen 11, Creatinine 0.9, Estimat Glomerular Filtration Rate > 60, Glucose Level 107H, Calcium Level 8.0L, Phosphorus Level 2.1L, Magnesium Level 1.6L, Total Bilirubin 0.3, Aspartate Amino Transf (AST/SGOT) 28, Alanine Aminotransferase ( ALT/SGPT) 12, Alkaline Phosphatase 229H, C-Reactive Protein, Quantitative 1.0H, Pro-B-Type Natriuretic Peptide 283H, Total Protein 5.8L, Albumin 2.7L, Globulin 3.1, Albumin/Globulin Ratio 0.9L Height (Feet): 6 Weight (Pounds): 165 Objective GENERAL: Alert, awake, and oriented. HEENT: PERRLA. NECK: Range of motion is full in all directions. No tenderness. No adenopathy. LUNGS: Decreased breath sounds bilaterally. ABDOMEN: Tenderness to palpation. BACK: Range of motion is decreased in flexion and extension with tenderness to paraspinal muscles. No tenderness to trapezius and rhomboid muscles. EXTREMITIES: No cyanosis. No clubbing. No edema. NEURO: No changes. BIANCA MURRELL Aug 26, 2017 14:05
--- NOTE | 2017-08-26 23:46 | General Progress Note ---
Assessment/Plan Assessment/Plan ASSESSMENT AND RECOMMENDATIONS: # Metastatic prostate cancer, psa is >5000, as well as clinical findings of bone mets --> ongoing casodex and consider lupron once discharged --> Continue treatment as outpatient. --> recommend outpatient urology eval with prostate biopsy # Pancytopenia, most etiology looks like related to underlying hepatitis C status post treatment. The patient's spleen is mildly enlarged. --> Does not need blood transfusion today. --> also component related to stage iv prostate ca --> hgb goal >7, plt goal >20k --> trend cbc levels daily. # Lymphadenopathy as well as osseous metastasis is noted on CT scan. --> likely from prostate ca #. Hepatitis C status post treatment with Harvoni. --> HCV not detected in latest lab #. Coagulopathy likely secondary to underlying hepatitis C and liver cirrhosis. --> On anticoag #. Hyperuricemia and elevated psa #. Anemia. Colonoscopy shows internal hemorrhoids. --> EGD also revealed hernia, distal esophageal ring, gastritis, and evidence for bile reflux Subjective Date patient seen: Aug 26, 2017 Constitutional: Denies: no symptoms, chills, diaphoresis, fever, malaise, weakness, other HEENT: Denies: no symptoms, eye pain, blurred vision, tearing, double vision, ear pain, ear discharge, nose pain, nose congestion, throat pain, throat swelling, mouth pain, mouth swelling, other Cardiovascular: Denies: no symptoms, chest pain, edema, irregular heart rate, lightheadedness, palpitations, syncope, other Respiratory: Denies: no symptoms, cough, orthopnea, shortness of breath, SOB with excertion, SOB at rest, sputum, stridor, wheezing, other Gastrointestinal/Abdominal: Denies: no symptoms, abdomen distended, abdominal pain, black stools, tarry stools, blood in stool, constipated, diarrhea, difficulty swallowing, nausea, poor appetite, poor fluid intake, rectal bleeding , vomiting, other Genitourinary: Denies: no symptoms, burning, discharge, frequency, flank pain, hematuria, incontinence, pain, urgency, other Allergies: Coded Allergies: No Known Allergies (Unverified , 08/13/17) Subjective On pain control. Has been feeling better. Family at bedside. Objective Last 24 Hour Vital Signs Date Time Temp Pulse Resp B/P (MAP) Pulse Ox O2 Delivery O2 Flow Rate FiO2 08/26/17 11:29 98.8 111 20 144/80 100 Room Air 08/26/17 08:00 98.8 107 20 128/73 96 Room Air 08/26/17 04:00 98.0 88 20 116/68 98 Room Air 08/26/17 00:00 100.0 85 19 104/65 99 Room Air Intake and Output 08/25/17 08/26/17 19:00 07:00 Intake Total 650 ml 560 ml Output Total 550 ml 550 ml Balance 100 ml 10 ml Intake Oral 650 ml 560 ml Output Urine Total 550 ml 550 ml Laboratory Tests 08/26/17 06:30: White Blood Count 3.5L, Red Blood Count 2.80L, Hemoglobin 8.0L, Hematocrit 24.8L , Mean Corpuscular Volume 89, Mean Corpuscular Hemoglobin 28.7, Mean Corpuscular Hemoglobin Concent 32.4, Red Cell Distribution Width 15.1H, Platelet Count 100L, Mean Platelet Volume 5.7L, Neutrophils (%) (Auto) 52.7, Lymphocytes (%) (Auto) 32.4, Monocytes (%) (Auto) 8.7, Eosinophils (%) (Auto) 4.9H, Basophils (%) (Auto) 1.4, Sodium Level 142, Potassium Level 4.0, Chloride Level 109H, Carbon Dioxide Level 25, Anion Gap 8, Blood Urea Nitrogen 11, Creatinine 0.9, Estimat Glomerular Filtration Rate > 60, Glucose Level 107H, Calcium Level 8.0L, Phosphorus Level 2.1L, Magnesium Level 1.6L, Total Bilirubin 0.3, Aspartate Amino Transf (AST/SGOT) 28, Alanine Aminotransferase ( ALT/SGPT) 12, Alkaline Phosphatase 229H, C-Reactive Protein, Quantitative 1.0H, Pro-B-Type Natriuretic Peptide 283H, Total Protein 5.8L, Albumin 2.7L, Globulin 3.1, Albumin/Globulin Ratio 0.9L Height (Feet): 6 Weight (Pounds): 165 Cardiovascular: normal rate Respiratory/Chest: decreased breath sounds Abdomen: non tender, soft Emerson Camara Aug 26, 2017 23:46
--- NOTE | 2017-08-28 09:33 | Discharge Summary ---
Discharge Summary Hospital Course Date of Admission Aug 13, 2017 at 22:02 Date of Discharge Aug 26, 2017 at 14:03 Admitting Diagnosis HPI Judah Ly is a 61 year old male who was admitted on Aug 13, 2017 at 22:02 for Anemia,Hypercalcemia Hospital Course dc summary #[id number] Discharge Discharge Disposition Patient signed AMA Discharge Diagnoses: Sanjay ([facility]),Sanam ROCK Aug 28, 2017 09:33
--- NOTE | 2017-08-28 23:00 | Discharge Summary 2 SIG ---
DATE OF ADMISSION: 08/13/2017 DATE OF SIGNING AGAINST MEDICAL ADVICE: 08/26/2017 REASON FOR ADMISSION: 61-year-old male with past medical history of diabetes, hypertension, methadone maintenance therapy, and hepatitis C, presented to [facility] initially. Patient was found to have anemia. The patient lost 20 pounds in the last few months. The patient complained of shooting pain in the legs. Calcium -11.3.The patient was transferred to [facility] for further management with diagnoses of anemia, hypercalcemia, weight loss of more than 10% of body weight, diabetes, and methadone maintenance therapy. HOSPITAL COURSE: The patient was admitted. GI, Nephrology, Pulmonology, Hematology/Oncology, and ID consults were requested. Hemoglobin and hematocrit were closely monitored. Upon admission, hemoglobin- 6.7 and hematocrit -21.0. The patient was pancytopenic with WBC - 3.5 and platelets- 67. The patient underwent transfusion of packed red blood cells. The patient was started on IV fluids. The patient underwent CT of the abdomen and pelvis initially, which revealed lymphadenopathy and diffuse osseous metastasis. Base Remover/oncologist closely followed. Cancer tumor markers revealed CA-15-3- 40.5, [address] [place] - over 5000. Alpha-fetoprotein was within normal limits. Bone scan was consistent with metastatic neoplasm and lumbar MRI was consistent with diffuse osseous metastases. Pain specialist followed. Pain management was optimized and addressed as per pain specialist recommendation. The patient was transfused total of 4 units of packed red blood cells. Anemia workup was consistent with anemia of chronic disease. The patient with a hepatitis C, status post treatment. According to snow plow tractor operator, pancytopenia was most likely related to underlying hepatitis C. Counts were closely monitored with goal to keep hemoglobin above 7 and platelet count above 20. Prior to signing against medical advice, hemoglobin - 8, hematocrit - 24.8 and platelets up to 100. According to oncologist, the patient had prostate CA with metastasis to bone. The patient was started on Casodex. Oncologist recommended Lupron once the patient discharged and continue treatment as outpatient. He also recommended outpatient urology evaluation for prostate biopsy. Patient was on waiting list for transfer to a higher level of care for further management of metastatic cancer. The patient initially demonstrated acute renal failure with BUN -19 and creatinine -1.6. Nephrology closely followed. Renal ultrasound was negative. The patient was on the IV fluids. Aredia was given for hypercalcemia. The patient was off nonsteroidal anti-inflammatory, RHONDA inhibitor, and statin. Acute tubular necrosis resolved. Creatinine was down to 0.9 prior to signing against medical advice. Electrolytes were closely monitored and corrected as needed per substation inspector. Calcium improved after Aredia infusion, Noted elevated uric acid. Allopurinol added to existing regimen. ID closely followed the patient. Blood culture, initial and repeated, both negative. The patient had a low-grade fever, likely related to metastatic process as per ID. The patient was on empiric antibiotics. GI closely followed. The patient had an EGD and colonoscopy performed, which revealed distal esophageal ring, medium-sized hiatal hernia, evidence of bile reflux, gastritis status post biopsy, internal hemorrhoids, and poor colonoscopy preparation. Pathology of of the stomach antrum revealed minimal focal chronic gastritis, but was negative for Helicobacter with a fragment of benign gastric mucosa. Abdominal ultrasound revealed no liver lesions, but showed mild splenomegaly. Chest x-ray was negative. Supplemental oxygen and pulmonary toilet were on board as needed. Pulse oximetry was stable on room air. Diet was advanced as tolerated. Antiemetics were on board as needed. The patient was started on Marinol for appetite improvement. Nutritional recommendations implemented. Bowel regimen instituted. The patient was on PPI. Blood sugar was managed with sliding scale of insulin. Hemoglobin A1c - 6.7, at goal. Family initially desired transfer to [facility], but no emergency department in [facility]. All admissions done through the clinics, which was explained to the patient and his daughter. manager data warehousing placed a call to [facility] who denied transfer. Patient and his daughter subsequently decided to sign against medical advice and go to another hospital with higher level of care to start treatment. The risks and consequences of signing against medical advise were discussed with the patient and family, who verbalized understanding, signed AMA form and left. FINAL DIAGNOSES: 1. Metastatic prostate cancer with metastasis to bone. 2. Pathological spine fracture T12-L1 (as seen on imaging). 3. Severe anemia requiring blood transfusion. 4. Pancytopenia. 5. Possible sepsis. 6. Hypercalcemia,likely due to malignancy- resolved. 7. Intractable back pain secondary to bone metastases. 8. Hepatitis C infection, status post treatment. 9. Severe weight loss, more than 10% of body weight. 10. Severe protein-calorie malnutrition. 11. Diabetes mellitus. 12. Acute tubular necrosis, resolved. 13. Lumbar radiculopathy. 14. Lumbar spinal stenosis. 15. Methadone maintenance therapy patient. 16. Hyperuricemia. Tyrone Barba M.D. [facility]cosRoche[facility] Regional HealthYusuf NMaddy DR: YESI JOB#: [id number] CC: JACKY
== END 2017-08-26 14:03 | disposition left against medical advice (07) | DRG 542 ==
LOC: 3E 22:02
PROC: 30233N1 Transfusion of Nonautologous Red Blood Cells into Peripheral Vein, Percutaneous Approach (ICD-10-PCS; principal; 2017-08-14)
PROC: 0DJD8ZZ Inspection of Lower Intestinal Tract, Via Natural or Artificial Opening Endoscopic (ICD-10-PCS; 2017-08-16 07:23)
PROC: 0DB78ZX Excision of Stomach, Pylorus, Via Natural or Artificial Opening Endoscopic, Diagnostic (ICD-10-PCS; 2017-08-16 07:23)
DX: C79.51 Secondary malignant neoplasm of bone (principal); E43 Unspecified severe protein-calorie malnutrition; N17.0 Acute kidney failure with tubular necrosis; D61.818 Other pancytopenia; D68.4 Acquired coagulation factor deficiency; K74.60 Unspecified cirrhosis of liver; F11.20 Opioid dependence, uncomplicated; M48.55XA Collapsed vertebra, not elsewhere classified, thoracolumbar region, initial encounter for fracture; E83.52 Hypercalcemia; C61 Malignant neoplasm of prostate; R63.4 Abnormal weight loss; E11.9 Type 2 diabetes mellitus without complications; K29.70 Gastritis, unspecified, without bleeding; Z68.22 Body mass index [BMI] 22.0-22.9, adult; I10 Essential (primary) hypertension; E78.00 Pure hypercholesterolemia, unspecified; I73.9 Peripheral vascular disease, unspecified; D63.8 Anemia in other chronic diseases classified elsewhere; M48.061 Spinal stenosis, lumbar region without neurogenic claudication; M54.16 Radiculopathy, lumbar region; Z86.19 Personal history of other infectious and parasitic diseases; R59.1 Generalized enlarged lymph nodes; E79.0 Hyperuricemia without signs of inflammatory arthritis and tophaceous disease; K64.8 Other hemorrhoids; F10.21 Alcohol dependence, in remission; K22.2 Esophageal obstruction; K44.9 Diaphragmatic hernia without obstruction or gangrene; K59.00 Constipation, unspecified; T40.2X5A Adverse effect of other opioids, initial encounter
CPT/HCPCS: 36415; 71045; 72148; 74177; 76700; 76775; 78306; 80048; 80053; 80061; 80076; 81001; 81270; 82105; 82306; 82378; 82550; 82607; 82728; 82746; 82962; 82977; 83036; 83540; 83550; 83615; 83735; 83880; 83970; 84100; 84133; 84153; 84238; 84300; 84443; 84550; 85007; 85025; 85044; 85060; 85610; 85651; 85730; 86140; 86300; 86703; 86705; 86709; 86803; 86850; 86900; 86901; 86920; 87040; 87340; 87522; 89050; 94003; 94150; J1815; J2250; J2405; J2430